=== PATIENT | female | born 1945 | race Caucasian/White ===

== ENCOUNTER 2016-08-18 18:24 | Inpatient (IN) | payer OTHER ==
[~2016-08-18] VITALS: Ht 170.2 cm; Wt 73.4 kg
[~2016-08-18 18:24] MED LIST: ATOR-22 PO; CALC600T48 PO; CHOL100010 PO; CLX/20 PO; MAGN400T6 PO; NRN100 PO; RXC5 PO; ULT/50 PO; VNTHFA/IN INH; ZNTT/150 PO
[2016-08-18] MEDS ORDERED: SODIUM CHLORIDE 0.9% 1000ML 1,000 ML IV STA ×2 (18:35)
[2016-08-18 19:03] LABS: VEN BLD GAS O2 SATURATION 63.4 %; VEN BLOOD GAS BASE EXCESS 2.6 mmol/L
[2016-08-18 19:09] LABS: BASO % 0.1 %; BASO ABS # 0.01 K/uL (0-0.2); COMPLETE YES; HEMATOCRIT 32.7 % (37-47); IG% 0.3 %; LYMPH % 10.5 %; LYMPH ABS # 0.84 K/uL (1.2-3.4); MEAN CELL VOLUME 98.8 fL (80-100); MEAN CORPUSCULAR HEMOGLOBIN 29.3 pg (25-34); MEAN CORPUSCULAR HGB CONC 29.7 g/dl (32-36); MEAN PLATELET VOLUME 9.5 fL (7.4-10.4); MONO % 9.9 %; NEUT % 77.2 %; PLATELET COUNT 211 K/uL (130-400); RED BLOOD COUNT 3.31 M/uL (4.2-5.4); WHITE BLOOD COUNT 7.98 K/uL (4.8-10.8)
--- NOTE | 2016-08-18 19:13 | DIAGNOSTIC IMAGING REPORT ---
CT SCAN OF THE BRAIN WITHOUT IV CONTRAST CLINICAL HISTORY: Generalized weakness. Falls. COMPARISON STUDY: CT of the brain dated 11/27/2014. TECHNIQUE: Unenhanced axial CT scan of the brain is performed from the vertex to the skull base. CT DOSE: 1070.57 mGy.cm FINDINGS: Brain parenchyma: There are age-related involutional changes noting [id number]-tsefyurs patchy subcortical and periventricular microangiopathic change. There is no hemorrhage, mass effect, or evidence of acute territorial ischemia by CT criteria. Buenrostro-white matter is preserved. No extra-axial fluid collection is seen. Ventricles, sulci, cisterns: Prominent secondary to involutional change. Intracranial vasculature: There is atherosclerotic calcification of the cavernous carotid arteries. Calvarium: The skeletal structures are osteopenic. No depressed calvarial fracture is seen. Sinuses and mastoids: The visualized paranasal sinuses are clear. The mastoid air cells are under pneumatized but appear clear. Orbits: The bony orbits are grossly intact. IMPRESSION: There is no hemorrhage, mass effect, or evidence of acute territorial ischemia by CT criteria. Electronically signed by: Jm Holliday M.D. 08/18/2016 7:11 PM Dictated Date/Time: 08/18/2016 7:09 PM
[2016-08-18 19:18] LABS: INR 0.9 (0.9-1.1); PARTIAL THROMBOPLASTIN RATIO 0.9
--- NOTE | 2016-08-18 19:22 | DIAGNOSTIC IMAGING REPORT ---
CT SCAN OF THE CERVICAL SPINE CLINICAL HISTORY: Fall. COMPARISON STUDY: CT of the neck dated 11/30/2014. TECHNIQUE: CT scan of the cervical spine is performed from the skull base to the upper thoracic spine. Images are reviewed in the axial, sagittal, and coronal planes. IV contrast was not administered for this examination. CT DOSE: Reported separately under the concurrently performed CT scan of the brain. FINDINGS: Skeletal structures: The skeletal structures are osteopenic. There is no evidence of fracture or subluxation involving the cervical spine. Vertebral body height and alignment are maintained. There is straightening of the cervical lordosis. Anterior osteophytes are seen throughout. The odontoid process and lateral masses are intact. The atlantoaxial articulation is preserved noting productive degenerative change with bony sclerosis and narrowing of the intervertebral. The spinous processes appear intact. There is mild to moderate multilevel cervical spondylosis. Uncovertebral and facet arthropathy contribute sterile foraminal narrowing at several levels. Intervertebral discs: Jfkz-mi-[id number] degenerative disc space narrowing seen at C4-C5 and C5-C6. The remaining disc spaces appear maintained. Central canal: A posterior disc osteophyte complex at C5-C6 may contribute to mild acquired compromise of the central canal. Soft tissues: The prevertebral and paraspinous soft tissues are within normal limits. Foci of intravenous gas are incidentally noted in the upper chest. There is atherosclerotic calcification of the carotid bulbs. Calvarium: The visualized calvarium at the skull base appears intact. Brain parenchyma: Partially visualized brain parenchyma the skull base is within normal limits. Sinuses and mastoids: The visualized paranasal sinuses are clear. The mastoid air cells are well pneumatized. Lung apices: Emphysematous change is present at the lung apices. Imaged apical lung parenchyma is clear as visualized. IMPRESSION: 1. There is no evidence of fracture or subluxation involving the cervical spine. 2. Osteopenia and degenerative change as above. Electronically signed by: Jm Holliday M.D. 08/18/2016 7:21 PM Dictated Date/Time: 08/18/2016 7:16 PM
[2016-08-18 19:29] LABS: ALT/SGPT 27 U/L (12-78); BLOOD UREA NITROGEN 33 mg/dl (7-18); BUN/CREATININE RATIO 13.1 (10-20); CALCIUM 8.2 mg/dl (8.5-10.1); CARBON DIOXIDE 29 mmol/L (21-32); CHLORIDE 108 mmol/L (98-107); GLUCOSE 90 mg/dl (70-99); MAGNESIUM 2.8 mg/dl (1.8-2.4); POTASSIUM 5.2 mmol/L (3.5-5.1); SODIUM 142 mmol/L (136-145)
[2016-08-18 19:37] LABS: ALKALINE PHOSPHATASE 147 U/L (45-117); AST/SGOT 33 U/L (15-37); CKMB/CK RATIO 1.5 (0-3.0); THYROID STIMULATING HORMONE 0.783 uIu/ml (0.300-4.500)
[2016-08-18 19:43] LABS: URINE APPEARANCE CLOUDY (CLEAR); URINE COLOR DK YELLOW; URINE EPITHELIAL CELL AUTO 20-30 /lpf (0-5); URINE NITRITE NEG (NEG); URINE SPECIFIC GRAVITY 1.021 (1.000-1.030); UROBILINOGEN NEG (NEG)
--- NOTE | 2016-08-18 19:46 | DIAGNOSTIC IMAGING REPORT ---
SINGLE VIEW CHEST CLINICAL HISTORY: Generalized weakness. FINDINGS: An AP, portable, semierect chest radiograph is compared to chest x-ray and chest CT dated 02/15/2016. The examination is degraded by portable technique and patient rotation. The heart is enlarged and there is atherosclerotic calcification of the thoracic aorta. The pulmonary vasculature is noncongested. Enlargement of the central pulmonary arteries suggests pulmonary artery hypertension. Emphysema and chronic interstitial thickening are similar to previous. There is bibasilar atelectasis. There is no airspace consolidation typical for pneumonia or large pleural effusion. No pneumothorax is seen. The skeletal structures are osteopenic. The bony thorax is grossly intact. IMPRESSION: Cardiomegaly and emphysema with no acute cardiopulmonary abnormality. Electronically signed by: Jm Holliday M.D. 08/18/2016 7:45 PM Dictated Date/Time: 08/18/2016 7:43 PM
[2016-08-18] MEDS ORDERED: NALOXONE HCL 0.4 MG/1 ML VIAL/CARP IV STA ×5 (19:53→22:37)
[2016-08-18 20:41] LABS: MANUAL MICROSCOPIC REQUIRED? NO; REVIEW REQ? YES; URINE BILIRUBIN NEG (NEG)
[2016-08-18 20:47] LABS: URINE PATH CASTS 0-3 GRANULAR CASTS /lpf (0)
[2016-08-18] MEDS ORDERED: ALBUT/IPRATROP 3MG/0.5MG NEB 3 ML VIAL INH STA (21:23)
[2016-08-18] MEDS ORDERED: SODIUM CHLORIDE 0.9% 1000ML 1,000 ML IV SCH (21:36)
[2016-08-18] MEDS ORDERED: CEFTRIAXONE SOD INJ 1 GM ADDVIAL IV STA ×2 (21:36→22:37)
--- NOTE | 2016-08-18 21:44 | History and Physical ---
History & Physical Date & Time of Service: Aug 18, 2016 at 21:43 Chief Complaint: Falls, Weakness, Primary Care Physician: Luli Jones M.D. History of Present Illness Source: patient, spouse, clinic records, hospital records, other (unable to currently obtain history from patient secondary to obtunded state) Recent confinement, January 2016 for hypoxemia attributed to atelectasis from sternal fracture. At time of discharge patient oxygenating well on room air. Patient had a follow-up visit with PCP a few days ago. As per outpatient note, patient hasn't been well since injury from months back. Short of breath especially with exertion. Back pain, achy some trouble with walking. Outpatient chest x-ray showed COPD. Back x-ray showed arthritis. At PCPs office, patient noted to be hypoxemic 70s which improved with some rest. Patient refused home O2 as per records. Patient prescribed oxycodone twice a day as needed for back pain. As per patient's , patient has not been well the last 2 days. Weak and having trouble walking. Patient fell down yesterday, a little confused as per . Patient not sure if patient passed out. At the emergency room, patient noted to have decreased mentation with some improvement after Narcan administration. Patient currently obtunded. Past Medical/Surgical History Medical Problems: (1) Anxiety Status: Chronic (2) CKD (chronic kidney disease) stage 3, GFR 30-59 ml/min Status: baseline crea 1.3 (3) COPD, severe Status: Chronic (4) Depression Status: Chronic (5) Dyslipidemia Status: Chronic (6) Generalized osteoarthritis Status: Chronic (7) Stress incontinence Status: Chronic Surgical Problems: (1) Hx of cholecystectomy Status: Resolved (2) Hx of oophorectomy Status: Resolved (3) S/P appendectomy Status: Resolved Gastric surgery Family History Patient reports no known family medical history. DM, hypertension as per previous documentation Social History Past tobacco abuse Smoking Status: Former Smoker Drug Use: none Marital Status: Housing status: lives with family Occupational Status: retired Immunizations History of Influenza Vaccine: Yes Influenza Vaccine Date: Jan 09, 2010 History of Tetanus Vaccine?: Yes History of Pneumococcal: Yes History of Hepatitis B Vaccine: No Allergies Coded Allergies: Codeine (Verified Allergy, Unknown, UNKNOWN, 08/18/16) Home Medications Scheduled Atorvastatin (Lipitor), 20 MG PO DAILY Calcium Carbonate (Calcium Carbonate), 1 TAB PO BID Cholecalciferol (Vitamin D), 1,000 INTER.UNIT PO DAILY Citalopram (Citalopram Hydrobromide), 30 MG PO DAILY Gabapentin (Gabapentin), 300 MG PO HS Magnesium Oxide (Mag-Ox), 400 MG PO DAILY Ranitidine (Zantac), 150 MG PO BID Scheduled PRN Oxycodone HCl (Oxycodone HCl), 5 MG PO Q12 PRN for severe pain Tramadol Hcl (Ultram), 50 MG PO Q8 PRN for Pain Review of Systems Could not be obtained Physical Exam Vital Signs Date Time Temp Pulse Resp B/P (MAP) Pulse Ox O2 Delivery O2 Flow Rate FiO2 08/18/16 21:05 84 15 98 Nasal Cannula 4.0 08/18/16 21:01 123/72 08/18/16 20:35 84 17 100 Nasal Cannula 4.0 08/18/16 20:31 158/93 08/18/16 20:00 120/72 08/18/16 19:35 70 16 100 Nasal Cannula 2.0 08/18/16 19:30 114/64 08/18/16 19:24 71 14 100 Nasal Cannula 5.0 08/18/16 19:18 108/61 08/18/16 18:35 80 08/18/16 18:33 36.9 75 18 119/82 98 Nasal Cannula 4.0 08/18/16 18:31 119/82 08/18/16 18:29 Nasal Cannula 4.0 General Appearance: + pertinent finding (obtunded) Head: normocephalic Eyes: PERRL, sclerae normal ENT: + pertinent finding (nasal cannula in place) Neck: + pertinent finding (short) Respiratory/Chest: + pertinent finding (decrease effort) Cardiovascular: regular rate, rhythm Abdomen/GI: soft (soft) Extremities/Musculoskelatal: non-tender Neurologic/Psych: + pertinent finding (obtunded) Skin: + pallor Diagnostics Laboratory Results Results Past 24 Hours Test 08/18/16 18:43 08/18/16 18:56 08/18/16 18:58 08/18/16 19:25 Range/Units Bedside Glucose 94 70-90 mg/dl White Blood Count 7.98 4.8-10.8 K/uL Red Blood Count 3.31 4.2-5.4 M/uL Hemoglobin 9.7 12.0-16.0 g/dL Hematocrit 32.7 37-47 % Mean Corpuscular Volume 98.8 80-100 fL Mean Corpuscular Hemoglobin 29.3 25-34 pg Mean Corpuscular Hemoglobin Concent 29.7 32-36 g/dl Platelet Count 211 130-400 K/uL Mean Platelet Volume 9.5 7.4-10.4 fL Neutrophils (%) (Auto) 77.2 % Lymphocytes (%) (Auto) 10.5 % Monocytes (%) (Auto) 9.9 % Eosinophils (%) (Auto) 2.0 % Basophils (%) (Auto) 0.1 % Neutrophils # (Auto) 6.16 1.4-6.5 K/uL Lymphocytes # (Auto) 0.84 1.2-3.4 K/uL Monocytes # (Auto) 0.79 0.11-0.59 K/uL Eosinophils # (Auto) 0.16 0-0.5 K/uL Basophils # (Auto) 0.01 0-0.2 K/uL RDW Standard Deviation 56.6 36.4-46.3 fL RDW Coefficient of Variation 15.8 11.5-14.5 % Immature Granulocyte % (Auto) 0.3 % Immature Granulocyte # (Auto) 0.02 0.00-0.02 K/uL Prothrombin Time 10.0 9.0-12.0 SECONDS Prothromb Time International Ratio 0.9 0.9-1.1 Activated Partial Thromboplast Time 23.4 21.0-31.0 SECONDS Partial Thromboplastin Ratio 0.9 Venous Blood pH 7.29 7.36-7.41 Venous Blood Partial Pressure CO2 64 38.0-50.0 mmHg Venous Blood Partial Pressure O2 35 mmHg Venous Blood HCO3 30 mmol/L Venous Blood Oxygen Saturation 63.4 % Venous Blood Base Excess 2.6 mmol/L Sodium Level 142 136-145 mmol/L Potassium Level 5.2 3.5-5.1 mmol/L Chloride Level 108 98-107 mmol/L Carbon Dioxide Level 29 21-32 mmol/L Anion Gap 5.0 3-11 mmol/L Blood Urea Nitrogen 33 7-18 mg/dl Creatinine 2.50 0.60-1.20 mg/dl Est Creatinine Clear Calc Drug Dose 22.7 ml/min Estimated GFR () 21.7 Estimated GFR (Non- 18.7 BUN/Creatinine Ratio 13.1 10-20 Random Glucose 90 70-99 mg/dl Calcium Level 8.2 8.5-10.1 mg/dl Magnesium Level 2.8 1.8-2.4 mg/dl Total Bilirubin 0.7 0.2-1 mg/dl Direct Bilirubin 0.3 0-0.2 mg/dl Aspartate Amino Transf (AST/SGOT) 33 15-37 U/L Alanine Aminotransferase (ALT/SGPT) 27 12-78 U/L Alkaline Phosphatase 147 45-117 U/L Ammonia 22.0 11-32 umol/L Total Creatine Kinase 311 26-192 U/L Creatine Kinase MB 4.8 0.5-3.6 ng/ml Creatine Kinase MB Ratio 1.5 0-3.0 Troponin I < 0.015 0-0.045 ng/ml Total Protein 6.2 6.4-8.2 gm/dl Albumin 3.1 3.4-5.0 gm/dl Lipase 79 73-393 U/L Thyroid Stimulating Hormone (TSH) 0.783 0.300-4.500 uIu/ml Bedside Lactic Acid Venous 0.35 0.90-1.70 mmol/L Urine Color DK YELLOW Urine Appearance CLOUDY CLEAR Urine pH 5.0 4.5-7.5 Urine Specific [place] 1.021 1.000-1.030 Urine Protein NEG NEG Urine Glucose (UA) NEG NEG Urine Ketones TRACE NEG Urine Occult Blood NEG NEG Urine Nitrite NEG NEG Urine Bilirubin NEG NEG Urine Urobilinogen NEG NEG Urine Leukocyte Esterase TRACE NEG Urine WBC (Auto) 1-5 0-5 /hpf Urine RBC (Auto) 5-10 0-4 /hpf Urine Hyaline Casts (Auto) 10-30 0-5 /lpf Urine Epithelial Cells (Auto) 20-30 0-5 /lpf Urine Bacteria (Auto) NEG NEG Urine Pathogenic Casts 0-3 GRANULAR CASTS 0 /lpf Microbiology Results 08/18/16 Blood Culture, Received Pending 08/18/16 Blood Culture, Received Pending 08/18/16 Urine Culture, Received Pending Diagnostic Radiology CT SCAN OF THE BRAIN WITHOUT IV CONTRAST CLINICAL HISTORY: Generalized weakness. Falls. COMPARISON STUDY: CT of the brain dated 11/27/2014. TECHNIQUE: Unenhanced axial CT scan of the brain is performed from the vertex to the skull base. CT DOSE: 1070.57 mGy.cm FINDINGS: Brain parenchyma: There are age-related involutional changes noting [id number] patchy subcortical and periventricular microangiopathic change. There is no hemorrhage, mass effect, or evidence of acute territorial ischemia by CT criteria. Buenrostro-white matter is preserved. No extra-axial fluid collection is seen. Ventricles, sulci, cisterns: Prominent secondary to involutional change. Intracranial vasculature: There is atherosclerotic calcification of the cavernous carotid arteries. Calvarium: The skeletal structures are osteopenic. No depressed calvarial fracture is seen. Sinuses and mastoids: The visualized paranasal sinuses are clear. The mastoid air cells are under pneumatized but appear clear. Orbits: The bony orbits are grossly intact. IMPRESSION: There is no hemorrhage, mass effect, or evidence of acute territorial ischemia by CT criteria. Electronically signed by: Jm Holliday M.D. 08/18/2016 7:11 PM Dictated Date/Time: 08/18/2016 7:09 PM SINGLE VIEW CHEST CLINICAL HISTORY: Generalized weakness. FINDINGS: An AP, portable, semierect chest radiograph is compared to chest x-ray and chest CT dated 02/15/2016. The examination is degraded by portable technique and patient rotation. The heart is enlarged and there is atherosclerotic calcification of the thoracic aorta. The pulmonary vasculature is noncongested. Enlargement of the central pulmonary arteries suggests pulmonary artery hypertension. Emphysema and chronic interstitial thickening are similar to previous. There is bibasilar atelectasis. There is no airspace consolidation typical for pneumonia or large pleural effusion. No pneumothorax is seen. The skeletal structures are osteopenic. The bony thorax is grossly intact. IMPRESSION: Cardiomegaly and emphysema with no acute cardiopulmonary abnormality. Electronically signed by: Jm Holliday M.D. 08/18/2016 7:45 PM Dictated Date/Time: 08/18/2016 7:[address] SCAN OF THE CERVICAL SPINE CLINICAL HISTORY: Fall. COMPARISON STUDY: CT of the neck dated 11/30/2014. TECHNIQUE: CT scan of the cervical spine is performed from the skull base to the upper thoracic spine. Images are reviewed in the axial, sagittal, and coronal planes. IV contrast was not administered for this examination. CT DOSE: Reported separately under the concurrently performed CT scan of the brain. FINDINGS: Skeletal structures: The skeletal structures are osteopenic. There is no evidence of fracture or subluxation involving the cervical spine. Vertebral body height and alignment are maintained. There is straightening of the cervical lordosis. Anterior osteophytes are seen throughout. The odontoid process and lateral masses are intact. The atlantoaxial articulation is preserved noting productive degenerative change with bony sclerosis and narrowing of the intervertebral. The spinous processes appear intact. There is mild to moderate multilevel cervical spondylosis. Uncovertebral and facet arthropathy contribute sterile foraminal narrowing at several levels. Intervertebral discs: [id number] degenerative disc space narrowing seen at C4-C5 and C5-C6. The remaining disc spaces appear maintained. Central canal: A posterior disc osteophyte complex at C5-C6 may contribute to mild acquired compromise of the central canal. Soft tissues: The prevertebral and paraspinous soft tissues are within normal limits. Foci of intravenous gas are incidentally noted in the upper chest. There is atherosclerotic calcification of the carotid bulbs. Calvarium: The visualized calvarium at the skull base appears intact. Brain parenchyma: Partially visualized brain parenchyma the skull base is within normal limits. Sinuses and mastoids: The visualized paranasal sinuses are clear. The mastoid air cells are well pneumatized. Lung apices: Emphysematous change is present at the lung apices. Imaged apical lung parenchyma is clear as visualized. IMPRESSION: 1. There is no evidence of fracture or subluxation involving the cervical spine. 2. Osteopenia and degenerative change as above. Electronically signed by: Jm Holliday M.D. 08/18/2016 7:21 PM Dictated Date/Time: 08/18/2016 7:16 PM EKG As per my read, no ischemia Impression Assessment and Plan AP Encephalopathy ? Opioid overdose, patient presenting with myoclonic jerks, some response to Narcan given at the ER. ? UTI ARF on CRI Hypercapnia from COPD may be adding to decreased mentation Possible syncope Differentials : orthostasis, obstructive cardiac pathology, seizures Chronic anemia secondary to CKD, hemoglobin at baseline Past tobacco abuse PCU Urine tox Hold narcotics for now, Narcan when necessary Monitor creatinine response IV fluids Follow urine cultures, IV ceftriaxone for poss UTI until able to obtain more hx from px CT abdomen and pelvis RE back pain rule out kidney stone BiPAP, follow-up ABG, solumedrol, nebs for poss COPD flare up TTE, EEG; orthostatic VS (once px awake) for syncope workup Further management pending workup results PT OT eval DVT prophylaxis . Heparin subcutaneous Full code as per JIN Varela. Contact numbers : [phone], . VTE Prophylaxis VTE Risk Assessment Done? Y/N: Yes Risk Level: Moderate
[2016-08-18] MEDS ORDERED: SODIUM CHLORIDE 0.45% 1000ML 1,000 ML IV SCH (21:45)
[2016-08-18] MEDS ORDERED: ONDANSETRON INJ 2 MG/ML 2 ML VIAL IV PRN (21:45)
[2016-08-18 21:47] LABS: BENZODIAZEPINE, URINE NEG (NEG); COCAINE,URINE NEG (NEG); PHENCYCLIDINE, URINE NEG (NEG)
--- NOTE | 2016-08-18 22:20 | DIAGNOSTIC IMAGING REPORT ---
CT SCAN OF THE ABDOMEN AND PELVIS WITHOUT IV CONTRAST CLINICAL HISTORY: Back pain. COMPARISON STUDY: Abdominal CT dated 04/12/2010. TECHNIQUE: CT scan of the abdomen and pelvis is performed from the lung bases to the proximal femora. Images are reviewed in the axial, sagittal, and coronal planes. IV contrast was not administered for this examination as per the front clinician. Note that the examination was performed and significant suboptimal fashion without oral and IV contrast. Automated dose control exposure was utilized. The examination is degraded by streak artifact from the patient's arms which could not be elevated above the abdomen as well as motion artifact. CT DOSE: 830.60 mGy.cm FINDINGS: Lung bases: The heart is normal in size and without pericardial effusion. Emphysema is suspected. There is bibasilar scarring versus atelectasis. No airspace consolidation or pleural effusion is identified a tiny hiatal hernia is observed. A surgical clip is noted at the gastroesophageal junction. Liver: Evaluation of the liver is degraded by streak and motion artifact. The unenhanced liver is normal in size, contour, and attenuation. There is central intrahepatic biliary ductal dilatation. Gallbladder: Not identified and presumed surgically absent. Spleen: Normal in size and attenuation. Pancreas: Unenhanced pancreas is markedly atrophic and grossly unremarkable. Adrenal glands: Unremarkable. Kidneys: The unenhanced kidneys are atrophic and without hydronephrosis. There are no renal calculi identified. There is no evidence of contour deforming renal mass lesion. Abdominal vasculature: The abdominal aorta is normal in course and caliber noting moderate to advanced atherosclerotic calcification. 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 No bowel obstruction is seen. There is moderate colonic diverticulosis without CT evidence of acute diverticulitis. Colonic fecal retention is observed. The appendix is not identified. Peritoneum: There is no intraperitoneal free air or abdominal ascites. Lymphadenopathy: None. Pelvic viscera: The bladder is normal as visualized. The uterus and adnexa are normal as imaged. Skeletal structures: The skeletal structures are osteopenic. Mild to moderate spondylotic change in observed. There are healed left pubic ring fractures. Mild arthritic change is noted in the hips. No lytic or blastic lesions are seen. IMPRESSION: 1. Significantly suboptimal examination without oral and IV contrast. The examination is also by streak and motion artifact. 2. There are no acute infectious or inflammatory findings in the abdomen or pelvis. 3. 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 No bowel obstruction is seen. 4. Moderate colonic diverticulosis without CT evidence of acute diverticulitis. 5. Additional findings as above. Electronically signed by: Jm Holliday M.D. 08/18/2016 10:19 PM Dictated Date/Time: 08/18/2016 10:12 PM
[2016-08-18 22:30] VITALS: BP 151/86; PULSE 84; TEMP 36.8; O2SAT 97
[2016-08-18] MEDS ORDERED: POLYETHYLENE (MIRALAX) 17 GM PACK PO PRN (22:30)
[2016-08-18 22:39] VITALS: PULSE 78; O2SAT 92
[2016-08-18] MEDS ORDERED: METHYLPREDNISOLONE IV 20 MG in SYRINGE 0 ML IV ONE (22:45)
[2016-08-18] MEDS: HEPARIN SOD 5000 UNIT/0.5 ML CARP SQ SCH (22:48)
[2016-08-18] MEDS ORDERED: CEFTRIAXONE SOD INJ 1000 MG in DEXTROSE 5% 50ML IV ONE (23:00)
[2016-08-19] VITALS (15 sets, daily range): BP systolic 96–153; BP diastolic 60–86; PULSE 67–86; TEMP 36.6–37; O2SAT 85–100; Ht 170.2 cm; Wt 73.4 kg
[2016-08-19 00:37] LABS: BUN/CREATININE RATIO 14.7 (10-20); CALCIUM 8.2 mg/dl (8.5-10.1)
[2016-08-19 00:51] LABS: ALLEN TEST POS (POS); ARTERIAL BLD GAS O2 SATURATION 90.2 % (90-95); ARTERIAL BLOOD GAS BASE EXCESS 1.5 mEq/L (-9-1.8); ARTERIAL BLOOD GAS HCO3 28 mmol/L (19-24); ARTERIAL BLOOD GAS PO2 66 mm/Hg (80-95); ARTERIAL BLOOD GAS pH 7.32 (7.35-7.45); O2 ADMINISTRATION 6L BIPAP
--- NOTE | 2016-08-19 03:10 | EMERGENCY ROOM VISIT NOTE ---
History Report prepared by [place]: [place] Under the Supervision of: Dr. Chris Cao M.D. First contact with patient: 18:28 Chief Complaint: FALL Stated Complaint: FALLS, WEAKNESS, History of Present Illness The patient is a 70 year old female who presents to the Emergency Room with complaints of episodes of falls occurring over the past two days. The patient reports that she is unsure if she hit her head. The patient complains of weakness, shortness of breath. She complains of head pain, neck pain, back pain , leg pain, and arm pain associated with the falls. The patient denies chest pain, abdominal pain, and vomiting. History is limited secondary to mental status. Source of History: patient History Limited By: AMS Onset: two days ago Position: other (global) Quality: other (global) Timing: other (episode) Associated Symptoms: + neck pain, + SOB, + back pain, + weakness, No chest pain, No vomiting, No abdominal pain Note: The patient complains of leg pain and arm pain. Review of Systems Review of systems is limited secondary to mental status. Past Medical & Surgical Medical Problems: (1) Anxiety (2) ARF (acute renal failure) (3) CKD (chronic kidney disease) stage 3, GFR 30-59 ml/min (4) COPD, severe (5) Depression (6) Dyslipidemia (7) Generalized osteoarthritis (8) Hyperkalemia (9) Hypoxia (10) Stress incontinence Surgical Problems: (1) Hx of cholecystectomy (2) Hx of oophorectomy (3) S/P appendectomy Family History Patient reports no known family medical history. Social History Smoking Status: Never Smoker Drug Use: none Marital Status: Housing Status: lives with significant other Occupation Status: retired Current/Historical Medications Scheduled Atorvastatin (Lipitor), 20 MG PO DAILY Calcium Carbonate (Calcium Carbonate), 1 TAB PO BID Cholecalciferol (Vitamin D), 1,000 INTER.UNIT PO DAILY Citalopram (Citalopram Hydrobromide), 30 MG PO DAILY Gabapentin (Gabapentin), 300 MG PO HS Magnesium Oxide (Mag-Ox), 400 MG PO DAILY Ranitidine (Zantac), 150 MG PO BID Scheduled PRN Oxycodone HCl (Oxycodone HCl), 5 MG PO Q12 PRN for severe pain Tramadol Hcl (Ultram), 50 MG PO Q8 PRN for Pain Allergies Coded Allergies: Codeine (Verified Allergy, Unknown, UNKNOWN, 08/18/16) Physical Exam Vital Signs Date Time Temp Pulse Resp B/P (MAP) Pulse Ox O2 Delivery O2 Flow Rate FiO2 08/18/16 20:00 120/72 08/18/16 19:35 70 16 100 Nasal Cannula 2.0 08/18/16 19:30 114/64 08/18/16 19:24 71 14 100 Nasal Cannula 5.0 08/18/16 19:18 108/61 08/18/16 18:35 80 08/18/16 18:33 36.9 75 18 119/82 98 Nasal Cannula 4.0 08/18/16 18:31 119/82 08/18/16 18:29 Nasal Cannula 4.0 Physical Exam GENERAL: Patient appears lethargic, but arouses to voice. Patient falls asleep very easily. HENT: Normocephalic, atraumatic. Oropharynx unremarkable. EYES: Normal conjunctiva. Sclera non-icteric. NECK: Supple. No nuchal rigidity. FROM. No JVD. RESPIRATORY: Clear to auscultation. CARDIAC: Regular rate, normal rhythm. Extremities warm and well perfused. Pulses equal. ABDOMEN: Soft, non-distended. No tenderness to palpation. No rebound or guarding. No masses. RECTAL: Deferred. MUSCULOSKELETAL: Chest examination reveals no tenderness. The back is symmetrical on inspection without obvious abnormality. There is no CVA tenderness to palpation. No joint edema. No gross bone deformities or obvious fractures. Good range of motion in hips. LOWER EXTREMITIES: Calves are equal size bilaterally and non-tender. 1+ edema. No discoloration. Small bruise on left knee. NEURO: Altered sensorium. No sensory or motor deficits noted. SKIN: No rash or jaundice noted. Medical Decision & Procedures ER Provider Diagnostic Interpretation: Radiology results as stated below per my review and radiologist interpretation: CT SCAN OF THE BRAIN WITHOUT IV CONTRAST CLINICAL HISTORY: Generalized weakness. Falls. COMPARISON STUDY: CT of the brain dated 11/27/2014. TECHNIQUE: Unenhanced axial CT scan of the brain is performed from the vertex to the skull base. CT DOSE: 1070.57 mGy.cm FINDINGS: Brain parenchyma: There are age-related involutional changes noting [id number] patchy subcortical and periventricular microangiopathic change. There is no hemorrhage, mass effect, or evidence of acute territorial ischemia by CT criteria. Buenrostro-white matter is preserved. No extra-axial fluid collection is seen. Ventricles, sulci, cisterns: Prominent secondary to involutional change. Intracranial vasculature: There is atherosclerotic calcification of the cavernous carotid arteries. Calvarium: The skeletal structures are osteopenic. No depressed calvarial fracture is seen. Sinuses and mastoids: The visualized paranasal sinuses are clear. The mastoid air cells are under pneumatized but appear clear. Orbits: The bony orbits are grossly intact. IMPRESSION: There is no hemorrhage, mass effect, or evidence of acute territorial ischemia by CT criteria. Electronically signed by: Jm Holliday M.D. 08/18/2016 7:11 PM Dictated Date/Time: 08/18/2016 7:09 PM SINGLE VIEW CHEST CLINICAL HISTORY: Generalized weakness. FINDINGS: An AP, portable, semierect chest radiograph is compared to chest x-ray and chest CT dated 02/15/2016. The examination is degraded by portable technique and patient rotation. The heart is enlarged and there is atherosclerotic calcification of the thoracic aorta. The pulmonary vasculature is noncongested. Enlargement of the central pulmonary arteries suggests pulmonary artery hypertension. Emphysema and chronic interstitial thickening are similar to previous. There is bibasilar atelectasis. There is no airspace consolidation typical for pneumonia or large pleural effusion. No pneumothorax is seen. The skeletal structures are osteopenic. The bony thorax is grossly intact. IMPRESSION: Cardiomegaly and emphysema with no acute cardiopulmonary abnormality. Electronically signed by: Jm Holliday M.D. 08/18/2016 7:45 PM Dictated Date/Time: 08/18/2016 7:[address] SCAN OF THE CERVICAL SPINE CLINICAL HISTORY: Fall. COMPARISON STUDY: CT of the neck dated 11/30/2014. TECHNIQUE: CT scan of the cervical spine is performed from the skull base to the upper thoracic spine. Images are reviewed in the axial, sagittal, and coronal planes. IV contrast was not administered for this examination. CT DOSE: Reported separately under the concurrently performed CT scan of the brain. FINDINGS: Skeletal structures: The skeletal structures are osteopenic. There is no evidence of fracture or subluxation involving the cervical spine. Vertebral body height and alignment are maintained. There is straightening of the cervical lordosis. Anterior osteophytes are seen throughout. The odontoid process and lateral masses are intact. The atlantoaxial articulation is preserved noting productive degenerative change with bony sclerosis and narrowing of the intervertebral. The spinous processes appear intact. There is mild to moderate multilevel cervical spondylosis. Uncovertebral and facet arthropathy contribute sterile foraminal narrowing at several levels. Intervertebral discs: Bqry-hx-llihipci degenerative disc space narrowing seen at C4-C5 and C5-C6. The remaining disc spaces appear maintained. Central canal: A posterior disc osteophyte complex at C5-C6 may contribute to mild acquired compromise of the central canal. Soft tissues: The prevertebral and paraspinous soft tissues are within normal limits. Foci of intravenous gas are incidentally noted in the upper chest. There is atherosclerotic calcification of the carotid bulbs. Calvarium: The visualized calvarium at the skull base appears intact. Brain parenchyma: Partially visualized brain parenchyma the skull base is within normal limits. Sinuses and mastoids: The visualized paranasal sinuses are clear. The mastoid air cells are well pneumatized. Lung apices: Emphysematous change is present at the lung apices. Imaged apical lung parenchyma is clear as visualized. IMPRESSION: 1. There is no evidence of fracture or subluxation involving the cervical spine. 2. Osteopenia and degenerative change as above. Electronically signed by: Jm Holliday M.D. 08/18/2016 7:21 PM Dictated Date/Time: 08/18/2016 7:16 PM Laboratory Results 08/18/16 18:56 Red Blood Count 3.31, Mean Corpuscular Volume 98.8, Mean Corpuscular Hemoglobin 29.3, Mean Corpuscular Hemoglobin Concent 29.7, Mean Platelet Volume 9.5, Neutrophils (%) (Auto) 77.2, Lymphocytes (%) (Auto) 10.5, Monocytes (%) (Auto) 9.9, Eosinophils (%) (Auto) 2.0, Basophils (%) (Auto) 0.1, Neutrophils # (Auto) 6.16, Lymphocytes # (Auto) 0.84, Monocytes # (Auto) 0.79, Eosinophils # (Auto) 0.16, Basophils # (Auto) 0.01 Test 08/18/16 18:43 08/18/16 18:56 08/18/16 18:58 08/18/16 19:25 Bedside Glucose 94 mg/dl (70-90) White Blood Count 7.98 K/uL (4.8-10.8) Red Blood Count 3.31 M/uL (4.2-5.4) Hemoglobin 9.7 g/dL (12.0-16.0) Hematocrit 32.7 % (37-47) Mean Corpuscular Volume 98.8 fL (80-100) Mean Corpuscular Hemoglobin 29.3 pg (25-34) Mean Corpuscular Hemoglobin Concent 29.7 g/dl (32-36) Platelet Count 211 K/uL (130-400) Mean Platelet Volume 9.5 fL (7.4-10.4) Neutrophils (%) (Auto) 77.2 % Lymphocytes (%) (Auto) 10.5 % Monocytes (%) (Auto) 9.9 % Eosinophils (%) (Auto) 2.0 % Basophils (%) (Auto) 0.1 % Neutrophils # (Auto) 6.16 K/uL (1.4-6.5) Lymphocytes # (Auto) 0.84 K/uL (1.2-3.4) Monocytes # (Auto) 0.79 K/uL (0.11-0.59) Eosinophils # (Auto) 0.16 K/uL (0-0.5) Basophils # (Auto) 0.01 K/uL (0-0.2) RDW Standard Deviation 56.6 fL (36.4-46.3) RDW Coefficient of Variation 15.8 % (11.5-14.5) Immature Granulocyte % (Auto) 0.3 % Immature Granulocyte # (Auto) 0.02 K/uL (0.00-0.02) Prothrombin Time 10.0 SECONDS (9.0-12.0) Prothromb Time International Ratio 0.9 (0.9-1.1) Activated Partial Thromboplast Time 23.4 SECONDS (21.0-31.0) Partial Thromboplastin Ratio 0.9 Venous Blood pH 7.29 (7.36-7.41) Venous Blood Partial Pressure CO2 64 mmHg (38.0-50.0) Venous Blood Partial Pressure O2 35 mmHg Venous Blood HCO3 30 mmol/L Venous Blood Oxygen Saturation 63.4 % Venous Blood Base Excess 2.6 mmol/L Magnesium Level 2.8 mg/dl (1.8-2.4) Total Bilirubin 0.7 mg/dl (0.2-1) Direct Bilirubin 0.3 mg/dl (0-0.2) Aspartate Amino Transf (AST/SGOT) 33 U/L (15-37) Alanine Aminotransferase (ALT/SGPT) 27 U/L (12-78) Alkaline Phosphatase 147 U/L (45-117) Ammonia 22.0 umol/L (11-32) Total Creatine Kinase 311 U/L (26-192) Creatine Kinase MB 4.8 ng/ml (0.5-3.6) Creatine Kinase MB Ratio 1.5 (0-3.0) Troponin I < 0.015 ng/ml (0-0.045) Total Protein 6.2 gm/dl (6.4-8.2) Albumin 3.1 gm/dl (3.4-5.0) Lipase 79 U/L (73-393) Thyroid Stimulating Hormone (TSH) 0.783 uIu/ml (0.300-4.500) Bedside Lactic Acid Venous 0.35 mmol/L (0.90-1.70) Urine Color DK YELLOW Urine Appearance CLOUDY (CLEAR) Urine pH 5.0 (4.5-7.5) Urine Specific [place] 1.021 (1.000-1.030) Urine Protein NEG (NEG) Urine Glucose (UA) NEG (NEG) Urine Ketones TRACE (NEG) Urine Occult Blood NEG (NEG) Urine Nitrite NEG (NEG) Urine Bilirubin NEG (NEG) Urine Urobilinogen NEG (NEG) Urine Leukocyte Esterase TRACE (NEG) Urine WBC (Auto) 1-5 /hpf (0-5) Urine RBC (Auto) 5-10 /hpf (0-4) Urine Hyaline Casts (Auto) 10-30 /lpf (0-5) Urine Epithelial Cells (Auto) 20-30 /lpf (0-5) Urine Bacteria (Auto) NEG (NEG) Urine Pathogenic Casts 0-3 GRANULAR CASTS /lpf (0) Urine Opiates Screen NEG (NEG) Urine Methadone, Qualitative NEG (NEG) Urine Barbiturates NEG (NEG) Urine Phencyclidine (PCP) Level NEG (NEG) Ur Amphetamine/Methamphetamine NEG (NEG) MDMA (Ecstasy) Screen NEG (NEG) Urine Benzodiazepines Screen NEG (NEG) Urine Cocaine Metabolite NEG (NEG) Urine Marijuana (THC) NEG (NEG) Laboratory results reviewed by me Medications Administered Medications (Trade) Dose Ordered Sig/Kayla Route Start Time Stop Time Status Last Admin Dose Admin Sodium Chloride 1,000 ml @ 999 mls/hr Q1H1M STAT IV 08/18/16 18:35 08/18/16 19:35 DC 08/18/16 18:56 999 MLS/HR Sodium Chloride 1,000 ml @ 125 mls/hr Q8H STAT IV 08/18/16 18:35 08/18/16 22:21 DC 08/18/16 18:57 125 MLS/HR Naloxone HCl (Narcan Inj) 0.4 mg NOW STAT IV 08/18/16 19:53 08/18/16 19:54 DC 08/18/16 20:01 0.4 MG Naloxone HCl (Narcan Inj) 0.4 mg NOW STAT IV 08/18/16 20:12 08/18/16 20:13 DC 08/18/16 20:16 0.4 MG ECG Indication: weakness Rate (beats per minute): 78 Rhythm: normal sinus Findings: no acute ischemic change, no ectopy, other (slight J point elevation) ED Course 1830: The patient was evaluated in room A2. A complete history and physical exam was performed. 1834: Ordered NSS 1000 ml @ 125 mls/hr IV, NSS 1000 ml @ 999 mls/hr IV. 1934: Ordered Narcan Inj 0.4 mg IV. 2011: Ordered Narcan Inj 0.4 mg IV. 2013: The patient was given a dose of Narcan and is now awake. She is able to answer questions. 2101: Discussed the patient's case Dr Baez. The patient will be evaluated for further treatment and disposition. Medical Decision Medication Reconciliation: I attest that I have personally reviewed the patient' s current medication list Blood pressure screening: Patient was found to have an elevated blood pressure and will be further monitored by the hospitalist, but cannot be referred due to AMS. Prior records/ancillary studies reviewed and summarized above. Nursing notes reviewed and agree them. The patient's history was concerning for altered mental status. Differential diagnosis: Etiologies such as infection, hypoglycemia, electrolyte abnormalities, cardiac sources, intracerebral event, toxicologic, neurologic, as well as others were entertained. Physical examination: As above. The patient was very sleepy but arousable ER treatment provided: IV Lock Normal saline hydration IV Narcan 0.4 mg 2 with resultant change in mental status On reassessment the patient felt better. Diagnostics interpretation by me: ECG: Sinus rhythm The labs revealed an unremarkable CBC and chemistry panel except for an elevated creatinine concerning for acute kidney injury. ABG showed a slight elevation of CO2. The patient's urinalysis was unremarkable. Urine drug screen negative. Imaging studies: As above The patient was very lethargic. She was given Narcan and this improved her mental status. She became sleepy again and received an additional dose with similar results. The patient states that she may have taken some pain medication because of her back pain but she was not forthcoming with details. She will require further evaluation and management in the hospital. Consultation will be made with the internal medicine team. Consultation: A consultation was placed with the hospitalist. The case was discussed and diagnostics were reviewed. The patient was evaluated in the ER for further treatment. [place] Drug Monitoring Program Search Results: patient reviewed within database Drug Monitoring Findings: The patient has had multiple prescriptions this year for narcotics. Consults Time Called: 2016 Consulting Physician: Dr. Baez Returned Call: [id number] Discussed the patient's case Dr Baez. The patient will be evaluated for further treatment and disposition. Impression Primary Impression: Altered mental status Additional Impressions: Acute kidney injury Dehydration Fall Scribe Attestation The scribe's documentation has been prepared under my direction and personally reviewed by me in its entirety. I confirm that the note above accurately reflects all work, treatment, procedures, and medical decision making performed by me. Departure Information Dispostion Being Evaluated By Hospitalist Referrals Luli Jones M.D. (PCP) Patient Instructions My [facility] Problem Qualifiers
[2016-08-19] MEDS: HEPARIN SOD 5000 UNIT/0.5 ML CARP SQ SCH ×3 (05:50→21:06)
[2016-08-19 06:39] LABS: BASO % 0.2 %; BASO ABS # 0.01 K/uL (0-0.2); COMPLETE YES; HEMATOCRIT 38.1 % (37-47); IG% 0.3 %; LYMPH % 5.3 %; LYMPH ABS # 0.35 K/uL (1.2-3.4); MEAN CELL VOLUME 98.4 fL (80-100); MEAN CORPUSCULAR HGB CONC 30.4 g/dl (32-36); MEAN PLATELET VOLUME 9.6 fL (7.4-10.4); MONO % 2.1 %; NEUT % 92.1 %; PLATELET COUNT 217 K/uL (130-400); RED BLOOD COUNT 3.87 M/uL (4.2-5.4); WHITE BLOOD COUNT 6.56 K/uL (4.8-10.8)
[2016-08-19] MEDS ORDERED: DOXYCYCLINE IV 100 MG in DEXTROSE 5% 100ML 100 ML IV ONE (07:47)
--- NOTE | 2016-08-19 07:55 | Progress Note ---
Internal Med Progress Note Date of Service: Aug 19, 2016. Provider Documentation: Patient noted to be more awake this morning and able to give a good history. Increasing cough shortness of breath the last few days more than usual. Denies aspiration but admits to food being stuck in her throat from time to time. Denies worsening of back pain. Patient claims she just took 1 tablet of new oxycodone prescription from PCP. Patient denies UTI symptoms. AP Encephalopathy possibly from respiratory acidosis secondary to COPD exacerbation Doxycycline, prednisone course, nebs. Swallow eval for esophageal dysfunction. Attempt to wean off patient from BiPAP this AM. Will relay to AM. Provider. Vital Signs: Date Time Temp Pulse Resp B/P (MAP) Pulse Ox O2 Delivery O2 Flow Rate FiO2 08/19/16 07:40 36.6 86 22 130/79 (96) 92 BiPAP 125/75 (92) 144/71 (95) 08/19/16 04:10 36.6 68 18 153/83 (106) 100 BiPAP 08/19/16 04:00 92 BiPAP 8.0 08/19/16 01:38 36.8 84 18 151/86 92 BiPAP 6.0 78 08/18/16 22:39 78 92 6.0 08/18/16 22:30 36.8 84 18 151/86 (107) 97 Nasal Cannula 4.0 08/18/16 21:40 78 15 100 Nasal Cannula 4.0 08/18/16 21:30 130/72 08/18/16 21:10 81 15 100 Nasal Cannula 4.0 08/18/16 21:05 84 15 98 Nasal Cannula 4.0 08/18/16 21:01 123/72 08/18/16 20:35 84 17 100 Nasal Cannula 4.0 08/18/16 20:31 158/93 08/18/16 20:00 120/72 08/18/16 19:35 70 16 100 Nasal Cannula 2.0 08/18/16 19:30 114/64 08/18/16 19:24 71 14 100 Nasal Cannula 5.0 08/18/16 19:18 108/61 08/18/16 18:35 80 08/18/16 18:33 36.9 75 18 119/82 98 Nasal Cannula 4.0 08/18/16 18:31 119/82 08/18/16 18:29 Nasal Cannula 4.0 Lab Results: Results Past 24 Hours Test 08/18/16 18:43 08/18/16 18:56 08/18/16 18:58 08/18/16 19:25 Range/Units Bedside Glucose 94 70-90 mg/dl White Blood Count 7.98 4.8-10.8 K/uL Red Blood Count 3.31 4.2-5.4 M/uL Hemoglobin 9.7 12.0-16.0 g/dL Hematocrit 32.7 37-47 % Mean Corpuscular Volume 98.8 80-100 fL Mean Corpuscular Hemoglobin 29.3 25-34 pg Mean Corpuscular Hemoglobin Concent 29.7 32-36 g/dl Platelet Count 211 130-400 K/uL Mean Platelet Volume 9.5 7.4-10.4 fL Neutrophils (%) (Auto) 77.2 % Lymphocytes (%) (Auto) 10.5 % Monocytes (%) (Auto) 9.9 % Eosinophils (%) (Auto) 2.0 % Basophils (%) (Auto) 0.1 % Neutrophils # (Auto) 6.16 1.4-6.5 K/uL Lymphocytes # (Auto) 0.84 1.2-3.4 K/uL Monocytes # (Auto) 0.79 0.11-0.59 K/uL Eosinophils # (Auto) 0.16 0-0.5 K/uL Basophils # (Auto) 0.01 0-0.2 K/uL RDW Standard Deviation 56.6 36.4-46.3 fL RDW Coefficient of Variation 15.8 11.5-14.5 % Immature Granulocyte % (Auto) 0.3 % Immature Granulocyte # (Auto) 0.02 0.00-0.02 K/uL Prothrombin Time 10.0 9.0-12.0 SECONDS Prothromb Time International Ratio 0.9 0.9-1.1 Activated Partial Thromboplast Time 23.4 21.0-31.0 SECONDS Partial Thromboplastin Ratio 0.9 Venous Blood pH 7.29 7.36-7.41 Venous Blood Partial Pressure CO2 64 38.0-50.0 mmHg Venous Blood Partial Pressure O2 35 mmHg Venous Blood HCO3 30 mmol/L Venous Blood Oxygen Saturation 63.4 % Venous Blood Base Excess 2.6 mmol/L Sodium Level 142 136-145 mmol/L Potassium Level 5.2 3.5-5.1 mmol/L Chloride Level 108 98-107 mmol/L Carbon Dioxide Level 29 21-32 mmol/L Anion Gap 5.0 3-11 mmol/L Blood Urea Nitrogen 33 7-18 mg/dl Creatinine 2.50 0.60-1.20 mg/dl Est Creatinine Clear Calc Drug Dose 22.7 ml/min Estimated GFR () 21.7 Estimated GFR (Non- 18.7 BUN/Creatinine Ratio 13.1 10-20 Random Glucose 90 70-99 mg/dl Calcium Level 8.2 8.5-10.1 mg/dl Magnesium Level 2.8 1.8-2.4 mg/dl Total Bilirubin 0.7 0.2-1 mg/dl Direct Bilirubin 0.3 0-0.2 mg/dl Aspartate Amino Transf (AST/SGOT) 33 15-37 U/L Alanine Aminotransferase (ALT/SGPT) 27 12-78 U/L Alkaline Phosphatase 147 45-117 U/L Ammonia 22.0 11-32 umol/L Total Creatine Kinase 311 26-192 U/L Creatine Kinase MB 4.8 0.5-3.6 ng/ml Creatine Kinase MB Ratio 1.5 0-3.0 Troponin I < 0.015 0-0.045 ng/ml Total Protein 6.2 6.4-8.2 gm/dl Albumin 3.1 3.4-5.0 gm/dl Lipase 79 73-393 U/L Thyroid Stimulating Hormone (TSH) 0.783 0.300-4.500 uIu/ml Bedside Lactic Acid Venous 0.35 0.90-1.70 mmol/L Urine Color DK YELLOW Urine Appearance CLOUDY CLEAR Urine pH 5.0 4.5-7.5 Urine Specific [place] 1.021 1.000-1.030 Urine Protein NEG NEG Urine Glucose (UA) NEG NEG Urine Ketones TRACE NEG Urine Occult Blood NEG NEG Urine Nitrite NEG NEG Urine Bilirubin NEG NEG Urine Urobilinogen NEG NEG Urine Leukocyte Esterase TRACE NEG Urine WBC (Auto) 1-5 0-5 /hpf Urine RBC (Auto) 5-10 0-4 /hpf Urine Hyaline Casts (Auto) 10-30 0-5 /lpf Urine Epithelial Cells (Auto) 20-30 0-5 /lpf Urine Bacteria (Auto) NEG NEG Urine Pathogenic Casts 0-3 GRANULAR CASTS 0 /lpf Urine Opiates Screen NEG NEG Urine Methadone, Qualitative NEG NEG Urine Barbiturates NEG NEG Urine Phencyclidine (PCP) Level NEG NEG Ur Amphetamine/Methamphetamine NEG NEG MDMA (Ecstasy) Screen NEG NEG Urine Benzodiazepines Screen NEG NEG Urine Cocaine Metabolite NEG NEG Urine Marijuana (THC) NEG NEG Test 08/19/16 00:04 08/19/16 00:29 08/19/16 05:52 08/19/16 07:58 Range/Units Sodium Level 144 136-145 mmol/L Potassium Level 5.0 3.5-5.1 mmol/L Chloride Level 110 98-107 mmol/L Carbon Dioxide Level 29 21-32 mmol/L Anion Gap 5.0 3-11 mmol/L Blood Urea Nitrogen 29 7-18 mg/dl Creatinine 2.00 0.60-1.20 mg/dl Est Creatinine Clear Calc Drug Dose 28.3 ml/min Estimated GFR () 28.4 Estimated GFR (Non- 24.5 BUN/Creatinine Ratio 14.7 10-20 Random Glucose 104 70-99 mg/dl Calcium Level 8.2 8.5-10.1 mg/dl Arterial Blood pH 7.32 7.35-7.45 Arterial Blood Partial Pressure CO2 55 35-46 mmHg Arterial Blood Partial Pressure O2 66 80-95 mm/Hg Arterial Blood HCO3 28 19-24 mmol/L Arterial Blood Oxygen Saturation 90.2 90-95 % Arterial Blood Base Excess 1.5 -9-1.8 mEq/L Arterial Blood Gas Delivery 6L BIPAP Dirk Test POS POS White Blood Count 6.56 4.8-10.8 K/uL Red Blood Count 3.87 4.2-5.4 M/uL Hemoglobin 11.6 12.0-16.0 g/dL Hematocrit 38.1 37-47 % Mean Corpuscular Volume 98.4 80-100 fL Mean Corpuscular Hemoglobin 30.0 25-34 pg Mean Corpuscular Hemoglobin Concent 30.4 32-36 g/dl Platelet Count 217 130-400 K/uL Mean Platelet Volume 9.6 7.4-10.4 fL Neutrophils (%) (Auto) 92.1 % Lymphocytes (%) (Auto) 5.3 % Monocytes (%) (Auto) 2.1 % Eosinophils (%) (Auto) 0.0 % Basophils (%) (Auto) 0.2 % Neutrophils # (Auto) 6.04 1.4-6.5 K/uL Lymphocytes # (Auto) 0.35 1.2-3.4 K/uL Monocytes # (Auto) 0.14 0.11-0.59 K/uL Eosinophils # (Auto) 0.00 0-0.5 K/uL Basophils # (Auto) 0.01 0-0.2 K/uL RDW Standard Deviation 55.2 36.4-46.3 fL RDW Coefficient of Variation 15.5 11.5-14.5 % Immature Granulocyte % (Auto) 0.3 % Immature Granulocyte # (Auto) 0.02 0.00-0.02 K/uL Total Creatine Kinase 338 26-192 U/L Microbiology Results 08/18/16 Blood Culture, Received Pending 08/18/16 Blood Culture, Received Pending 08/18/16 Urine Culture, Received Pending
[2016-08-19] MEDS ORDERED: POLYETHYLENE (MIRALAX) 17 GM PACK PO ONE (08:00)
[2016-08-19] MEDS ORDERED: SODIUM CHLORIDE 0.45% 1000ML 1,000 ML IV ONE (08:00)
[2016-08-19] MEDS ORDERED: LEVALBUTEROL/IPRATROPIUM NEB INH PRN (08:00)
[2016-08-19] MEDS ORDERED: IPRATROPIUM BROMIDE NEB SOLN 0.02% 2.5 ML VIAL INH PRN (08:00)
[2016-08-19] MEDS ORDERED: LEVALBUTEROL 1.25MG/0.5ML NEB INH PRN (08:00)
[2016-08-19 08:23] LABS: BASO % 0.1 %; BASO ABS # 0.01 K/uL (0-0.2); COMPLETE YES; HEMATOCRIT 34.4 % (37-47); IG% 0.1 %; LYMPH % 7.5 %; LYMPH ABS # 0.52 K/uL (1.2-3.4); MEAN CELL VOLUME 97.2 fL (80-100); MEAN CORPUSCULAR HEMOGLOBIN 29.7 pg (25-34); MEAN CORPUSCULAR HGB CONC 30.5 g/dl (32-36); MEAN PLATELET VOLUME 9.6 fL (7.4-10.4); MONO % 3.3 %; PLATELET COUNT 205 K/uL (130-400); RED BLOOD COUNT 3.54 M/uL (4.2-5.4); WHITE BLOOD COUNT 6.95 K/uL (4.8-10.8)
[2016-08-19 08:30] LABS: BUN/CREATININE RATIO 16.2 (10-20); CALCIUM 8.3 mg/dl (8.5-10.1); CREATININE 1.6 mg/dl (0.60-1.20); POTASSIUM 5.1 mmol/L (3.5-5.1)
[2016-08-19] MEDS ORDERED: PERFLUTREN LIPID MICROSPHERE (DEFINITY) IV ONE (08:47)
[2016-08-19] MEDS: DOXYCYCLINE IV 100 MG in DEXTROSE 5% 100ML 100 ML IV SCH ×2 (08:53→21:01)
[2016-08-19] MEDS: RANITIDINE HCL 150 MG TAB PO SCH (08:54)
[2016-08-19] MEDS: DOCUSATE SODIUM 100 MG CAP PO SCH (08:54)
[2016-08-19] MEDS: CITALOPRAM 20 MG TAB PO SCH (08:54)
[2016-08-19] MEDS: ATORVASTATIN 20 MG TAB PO SCH (08:54)
[2016-08-19] MEDS ORDERED: LEVALBUTEROL/IPRATROPIUM NEB INH SCH (09:00)
[2016-08-19] MEDS: IPRATROPIUM BROMIDE NEB SOLN 0.02% 2.5 ML VIAL INH SCH ×3 (09:42→20:17)
[2016-08-19] MEDS: LEVALBUTEROL 1.25MG/0.5ML NEB INH SCH ×3 (09:43→20:17)
--- NOTE | 2016-08-19 11:40 | ECHOCARDIOGRAM REPORT ---
*NOTICE TO RECEIVING DEMOCRAT AGENCY This information is strictly Confidential and protected under [place] law. [place] law prohibits you from making any further disclosure of this information unless further disclosure is expressly permitted by the written consent of the person to whom it pertains or is authorized by law. A general authorization for the release of medical or other information is not sufficient for this purpose. Hospital accepts no responsibility if the information is made available to any other person, INCLUDING THE PATIENT. Interpretation Summary * Name: ASIF BERNAL Study Date: 08/19/2016 06:53 AM BP: 153/83 mmHg * Patient Location: [facility]\S\N278\S\2 HR: 68 * : 1945 (M/d/yyy) Gender: Female Height: 67 in * Age: 70 yrs Ethnicity: [place] Weight: 179 lb * Ordering Physician: Shiv Baez * Performed By: Padmini Burt * * Reason For Study: SYNCOPE * BSA: 1.9 m2 * Grossly normal valvular structure and function. * -- Conclusions -- * The left ventricle is normal in size. * Left ventricular systolic function is normal. * Ejection Fraction = 60-65%. * The right ventricular systolic function is normal. * The left atrial size is normal. * Right atrial size is normal. * Grossly normal valvular structure and function. Procedure Details * A complete two-dimensional transthoracic echocardiogram was performed (2D, M-mode, Doppler and color flow Doppler). * A contrast injection of Definity was performed to improve assessment of LV function. * Contrast was injected into an intravenous site in the left arm. * One vial of Definity ultrasound contrast was diluted in normal saline to a total volume of 10 ml. A total of '2' ml of solution was administered during imaging. * Lot # [id number] of Definity utilized for procedure. * Expiration date 10/04. * The attending nurse who injected the contrast agent was DANIELA HARDING RN. Left Ventricle * The left ventricle is normal in size. * There is normal left ventricular wall thickness. * Ejection Fraction = 60-65%. * Left ventricular systolic function is normal. * The left ventricular wall motion is normal. Right Ventricle * The right ventricle is normal size. * The right ventricular systolic function is normal. Atria * The left atrial size is normal. * Right atrial size is normal. * The interatrial septum is intact with no evidence for an atrial septal defect. Mitral Valve * The mitral valve is grossly normal. * Significant mitral regurgitation is absent. Tricuspid Valve * The tricuspid valve is not well visualized, but is grossly normal. * Significant tricuspid regurgitation is absent. Aortic Valve * The aortic valve is not well visualized. * No hemodynamically significant valvular aortic stenosis. * There is no significant aortic regurgitation. Pulmonic Valve * The pulmonic valve is not well visualized. * There is no significant pulmonary regurgitation. Great Vessels * The aortic root and proximal ascending aorta are normal sized. Pericardium/Pleural * There is no pericardial effusion. MMode 2D Measurements and Calculations IVSd 0.99 cm IVSs 1.2 cm LVIDd 3.1 cm LVIDs 2.0 cm LVPWd 1.2 cm LVPWs 1.6 cm IVS/LVPW 0.85 FS 33.6 % EDV(Teich) 37.1 ml ESV(Teich) 13.4 ml EF(Teich) 64.0 % EDV(cubed) 29.0 ml ESV(cubed) 8.5 ml EF(cubed) 70.8 % % IVS thick 22.2 % % LVPW thick 33.4 % LV mass(C)d 95.0 grams LV mass(C)dI 49.2 grams/m\S\2 LV mass(C)s 85.4 grams LV mass(C)sI 44.3 grams/m\S\2 SV(Teich) 23.7 ml SI(Teich) 12.3 ml/m\S\2 SV(cubed) 20.5 ml SI(cubed) 10.6 ml/m\S\2 ACS 1.5 cm LVOT diam 2.0 cm LVOT area 3.2 cm\S\2 LVAd ap4 30.3 cm\S\2 LVLd ap4 7.9 cm EDV(MOD-sp4) 96.4 ml EDV(sp4-el) 99.5 ml LVAs ap4 16.9 cm\S\2 LVLs ap4 6.6 cm ESV(MOD-sp4) 35.3 ml ESV(sp4-el) 36.7 ml EF(MOD-sp4) 63.3 % EF(sp4-el) 63.1 % LVAd ap2 32.0 cm\S\2 LVLd ap2 8.3 cm EDV(MOD-sp2) 102.2 ml EDV(sp2-el) 104.0 ml LVAs ap2 18.4 cm\S\2 LVLs ap2 7.2 cm ESV(MOD-sp2) 38.7 ml ESV(sp2-el) 40.0 ml EF(MOD-sp2) 62.2 % EF(sp2-el) 61.6 % LVLd %diff 5.8 % EDV(MOD-bp) 102.8 ml LVLs %diff 8.3 % ESV(MOD-bp) 37.6 ml EF(MOD-bp) 63.4 % SV(MOD-sp4) 61.1 ml SI(MOD-sp4) 31.7 ml/m\S\2 SV(MOD-sp2) 63.5 ml SI(MOD-sp2) 32.9 ml/m\S\2 SV(MOD-bp) 65.2 ml SI(MOD-bp) 33.8 ml/m\S\2 SV(sp4-el) 62.8 ml SI(sp4-el) 32.6 ml/m\S\2 SV(sp2-el) 64.0 ml SI(sp2-el) 33.2 ml/m\S\2 Doppler Measurements and Calculations MV E max cristian 94.4 cm/sec MV A max cristian 89.0 cm/sec MV E/A 1.1 MV dec time 0.25 sec Ao V2 max 171.8 cm/sec Ao max PG 11.8 mmHg Ao max PG (full) 4.8 mmHg ROBYN(V,A) 2.5 cm\S\2 ROBYN(V,D) 2.5 cm\S\2 LV V1 max PG 7.0 mmHg LV V1 max 132.1 cm/sec PA V2 max 91.1 cm/sec PA max PG 3.3 mmHg
--- NOTE | 2016-08-19 19:18 | Progress Note ---
Medicine Progress Note Date & Time of Visit: Aug 19, 2016 at 18:39. Subjective Pt was seen and examined Sitting in bed with no distress Pt said that she feels a little bit better Complaint of tenderness in her feet Denies any chest pain, palpitation, dizziness. Objective Last 8 Hrs Date Time Temp Pulse Resp B/P (MAP) Pulse Ox O2 Delivery O2 Flow Rate FiO2 08/19/16 16:00 96 Room Air 3.0 08/19/16 15:49 36.8 67 20 96/60 (72) 96 3.0 102/65 (77) 106/70 (82) 08/19/16 14:18 68 16 85 Room Air 08/19/16 12:00 Nasal Cannula 3.0 08/19/16 11:58 36.6 82 18 116/68 (84) 93 Room Air 08/19/16 10:56 75 98 Physical Exam: General- No acute distress Head- atraumatic Eyes- PERRL, EOMI ENT- oropharynx clear Neck- supple, no JVD Lungs- clear to auscultation Heart- regular rhythm Abdomen- normal bowel sounds, soft Extremities- no calf tenderness, +edema Neuro- alert, oriented x 3; PERRL, EOMI; no facial palsy Skin- warm & dry Laboratory Results: Last 24 Hours Test 08/18/16 18:43 08/18/16 18:56 08/18/16 18:58 08/18/16 19:25 Bedside Glucose 94 mg/dl White Blood Count 7.98 K/uL Red Blood Count 3.31 M/uL Hemoglobin 9.7 g/dL Hematocrit 32.7 % Mean Corpuscular Volume 98.8 fL Mean Corpuscular Hemoglobin 29.3 pg Mean Corpuscular Hemoglobin Concent 29.7 g/dl Platelet Count 211 K/uL Mean Platelet Volume 9.5 fL Neutrophils (%) (Auto) 77.2 % Lymphocytes (%) (Auto) 10.5 % Monocytes (%) (Auto) 9.9 % Eosinophils (%) (Auto) 2.0 % Basophils (%) (Auto) 0.1 % Neutrophils # (Auto) 6.16 K/uL Lymphocytes # (Auto) 0.84 K/uL Monocytes # (Auto) 0.79 K/uL Eosinophils # (Auto) 0.16 K/uL Basophils # (Auto) 0.01 K/uL RDW Standard Deviation 56.6 fL RDW Coefficient of Variation 15.8 % Immature Granulocyte % (Auto) 0.3 % Immature Granulocyte # (Auto) 0.02 K/uL Prothrombin Time 10.0 SECONDS Prothromb Time International Ratio 0.9 Activated Partial Thromboplast Time 23.4 SECONDS Partial Thromboplastin Ratio 0.9 Venous Blood pH 7.29 Venous Blood Partial Pressure CO2 64 mmHg Venous Blood Partial Pressure O2 35 mmHg Venous Blood HCO3 30 mmol/L Venous Blood Oxygen Saturation 63.4 % Venous Blood Base Excess 2.6 mmol/L Sodium Level 142 mmol/L Potassium Level 5.2 mmol/L Chloride Level 108 mmol/L Carbon Dioxide Level 29 mmol/L Anion Gap 5.0 mmol/L Blood Urea Nitrogen 33 mg/dl Creatinine 2.50 mg/dl Est Creatinine Clear Calc Drug Dose 22.7 ml/min Estimated GFR () 21.7 Estimated GFR (Non- 18.7 BUN/Creatinine Ratio 13.1 Random Glucose 90 mg/dl Calcium Level 8.2 mg/dl Magnesium Level 2.8 mg/dl Total Bilirubin 0.7 mg/dl Direct Bilirubin 0.3 mg/dl Aspartate Amino Transf (AST/SGOT) 33 U/L Alanine Aminotransferase (ALT/SGPT) 27 U/L Alkaline Phosphatase 147 U/L Ammonia 22.0 umol/L Total Creatine Kinase 311 U/L Creatine Kinase MB 4.8 ng/ml Creatine Kinase MB Ratio 1.5 Troponin I < 0.015 ng/ml Total Protein 6.2 gm/dl Albumin 3.1 gm/dl Lipase 79 U/L Thyroid Stimulating Hormone (TSH) 0.783 uIu/ml Bedside Lactic Acid Venous 0.35 mmol/L Urine Color DK YELLOW Urine Appearance CLOUDY Urine pH 5.0 Urine Specific [place] 1.021 Urine Protein NEG Urine Glucose (UA) NEG Urine Ketones TRACE Urine Occult Blood NEG Urine Nitrite NEG Urine Bilirubin NEG Urine Urobilinogen NEG Urine Leukocyte Esterase TRACE Urine WBC (Auto) 1-5 /hpf Urine RBC (Auto) 5-10 /hpf Urine Hyaline Casts (Auto) 10-30 /lpf Urine Epithelial Cells (Auto) 20-30 /lpf Urine Bacteria (Auto) NEG Urine Pathogenic Casts 0-3 GRANULAR CASTS /lpf Urine Opiates Screen NEG Urine Methadone, Qualitative NEG Urine Barbiturates NEG Urine Phencyclidine (PCP) Level NEG Ur Amphetamine/Methamphetamine NEG MDMA (Ecstasy) Screen NEG Urine Benzodiazepines Screen NEG Urine Cocaine Metabolite NEG Urine Marijuana (THC) NEG Test 08/19/16 00:04 08/19/16 00:29 08/19/16 05:52 08/19/16 07:58 Sodium Level 144 mmol/L 143 mmol/L Potassium Level 5.0 mmol/L 5.1 mmol/L Chloride Level 110 mmol/L 109 mmol/L Carbon Dioxide Level 29 mmol/L 29 mmol/L Anion Gap 5.0 mmol/L 5.0 mmol/L Blood Urea Nitrogen 29 mg/dl 26 mg/dl Creatinine 2.00 mg/dl 1.60 mg/dl Est Creatinine Clear Calc Drug Dose 28.3 ml/min 35.4 ml/min Estimated GFR () 28.4 37.2 Estimated GFR (Non- 24.5 32.1 BUN/Creatinine Ratio 14.7 16.2 Random Glucose 104 mg/dl 112 mg/dl Calcium Level 8.2 mg/dl 8.3 mg/dl Arterial Blood pH 7.32 Arterial Blood Partial Pressure CO2 55 mmHg Arterial Blood Partial Pressure O2 66 mm/Hg Arterial Blood HCO3 28 mmol/L Arterial Blood Oxygen Saturation 90.2 % Arterial Blood Base Excess 1.5 mEq/L Arterial Blood Gas Delivery 6L BIPAP Dirk Test POS White Blood Count 6.56 K/uL 6.95 K/uL Red Blood Count 3.87 M/uL 3.54 M/uL Hemoglobin 11.6 g/dL 10.5 g/dL Hematocrit 38.1 % 34.4 % Mean Corpuscular Volume 98.4 fL 97.2 fL Mean Corpuscular Hemoglobin 30.0 pg 29.7 pg Mean Corpuscular Hemoglobin Concent 30.4 g/dl 30.5 g/dl Platelet Count 217 K/uL 205 K/uL Mean Platelet Volume 9.6 fL 9.6 fL Neutrophils (%) (Auto) 92.1 % 89.0 % Lymphocytes (%) (Auto) 5.3 % 7.5 % Monocytes (%) (Auto) 2.1 % 3.3 % Eosinophils (%) (Auto) 0.0 % 0.0 % Basophils (%) (Auto) 0.2 % 0.1 % Neutrophils # (Auto) 6.04 K/uL 6.18 K/uL Lymphocytes # (Auto) 0.35 K/uL 0.52 K/uL Monocytes # (Auto) 0.14 K/uL 0.23 K/uL Eosinophils # (Auto) 0.00 K/uL 0.00 K/uL Basophils # (Auto) 0.01 K/uL 0.01 K/uL RDW Standard Deviation 55.2 fL 54.3 fL RDW Coefficient of Variation 15.5 % 15.3 % Immature Granulocyte % (Auto) 0.3 % 0.1 % Immature Granulocyte # (Auto) 0.02 K/uL 0.01 K/uL Total Creatine Kinase 338 U/L Date/Time Source Procedure Growth Status 08/18/16 18:56 Blood Blood Culture Pending Received 08/18/16 18:53 Blood Blood Culture Pending Received 08/18/16 19:25 Urine,Catheterized Urine Culture - Preliminary NO GROWTH - LESS THAN 1,000 COLONIES/... Resulted Assessment & Plan Encephalopathy Mostly related to hypercapnia respiratory acidosis vs metabolic encephalopathy vs narcotic VBG on admission showed Ph 7.2 PCO2 64 Improved after starting on BIPAP mental status back to baseline continue monitor in telemetry Clinically improved significantly Hypercapnia respiratory acidosis Possible related to COPD exacerbation vs narcotic overdose CXR showed cardiomegaly and emphysema with no acute cardiopulmonary abnormality. Was started on doxycycline/prednisone/ duoneb Was weaned on Bipap, now on 3L NC Does not require any oxygen at home Might need a noctunal pulse oximetry/ and 2 step exercise before discharge SRIDHAR on CKD stage 3 creatine on admission was 2.5 creatine improved to 1.6 Continue IVF will monitor for volume overload. Chronic anemia secondary to CKD hgb stable continue monitor cbc Tobacco abuse Counseling on smoking cessation Trace Leukocytes on UA Received Rocephin IV x1 for UTI No signs of UTI No leukocytosis, afebrile will follow urine cx CT Abd/Pelvis showed no acute abnormality Ambulatory dysfunction s/p falls Complaint of feet pain fall precaution will get an xray of the feet Physical therapy recommended inpatient rehab DVT prophylaxis . Heparin subcutaneous CODE STATUS FULL CODE as per MATTHEWChristina Varela during admission Disposition [place] with Contact numbers : [phone]/ [phone]. Discharge once medically stable Current Inpatient Medications: Current Inpatient Medications Medications (Trade) Dose Ordered Sig/Kayla Route Start Time Stop Time Status Last Admin Dose Admin Heparin Sodium (Porcine) (Heparin Sq 5000 Unit/0.5ml) 5,000 unit Q8 SQ 08/18/16 22:00 09/17/16 21:59 08/19/16 13:17 5,000 UNIT Ondansetron HCl (Zofran Inj) 4 mg Q6H PRN IV 08/18/16 21:45 09/17/16 21:44 Ranitidine HCl (zANTac TAB) 150 mg DAILY PO 08/19/16 09:00 09/18/16 08:59 08/19/16 08:54 150 MG Docusate Sodium (coLACE CAP) 100 mg DAILY PO 08/19/16 09:00 09/18/16 08:59 08/19/16 08:54 100 MG Polyethylene (Miralax Powder Packet) 17 gm DAILY PRN PO 08/18/16 22:30 09/17/16 22:29 Sodium Chloride 1,000 ml @ 75 mls/hr [id number] ONCE IV 08/19/16 08:00 08/19/16 21:19 08/19/16 08:53 75 MLS/HR Doxycycline Hyclate 100 mg/ Dextrose 110 ml @ 50 mls/hr BID@0900,2100 IV 08/19/16 09:00 08/26/16 20:59 08/19/16 08:53 50 MLS/HR Prednisone (PredniSONE TAB) 40 mg DAILY PO 08/19/16 09:00 08/24/16 08:59 08/19/16 08:54 40 MG Atorvastatin Calcium (Lipitor Tab) 20 mg DAILY PO 08/19/16 09:00 09/18/16 08:59 08/19/16 08:54 20 MG Citalopram Hydrobromide (celeXA TAB) 30 mg DAILY PO 08/19/16 09:00 09/18/16 08:59 08/19/16 08:54 30 MG Ipratropium [place] (Atrovent 0.02% 0.5MG/2.5ML Neb) 0.5 mg Q6R INH 08/19/16 09:00 09/18/16 08:59 08/19/16 14:14 0.5 MG Levalbuterol (Xopenex 1.25MG/ 0.5ML Neb) 1.25 mg Q6R INH 08/19/16 09:00 09/18/16 08:59 08/19/16 14:15 1.25 MG Ipratropium [place] (Atrovent 0.02% 0.5MG/2.5ML Neb) 0.5 mg Q4H PRN INH 08/19/16 08:00 09/18/16 07:59 Levalbuterol (Xopenex 1.25MG/ 0.5ML Neb) 1.25 mg Q4H PRN INH 08/19/16 08:00 09/18/16 07:59
[2016-08-19] MEDS ORDERED: HALOPERIDOL LACTATE 5 MG/ML 1 ML VIAL IM PRN (21:45)
[2016-08-19] MEDS ORDERED: HALOPERIDOL 1 MG TAB PO ONE (22:00)
[2016-08-20] VITALS (15 sets, daily range): BP systolic 119–168; BP diastolic 68–97; PULSE 74–92; TEMP 36–37; O2SAT 90–100
[2016-08-20] MEDS: LEVALBUTEROL 1.25MG/0.5ML NEB INH SCH ×4 (02:20→18:54)
[2016-08-20] MEDS: IPRATROPIUM BROMIDE NEB SOLN 0.02% 2.5 ML VIAL INH SCH ×4 (02:20→18:53)
[2016-08-20] MEDS: HEPARIN SOD 5000 UNIT/0.5 ML CARP SQ SCH ×3 (05:43→20:32)
[2016-08-20 07:32] LABS: MEAN CELL VOLUME 94.5 fL (80-100); MEAN CORPUSCULAR HEMOGLOBIN 30.2 pg (25-34); MEAN CORPUSCULAR HGB CONC 31.9 g/dl (32-36); MEAN PLATELET VOLUME 9.4 fL (7.4-10.4); PLATELET COUNT 244 K/uL (130-400); RED BLOOD COUNT 3.28 M/uL (4.2-5.4)
[2016-08-20 07:58] LABS: BUN/CREATININE RATIO 17.8 (10-20); CREATININE 1.3 mg/dl (0.60-1.20); POTASSIUM 4.4 mmol/L (3.5-5.1)
[2016-08-20] MEDS: DOXYCYCLINE IV 100 MG in DEXTROSE 5% 100ML 100 ML IV SCH ×2 (08:19→20:25)
[2016-08-20] MEDS: RANITIDINE HCL 150 MG TAB PO SCH ×3 (08:20→14:25)
[2016-08-20] MEDS: DOCUSATE SODIUM 100 MG CAP PO SCH ×3 (08:20→14:26)
[2016-08-20] MEDS: CITALOPRAM 20 MG TAB PO SCH ×3 (08:21→14:26)
[2016-08-20] MEDS: ATORVASTATIN 20 MG TAB PO SCH ×3 (08:21→14:25)
--- NOTE | 2016-08-20 15:01 | Progress Note ---
Medicine Progress Note Date & Time of Visit: Aug 20, 2016 at 14:54. Subjective Pt was seen and examined sitting in chair comfortable with no distress denies any chest pain, palpitation, dizziness and sob Objective Last 8 Hrs Date Time Temp Pulse Resp B/P (MAP) Pulse Ox O2 Delivery O2 Flow Rate FiO2 08/20/16 14:13 80 16 93 Nasal Cannula 2.0 08/20/16 12:00 Nasal Cannula 2.0 08/20/16 11:00 36.9 86 20 146/80 (102) 97 08/20/16 08:00 Nasal Cannula 2.0 08/20/16 07:30 37.0 79 20 148/88 (108) 100 08/20/16 07:29 74 16 98 Nasal Cannula 3.0 Physical Exam: General- No acute distress Head- atraumatic Eyes- PERRL, EOMI ENT- oropharynx clear Neck- supple, no JVD Lungs- clear to auscultation Heart- regular rhythm Abdomen- normal bowel sounds, soft Extremities- no calf tenderness, +edema Neuro- alert, oriented x 3; PERRL, EOMI; no facial palsy Skin- warm & dry Laboratory Results: Last 24 Hours Test 08/20/16 07:02 White Blood Count 8.40 K/uL Red Blood Count 3.28 M/uL Hemoglobin 9.9 g/dL Hematocrit 31.0 % Mean Corpuscular Volume 94.5 fL Mean Corpuscular Hemoglobin 30.2 pg Mean Corpuscular Hemoglobin Concent 31.9 g/dl RDW Standard Deviation 53.7 fL RDW Coefficient of Variation 15.7 % Platelet Count 244 K/uL Mean Platelet Volume 9.4 fL Sodium Level 140 mmol/L Potassium Level 4.4 mmol/L Chloride Level 107 mmol/L Carbon Dioxide Level 27 mmol/L Anion Gap 6.0 mmol/L Blood Urea Nitrogen 23 mg/dl Creatinine 1.30 mg/dl Est Creatinine Clear Calc Drug Dose 42.6 ml/min Estimated GFR () 47.8 Estimated GFR (Non- 41.2 BUN/Creatinine Ratio 17.8 Random Glucose 93 mg/dl Calcium Level 9.0 mg/dl Total Creatine Kinase 713 U/L Assessment & Plan Encephalopathy Mostly related to hypercapnia respiratory acidosis vs metabolic encephalopathy vs narcotic VBG on admission showed Ph 7.2 PCO2 64 Improved after starting on BIPAP mental status back to baseline continue monitor in telemetry Clinically improved significantly Hypercapnia respiratory acidosis Possible related to COPD exacerbation vs narcotic overdose CXR showed cardiomegaly and emphysema with no acute cardiopulmonary abnormality. Was started on doxycycline/prednisone/ duoneb Was weaned on Bipap, now on 2L NC Does not require any oxygen at home Might need a nocturnal pulse oximetry/ and 2 step exercise before discharge will get nocturnal pulse oximetry Consider pulmonary consult SRIDHAR on CKD stage 3 creatine on admission was 2.5 creatine improved to 1.3 Continue IVF will monitor for volume overload. Chronic anemia secondary to CKD hgb stable continue monitor cbc Tobacco abuse Counseling on smoking cessation DYSPHAGIA complaint of food stuck in her throat speech therapy consulted and recommended Slippery mechanical soft diet, thin liquids Schedule for barium and video swallow in am will keep NPO after midnight Trace Leukocytes on UA Received Rocephin IV x1 for UTI No signs of UTI No leukocytosis, afebrile CT Abd/Pelvis showed no acute abnormality Urine cx showed no growth Ambulatory dysfunction s/p falls Complaint of feet pain fall precaution will get an xray of the feet Physical therapy recommended inpatient rehab Pt agreed to go to rehab DVT prophylaxis . Heparin subcutaneous CODE STATUS FULL CODE as per JIN Varela during admission Disposition [facility] with Contact numbers : [phone]/ [phone]. Agreed to go to rehab for inpatient physical therapy Current Inpatient Medications: Current Inpatient Medications Medications (Trade) Dose Ordered Sig/Kayla Route Start Time Stop Time Status Last Admin Dose Admin Heparin Sodium (Porcine) (Heparin Sq 5000 Unit/0.5ml) 5,000 unit Q8 SQ 08/18/16 22:00 09/17/16 21:59 08/20/16 14:40 5,000 UNIT Ondansetron HCl (Zofran Inj) 4 mg Q6H PRN IV 08/18/16 21:45 09/17/16 21:44 Ranitidine HCl (zANTac TAB) 150 mg DAILY PO 08/19/16 09:00 09/18/16 08:59 08/20/16 14:25 150 MG Docusate Sodium (coLACE CAP) 100 mg DAILY PO 08/19/16 09:00 09/18/16 08:59 08/20/16 14:26 100 MG Polyethylene (Miralax Powder Packet) 17 gm DAILY PRN PO 08/18/16 22:30 8/1/17 22:29 Doxycycline Hyclate 100 mg/ Dextrose 110 ml @ 50 mls/hr BID@0900,2100 IV 08/19/16 09:00 08/26/16 20:59 08/20/16 08:19 50 MLS/HR Prednisone (PredniSONE TAB) 40 mg DAILY PO 08/19/16 09:00 08/24/16 08:59 08/20/16 14:25 40 MG Atorvastatin Calcium (Lipitor Tab) 20 mg DAILY PO 08/19/16 09:00 09/18/16 08:59 08/20/16 14:25 20 MG Citalopram Hydrobromide (celeXA TAB) 30 mg DAILY PO 08/19/16 09:00 09/18/16 08:59 08/20/16 14:26 30 MG Ipratropium [place] (Atrovent 0.02% 0.5MG/2.5ML Neb) 0.5 mg Q6R INH 08/19/16 09:00 09/18/16 08:59 08/20/16 14:13 0.5 MG Levalbuterol (Xopenex 1.25MG/ 0.5ML Neb) 1.25 mg Q6R INH 08/19/16 09:00 09/18/16 08:59 08/20/16 14:13 1.25 MG Ipratropium [place] (Atrovent 0.02% 0.5MG/2.5ML Neb) 0.5 mg Q4H PRN INH 08/19/16 08:00 09/18/16 07:59 Levalbuterol (Xopenex 1.25MG/ 0.5ML Neb) 1.25 mg Q4H PRN INH 08/19/16 08:00 09/18/16 07:59 Haloperidol (Haldol Tab) 2 mg Q4H PRN PO 08/19/16 22:00 09/18/16 21:59 Haloperidol Lactate (Haldol Inj) 2 mg Q2H PRN IM 08/19/16 21:45 09/18/16 21:44 08/19/16 23:21 2 MG
[2016-08-20] MEDS: GABAPENTIN 300 MG CAP PO SCH (19:30)
[2016-08-20] MEDS: HALOPERIDOL 1 MG TAB PO PRN (20:19)
[2016-08-21] VITALS (11 sets, daily range): BP systolic 146–165; BP diastolic 75–93; PULSE 69–97; TEMP 36.8–37; O2SAT 90–97
[2016-08-21] MEDS: HALOPERIDOL 1 MG TAB PO PRN (01:09)
[2016-08-21] MEDS: IPRATROPIUM BROMIDE NEB SOLN 0.02% 2.5 ML VIAL INH SCH ×4 (02:52→19:02)
[2016-08-21] MEDS: LEVALBUTEROL 1.25MG/0.5ML NEB INH SCH ×4 (02:52→19:02)
[2016-08-21] MEDS: HEPARIN SOD 5000 UNIT/0.5 ML CARP SQ SCH ×3 (05:48→21:00)
[2016-08-21] MEDS: DOXYCYCLINE IV 100 MG in DEXTROSE 5% 100ML 100 ML IV SCH (08:00)
[2016-08-21 09:25] LABS: BUN/CREATININE RATIO 14.2 (10-20); CALCIUM 9.1 mg/dl (8.5-10.1); CREATININE 1.2 mg/dl (0.60-1.20)
--- NOTE | 2016-08-21 11:31 | DIAGNOSTIC IMAGING REPORT ---
(BARIUM SWALLOW) ESOPHAGUS CLINICAL HISTORY: solid food dysphagiadysphagia COMPARISON STUDY: None FLUOROSCOPY TIME: 1.2 minutes. FINDINGS: Patient initiates swallowing function well. There is no evidence for aspiration. There is mild prominence of the cricopharyngeus. No significant stenosis is appreciated. Esophagus is normal in course and caliber. Esophageal motility is slightly diminished. There is moderate gastroesophageal reflux. There is a distal esophageal irritability and/or spasm. IMPRESSION: 1. Mild cricopharyngeal achalasia. 2. Mild esophageal irritability and/or spasm. 3. Moderate gastroesophageal reflux. Electronically signed by: Andrea Sanford M.D. 08/21/2016 11:29 AM Dictated Date/Time: 08/21/2016 11:27 AM
[2016-08-21] MEDS: ATORVASTATIN 20 MG TAB PO SCH (12:40)
[2016-08-21] MEDS: CITALOPRAM 20 MG TAB PO SCH (12:40)
[2016-08-21] MEDS: DOCUSATE SODIUM 100 MG CAP PO SCH (12:40)
[2016-08-21] MEDS: RANITIDINE HCL 150 MG TAB PO SCH (12:41)
--- NOTE | 2016-08-21 14:48 | Progress Note ---
Medicine Progress Note Date & Time of Visit: Aug 21, 2016 at 14:34. Subjective Pt was seen and examined Sitting in chair comfortable with no distress Pt said that her breathing feels a little better He said that she slept a little better denies any chest pain, palpitation, dizziness and palpitation Objective Last 8 Hrs Date Time Temp Pulse Resp B/P (MAP) Pulse Ox O2 Delivery O2 Flow Rate FiO2 08/21/16 14:11 87 16 96 Nasal Cannula 2.0 08/21/16 12:15 Room Air 08/21/16 09:38 93 95 08/21/16 08:10 Room Air 08/21/16 07:20 36.8 75 18 165/93 (117) 97 Nasal Cannula 1.0 75 153/82 (105) 148/81 (103) 08/21/16 07:13 69 16 93 Nasal Cannula 2.0 Physical Exam: General- No acute distress Head- atraumatic Eyes- PERRL, EOMI ENT- oropharynx clear Neck- supple, no JVD Lungs- clear to auscultation Heart- regular rhythm Abdomen- normal bowel sounds, soft Extremities- no calf tenderness, +edema Neuro- alert, oriented x 3; PERRL, EOMI; no facial palsy Skin- warm & dry Laboratory Results: Last 24 Hours Test 08/21/16 08:15 Sodium Level 141 mmol/L Potassium Level 4.0 mmol/L Chloride Level 105 mmol/L Carbon Dioxide Level 30 mmol/L Anion Gap 6.0 mmol/L Blood Urea Nitrogen 17 mg/dl Creatinine 1.20 mg/dl Est Creatinine Clear Calc Drug Dose 45.6 ml/min Estimated GFR () 52.7 Estimated GFR (Non- 45.4 BUN/Creatinine Ratio 14.2 Random Glucose 86 mg/dl Calcium Level 9.1 mg/dl Total Creatine Kinase 541 U/L Vitamin B12 Level 340 pg/mL Folate 9.74 ng/mL Assessment & Plan Encephalopathy Mostly related to hypercapnia respiratory acidosis vs metabolic encephalopathy vs narcotic VBG on admission showed Ph 7.2, PCO2 64 Improved after starting on BIPAP mental status back to baseline continue monitor in telemetry Resolved Hypercapnia respiratory acidosis Possible related to COPD exacerbation vs narcotic overdose CXR showed cardiomegaly and emphysema with no acute cardiopulmonary abnormality. Was started on doxycycline/prednisone/ duoneb Was weaned on Bipap, now on 2L NC Does not require any oxygen at home Might need a nocturnal pulse oximetry/ and 2 step exercise before discharge nocturnal pulse oximetry done, requires oxygen case discussed with Pulmonary, that will see pt as an outpatient btw 2 to 4 weeks will start on 2 LNC at night Will need to repeat the nocturnal pulse oximetry on 2L NC outpatient to check if 2L oxygen is enough for her Will need 2 step exercise SRIDHAR on CKD stage 3 creatine on admission was 2.5 creatine improved to 1.2 Continue IVF will monitor for volume overload. resolved Chronic anemia secondary to CKD hgb 9.9 continue monitor cbc Tobacco abuse Counseling on smoking cessation DYSPHAGIA complaint of food stuck in her throat speech therapy consulted and recommended Slippery mechanical soft diet, thin liquids Avoid foods that are thick, doughy, and pasty Barium swallow showed mild cricopharyngeal achalasia.mild esophageal irritability and/or spasm. Moderate gastroesophageal reflux Trace Leukocytes on UA Received Rocephin IV x1 for UTI No signs of UTI No leukocytosis, afebrile CT Abd/Pelvis showed no acute abnormality Urine cx showed no growth Ambulatory dysfunction s/p falls Complaint of feet pain fall precaution will get an xray of the feet Physical therapy recommended inpatient rehab Pt agreed to go to rehab, [facility] approval [facility] DVT prophylaxis . Heparin subcutaneous CODE STATUS FULL CODE as per JIN Varela during admission Disposition [place] with Contact numbers : [phone]/ [phone]. Agreed to go to rehab for inpatient physical therapy Current Inpatient Medications: Current Inpatient Medications Medications (Trade) Dose Ordered Sig/Kayla Route Start Time Stop Time Status Last Admin Dose Admin Heparin Sodium (Porcine) (Heparin Sq 5000 Unit/0.5ml) 5,000 unit Q8 SQ 08/18/16 22:00 09/17/16 21:59 08/20/16 14:40 5,000 UNIT Ondansetron HCl (Zofran Inj) 4 mg Q6H PRN IV 08/18/16 21:45 09/17/16 21:44 Ranitidine HCl (zANTac TAB) 150 mg DAILY PO 08/19/16 09:00 09/18/16 08:59 08/21/16 12:41 150 MG Docusate Sodium (coLACE CAP) 100 mg DAILY PO 08/19/16 09:00 09/18/16 08:59 08/21/16 12:40 100 MG Polyethylene (Miralax Powder Packet) 17 gm DAILY PRN PO 08/18/16 22:30 09/17/16 22:29 Doxycycline Hyclate 100 mg/ Dextrose 110 ml @ 50 mls/hr BID@0900,2100 IV 08/19/16 09:00 08/26/16 20:59 08/21/16 08:00 50 MLS/HR Prednisone (PredniSONE TAB) 40 mg DAILY PO 08/19/16 09:00 08/24/16 08:59 08/21/16 12:41 40 MG Atorvastatin Calcium (Lipitor Tab) 20 mg DAILY PO 08/19/16 09:00 09/18/16 08:59 08/21/16 12:40 20 MG Citalopram Hydrobromide (celeXA TAB) 30 mg DAILY PO 08/19/16 09:00 09/18/16 08:59 08/21/16 12:40 30 MG Ipratropium [place] (Atrovent 0.02% 0.5MG/2.5ML Neb) 0.5 mg Q6R INH 08/19/16 09:00 09/18/16 08:59 08/21/16 07:13 0.5 MG Levalbuterol (Xopenex 1.25MG/ 0.5ML Neb) 1.25 mg Q6R INH 08/19/16 09:00 09/18/16 08:59 08/21/16 07:13 1.25 MG Ipratropium [place] (Atrovent 0.02% 0.5MG/2.5ML Neb) 0.5 mg Q4H PRN INH 08/19/16 08:00 09/18/16 07:59 Levalbuterol (Xopenex 1.25MG/ 0.5ML Neb) 1.25 mg Q4H PRN INH 08/19/16 08:00 09/18/16 07:59 Haloperidol (Haldol Tab) 2 mg Q4H PRN PO 08/19/16 22:00 09/18/16 21:59 08/21/16 01:09 2 MG Haloperidol Lactate (Haldol Inj) 2 mg Q2H PRN IM 08/19/16 21:45 09/18/16 21:44 08/19/16 23:21 2 MG Gabapentin (Neurontin Cap) 300 mg HS PO 08/20/16 21:00 09/19/16 20:59 08/20/16 19:30 300 MG
[2016-08-21] MEDS: GABAPENTIN 300 MG CAP PO SCH (20:57)
[2016-08-21] MEDS: DOXYCYCLINE HYCLATE 100 MG CAP PO SCH (20:57)
[2016-08-22] VITALS (11 sets, daily range): BP systolic 128–169; BP diastolic 49–92; PULSE 67–90; TEMP 36.9–37.3; O2SAT 90–100
[2016-08-22] MEDS ORDERED: ACETAMINOPHEN 325 MG TAB PO STA (00:16)
[2016-08-22] MEDS: IPRATROPIUM BROMIDE NEB SOLN 0.02% 2.5 ML VIAL INH SCH ×4 (01:39→19:59)
[2016-08-22] MEDS: LEVALBUTEROL 1.25MG/0.5ML NEB INH SCH ×4 (01:39→19:59)
[2016-08-22] MEDS: HEPARIN SOD 5000 UNIT/0.5 ML CARP SQ SCH ×3 (05:51→22:28)
[2016-08-22 06:54] LABS: HEMATOCRIT 34.1 % (37-47); MEAN CELL VOLUME 94.2 fL (80-100); MEAN CORPUSCULAR HEMOGLOBIN 29.8 pg (25-34); MEAN CORPUSCULAR HGB CONC 31.7 g/dl (32-36); PLATELET COUNT 258 K/uL (130-400); RED BLOOD COUNT 3.62 M/uL (4.2-5.4); WHITE BLOOD COUNT 8.34 K/uL (4.8-10.8)
[2016-08-22] MEDS: CITALOPRAM 20 MG TAB PO SCH (08:47)
[2016-08-22] MEDS: DOCUSATE SODIUM 100 MG CAP PO SCH (08:48)
[2016-08-22] MEDS: DOXYCYCLINE HYCLATE 100 MG CAP PO SCH ×2 (08:48→21:27)
[2016-08-22] MEDS: ATORVASTATIN 20 MG TAB PO SCH (08:48)
[2016-08-22] MEDS: RANITIDINE HCL 150 MG TAB PO SCH (08:48)
--- NOTE | 2016-08-22 15:55 | Progress Note ---
Medicine Progress Note Date & Time of Visit: Aug 22, 2016 at 15:44. Subjective Pt was seen and examined Lying in bed with no distress Pt said that she feels much bed She said that her breathing is good she refused to go to rehab she said that she wants to go home with home health nurse and do PT as an outpatient denies any chest pain, palpitation, dizziness and sob Objective Last 8 Hrs Date Time Temp Pulse Resp B/P (MAP) Pulse Ox O2 Delivery O2 Flow Rate FiO2 08/22/16 15:42 37.3 84 18 144/76 (98) 92 Room Air 08/22/16 14:15 67 16 95 Nasal Cannula 2.0 08/22/16 12:00 Nasal Cannula 2.0 08/22/16 11:54 37.2 80 16 169/92 (117) 94 2.0 08/22/16 11:19 90 95 08/22/16 08:22 Nasal Cannula 2.0 Physical Exam: General- No acute distress Head- atraumatic Eyes- PERRL, EOMI ENT- oropharynx clear Neck- supple, no JVD Lungs- clear to auscultation Heart- regular rhythm Abdomen- normal bowel sounds, soft Extremities- no calf tenderness, +edema Neuro- alert, oriented x 3; PERRL, EOMI; no facial palsy Skin- warm & dry Laboratory Results: Last 24 Hours Test 08/22/16 06:34 White Blood Count 8.34 K/uL Red Blood Count 3.62 M/uL Hemoglobin 10.8 g/dL Hematocrit 34.1 % Mean Corpuscular Volume 94.2 fL Mean Corpuscular Hemoglobin 29.8 pg Mean Corpuscular Hemoglobin Concent 31.7 g/dl RDW Standard Deviation 54.5 fL RDW Coefficient of Variation 16.0 % Platelet Count 258 K/uL Mean Platelet Volume 9.0 fL Total Creatine Kinase 422 U/L Assessment & Plan Encephalopathy Mostly related to hypercapnia respiratory acidosis vs metabolic encephalopathy vs narcotic VBG on admission showed Ph 7.2, PCO2 64 Improved after starting on BIPAP mental status back to baseline continue monitor in telemetry Resolved Hypercapnia respiratory acidosis Possible related to COPD exacerbation vs narcotic overdose CXR showed cardiomegaly and emphysema with no acute cardiopulmonary abnormality. Was started on doxycycline/prednisone/ duoneb Was weaned on Bipap, now on 2L NC Does not require any oxygen at home Might need a nocturnal pulse oximetry/ and 2 step exercise before discharge nocturnal pulse oximetry done, requires oxygen case discussed with Pulmonary, that will see pt as an outpatient btw 2 to 4 weeks will start on 2 LNC at night Will need to repeat the nocturnal pulse oximetry on 2L NC outpatient to check if 2L oxygen is enough for her 2 step exercise done, pt does not require oxygen at rest, but requires 2L NC with ambulation Follow up with pulmonary as an outpatient SRIDHAR on CKD stage 3 creatine on admission was 2.5 creatine improved to 1.2 Continue IVF will monitor for volume overload. resolved Chronic anemia secondary to CKD hgb 9.9 continue monitor cbc Tobacco abuse Counseling on smoking cessation DYSPHAGIA complaint of food stuck in her throat speech therapy consulted and recommended Slippery mechanical soft diet, thin liquids Avoid foods that are thick, doughy, and pasty Barium swallow showed mild cricopharyngeal achalasia.mild esophageal irritability and/or spasm. Moderate gastroesophageal reflux Trace Leukocytes on UA Received Rocephin IV x1 for UTI No signs of UTI No leukocytosis, afebrile CT Abd/Pelvis showed no acute abnormality Urine cx showed no growth Ambulatory dysfunction s/p falls Complaint of feet pain fall precaution will get an xray of the feet Physical therapy recommended inpatient rehab Pt refused to go for inpatient Physical therapy case discussed with case checker that arranged pt for home health service and outpatient PT DVT prophylaxis On Heparin subcutaneous CODE STATUS FULL CODE as per JIN Varela during admission Disposition [place] with Contact numbers : [phone]/ [phone]. Refused to go for inpatient rehab Will d/c home with home health services and physical therapy Will need to follow with pulmonary Current Inpatient Medications: Current Inpatient Medications Medications (Trade) Dose Ordered Sig/Kayla Route Start Time Stop Time Status Last Admin Dose Admin Heparin Sodium (Porcine) (Heparin Sq 5000 Unit/0.5ml) 5,000 unit Q8 SQ 08/18/16 22:00 09/17/16 21:59 08/22/16 14:42 5,000 UNIT Ondansetron HCl (Zofran Inj) 4 mg Q6H PRN IV 08/18/16 21:45 09/17/16 21:44 Ranitidine HCl (zANTac TAB) 150 mg DAILY PO 08/19/16 09:00 09/18/16 08:59 08/22/16 08:48 150 MG Docusate Sodium (coLACE CAP) 100 mg DAILY PO 08/19/16 09:00 09/18/16 08:59 08/22/16 08:48 100 MG Polyethylene (Miralax Powder Packet) 17 gm DAILY PRN PO 08/18/16 22:30 09/17/16 22:29 Prednisone (PredniSONE TAB) 40 mg DAILY PO 08/19/16 09:00 08/24/16 08:59 08/22/16 08:48 40 MG Atorvastatin Calcium (Lipitor Tab) 20 mg DAILY PO 08/19/16 09:00 09/18/16 08:59 08/22/16 08:48 20 MG Citalopram Hydrobromide (celeXA TAB) 30 mg DAILY PO 08/19/16 09:00 09/18/16 08:59 08/22/16 08:47 30 MG Ipratropium [place] (Atrovent 0.02% 0.5MG/2.5ML Neb) 0.5 mg Q6R INH 08/19/16 09:00 09/18/16 08:59 08/22/16 14:15 0.5 MG Levalbuterol (Xopenex 1.25MG/ 0.5ML Neb) 1.25 mg Q6R INH 08/19/16 09:00 09/18/16 08:59 08/22/16 14:15 1.25 MG Ipratropium [place] (Atrovent 0.02% 0.5MG/2.5ML Neb) 0.5 mg Q4H PRN INH 08/19/16 08:00 09/18/16 07:59 Levalbuterol (Xopenex 1.25MG/ 0.5ML Neb) 1.25 mg Q4H PRN INH 08/19/16 08:00 09/18/16 07:59 Haloperidol (Haldol Tab) 2 mg Q4H PRN PO 08/19/16 22:00 09/18/16 21:59 08/21/16 01:09 2 MG Haloperidol Lactate (Haldol Inj) 2 mg Q2H PRN IM 08/19/16 21:45 09/18/16 21:44 08/19/16 23:21 2 MG Gabapentin (Neurontin Cap) 300 mg HS PO 08/20/16 21:00 09/19/16 20:59 08/21/16 20:57 300 MG Doxycycline Hyclate (Vibramycin Cap) 100 mg BID PO 08/21/16 21:00 08/26/16 20:59 08/22/16 08:48 100 MG
[2016-08-22] MEDS ORDERED: TRAMADOL HCL 50 MG TAB PO PRN (20:30)
[2016-08-22] MEDS: GABAPENTIN 300 MG CAP PO SCH (21:27)
[2016-08-22] MEDS: ACETAMINOPHEN 325 MG TAB PO PRN (22:45)
[2016-08-23] MEDS: LEVALBUTEROL 1.25MG/0.5ML NEB INH SCH ×2 (03:00→07:14)
[2016-08-23] MEDS: IPRATROPIUM BROMIDE NEB SOLN 0.02% 2.5 ML VIAL INH SCH ×2 (03:00→07:14)
[2016-08-23 03:11] VITALS: BP 141/80; PULSE 75; TEMP 36.9; O2SAT 92
[2016-08-23] MEDS: HEPARIN SOD 5000 UNIT/0.5 ML CARP SQ SCH (05:56)
[2016-08-23 07:09] VITALS: BP 145/85; PULSE 77; TEMP 37.1; O2SAT 93
[2016-08-23 07:14] VITALS: PULSE 67; O2SAT 97
[2016-08-23 08:04] LABS: BUN/CREATININE RATIO 15.2 (10-20); CREATININE 1.2 mg/dl (0.60-1.20); POTASSIUM 3.8 mmol/L (3.5-5.1)
[2016-08-23] MEDS: RANITIDINE HCL 150 MG TAB PO SCH (08:23)
[2016-08-23] MEDS: ATORVASTATIN 20 MG TAB PO SCH (08:23)
[2016-08-23] MEDS: DOCUSATE SODIUM 100 MG CAP PO SCH (08:24)
[2016-08-23] MEDS: CITALOPRAM 20 MG TAB PO SCH (08:24)
[2016-08-23] MEDS: DOXYCYCLINE HYCLATE 100 MG CAP PO SCH (08:25)
[2016-08-23] MEDS: ACETAMINOPHEN 325 MG TAB PO PRN (10:27)
[2016-08-23 11:40] VITALS: BP 130/80; PULSE 78; TEMP 36.9; O2SAT 92
--- NOTE | 2016-08-23 11:55 | Discharge Instructions ---
Discharge Instructions Date of Service Aug 23, 2016. Admission Reason for Admission: Acute kidney failure, Hyperkalemia Discharge Discharge Diagnosis / Problem: Encephalopathy, Hypercapnia respiratory acidosis , SRIDHAR on CKD Discharge Goals Goal(s): Decrease discomfort, Improve function, Improve disease control Activity Recommendations Activity Limitations: resume your previous activity . Instructions / Follow-Up Instructions / Follow-Up Discharge home with home health Follow up with your physician Dr. Messer on 08/29 @ 2:45 pm Continue Physical therapy as an outpatient Use oxygen with 2 L nasal cannula when ambulating and at night for sleep Your physician will refer you to see the pulmonary doctor ( Lung specialist) between 4 to 6 weeks Repeat nocturnal pulse oximetry on 2 L in 3 to 4 weeks Avoid medications that can damage your kidney such as NSAIDs ( naproxen, aleve, motrin, ibuprofen) Use walker to ambulate Fall precaution Only use the pain medication tramadol as directed, and hold it if it makes you drowsy or sleepy Current Hospital Diet Patient's current hospital diet: AHA Diet (Heart Healthy), Low Potassium Diet ( 2g K) Discharge Diet Recommended Diet: AHA Diet (Heart Healthy) Pending Studies Studies pending at discharge: no Medical Emergencies . Who to Call and When: Medical Emergencies: If at any time you feel your situation is an emergency, please call 911 immediately. . Non-Emergent Contact Non-Emergency issues call your: Primary Care Provider Call Non-Emergent contact if: your pain is not controlled, you have any medication questions . . "Provider Documentation" section prepared by Leobardo Manjarrez. . VTE Core Measure Inpt VTE Proph given/why not?: Unfractionated heparin SQ [place] Drug Monitoring Program Search Results: patient reviewed within database, no issues identified
[2016-08-23 12:03] VITALS: BP 130/80; PULSE 78; TEMP 36.9; O2SAT 92
--- NOTE | 2016-08-23 18:24 | Progress Note ---
Medicine Progress Note Date & Time of Visit: Aug 23, 2016 at 18:19. Subjective Pt was seen and examined Sitting in bed comfortable with no distress Pt said that she feels fine she said that she is ready to go home she refused again to go to rehab denies any chest pain, palpitation, dizziness and sob Objective Last 8 Hrs Date Time Temp Pulse Resp B/P (MAP) Pulse Ox O2 Delivery O2 Flow Rate FiO2 08/23/16 12:03 36.9 78 18 92 Room Air 08/23/16 11:40 36.9 78 18 130/80 (97) 92 Room Air Physical Exam: General- No acute distress Head- atraumatic Eyes- PERRL, EOMI ENT- oropharynx clear Neck- supple, no JVD Lungs- clear to auscultation Heart- regular rhythm Abdomen- normal bowel sounds, soft Extremities- no calf tenderness, +edema Neuro- alert, oriented x 3; PERRL, EOMI; no facial palsy Skin- warm & dry Laboratory Results: Last 24 Hours Test 08/23/16 07:09 Sodium Level 138 mmol/L Potassium Level 3.8 mmol/L Chloride Level 100 mmol/L Carbon Dioxide Level 33 mmol/L Anion Gap 5.0 mmol/L Blood Urea Nitrogen 18 mg/dl Creatinine 1.20 mg/dl Est Creatinine Clear Calc Drug Dose 41.8 ml/min Estimated GFR () 52.7 Estimated GFR (Non- 45.4 BUN/Creatinine Ratio 15.2 Random Glucose 81 mg/dl Calcium Level 9.0 mg/dl Assessment & Plan Encephalopathy Mostly related to hypercapnia respiratory acidosis vs metabolic encephalopathy vs narcotic VBG on admission showed Ph 7.2, PCO2 64 Improved after starting on BIPAP mental status back to baseline continue monitor in telemetry Resolved Hypercapnia respiratory acidosis Possible related to COPD exacerbation vs narcotic overdose CXR showed cardiomegaly and emphysema with no acute cardiopulmonary abnormality. Was started on doxycycline/prednisone/ duoneb Was weaned on Bipap, now on 2L NC Does not require any oxygen at home Might need a nocturnal pulse oximetry/ and 2 step exercise before discharge nocturnal pulse oximetry done, requires oxygen case discussed with Pulmonary, that will see pt as an outpatient btw 2 to 4 weeks will start on 2 LNC at night Will need to repeat the nocturnal pulse oximetry on 2L NC outpatient to check if 2L oxygen is enough for her 2 step exercise done, pt does not require oxygen at rest, but requires 2L NC with ambulation Follow up with pulmonary as an outpatient in 3 to 4 weeks Stable SRIDHAR on CKD stage 3 creatine on admission was 2.5 creatine improved to 1.2 Continue IVF will monitor for volume overload. resolved Chronic anemia secondary to CKD hgb 9.9 continue monitor cbc Tobacco abuse Counseling on smoking cessation DYSPHAGIA complaint of food stuck in her throat speech therapy consulted and recommended Slippery mechanical soft diet, thin liquids Avoid foods that are thick, doughy, and pasty Barium swallow showed mild cricopharyngeal achalasia.mild esophageal irritability and/or spasm. Moderate gastroesophageal reflux Trace Leukocytes on UA Received Rocephin IV x1 for UTI No signs of UTI No leukocytosis, afebrile CT Abd/Pelvis showed no acute abnormality Urine cx showed no growth Ambulatory dysfunction s/p falls Complaint of feet pain fall precaution will get an xray of the feet Physical therapy recommended inpatient rehab Pt refused to go for inpatient Physical therapy discussed with pt that she is at increase risk for fall and fractures she continues refusing inpatient rehab and wants to go home case discussed with caser up that arranged pt for home health service and outpatient PT DVT prophylaxis On Heparin subcutaneous CODE STATUS FULL CODE as per JIN Varela during admission Disposition [facility] with Contact numbers : [phone]/ [phone]. Refused to go for inpatient rehab Will d/c home with home health services and physical therapy Will need to follow with pulmonary in 1 month Follow up appt with Dr. Messer on 08/29 @ 2:45 pm
--- NOTE | 2016-08-23 20:08 | EEG Procedure Note ---
EEG Procedure Note Date of Service Aug 21, 2016. Start / End Times Start Time: 0800 End Time: 08 Referring Physician flaco jones History syncope vs seizure Home Medication List Scheduled Atorvastatin (Lipitor), 20 MG PO DAILY Calcium Carbonate (Calcium Carbonate), 1 TAB PO BID Cholecalciferol (Vitamin D), 1,000 INTER.UNIT PO DAILY Citalopram (Citalopram Hydrobromide), 30 MG PO DAILY Gabapentin (Gabapentin), 300 MG PO HS Magnesium Oxide (Mag-Ox), 400 MG PO DAILY Ranitidine (Zantac), 150 MG PO BID Scheduled PRN Tramadol Hcl (Ultram), 50 MG PO Q8 PRN for Pain Description This is a 21 electrode EEG with a single channel dedicated to limited EKG. The electrodes were placed in accordance with the International 10-20 system. Interpretation This eeg was done as a bedside recording with a simultaneous video analysis of patient movement and behavior. Photic stimulation is the only activation performed and only brief drowsiness episodes and no fully developed periods of sleep are recorded. There are few movement and muscle artefacts and the tracing is of generall good quality and is quite interpretable. During wakefulness there is a low frequency range alpha rhythm seen symmetrically in the posterior head regions. Low frequency theta activity is seen centrally and symmetrically with rare delta wave seen as isolated nonrhythmic events. Beta activity is seen bifrontally and symmetrically . Brief duration drowsiness during which the alpha rhythm shifts into upper theta frequencies and more rhythmic higher amplitude theta and delta activity appears is seen episodically witout any associated abnormal activations. Photic stimuation provokes a minimal drivingr response without a photomyogenic or photoparoxysmal component. At no timeduring the waking or brief duration drowsy recording is there evidence for potentially epileptogenic activity of the focal or generalized type. Clinical Correlation This a a normal eeg during wakefulness and brief duration drowsiness revealing no evidence for a focal or generalized encephalopathy or potentially epileptogenic activity
--- NOTE | 2016-08-26 08:36 | Discharge Summary ---
Discharge Summary Date of Service Aug 26, 2016. Discharge Summary Admission Date: Aug 18, 2016 at 20:16 Discharge Date: Aug 23, 2016 Discharge Disposition: Home with services Principal Diagnosis: Encephalopathy Secondary Diagnoses/Problems: Hypercapnia respiratory acidosis SRIDHAR on CKD stage 3 Chronic anemia Procedures: (BARIUM SWALLOW) ESOPHAGUS CLINICAL HISTORY: solid food dysphagiadysphagia COMPARISON STUDY: None FLUOROSCOPY TIME: 1.2 minutes. FINDINGS: Patient initiates swallowing function well. There is no evidence for aspiration. There is mild prominence of the cricopharyngeus. No significant stenosis is appreciated. Esophagus is normal in course and caliber. Esophageal motility is slightly diminished. There is moderate gastroesophageal reflux. There is a distal esophageal irritability and/or spasm. IMPRESSION: 1. Mild cricopharyngeal achalasia. 2. Mild esophageal irritability and/or spasm. 3. Moderate gastroesophageal reflux. Electronically signed by: Andrea Sanford M.D. 08/21/2016 11:29 AM Dictated Date/Time: 08/21/2016 11:[address] SCAN OF THE ABDOMEN AND PELVIS WITHOUT IV CONTRAST CLINICAL HISTORY: Back pain. COMPARISON STUDY: Abdominal CT dated 04/12/2010. TECHNIQUE: CT scan of the abdomen and pelvis is performed from the lung bases to the proximal femora. Images are reviewed in the axial, sagittal, and coronal planes. IV contrast was not administered for this examination as per the front clinician. Note that the examination was performed and significant suboptimal fashion without oral and IV contrast. Automated dose control exposure was utilized. The examination is degraded by streak artifact from the patient's arms which could not be elevated above the abdomen as well as motion artifact. CT DOSE: 830.60 mGy.cm FINDINGS: Lung bases: The heart is normal in size and without pericardial effusion. Emphysema is suspected. There is bibasilar scarring versus atelectasis. No airspace consolidation or pleural effusion is identified a tiny hiatal hernia is observed. A surgical clip is noted at the gastroesophageal junction. Liver: Evaluation of the liver is degraded by streak and motion artifact. The unenhanced liver is normal in size, contour, and attenuation. There is central intrahepatic biliary ductal dilatation. Gallbladder: Not identified and presumed surgically absent. Spleen: Normal in size and attenuation. Pancreas: Unenhanced pancreas is markedly atrophic and grossly unremarkable. Adrenal glands: Unremarkable. Kidneys: The unenhanced kidneys are atrophic and without hydronephrosis. There are no renal calculi identified. There is no evidence of contour deforming renal mass lesion. Abdominal vasculature: The abdominal aorta is normal in course and caliber noting moderate to advanced atherosclerotic calcification. 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 No bowel obstruction is seen. There is moderate colonic diverticulosis without CT evidence of acute diverticulitis. Colonic fecal retention is observed. The appendix is not identified. Peritoneum: There is no intraperitoneal free air or abdominal ascites. Lymphadenopathy: None. Pelvic viscera: The bladder is normal as visualized. The uterus and adnexa are normal as imaged. Skeletal structures: The skeletal structures are osteopenic. Mild to moderate spondylotic change in observed. There are healed left pubic ring fractures. Mild arthritic change is noted in the hips. No lytic or blastic lesions are seen. IMPRESSION: 1. Significantly suboptimal examination without oral and IV contrast. The examination is also by streak and motion artifact. 2. There are no acute infectious or inflammatory findings in the abdomen or pelvis. 3. 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 No bowel obstruction is seen. 4. Moderate colonic diverticulosis without CT evidence of acute diverticulitis. 5. Additional findings as above. Electronically signed by: Jm Holliday M.D. 08/18/2016 10:19 PM Dictated Date/Time: 08/18/2016 10:[address] SCAN OF THE CERVICAL SPINE CLINICAL HISTORY: Fall. COMPARISON STUDY: CT of the neck dated 11/30/2014. TECHNIQUE: CT scan of the cervical spine is performed from the skull base to the upper thoracic spine. Images are reviewed in the axial, sagittal, and coronal planes. IV contrast was not administered for this examination. CT DOSE: Reported separately under the concurrently performed CT scan of the brain. FINDINGS: Skeletal structures: The skeletal structures are osteopenic. There is no evidence of fracture or subluxation involving the cervical spine. Vertebral body height and alignment are maintained. There is straightening of the cervical lordosis. Anterior osteophytes are seen throughout. The odontoid process and lateral masses are intact. The atlantoaxial articulation is preserved noting productive degenerative change with bony sclerosis and narrowing of the intervertebral. The spinous processes appear intact. There is mild to moderate multilevel cervical spondylosis. Uncovertebral and facet arthropathy contribute sterile foraminal narrowing at several levels. Intervertebral discs: Amrv-xe-zutkvhsm degenerative disc space narrowing seen at C4-C5 and C5-C6. The remaining disc spaces appear maintained. Central canal: A posterior disc osteophyte complex at C5-C6 may contribute to mild acquired compromise of the central canal. Soft tissues: The prevertebral and paraspinous soft tissues are within normal limits. Foci of intravenous gas are incidentally noted in the upper chest. There is atherosclerotic calcification of the carotid bulbs. Calvarium: The visualized calvarium at the skull base appears intact. Brain parenchyma: Partially visualized brain parenchyma the skull base is within normal limits. Sinuses and mastoids: The visualized paranasal sinuses are clear. The mastoid air cells are well pneumatized. Lung apices: Emphysematous change is present at the lung apices. Imaged apical lung parenchyma is clear as visualized. IMPRESSION: 1. There is no evidence of fracture or subluxation involving the cervical spine. 2. Osteopenia and degenerative change as above. Electronically signed by: Jm Holliday M.D. 08/18/2016 7:21 PM Dictated Date/Time: 08/18/2016 7:16 PM SINGLE VIEW CHEST CLINICAL HISTORY: Generalized weakness. FINDINGS: An AP, portable, semierect chest radiograph is compared to chest x-ray and chest CT dated 02/15/2016. The examination is degraded by portable technique and patient rotation. The heart is enlarged and there is atherosclerotic calcification of the thoracic aorta. The pulmonary vasculature is noncongested. Enlargement of the central pulmonary arteries suggests pulmonary artery hypertension. Emphysema and chronic interstitial thickening are similar to previous. There is bibasilar atelectasis. There is no airspace consolidation typical for pneumonia or large pleural effusion. No pneumothorax is seen. The skeletal structures are osteopenic. The bony thorax is grossly intact. IMPRESSION: Cardiomegaly and emphysema with no acute cardiopulmonary abnormality. Electronically signed by: Jm Holliday M.D. 08/18/2016 7:45 PM Dictated Date/Time: 08/18/2016 7:[address] SCAN OF THE BRAIN WITHOUT IV CONTRAST CLINICAL HISTORY: Generalized weakness. Falls. COMPARISON STUDY: CT of the brain dated 11/27/2014. TECHNIQUE: Unenhanced axial CT scan of the brain is performed from the vertex to the skull base. CT DOSE: 1070.57 mGy.cm FINDINGS: Brain parenchyma: There are age-related involutional changes noting [id number]-[id number] patchy subcortical and periventricular microangiopathic change. There is no hemorrhage, mass effect, or evidence of acute territorial ischemia by CT criteria. Buenrostro-white matter is preserved. No extra-axial fluid collection is seen. Ventricles, sulci, cisterns: Prominent secondary to involutional change. Intracranial vasculature: There is atherosclerotic calcification of the cavernous carotid arteries. Calvarium: The skeletal structures are osteopenic. No depressed calvarial fracture is seen. Sinuses and mastoids: The visualized paranasal sinuses are clear. The mastoid air cells are under pneumatized but appear clear. Orbits: The bony orbits are grossly intact. IMPRESSION: There is no hemorrhage, mass effect, or evidence of acute territorial ischemia by CT criteria. Electronically signed by: Jm Holliday M.D. 08/18/2016 7:11 PM Dictated Date/Time: 08/18/2016 7:09 PM Interpretation Summary * Name: ASIF VARELA Study Date: 08/19/2016 06:53 AM BP: 153/83 mmHg * Patient Location: [facility]\\78\\S\\2 HR: 68 * : 1945 (M/d/yyyy) Gender: Female Height: 67 in * Age: 70 yrs Ethnicity: [place] Weight: 179 lb * Ordering Physician: Shiv Baez * Performed By: Padmini Burt * * Reason For Study: SYNCOPE * BSA: 1.9 m2 * Grossly normal valvular structure and function. * -- Conclusions -- * The left ventricle is normal in size. * Left ventricular systolic function is normal. * Ejection Fraction = 60-65%. * The right ventricular systolic function is normal. * The left atrial size is normal. * Right atrial size is normal. * Grossly normal valvular structure and function. Procedure Details * A complete two-dimensional transthoracic echocardiogram was performed (2D, M- mode, Doppler and color flow Doppler). * A contrast injection of Definity was performed to improve assessment of LV function. * Contrast was injected into an intravenous site in the left arm. * One vial of Definity ultrasound contrast was diluted in normal saline to a total volume of 10 ml. A total of '2' ml of solution was administered during imaging. * Lot # [id number] of Definity utilized for procedure. * Expiration date 10/04. * The attending nurse who injected the contrast agent was DANIELA HARDING RN. Left Ventricle * The left ventricle is normal in size. * There is normal left ventricular wall thickness. * Ejection Fraction = 60-65%. * Left ventricular systolic function is normal. * The left ventricular wall motion is normal. Right Ventricle * The right ventricle is normal size. * The right ventricular systolic function is normal. Atria * The left atrial size is normal. * Right atrial size is normal. * The interatrial septum is intact with no evidence for an atrial septal defect. Mitral Valve * The mitral valve is grossly normal. * Significant mitral regurgitation is absent. Tricuspid Valve * The tricuspid valve is not well visualized, but is grossly normal. * Significant tricuspid regurgitation is absent. Aortic Valve * The aortic valve is not well visualized. * No hemodynamically significant valvular aortic stenosis. * There is no significant aortic regurgitation. Pulmonic Valve * The pulmonic valve is not well visualized. * There is no significant pulmonary regurgitation. Great Vessels * The aortic root and proximal ascending aorta are normal sized. Pericardium/Pleural * There is no pericardial effusion. Medication Reconciliation Continued Medications: Atorvastatin (Lipitor) 20 Mg Tab 20 MG PO DAILY Calcium Carbonate (Calcium Carbonate) 600 Mg Tab 1 TAB PO BID, #60 TAB Cholecalciferol (Vitamin D) 1,000 Inter.unit Tab 1000 INTER.UNIT PO DAILY Citalopram (Citalopram Hydrobromide) 20 Mg Tab 30 MG PO DAILY, #45 Gabapentin (Gabapentin) 100 Mg Cap 300 MG PO HS Magnesium Oxide (Mag-Ox) 400 Mg Tab 400 MG PO DAILY Ranitidine (Zantac) 150 Mg Tab 150 MG PO BID, 0 Refills Tramadol Hcl (Ultram) 50 Mg Tab 50 MG PO Q8 PRN for Pain Discontinued Medications: Oxycodone HCl (Oxycodone HCl) 5 Mg Tab 5 MG PO Q12 PRN for severe pain, #10 TAB 0 Refills Admission Information HPI (per Admitting provider): Recent confinement, January 2016 for hypoxemia attributed to atelectasis from sternal fracture. At time of discharge patient oxygenating well on room air. Patient had a follow-up visit with PCP a few days ago. As per outpatient note, patient hasn't been well since injury from months back. Short of breath especially with exertion. Back pain, achy some trouble with walking. Outpatient chest x-ray showed COPD. Back x-ray showed arthritis. At PCPs office, patient noted to be hypoxemic 70s which improved with some rest. Patient refused home O2 as per records. Patient prescribed oxycodone twice a day as needed for back pain. As per patient's , patient has not been well the last 2 days. Weak and having trouble walking. Patient fell down yesterday, a little confused as per . Patient not sure if patient passed out. At the emergency room, patient noted to have decreased mentation with some improvement after Narcan administration. Patient currently obtunded. Physical Exam (per Admitting): General Appearance: + pertinent finding (obtunded) Head: normocephalic Eyes: PERRL, sclerae normal ENT: + pertinent finding (nasal cannula in place) Neck: + pertinent finding (short) Respiratory/Chest: + pertinent finding (decrease effort) Cardiovascular: regular rate, rhythm Abdomen/GI: soft (soft) Extremities/Musculoskelatal: non-tender Neurologic/Psych: + pertinent finding (obtunded) Skin: + pallor Hospital Course Encephalopathy Mostly related to hypercapnia respiratory acidosis vs metabolic encephalopathy vs narcotic VBG on admission showed Ph 7.2, PCO2 64 Improved after starting on BIPAP mental status back to baseline continue monitor in telemetry EEG done showed no evidence for a focal or generalized encephalopathy or potentially epileptogenic activity Resolved Hypercapnia respiratory acidosis Possible related to COPD exacerbation vs narcotic overdose CXR showed cardiomegaly and emphysema with no acute cardiopulmonary abnormality. Was started on doxycycline/prednisone/ duoneb Was weaned on Bipap, now on 2L NC Does not require any oxygen at home Might need a nocturnal pulse oximetry/ and 2 step exercise before discharge nocturnal pulse oximetry done, requires oxygen case discussed with Pulmonary, that will see pt as an outpatient btw 2 to 4 weeks will start on 2 LNC at night Will need to repeat the nocturnal pulse oximetry on 2L NC outpatient to check if 2L oxygen is enough for her 2 step exercise done, pt does not require oxygen at rest, but requires 2L NC with ambulation Follow up with pulmonary as an outpatient in 3 to 4 weeks Stable SRIDHAR on CKD stage 3 creatine on admission was 2.5 creatine improved to 1.2 Continue IVF will monitor for volume overload. resolved Chronic anemia secondary to CKD hgb 9.9 continue monitor cbc Tobacco abuse Counseling on smoking cessation DYSPHAGIA complaint of food stuck in her throat speech therapy consulted and recommended Slippery mechanical soft diet, thin liquids Avoid foods that are thick, doughy, and pasty Barium swallow showed mild cricopharyngeal achalasia.mild esophageal irritability and/or spasm. Moderate gastroesophageal reflux Trace Leukocytes on UA Received Rocephin IV x1 for UTI No signs of UTI No leukocytosis, afebrile CT Abd/Pelvis showed no acute abnormality Urine cx showed no growth Ambulatory dysfunction s/p falls Complaint of feet pain fall precaution will get an xray of the feet Physical therapy recommended inpatient rehab Pt refused to go for inpatient Physical therapy discussed with pt that she is at increase risk for fall and fractures she continues refusing inpatient rehab and wants to go home case discussed with case filler that arranged pt for home health service and outpatient PT DVT prophylaxis On Heparin subcutaneous CODE STATUS FULL CODE as per JIN Varela during admission Disposition [place] with Contact numbers : [phone]/ [phone]. Refused to go for inpatient rehab Will d/c home with home health services and physical therapy Will need to follow with pulmonary in 1 month Follow up appt with Dr. Messer on 08/29 @ 2:45 pm Total time spent on discharge = 35 MINUTES This includes examination of the patient, discharge planning, medication reconciliation, and communication with other providers. Discharge Instructions Discharge Instructions Date of Service Aug 23, 2016. Admission Reason for Admission: Acute kidney failure, Hyperkalemia Discharge Discharge Diagnosis / Problem: Encephalopathy, Hypercapnia respiratory acidosis , SRIDHAR on CKD Discharge Goals Goal(s): Decrease discomfort, Improve function, Improve disease control Activity Recommendations Activity Limitations: resume your previous activity . Instructions / Follow-Up Instructions / Follow-Up Discharge home with home health Follow up with your physician Dr. Messer on 08/29 @ 2:45 pm Continue Physical therapy as an outpatient Use oxygen with 2 L nasal cannula when ambulating and at night for sleep Your physician will refer you to see the pulmonary doctor ( Lung specialist) between 4 to 6 weeks Repeat nocturnal pulse oximetry on 2 L in 3 to 4 weeks Avoid medications that can damage your kidney such as NSAIDs ( naproxen, aleve, motrin, ibuprofen) Use walker to ambulate Fall precaution Only use the pain medication tramadol as directed, and hold it if it makes you drowsy or sleepy Current Hospital Diet Patient's current hospital diet: AHA Diet (Heart Healthy), Low Potassium Diet ( 2g K) Discharge Diet Recommended Diet: AHA Diet (Heart Healthy) Pending Studies Studies pending at discharge: no Medical Emergencies . Who to Call and When: Medical Emergencies: If at any time you feel your situation is an emergency, please call 911 immediately. . Non-Emergent Contact Non-Emergency issues call your: Primary Care Provider Call Non-Emergent contact if: your pain is not controlled, you have any medication questions . . "Provider Documentation" section prepared by Leobardo Manjarrez. . VTE Core Measure Inpt VTE Proph given/why not?: Unfractionated heparin SQ [place] Drug Monitoring Program Search Results: patient reviewed within database, no issues identified Additional Copies To Ross Messer M.D.
== END 2016-08-23 13:06 | disposition home health service (06) | DRG 682 ==
LOC: EDBD 18:24 → C.EDA 18:26 → C.MED 20:16 → ENRESERV 20:56
PROVIDERS: ADMIT Hospitalist; ATTEND Internal Medicine
DX: N17.9 Acute kidney failure, unspecified (principal); G93.40 Encephalopathy, unspecified; E87.2 Acidosis; J44.1 Chronic obstructive pulmonary disease with (acute) exacerbation; R55 Syncope and collapse; R06.89 Other abnormalities of breathing; R82.90 Unspecified abnormal findings in urine; R29.6 Repeated falls; M79.672 Pain in left foot; M79.671 Pain in right foot; E86.0 Dehydration; R13.10 Dysphagia, unspecified; K21.9 Gastro-esophageal reflux disease without esophagitis; K22.0 Achalasia of cardia; N18.3 Chronic kidney disease, stage 3 (moderate); D63.1 Anemia in chronic kidney disease; F17.200 Nicotine dependence, unspecified, uncomplicated; Z53.29 Procedure and treatment not carried out because of patient's decision for other reasons; Z79.82 Long term (current) use of aspirin; Z79.891 Long term (current) use of opiate analgesic; Z79.899 Other long term (current) drug therapy

== ENCOUNTER 2017-03-27 17:20 | Inpatient (IN) | payer OTHER ==
[~2017-03-27] VITALS: Ht 175.3 cm; Wt 78.0 kg
[~2017-03-27 17:20] MED LIST changes: +RANI150T85 PO; -RXC5 PO; -VNTHFA/IN INH; -ZNTT/150 PO
[2017-03-27] MEDS ORDERED: SODIUM CHLORIDE 0.9% 1000ML 250 ML IV STA (17:42)
[2017-03-27] MEDS ORDERED: SODIUM CHLORIDE 0.9% 1000ML 1,000 ML IV STA (17:42)
--- NOTE | 2017-03-27 17:59 | EMERGENCY ROOM VISIT NOTE ---
History Report prepared by Harpal: [place] Under the Supervision of: Dr. Francisco J Moreland M.D. First contact with patient: 17:30 Stated Complaint: FALL History of Present Illness The patient is a 71 year old female who presents to the Emergency Room with complaints of an episode of a fall occurring yesterday. The patient states that both her legs gave out from underneath her. She states that she called a tele- nurse connor who told her to come to the ED to be checked for a stroke. The patient complains of weakness in both hands, neck pain, back pain, and worsening shortness of breath. She states that she did hit her head. The patient denies loss of consciousness, chest pain, heart palpitations, cough, fever, abdominal pain, hematochezia, numbness in legs, weakness in legs, and change in medications. Source of History: patient Onset: yesterday Position: other (global) Quality: other (weakness) Timing: other (episode) Associated Symptoms: + neck pain, + SOB, + back pain, No LOC, No fevers, No cough, No chest pain, No abdominal pain, No hematochezia, No numbness Note: The patient denies heart palpitations and weakness in legs. Review of Systems See HPI for pertinent positives & negatives. A total of 10 systems reviewed and were otherwise negative. Past Medical & Surgical Medical Problems: (1) Anxiety (2) CKD (chronic kidney disease) stage 3, GFR 30-59 ml/min (3) COPD, severe (4) Depression (5) Dyslipidemia (6) Generalized osteoarthritis (7) Stress incontinence Surgical Problems: (1) Hx of cholecystectomy (2) Hx of oophorectomy (3) S/P appendectomy Old medical records were reviewed. Nurse's notes were reviewed and I agree with. Family History Patient reports no known family medical history. Social History Smoking Status: Former Smoker Drug Use: none Marital Status: Housing Status: lives with significant other Occupation Status: retired Current/Historical Medications Scheduled Atorvastatin (Lipitor), 10 MG PO DAILY Baclofen (Lioresal), 1 TAB PO TID Calcium Carbonate (Calcium Carbonate), 1 TAB PO BID Cholecalciferol (Vitamin D), 2,000 INTER.UNIT PO DAILY Citalopram (Citalopram Hydrobromide), 1 TAB PO DAILY Gabapentin (Neurontin), 1 CAP PO TID Magnesium Oxide (Mag-Ox), 400 MG PO DAILY Ranitidine (Zantac), 150 MG PO BID Scheduled PRN Tramadol Hcl (Ultram), 50 MG PO Q8 PRN for Pain Allergies Coded Allergies: Codeine (Verified Allergy, Unknown, UNKNOWN, 08/18/16) Physical Exam Vital Signs Date Time Temp Pulse Resp B/P (MAP) Pulse Ox O2 Delivery O2 Flow Rate FiO2 03/27/17 19:41 75 18 155/102 97 Nasal Cannula 2.0 03/27/17 17:37 80 03/27/17 17:31 92 Nasal Cannula 4.0 03/27/17 17:31 37.7 85 18 109/72 92 Nasal Cannula 4.0 Physical Exam General: Non-ill appearing older female in no acute distress. HEENT: Normal cephalic atraumatic. Pupils are equal round and reactive to light. Extraocular movements are intact. Oropharynx is pink with moist mucous membranes. No swelling of the mouth lips or tongue. Neck: Supple with a midline trachea. No meningeal signs or stiffness, no JVD or bruits. No Stridor. Mild tenderness in neck. Chest: Clear to auscultation bilaterally. No wheezes or rhonchi. No increased work of breathing. Heart: regular rate and rhythm. Abdomen: Soft nontender, nondistended without rebound guarding or rigidity. Rectal: (in presence of female nurse baggage agent supervisor) scant brown stool, Philippe negative. Extremities: No cyanosis clubbing or edema. No calf tenderness or assymetry Spine/Back. Lumbar tenderness to palpation. No CVA tenderness Skin: Good turgor without rashes. Neurologic exam: Cranial nerves two through 12 are intact. Motor and sensation are intact and symmetrical throughout. Alert and oriented x3. Medical Decision & Procedures ER Provider Diagnostic Interpretation: Radiology results as stated below per my review and radiologist interpretation: CT SCAN OF THE ABDOMEN AND PELVIS WITHOUT IV CONTRAST CLINICAL HISTORY: Generalized abdominal pain. COMPARISON STUDY: Abdominal CT dated 08/18/2016. TECHNIQUE: CT scan of the abdomen and pelvis is performed from the lung bases to the proximal femora. Images are reviewed in the axial, sagittal, and coronal planes. IV contrast was not administered for this examination as per the referring clinician. Note that the examination was performed and significant suboptimal fashion without oral and IV contrast. A dose lowering protocol was utilized adhering to the principles of ALARA. CT DOSE: 1145.09 mGy.cm FINDINGS: Lung bases: The heart is normal in size and without pericardial effusion. Emphysema is noted. Dependent airspace opacities are present at both lung bases. No pleural effusion is seen. A tiny hiatal hernia is observed. A surgical clip is noted at the gastroesophageal junction. Liver: Evaluation of the liver is degraded by streak and motion artifact. The unenhanced liver is normal in size, contour, and attenuation. There is central intrahepatic biliary ductal dilatation. Gallbladder: Surgically absent. Intra and extrahepatic biliary ductal dilatation is similar to previous. Spleen: Normal in size and attenuation. Pancreas: The unenhanced pancreas is markedly atrophic and grossly unremarkable. Adrenal glands: Unremarkable. Kidneys: The unenhanced kidneys are atrophic and without hydronephrosis. There are no renal calculi identified. A 1.6 cm cyst arises from the lower pole of the left kidney. Additional subcentimeter cortical hypodensities likely represent cysts but are too small for definitive characterization. Abdominal vasculature: The abdominal aorta is normal in course and caliber noting moderate to advanced atherosclerotic calcification. 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 No bowel obstruction is seen. There is mild to moderate colonic diverticulosis without CT evidence of acute diverticulitis. The appendix is not identified. Peritoneum: There is no intraperitoneal free air or abdominal ascites. Lymphadenopathy: None. Pelvic viscera: The bladder, uterus, and adnexa are normal as visualized. Skeletal structures: The skeletal structures are osteopenic. Mild to moderate spondylotic change in observed. There are healed left pubic ring fractures. Mild arthritic change is noted in the hips. A large hemangioma is seen in the body of T10. No lytic or blastic lesions are seen. IMPRESSION: 1. Suboptimal examination without oral and IV contrast. 2. There are no acute infectious or inflammatory findings in the abdomen or pelvis. 3. 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 No bowel obstruction is seen. 4. Mild to moderate colonic diverticulosis without CT evidence of acute diverticulitis. 5. Dependent airspace opacities are similar to previous and likely represent scarring/atelectasis. Clinical correlation will be required. 6. Additional findings as above. Electronically signed by: Jm Holliday M.D. 03/27/2017 7:14 PM Dictated Date/Time: 03/27/2017 7:[address] SCAN OF THE CERVICAL SPINE CLINICAL HISTORY: Fall. COMPARISON STUDY: CT of the cervical spine dated 08/18/2016. TECHNIQUE: CT scan of the cervical spine is performed from the skull base to the upper thoracic spine. Images are reviewed in the axial, sagittal, and coronal planes. IV contrast was not administered for this examination. A dose lowering protocol was utilized adhering to the principles of ALARA. CT DOSE: 1060.49 mGy.cm FINDINGS: Skeletal structures: The skeletal structures are osteopenic. There is no evidence of fracture or subluxation involving the cervical spine. Vertebral body height is maintained. There is minimal anterolisthesis at C2-C3 and minimal retrolisthesis at C4-C5. There is straightening of the cervical lordosis with mild reversal centered at C4-C5. Anterior osteophytes are seen throughout. The odontoid process and lateral masses are intact. The atlantoaxial articulation is preserved noting productive degenerative change with bony sclerosis and narrowing of the intervertebral. The spinous processes appear intact. There is mild to moderate multilevel cervical spondylosis. Uncovertebral and facet arthropathy contribute sterile foraminal narrowing at several levels. Intervertebral discs: [id number] degenerative disc space narrowing seen at C4-C5 and C5-C6. The remaining disc spaces appear maintained. Central canal: A posterior disc osteophyte complex at C5-C6 may contribute to mild acquired compromise of the central canal. Soft tissues: The prevertebral and paraspinous soft tissues are within normal limits. There is atherosclerotic calcification of the carotid bulbs. Calvarium: The visualized calvarium at the skull base appears intact. Brain parenchyma: Partially visualized brain parenchyma the skull base is within normal limits. Sinuses and mastoids: The visualized paranasal sinuses are clear. The mastoid air cells are well pneumatized. Lung apices: Emphysematous change is present at the lung apices. Imaged apical lung parenchyma is otherwise clear as visualized. IMPRESSION: 1. There is no evidence of fracture or subluxation involving the cervical spine. 2. Osteopenia and degenerative change as above. Electronically signed by: Jm Holliday M.D. 03/27/2017 7:07 PM Dictated Date/Time: 03/27/2017 7:03 PM CHEST ONE VIEW PORTABLE CLINICAL HISTORY: 71 years-old Female presenting with CHEST PAIN. TECHNIQUE: Portable upright AP view of the chest was obtained. COMPARISON: 08/18/2016. FINDINGS: Atherosclerosis of aortic arch. Cardiac silhouette enlarged. Pulmonary vascular prominence. Lungs hyperinflated. Reticular and linear opacities at the lung bases. Relative radiolucency at the apices. No new focal opacity. No large effusion or pneumothorax. Osseous structures normal. IMPRESSION: 1. Findings suggest emphysema. 2. Cardiomegaly with suspected volume overload. 3. Bibasilar atelectasis or scarring. No new focal infiltrate. Electronically signed by: Jack Tucker M.D. 03/27/2017 6:11 PM Dictated Date/Time: 03/27/2017 6:[address] SCAN OF THE BRAIN WITHOUT IV CONTRAST CLINICAL HISTORY: Generalized weakness. Fall. COMPARISON STUDY: CT of the brain dated 08/18/2016. TECHNIQUE: Unenhanced axial CT scan of the brain is performed from the vertex to the skull base. FINDINGS: Brain parenchyma: There are age-related involutional changes noting moderate subcortical and periventricular microangiopathic change. There is no hemorrhage, mass effect, or evidence of acute territorial ischemia by CT criteria. Buenrostro-white matter is preserved. No extra-axial fluid collection is seen. Ventricles, sulci, cisterns: Prominent secondary to involutional change. Intracranial vasculature: There is atherosclerotic calcification of the cavernous carotid arteries. Calvarium: The skeletal structures are osteopenic. No depressed calvarial fracture is seen. Sinuses and mastoids: The visualized paranasal sinuses are clear. The mastoid air cells are under pneumatized but appear clear. Orbits: The bony orbits are grossly intact. IMPRESSION: There is no hemorrhage, mass effect, or evidence of acute territorial ischemia by CT criteria. Electronically signed by: Jm Holliday M.D. 03/27/2017 7:03 PM Dictated Date/Time: 03/27/2017 7:01 PM LUMBAR SPINE WITHOUT CLINICAL HISTORY: 71 years-old Female presenting with back pain s/p fall, weakness, neck and low back pain. TECHNIQUE: Multidetector CT of the lumbar spine was performed without the use of intravenous contrast. IV contrast: None. A dose lowering technique was used consistent with the principles of ALARA (as low as reasonably achievable). COMPARISON: None. CT DOSE (mGy.cm): The estimated cumulative dose is 1145.[address]. FINDINGS: Unmanned Equipment Operator topogram: Surgical material projects over the epigastrium and upper abdomen. Normal lumbar lordosis. Minimal levocurvature centered at L3-4. Vertebral bodies maintain normal height and alignment otherwise. Intervertebral disc height loss with vacuum disc phenomenon and suspected disc bulges noted at L4-5 and L5-S1. Facet arthropathy noted from L2-3 through L4-5 greater on the right. This results in mild right osseous neural foraminal narrowing at L3-4 and L4-5. No acute fracture or subluxation. Paraspinal soft tissues remarkable for superficial subcutaneous edema in the lumbar region. Atherosclerosis. Surgical material noted in the region of the gastroesophageal junction. IMPRESSION: 1. Mild multilevel degenerative changes primarily in the mid to lower lumbar spine greater on the right. This results in mild right osseous neural foraminal narrowing at L3-4 and L4-5. Suspected small disc bulges at L4-5 and L5-S1. 2. No acute osseous injury. Electronically signed by: Jack Tucker M.D. 03/27/2017 7:16 PM Dictated Date/Time: 03/27/2017 7:12 PM Laboratory Results 03/27/17 18:37 Red Blood Count 3.15, Mean Corpuscular Volume 94.3, Mean Corpuscular Hemoglobin 28.3, Mean Corpuscular Hemoglobin Concent 30.0, Mean Platelet Volume 8.8, Neutrophils (%) (Auto) 72.3, Lymphocytes (%) (Auto) 17.8, Monocytes (%) (Auto) 8.9, Eosinophils (%) (Auto) 0.3, Basophils (%) (Auto) 0.2, Neutrophils # (Auto) 4.54, Lymphocytes # (Auto) 1.12, Monocytes # (Auto) 0.56, Eosinophils # (Auto) 0.02, Basophils # (Auto) 0.01 03/27/17 17:27 Test 03/27/17 17:27 03/27/17 18:03 03/27/17 18:04 03/27/17 18:10 Anion Gap 9.0 mmol/L (3-11) Est Creatinine Clear Calc Drug Dose 25.9 ml/min Estimated GFR () 26.6 Estimated GFR (Non- 22.9 BUN/Creatinine Ratio 15.3 (10-20) Calcium Level 8.3 mg/dl (8.5-10.1) Total Bilirubin 0.6 mg/dl (0.2-1) Direct Bilirubin 0.1 mg/dl (0-0.2) Aspartate Amino Transf (AST/SGOT) 34 U/L (15-37) Alanine Aminotransferase (ALT/SGPT) 24 U/L (12-78) Alkaline Phosphatase 121 U/L (45-117) Total Creatine Kinase 220 U/L (26-192) Creatine Kinase MB 4.5 ng/ml (0.5-3.6) Creatine Kinase MB Ratio 2.0 (0-3.0) Total Protein 6.8 gm/dl (6.4-8.2) Albumin 3.3 gm/dl (3.4-5.0) Lipase 94 U/L (73-393) Thyroid Stimulating Hormone (TSH) 3.210 uIu/ml (0.300-4.500) Bedside Lactic Acid Venous 0.88 mmol/L (0.90-1.70) Bedside Troponin I < 0.030 ng/ml (0-0.045) Influenza Type A Antigen Neg for Influ A (NEG) Influenza Type B Antigen Neg for Influ B (NEG) Test 03/27/17 18:37 03/27/17 19:30 White Blood Count 6.28 K/uL (4.8-10.8) Red Blood Count 3.15 M/uL (4.2-5.4) Hemoglobin 8.9 g/dL (12.0-16.0) Hematocrit 29.7 % (37-47) Mean Corpuscular Volume 94.3 fL (80-100) Mean Corpuscular Hemoglobin 28.3 pg (25-34) Mean Corpuscular Hemoglobin Concent 30.0 g/dl (32-36) Platelet Count 252 K/uL (130-400) Mean Platelet Volume 8.8 fL (7.4-10.4) Neutrophils (%) (Auto) 72.3 % Lymphocytes (%) (Auto) 17.8 % Monocytes (%) (Auto) 8.9 % Eosinophils (%) (Auto) 0.3 % Basophils (%) (Auto) 0.2 % Neutrophils # (Auto) 4.54 K/uL (1.4-6.5) Lymphocytes # (Auto) 1.12 K/uL (1.2-3.4) Monocytes # (Auto) 0.56 K/uL (0.11-0.59) Eosinophils # (Auto) 0.02 K/uL (0-0.5) Basophils # (Auto) 0.01 K/uL (0-0.2) RDW Standard Deviation 60.6 fL (36.4-46.3) RDW Coefficient of Variation 17.9 % (11.5-14.5) Immature Granulocyte % (Auto) 0.5 % Immature Granulocyte # (Auto) 0.03 K/uL (0.00-0.02) Large Platelets 1+ Polychromasia 1+ Urine Color YELLOW Urine Appearance CLEAR (CLEAR) Urine pH 5.5 (4.5-7.5) Urine Specific [place] 1.021 (1.000-1.030) Urine Protein 1+ (NEG) Urine Glucose (UA) NEG (NEG) Urine Ketones TRACE (NEG) Urine Occult Blood NEG (NEG) Urine Nitrite NEG (NEG) Urine Bilirubin NEG (NEG) Urine Urobilinogen NEG (NEG) Urine Leukocyte Esterase NEG (NEG) Urine WBC (Auto) 1-5 /hpf (0-5) Urine RBC (Auto) 0-4 /hpf (0-4) Urine Hyaline Casts (Auto) 5-10 /lpf (0-5) Urine Epithelial Cells (Auto) 10-20 /lpf (0-5) Urine Bacteria (Auto) NEG (NEG) Laboratory studies as stated above per my review. Medications Administered Medications (Trade) Dose Ordered Sig/Kayla Route Start Time Stop Time Status Last Admin Dose Admin Sodium Chloride 250 ml @ 999 mls/hr Q16M STAT IV 03/27/17 17:42 03/27/17 17:57 DC 03/27/17 18:07 999 MLS/HR Sodium Chloride 1,000 ml @ 100 mls/hr Q10H STAT IV 03/27/17 17:42 03/27/17 21:39 DC 03/27/17 18:07 100 MLS/HR ECG Indication: weakness Rate (beats per minute): 80 Rhythm: normal sinus Findings: no acute ischemic change, other (poor baseline) Comparison ECG Date: August 18, 2016 Change: no significant change Change: Patient's electrocardiogram was interpreted by me. ED Course 1730: Past medical records reviewed. The patient was evaluated in room C1A, and a complete history and physical examination were performed. 1741: Ordered NSS 1000 ml @ 100 mls/hr IV, NSS 250 ml @ 999 mls/hr IV. 1845: I reevaluated the patient and she is resting comfortably. She is on her way to CT. 1948: Discussed the patient's case with Jacquelyn Mireles. The patient will be evaluated for further management. Medical Decision Differential diagnoses include CVA, anemia, infection, cardiac disease, trauma, electrolyte abnormality. This patient was in as described above. She was placed in room C1. She is here for treatment and evaluation of generalized weakness. She says she's been dropping things in both hands and both legs feel weak. She's had no trauma. When she told her nurse that she was weak they were concerned she could've a stroke, on exam, she's had no focal neurologic deficits. IV access established and blood work was obtained. CAT scan of her head was unremarkable. I also did a CAT scan of her neck that was unremarkable as well as lumbar spine and abdomen and pelvis. She's had no obstructive uropathy. Her creatinine has gone from 1.2 to 2.1 and I she may be prerenal and dry. Hemoglobin is also gone from 10.8-8.9 when compared to old numbers. She denies any blood loss. Her rectal exam was negative. I do think she needs to be admitted/observed for further treatment and evaluation of her weakness. It may be that she is dehydrated she could've a viral illness. His point there is nothing to suggest cardiac disease or stroke. I have consulted the hospitalist to see her in the ER. Medication Reconcilliation Current Medication List: was personally reviewed by me Blood Pressure Screening Patient's blood pressure: Elevated blood pressure Will be further monitored by the hospitalist. Consults Time Called: 1940 Consulting Physician: Jacquelyn Mireles Returned Call: 1948 Discussed the patient's case with Jacquelyn Mireles. The patient will be evaluated for further management. Impression Primary Impression: Weakness Additional Impressions: Dehydration Anemia Low back pain Scribe Attestation The scribe's documentation has been prepared under my direction and personally reviewed by me in its entirety. I confirm that the note above accurately reflects all work, treatment, procedures, and medical decision making performed by me. Departure Information Dispostion Being Evaluated By Hospitalist Referrals Luli Jones M.D. (PCP) Problem Qualifiers
[2017-03-27 18:06] LABS: ALBUMIN 3.3 gm/dl (3.4-5.0); CALCIUM 8.3 mg/dl (8.5-10.1); CREATININE 2.1 mg/dl (0.60-1.20); POTASSIUM 4.9 mmol/L (3.5-5.1)
--- NOTE | 2017-03-27 18:12 | DIAGNOSTIC IMAGING REPORT ---
CHEST ONE VIEW PORTABLE CLINICAL HISTORY: 71 years-old Female presenting with CHEST PAIN. TECHNIQUE: Portable upright AP view of the chest was obtained. COMPARISON: 08/18/2016. FINDINGS: Atherosclerosis of aortic arch. Cardiac silhouette enlarged. Pulmonary vascular prominence. Lungs hyperinflated. Reticular and linear opacities at the lung bases. Relative radiolucency at the apices. No new focal opacity. No large effusion or pneumothorax. Osseous structures normal. IMPRESSION: 1. Findings suggest emphysema. 2. Cardiomegaly with suspected volume overload. 3. Bibasilar atelectasis or scarring. No new focal infiltrate. Electronically signed by: Jack Tucker M.D. 03/27/2017 6:11 PM Dictated Date/Time: 03/27/2017 6:09 PM
[2017-03-27 18:17] LABS: CKMB 4.5 ng/ml (0.5-3.6); TOTAL PROTEIN 6.8 gm/dl (6.4-8.2)
[2017-03-27 18:58] LABS: BASO % 0.2 %; BASO ABS # 0.01 K/uL (0-0.2); EOS % 0.3 %; EOS ABS # 0.02 K/uL (0-0.5); HEMATOCRIT 29.7 % (37-47); HEMOGLOBIN 8.9 g/dL (12.0-16.0); IG# 0.03 K/uL (0.00-0.02); LYMPH % 17.8 %; LYMPH ABS # 1.12 K/uL (1.2-3.4); MEAN CELL VOLUME 94.3 fL (80-100); MEAN CORPUSCULAR HEMOGLOBIN 28.3 pg (25-34); MEAN PLATELET VOLUME 8.8 fL (7.4-10.4); MONO % 8.9 %; MONO ABS # 0.56 K/uL (0.11-0.59); NEUT % 72.3 %; NEUT ABS # 4.54 K/uL (1.4-6.5); PLATELET COUNT 252 K/uL (130-400); RED CELL DISTRIBUTION WIDTH CV 17.9 % (11.5-14.5); RED CELL DISTRIBUTION WIDTH SD 60.6 fL (36.4-46.3); WHITE BLOOD COUNT 6.28 K/uL (4.8-10.8)
--- NOTE | 2017-03-27 19:04 | DIAGNOSTIC IMAGING REPORT ---
CT SCAN OF THE BRAIN WITHOUT IV CONTRAST CLINICAL HISTORY: Generalized weakness. Fall. COMPARISON STUDY: CT of the brain dated 08/18/2016. TECHNIQUE: Unenhanced axial CT scan of the brain is performed from the vertex to the skull base. FINDINGS: Brain parenchyma: There are age-related involutional changes noting moderate subcortical and periventricular microangiopathic change. There is no hemorrhage, mass effect, or evidence of acute territorial ischemia by CT criteria. Buenrostro-white matter is preserved. No extra-axial fluid collection is seen. Ventricles, sulci, cisterns: Prominent secondary to involutional change. Intracranial vasculature: There is atherosclerotic calcification of the cavernous carotid arteries. Calvarium: The skeletal structures are osteopenic. No depressed calvarial fracture is seen. Sinuses and mastoids: The visualized paranasal sinuses are clear. The mastoid air cells are under pneumatized but appear clear. Orbits: The bony orbits are grossly intact. IMPRESSION: There is no hemorrhage, mass effect, or evidence of acute territorial ischemia by CT criteria. Electronically signed by: Jm Holliday M.D. 03/27/2017 7:03 PM Dictated Date/Time: 03/27/2017 7:01 PM
--- NOTE | 2017-03-27 19:08 | DIAGNOSTIC IMAGING REPORT ---
CT SCAN OF THE CERVICAL SPINE CLINICAL HISTORY: Fall. COMPARISON STUDY: CT of the cervical spine dated 08/18/2016. TECHNIQUE: CT scan of the cervical spine is performed from the skull base to the upper thoracic spine. Images are reviewed in the axial, sagittal, and coronal planes. IV contrast was not administered for this examination. A dose lowering protocol was utilized adhering to the principles of ALARA. CT DOSE: 1060.49 mGy.cm FINDINGS: Skeletal structures: The skeletal structures are osteopenic. There is no evidence of fracture or subluxation involving the cervical spine. Vertebral body height is maintained. There is minimal anterolisthesis at C2-C3 and minimal retrolisthesis at C4-C5. There is straightening of the cervical lordosis with mild reversal centered at C4-C5. Anterior osteophytes are seen throughout. The odontoid process and lateral masses are intact. The atlantoaxial articulation is preserved noting productive degenerative change with bony sclerosis and narrowing of the intervertebral. The spinous processes appear intact. There is mild to moderate multilevel cervical spondylosis. Uncovertebral and facet arthropathy contribute sterile foraminal narrowing at several levels. Intervertebral discs: [id number] degenerative disc space narrowing seen at C4-C5 and C5-C6. The remaining disc spaces appear maintained. Central canal: A posterior disc osteophyte complex at C5-C6 may contribute to mild acquired compromise of the central canal. Soft tissues: The prevertebral and paraspinous soft tissues are within normal limits. There is atherosclerotic calcification of the carotid bulbs. Calvarium: The visualized calvarium at the skull base appears intact. Brain parenchyma: Partially visualized brain parenchyma the skull base is within normal limits. Sinuses and mastoids: The visualized paranasal sinuses are clear. The mastoid air cells are well pneumatized. Lung apices: Emphysematous change is present at the lung apices. Imaged apical lung parenchyma is otherwise clear as visualized. IMPRESSION: 1. There is no evidence of fracture or subluxation involving the cervical spine. 2. Osteopenia and degenerative change as above. Electronically signed by: Jm Holliday M.D. 03/27/2017 7:07 PM Dictated Date/Time: 03/27/2017 7:03 PM
--- NOTE | 2017-03-27 19:16 | DIAGNOSTIC IMAGING REPORT ---
CT SCAN OF THE ABDOMEN AND PELVIS WITHOUT IV CONTRAST CLINICAL HISTORY: Generalized abdominal pain. COMPARISON STUDY: Abdominal CT dated 08/18/2016. TECHNIQUE: CT scan of the abdomen and pelvis is performed from the lung bases to the proximal femora. Images are reviewed in the axial, sagittal, and coronal planes. IV contrast was not administered for this examination as per the referring clinician. Note that the examination was performed and significant suboptimal fashion without oral and IV contrast. A dose lowering protocol was utilized adhering to the principles of ALARA. CT DOSE: 1145.09 mGy.cm FINDINGS: Lung bases: The heart is normal in size and without pericardial effusion. Emphysema is noted. Dependent airspace opacities are present at both lung bases. No pleural effusion is seen. A tiny hiatal hernia is observed. A surgical clip is noted at the gastroesophageal junction. Liver: Evaluation of the liver is degraded by streak and motion artifact. The unenhanced liver is normal in size, contour, and attenuation. There is central intrahepatic biliary ductal dilatation. Gallbladder: Surgically absent. Intra and extrahepatic biliary ductal dilatation is similar to previous. Spleen: Normal in size and attenuation. Pancreas: The unenhanced pancreas is markedly atrophic and grossly unremarkable. Adrenal glands: Unremarkable. Kidneys: The unenhanced kidneys are atrophic and without hydronephrosis. There are no renal calculi identified. A 1.6 cm cyst arises from the lower pole of the left kidney. Additional subcentimeter cortical hypodensities likely represent cysts but are too small for definitive characterization. Abdominal vasculature: The abdominal aorta is normal in course and caliber noting moderate to advanced atherosclerotic calcification. 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 No bowel obstruction is seen. There is mild to moderate colonic diverticulosis without CT evidence of acute diverticulitis. The appendix is not identified. Peritoneum: There is no intraperitoneal free air or abdominal ascites. Lymphadenopathy: None. Pelvic viscera: The bladder, uterus, and adnexa are normal as visualized. Skeletal structures: The skeletal structures are osteopenic. Mild to moderate spondylotic change in observed. There are healed left pubic ring fractures. Mild arthritic change is noted in the hips. A large hemangioma is seen in the body of T10. No lytic or blastic lesions are seen. IMPRESSION: 1. Suboptimal examination without oral and IV contrast. 2. There are no acute infectious or inflammatory findings in the abdomen or pelvis. 3. 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 No bowel obstruction is seen. 4. Mild to moderate colonic diverticulosis without CT evidence of acute diverticulitis. 5. Dependent airspace opacities are similar to previous and likely represent scarring/atelectasis. Clinical correlation will be required. 6. Additional findings as above. Electronically signed by: Jm Holliday M.D. 03/27/2017 7:14 PM Dictated Date/Time: 03/27/2017 7:07 PM
--- NOTE | 2017-03-27 19:17 | DIAGNOSTIC IMAGING REPORT ---
LUMBAR SPINE WITHOUT CLINICAL HISTORY: 71 years-old Female presenting with back pain s/p fall, weakness, neck and low back pain. TECHNIQUE: Multidetector CT of the lumbar spine was performed without the use of intravenous contrast. IV contrast: None. A dose lowering technique was used consistent with the principles of ALARA (as low as reasonably achievable). COMPARISON: None. CT DOSE (mGy.cm): The estimated cumulative dose is 1145.[address]. 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 Normal lumbar lordosis. Minimal levocurvature centered at L3-4. Vertebral bodies maintain normal height and alignment otherwise. Intervertebral disc height loss with vacuum disc phenomenon and suspected disc bulges noted at L4-5 and L5-S1. Facet arthropathy noted from L2-3 through L4-5 greater on the right. This results in mild right osseous neural foraminal narrowing at L3-4 and L4-5. No acute fracture or subluxation. Paraspinal soft tissues remarkable for superficial subcutaneous edema in the lumbar region. Atherosclerosis. Surgical material noted in the region of the gastroesophageal junction. IMPRESSION: 1. Mild multilevel degenerative changes primarily in the mid to lower lumbar spine greater on the right. This results in mild right osseous neural foraminal narrowing at L3-4 and L4-5. Suspected small disc bulges at L4-5 and L5-S1. 2. No acute osseous injury. Electronically signed by: Jack Tucker M.D. 03/27/2017 7:16 PM Dictated Date/Time: 03/27/2017 7:12 PM
[2017-03-27 19:27] LABS: INFLUENZA B ANTIGEN Neg for Influ B (NEG)
[2017-03-27] MEDS ORDERED: ACETAMINOPHEN 325 MG TAB PO PRN (20:30)
[2017-03-27] MEDS ORDERED: ONDANSETRON INJ 2 MG/ML 2 ML VIAL IV PRN (20:30)
[2017-03-27] MEDS ORDERED: BACL1TAB PO (20:50)
[2017-03-27] MEDS ORDERED: CITA40TA4 PO (20:50)
[2017-03-27] MEDS ORDERED: NRN/300 PO (20:50)
[2017-03-27 21:00] VITALS: BP 151/89; PULSE 71; TEMP 36.9; O2SAT 99
[2017-03-27] MEDS: SODIUM CHLORIDE 0.9% 1000ML 1,000 ML IV SCH (22:41)
--- NOTE | 2017-03-27 22:51 | History and Physical ---
History & Physical Date & Time of Service: Mar 27, 2017 ~ 20:00 Chief Complaint: Falls, Weakness Primary Care Physician: Ross Messer M.D. History of Present Illness 71 year old female who presents to the ED with frequent falls and weakness. Patient reports she fell 4 times yesterday. She reports that she did not have much warning and that her legs just gave out on her. She did strike her head but denies any loss of coconsciousness. No associated lightheadedness, dizziness , or chest pain with the falls however she did feel dizzy today. She reports her hands have been jerking as well and she has been dropping things. She reports nausea and poor appetite for one week. She denies vomiting, abdominal pain, or diarrhea. She has chronic exertional shortness of breath which is unchanged from her baseline. No fevers or chills. She denies urinary symptoms. In the ED, patient had extensive imaging which is negative for acute findings. Labs shows creat 2.1 (baseline ~ 1.3). Hgb 8.9 (baseline ~ 11.0). Vitals are stable. She was given IVF. Past Medical/Surgical History Medical Problems: (1) Anxiety Status: Chronic (2) CKD (chronic kidney disease) stage 3, GFR 30-59 ml/min Status: Chronic (3) COPD, severe Status: Chronic (4) Depression Status: Chronic (5) Dyslipidemia Status: Chronic (6) Generalized osteoarthritis Status: Chronic (7) Stress incontinence Status: Chronic Surgical Problems: (1) Hx of cholecystectomy Status: Resolved (2) Hx of oophorectomy Status: Resolved (3) S/P appendectomy Status: Resolved Family History Father in an accident, Mother lived to 84 and of "old age" Social History Smoking Status: Former Smoker Alcohol Use: none Immunizations History of Influenza Vaccine: Yes Influenza Vaccine Date: Nov 01, 2016 History of Tetanus Vaccine?: Yes Tetanus Immunization Date: July 08, 2011 History of Pneumococcal: Yes Pneumococcal Date: Jun 07, 2015 Allergies Coded Allergies: Codeine (Verified Allergy, Unknown, UNKNOWN, 08/18/16) Home Medications Scheduled Atorvastatin (Lipitor), 10 MG PO DAILY Baclofen (Lioresal), 1 TAB PO TID Calcium Carbonate (Calcium Carbonate), 1 TAB PO BID Cholecalciferol (Vitamin D), 2,000 INTER.UNIT PO DAILY Citalopram (Citalopram Hydrobromide), 1 TAB PO DAILY Gabapentin (Neurontin), 1 CAP PO TID Magnesium Oxide (Mag-Ox), 400 MG PO DAILY Ranitidine (Zantac), 150 MG PO BID Scheduled PRN Tramadol Hcl (Ultram), 50 MG PO Q8 PRN for Pain Review of Systems ROS per HPI, all other systems reviewed and negative Physical Exam Vital Signs Date Time Temp Pulse Resp B/P (MAP) Pulse Ox O2 Delivery O2 Flow Rate FiO2 03/27/17 21:00 36.9 71 16 151/89 (109) 99 Room Air 03/27/17 20:47 71 18 159/95 95 03/27/17 19:41 75 18 155/102 97 Nasal Cannula 2.0 03/27/17 17:37 80 03/27/17 17:31 92 Nasal Cannula 4.0 03/27/17 17:31 37.7 85 18 109/72 92 Nasal Cannula 4.0 General Appearance: WD/WN, no apparent distress Head: normocephalic, atraumatic Eyes: normal inspection, PERRL, EOMI, sclerae normal ENT: hearing grossly normal, + pertinent finding (mucous membranes moist) Neck: supple, no JVD, trachea midline Respiratory/Chest: lungs clear, normal breath sounds, no respiratory distress Cardiovascular: regular rate, rhythm, normal peripheral pulses, + pertinent finding (trace edema BLLE) Abdomen/GI: normal bowel sounds, non tender, soft, no organomegaly Extremities/Musculoskelatal: normal inspection, no calf tenderness, normal capillary refill Neurologic/Psych: no motor/sensory deficits (no focal deficits noted, patient able to preform finger to nose and heel to mccann without difficulty, extremities strong and equal BL; occasional myoclonic jerking of hands noted during exam), alert, normal mood/affect, oriented x 3 Skin: normal color, warm/dry Diagnostics Laboratory Results Results Past 24 Hours Test 03/27/17 17:27 03/27/17 18:03 03/27/17 18:04 03/27/17 18:10 Range/Units Sodium Level 138 136-145 mmol/L Potassium Level 4.9 3.5-5.1 mmol/L Chloride Level 104 98-107 mmol/L Carbon Dioxide Level 25 21-32 mmol/L Anion Gap 9.0 3-11 mmol/L Blood Urea Nitrogen 32 7-18 mg/dl Creatinine 2.10 0.60-1.20 mg/dl Est Creatinine Clear Calc Drug Dose 25.9 ml/min Estimated GFR () 26.6 Estimated GFR (Non- 22.9 BUN/Creatinine Ratio 15.3 10-20 Random Glucose 74 70-99 mg/dl Calcium Level 8.3 8.5-10.1 mg/dl Total Bilirubin 0.6 0.2-1 mg/dl Direct Bilirubin 0.1 0-0.2 mg/dl Aspartate Amino Transf (AST/SGOT) 34 15-37 U/L Alanine Aminotransferase (ALT/SGPT) 24 12-78 U/L Alkaline Phosphatase 121 45-117 U/L Total Creatine Kinase 220 26-192 U/L Creatine Kinase MB 4.5 0.5-3.6 ng/ml Creatine Kinase MB Ratio 2.0 0-3.0 Total Protein 6.8 6.4-8.2 gm/dl Albumin 3.3 3.4-5.0 gm/dl Lipase 94 73-393 U/L Thyroid Stimulating Hormone (TSH) 3.210 0.300-4.500 uIu/ml Bedside Lactic Acid Venous 0.88 0.90-1.70 mmol/L Bedside Troponin I < 0.030 0-0.045 ng/ml Influenza Type A Antigen Neg for Influ A NEG Influenza Type B Antigen Neg for Influ B NEG Test 03/27/17 18:37 03/27/17 19:30 03/27/17 20:59 03/27/17 22:07 Range/Units White Blood Count 6.28 4.8-10.8 K/uL Red Blood Count 3.15 4.2-5.4 M/uL Hemoglobin 8.9 12.0-16.0 g/dL Hematocrit 29.7 37-47 % Mean Corpuscular Volume 94.3 80-100 fL Mean Corpuscular Hemoglobin 28.3 25-34 pg Mean Corpuscular Hemoglobin Concent 30.0 32-36 g/dl Platelet Count 252 130-400 K/uL Mean Platelet Volume 8.8 7.4-10.4 fL Neutrophils (%) (Auto) 72.3 % Lymphocytes (%) (Auto) 17.8 % Monocytes (%) (Auto) 8.9 % Eosinophils (%) (Auto) 0.3 % Basophils (%) (Auto) 0.2 % Neutrophils # (Auto) 4.54 1.4-6.5 K/uL Lymphocytes # (Auto) 1.12 1.2-3.4 K/uL Monocytes # (Auto) 0.56 0.11-0.59 K/uL Eosinophils # (Auto) 0.02 0-0.5 K/uL Basophils # (Auto) 0.01 0-0.2 K/uL RDW Standard Deviation 60.6 36.4-46.3 fL RDW Coefficient of Variation 17.9 11.5-14.5 % Immature Granulocyte % (Auto) 0.5 % Immature Granulocyte # (Auto) 0.03 0.00-0.02 K/uL Large Platelets 1+ Polychromasia 1+ Urine Color YELLOW Urine Appearance CLEAR CLEAR Urine pH 5.5 4.5-7.5 Urine Specific [place] 1.021 1.000-1.030 Urine Protein 1+ NEG Urine Glucose (UA) NEG NEG Urine Ketones TRACE NEG Urine Occult Blood NEG NEG Urine Nitrite NEG NEG Urine Bilirubin NEG NEG Urine Urobilinogen NEG NEG Urine Leukocyte Esterase NEG NEG Urine WBC (Auto) 1-5 0-5 /hpf Urine RBC (Auto) 0-4 0-4 /hpf Urine Hyaline Casts (Auto) 5-10 0-5 /lpf Urine Epithelial Cells (Auto) 10-20 0-5 /lpf Urine Bacteria (Auto) NEG NEG Transferrin % Saturation 15-50 % Microbiology Results 03/27/17 Blood Culture, Received Pending 03/27/17 Blood Culture, Received Pending 03/27/17 Urine Culture, Received Pending Diagnostic Radiology LUMBAR SPINE CT IMPRESSION: 1. Mild multilevel degenerative changes primarily in the mid to lower lumbar spine greater on the right. This results in mild right osseous neural foraminal narrowing at L3-4 and L4-5. Suspected small disc bulges at L4-5 and L5-S1. 2. No acute osseous injury. HEAD CT IMPRESSION: There is no hemorrhage, mass effect, or evidence of acute territorial ischemia by CT criteria. CXR IMPRESSION: 1. Findings suggest emphysema. 2. Cardiomegaly with suspected volume overload. 3. Bibasilar atelectasis or scarring. No new focal infiltrate. C SPINE CT IMPRESSION: 1. There is no evidence of fracture or subluxation involving the cervical spine. 2. Osteopenia and degenerative change as above. CT ABD/PELVIS IMPRESSION: 1. Suboptimal examination without oral and IV contrast. 2. There are no acute infectious or inflammatory findings in the abdomen or pelvis. 3. 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 No bowel obstruction is seen. 4. Mild to moderate colonic diverticulosis without CT evidence of acute diverticulitis. 5. Dependent airspace opacities are similar to previous and likely represent scarring/atelectasis. Clinical correlation will be required. 6. Additional findings as above. Impression Assessment and Plan FREQUENT FALLS MYOCLONIC JERKS - admit to tele - patient presenting with frequent falls that started yesterday - work up in the ED negative for acute fractures - labs show anemia and SRIDHAR - ? if these are contributing to her falls - U/A does not suggest UTI - no focal deficits noted on exam - will hydrate patient and re-evaluate in AM; if patient is not improving could consider neuro evaluation / brain MRI - will hold Baclofen as well - check Vit B12 and Vit D levels SRIDHAR ON CKD STAGE III - likely due to poor PO intake - creat 2.1 (baseline ~ 1.3) - IVF, monitor renal functions, avoid nephrotoxic agents when able ANEMIA - hgb 8.9 (baseline ~ 11.0) - stools heme negative in the ED - check iron studies NEUROPATHY - continue gabapentin HLD - continue statin GERD - continue PPI DVT PROPHYLAXIS - SCDs CODE STATUS - Patient is a DNR as per my discussion with her. DISPO - In my clinical judgment this beneficiary meets acute admission criteria, established by [facility], that includes being hospitalized through two midnights. I have seen and evaluated the patient and agree with the assessment and plan above. In addition she appears to have a L knee that is swollen and warm with some increased pain and slight decreased ROM all consistent with an OA flare. Placed her on scheduled Tylenol in addition to PRN tramadol as ordered above. Additionally, she mentioned a very poor PO intake secondary to a low appetite. She denies any weight loss, however. I am consulting nutrition now. 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 These elements in combination with renal failure and advanced age are likely contributing to her frequent falling. Farhan, DO VTE Prophylaxis VTE Risk Assessment Done? Y/N: Yes Risk Level: Moderate
[2017-03-27 23:00] VITALS: BP 157/88; PULSE 69; TEMP 36.8; O2SAT 97
[2017-03-27] MEDS: TRAMADOL HCL 50 MG TAB PO PRN (23:09)
[2017-03-27 23:12] VITALS: BP 151/89; PULSE 71; TEMP 36.9; O2SAT 99; Ht 175.3 cm; Wt 78.0 kg
[2017-03-28] VITALS (11 sets, daily range): BP systolic 105–136; BP diastolic 66–89; PULSE 65–78; TEMP 36.6–37.1; O2SAT 95–99
[2017-03-28] MEDS ORDERED: PNEUMOCOCCAL ADMINISTRATION CHARGE ONE (00:30)
[2017-03-28] MEDS: ACETAMINOPHEN 500 MG TAB PO SCH ×4 (00:30→21:31)
[2017-03-28] MEDS ORDERED: PNEUMOCOCCAL POLYSACCHARIDES 25 MCG/0.5 ML VIAL/SYR IM. ONE (00:30)
[2017-03-28] MEDS: SODIUM CHLORIDE 0.9% 1000ML 1,000 ML IV SCH ×2 (05:03→15:39)
[2017-03-28] MEDS: ATORVASTATIN 20 MG TAB PO SCH (08:14)
[2017-03-28] MEDS: CITALOPRAM 40 MG TAB PO SCH (08:14)
[2017-03-28] MEDS: MAGNESIUM OXIDE 400 MG TAB PO SCH (08:15)
[2017-03-28] MEDS: GABAPENTIN 300 MG CAP PO SCH ×3 (08:15→21:31)
[2017-03-28] MEDS: RANITIDINE HCL 150 MG TAB PO SCH ×2 (08:15→21:31)
[2017-03-28] MEDS: CHOLECALCIFEROL 1000 INTER.UNIT TAB PO SCH (08:15)
[2017-03-28] MEDS: CYANOCOBALAMIN 500 MCG TAB (VIT B-12) PO SCH (08:15)
[2017-03-28] MEDS ORDERED: CALCIUM CARBONATE 500 MG CHEWABLE PO PRN (09:00)
[2017-03-28] MEDS ORDERED: TRAMADOL HCL 50 MG TAB PO STA (09:48)
--- NOTE | 2017-03-28 16:44 | DIAGNOSTIC IMAGING REPORT ---
BRAIN WITHOUT CONTRAST HISTORY: Mental status change dizziness /fall TECHNIQUE: Multiplanar multisequence MRI of the brain was performed without the use of contrast. COMPARISON STUDY: CT 03/27/2017. Brain MRI 11/28/2014. FINDINGS: There are no areas of restricted diffusion to suggest acute infarction. The midline structures are intact. The paranasal sinuses are clear. The mastoid air cells are clear. The ventricles and sulci are within normal limits for age. There is no mass, hematoma, midline shift. The major vascular flow-voids at the skull base are well maintained. Considerable chronic small vessel change throughout both cerebral hemispheres unaltered from the prior study. Mild chronic small vessel change of the pontine medullary region and to lesser extent cerebellar hemispheres. Mild age-related atrophy. IMPRESSION: No acute intracranial abnormality. Chronic age-related small vessel change and atrophy. No change from the prior study. The above report was generated using voice recognition software. It may contain grammatical, syntax or spelling errors. Electronically signed by: Andrea Sanford M.D. 03/28/2017 4:43 PM Dictated Date/Time: 03/28/2017 4:41 PM
[2017-03-28] MEDS: BOOST BREEZE NUTRITION DRINK 1 BOX PO SCH (17:36)
--- NOTE | 2017-03-28 18:17 | Progress Note ---
Internal Med Progress Note Date of Service: Mar 28, 2017. 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 Not in distress ENT-Normal hearing Neck-no neck masses Lungs-cta b/l no wheezing or crackles Heart-S 1 and S 2heard regular rate and rhythm no murmurs Abdomen-soft bowel sounds present non tender no distension Extremities-no edema no erythema Neuro-alert and awake moves extremities Lab data as noted below. ASSESSMENT & PLAN: FREQUENT FALLS MYOCLONIC JERKS patient presented with frequent falls No fractures on imaging studies UA unremarkable holding baclofen Vitamin B12 borderline- stared on pills has peripheral neuropathy presented with SRIDHAR all these could contributing on iv fluids still dizzy - will get MRI head and neuro consult in am continue to monitor in tele pt/ot SRIDHAR ON CKD STAGE III likely due to poor PO intake Presented with creat 2.1 (baseline ~ 1.3) on fluids will f/u labs in am ANEMIA hgb 8.9 (baseline ~ 11.0) stools heme negative in the ED iron levels low iron supplements anemia workup as out patient NEUROPATHY on gabapentin HLD on statin GERD PPI DVT PROPHYLAXIS SCDs CODE STATUS DNR as per admission DISPOSITION to be determined pt/ot social service for d/c planning Vital Signs: Date Time Temp Pulse Resp B/P (MAP) Pulse Ox O2 Delivery O2 Flow Rate FiO2 03/28/17 15:04 36.7 74 16 128/80 (96) 99 1.5 03/28/17 12:09 36.8 69 16 105/66 (79) 96 03/28/17 12:00 96 Nasal Cannula 2.0 03/28/17 08:00 96 Nasal Cannula 2.0 03/28/17 07:54 36.7 67 18 132/77 (95) 96 Nasal Cannula 2.0 03/28/17 04:00 Nasal Cannula 2.0 03/28/17 03:20 36.8 65 18 135/89 (104) 97 Nasal Cannula 2.0 03/28/17 00:00 Nasal Cannula 2.0 03/27/17 23:12 36.9 71 16 151/89 99 Nasal Cannula 2.0 03/27/17 23:00 36.8 69 18 157/88 (111) 97 Nasal Cannula 3.0 03/27/17 21:00 36.9 71 16 151/89 (109) 99 Room Air 03/27/17 20:47 71 18 159/95 95 03/27/17 19:41 75 18 155/102 97 Nasal Cannula 2.0 Lab Results: Results Past 24 Hours Test 03/27/17 18:10 03/27/17 18:37 03/27/17 19:30 03/27/17 22:07 Range/Units Influenza Type A Antigen Neg for Influ A NEG Influenza Type B Antigen Neg for Influ B NEG White Blood Count 6.28 4.8-10.8 K/uL Red Blood Count 3.15 4.2-5.4 M/uL Hemoglobin 8.9 12.0-16.0 g/dL Hematocrit 29.7 37-47 % Mean Corpuscular Volume 94.3 80-100 fL Mean Corpuscular Hemoglobin 28.3 25-34 pg Mean Corpuscular Hemoglobin Concent 30.0 32-36 g/dl Platelet Count 252 130-400 K/uL Mean Platelet Volume 8.8 7.4-10.4 fL Neutrophils (%) (Auto) 72.3 % Lymphocytes (%) (Auto) 17.8 % Monocytes (%) (Auto) 8.9 % Eosinophils (%) (Auto) 0.3 % Basophils (%) (Auto) 0.2 % Neutrophils # (Auto) 4.54 1.4-6.5 K/uL Lymphocytes # (Auto) 1.12 1.2-3.4 K/uL Monocytes # (Auto) 0.56 0.11-0.59 K/uL Eosinophils # (Auto) 0.02 0-0.5 K/uL Basophils # (Auto) 0.01 0-0.2 K/uL RDW Standard Deviation 60.6 36.4-46.3 fL RDW Coefficient of Variation 17.9 11.5-14.5 % Immature Granulocyte % (Auto) 0.5 % Immature Granulocyte # (Auto) 0.03 0.00-0.02 K/uL Large Platelets 1+ Polychromasia 1+ Urine Color YELLOW Urine Appearance CLEAR CLEAR Urine pH 5.5 4.5-7.5 Urine Specific [place] 1.021 1.000-1.030 Urine Protein 1+ NEG Urine Glucose (UA) NEG NEG Urine Ketones TRACE NEG Urine Occult Blood NEG NEG Urine Nitrite NEG NEG Urine Bilirubin NEG NEG Urine Urobilinogen NEG NEG Urine Leukocyte Esterase NEG NEG Urine WBC (Auto) 1-5 0-5 /hpf Urine RBC (Auto) 0-4 0-4 /hpf Urine Hyaline Casts (Auto) 5-10 0-5 /lpf Urine Epithelial Cells (Auto) 10-20 0-5 /lpf Urine Bacteria (Auto) NEG NEG Iron Level 20 35-150 mcg/dl Total Iron Binding Capacity 346 250-450 mcg/dl Transferrin 270 200-360 mg/dl Transferrin % Saturation 5 15-50 % Ferritin 7.3 8.0-388.0 ng/ml Vitamin B12 Level 236 211-911 pg/mL 25-Hydroxy Vitamin D Total 24.9 30-100 ng/ml Folate 11.66 >5.38 ng/mL Microbiology Results 03/27/17 Blood Culture, Received Pending 03/27/17 Urine Culture - Preliminary, Resulted NO GROWTH - LESS THAN 1,000 COLONIES/...
[2017-03-29] VITALS (9 sets, daily range): BP systolic 121–161; BP diastolic 67–81; PULSE 76–84; TEMP 36.6–37.2; O2SAT 95–97
[2017-03-29] MEDS: SODIUM CHLORIDE 0.9% 1000ML 1,000 ML IV SCH ×2 (02:25→12:38)
[2017-03-29] MEDS: ACETAMINOPHEN 500 MG TAB PO SCH ×3 (05:53→20:31)
[2017-03-29] MEDS: ATORVASTATIN 20 MG TAB PO SCH (08:25)
[2017-03-29] MEDS: GABAPENTIN 300 MG CAP PO SCH ×3 (08:25→20:29)
[2017-03-29] MEDS: BOOST BREEZE NUTRITION DRINK 1 BOX PO SCH ×2 (08:25→17:29)
[2017-03-29] MEDS: CITALOPRAM 40 MG TAB PO SCH (08:25)
[2017-03-29] MEDS: CYANOCOBALAMIN 500 MCG TAB (VIT B-12) PO SCH (08:25)
[2017-03-29] MEDS: RANITIDINE HCL 150 MG TAB PO SCH ×2 (08:25→20:30)
[2017-03-29] MEDS: MAGNESIUM OXIDE 400 MG TAB PO SCH (08:25)
[2017-03-29] MEDS: CHOLECALCIFEROL 1000 INTER.UNIT TAB PO SCH (08:25)
[2017-03-29] MEDS: TRAMADOL HCL 50 MG TAB PO PRN ×2 (09:53→21:48)
[2017-03-29 10:22] LABS: HEMOGLOBIN A1C 5.8 % (4.5-5.6)
--- NOTE | 2017-03-29 12:50 | CONSULTATION REPORT ---
DATE OF CONSULTATION: 03/29/2017 CONSULTATION FOR: Dr. Hall. HISTORY OF PRESENT ILLNESS: Reena is 71 years old, patient of Dr. Ross Hernandez, presented to the ER 2 days ago with a history of frequent falls, generalized weakness and was found to have an elevated creatinine and BUN above her normal value and a mild anemia. She was also suspected of having some myoclonic jerks and a number of her chronic medications were held among them baclofen. She really has not had any other issues other than headache and there was some nausea and poor appetite for a week, but without vomiting, abdominal pain or diarrhea, and her oral intake may have been diminished with resultant dehydration. All of this occurs in the setting of chronic problems with anxiety, stage III renal disease, COPD, depression, dyslipidemia, generalized osteoarthritis, stress incontinence. She has had a cholecystectomy and appendectomy and is known to have a neuropathy and has been walker dependent for several months now. 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 FAMILY HISTORY: Reveals that her father in an accident. Mother of "old age." SOCIAL HISTORY: Reveals her to be a former smoker. She does not consume ethanol. IMMUNIZATIONS: Apparently up to date including an influenza immunization this year. ALLERGIES: SHE HAS ALLERGIES TO CODEINE. HOME MEDICATIONS: Include atorvastatin; baclofen, I assume that 10-20 mg 3 times a day, though reasons I am not clear on; calcium carbonate, cholecalciferol, citalopram 1 tablet daily; gabapentin 300 mg t.i.d., I assume for neuropathic pain; magnesium oxide 400 mg daily, perhaps for headaches and ranitidine. She takes tramadol p.r.n. for pain, but denies that she has been taking a lot more of this, although this is a little vague per her history. REVIEW OF SYSTEMS: On admission was pretty much unremarkable except for complaints of some nausea and anorexia and poor fluid intake for the week prior to admission, coupled with the 1 or 2-day history of what could have been myoclonus of her extremities and tremulousness and weakness of her legs with increasing gait disturbance. Otherwise, she denied any new issues referable to head, eyes, ears, nose and throat other than the headache which comes and goes and no specific visual issues, tinnitus or vertigo has been reported. She denies any cardiovascular, pulmonary, gastrointestinal, genitourinary system issues, specifically urinary frequency, burning, etc. Denies any neurologic issues other than her mild neuropathy and gait disturbance. PHYSICAL EXAMINATION: VITAL SIGNS: On admission, her blood pressure 151/89, pulse was 71, respirations were 16. She was afebrile. GENERAL: She is moderately over nourished, but did not appear to be in any distress. HEAD: Free of trauma. There was no extraocular dysmotility, hearing was grossly intact. NECK: She had a supple neck. No bruits were heard. LUNGS: Clear. HEART: Had a regular rhythm. No murmurs were appreciated. ABDOMEN: Soft, nontender. EXTREMITIES: Free of edema. There were good peripheral pulses. NEUROLOGIC: She had no obvious tremor, but Dr. Real did notice some myoclonic jerking of the hands during exam. Today neurologically, she is awake, alert, but quite vague as a historian. She does not know her medication schedule very well. She does note that she takes tramadol and I think told me she was taking a little more that this past week, but again is very uncertain about this. She has normal eye movements, normal gross visual brooke. Facial motility and strength is normal. Facial sensation is normal. A little tenderness with some occipital areas of her upper neck which does produce a little head pain. She is complaining about the headache. I do not see any tremors, tics or choreiform activity today. There is no asterixis. There is absolutely no myoclonus. She has no cerebellar dysmetria on [id number] and point to point testing. Heel to mccann testing is actually reasonably good. Toes are downgoing. She is areflexic at the ankles, hyporeflexic at the knees, normal reflexes in the upper extremities. Strength is excellent. There is no atrophy. No fasciculations, but she does have some vibratory loss ____ lower extremities below the knees and proprioception is a little off in addition to some deficits in light touch and perhaps temperature. LABORATORY STUDIES: Revealed again the increase in her renal failure and anemia, but basically little or nothing else of significance and imaging studies of the brain have shown leukoencephalopathy, which has not changed from the prior evaluation I did review the images. IMPRESSION AND PLAN: I am unsure what caused that myoclonus and jerking, but I suspect that with her renal dysfunction, some of the clearance of medications was altered. Of the drugs that could cause this, I would be suspicious about tramadol, but I am not sure if she was taking more than the usual amounts that was given to her as needed. Baclofen is unlikely to produce this sort of picture, but has been stopped and Neurontin if its levels rise in the setting of renal failure can cause tremulousness, none of which I seen today. She clearly a multifactorial baseline gait disturbance with an impressive leukoencephalopathy and polyneuropathy and I assuming that these have been evaluated an on outpatient basis with appropriate laboratory studies. At this point, I would not suggest neurology does much else. If the myoclonus becomes evident clinically, will check an EEG but at this time, I will simply look at her again tomorrow and see how her mental status is at that point and reassess her neuropathy. JOE
--- NOTE | 2017-03-29 19:15 | Progress Note ---
Medicine Progress Note Date & Time of Visit: Mar 29, 2017 at ~ 15:00 . Subjective CC: Follow-up visit for multiple problems. HPI: Feels better. No headache. No focal neuro symptoms. ROS: General- no fever, no chills Resp- no cough; dyspnea at baseline Cardiac- no chest pain, no edema GI- no nausea, no vomiting, no diarrhea - no dysuria, no difficulty voiding . Objective Last 8 Hrs Date Time Temp Pulse Resp B/P (MAP) Pulse Ox O2 Delivery O2 Flow Rate FiO2 03/29/17 16:03 97 Nasal Cannula 2.0 03/29/17 15:57 37.2 79 18 136/77 (96) 97 Nasal Cannula 2.0 03/29/17 12:23 37.0 80 18 161/80 (107) 95 2.0 03/29/17 12:00 95 Nasal Cannula 2.0 Physical Exam: General- no distress Lungs- diffuse mild wheezing; no respiratory distress Cardiovascular- RRR; no gallop; trace pretibial edema Abdomen- + bowel sounds, soft, nontender Extremities- no cyanosis; no calf tenderness Neuro- alert, oriented Skin- warm & dry . Laboratory Results: Last 24 Hours Test 03/29/17 08:34 Estimated Average Glucose 120 mg/dl Hemoglobin A1c 5.8 % C-Reactive Protein 1.13 mg/dl Prealbumin 10.2 mg/dl Assessment & Plan FALLS / GAIT DYSFUNCTION / MYOCLONUS Seen in consultation by Neurology. Neuroimaging demonstrated small vessel ischemic changes. Avoid medications that might be contributing. Tramadol and baclofen discontinued. PT / OT. CKD III / ACUTE KIDNEY INJURY Serum creatinine 2.1 at time of admission. Received IV fluids. Recheck labs. GERD Continue ranitidine. DYSLIPIDEMIA Continue atorvastatin. ANEMIA Follow H/H. NEUROPATHY Continue gabapentin. VTE PROPHYLAXIS SCD's. Ambulate. DISPOSITION To be determined. Family Medicine follow-up with Dr. Messer. . Current Inpatient Medications: Current Inpatient Medications Medications (Trade) Dose Ordered Sig/Kayla Route Start Time Stop Time Status Last Admin Dose Admin Sodium Chloride 1,000 ml @ 100 mls/hr Q10H IV 03/27/17 22:40 04/26/17 22:39 03/29/17 12:38 100 MLS/HR Ondansetron HCl (Zofran Inj) 4 mg Q6H PRN IV 03/27/17 20:30 3/10/18 20:29 03/28/17 18:30 4 MG Atorvastatin Calcium (Lipitor Tab) 10 mg DAILY PO 03/28/17 09:00 04/27/17 08:59 03/29/17 08:25 10 MG Cholecalciferol (Vitamin D Tab) 2,000 inter.unit DAILY PO 03/28/17 09:00 04/27/17 08:59 03/29/17 08:25 2,000 INTER.UNIT Citalopram Hydrobromide (celeXA TAB) 40 mg DAILY PO 03/28/17 09:00 04/27/17 08:59 03/29/17 08:25 40 MG Gabapentin (Neurontin Cap) 300 mg TID PO 03/28/17 09:00 04/27/17 08:59 03/29/17 13:38 300 MG Magnesium Oxide (Mag-Ox Tab) 400 mg DAILY PO 03/28/17 09:00 04/27/17 08:59 03/29/17 08:25 400 MG Ranitidine HCl (zANTac TAB) 150 mg BID PO 03/28/17 09:00 04/27/17 08:59 03/29/17 08:25 150 MG Tramadol HCl (Ultram Tab) 50 mg Q8 PRN PO 03/27/17 22:45 04/26/17 22:44 03/29/17 09:53 50 MG Calcium Carbonate (Tums Chew Tab) 500 mg BID PRN PO 03/28/17 09:00 04/27/17 08:59 03/28/17 08:15 500 MG Acetaminophen (Tylenol Tab) 1,000 mg Q8 PO 03/28/17 00:30 04/27/17 00:29 03/29/17 13:38 1,000 MG Cyanocobalamin (Vitamin B-12 Tab) 1,000 mcg QAM PO 03/28/17 09:00 04/27/17 08:59 03/29/17 08:25 1,000 MCG Enteral Nutritional Formula (Boost Breeze Nutritional Drink) 1 box BIDM PO 03/28/17 17:00 04/27/17 16:59 03/29/17 17:29 1 BOX
[2017-03-29] MEDS ORDERED: ZOLPIDEM TARTRATE 5 MG TAB PO PRN (21:45)
[2017-03-30] VITALS (9 sets, daily range): BP systolic 144–177; BP diastolic 73–100; PULSE 77–92; TEMP 36.7–37.1; O2SAT 93–98
[2017-03-30] MEDS: ACETAMINOPHEN 500 MG TAB PO SCH ×3 (06:07→20:15)
[2017-03-30 06:34] LABS: HEMATOCRIT 30.4 % (37-47)
[2017-03-30 07:07] LABS: CALCIUM 8.2 mg/dl (8.5-10.1); CREATININE 1.04 mg/dl (0.60-1.20); POTASSIUM 4.8 mmol/L (3.5-5.1)
[2017-03-30] MEDS: BOOST BREEZE NUTRITION DRINK 1 BOX PO SCH ×2 (07:38→17:00)
[2017-03-30] MEDS: MAGNESIUM OXIDE 400 MG TAB PO SCH ×2 (07:39→20:14)
[2017-03-30] MEDS: ATORVASTATIN 20 MG TAB PO SCH (07:40)
[2017-03-30] MEDS: RANITIDINE HCL 150 MG TAB PO SCH ×2 (07:40→20:15)
[2017-03-30] MEDS: CITALOPRAM 40 MG TAB PO SCH (07:40)
[2017-03-30] MEDS: GABAPENTIN 300 MG CAP PO SCH ×3 (07:40→20:15)
[2017-03-30] MEDS: CHOLECALCIFEROL 1000 INTER.UNIT TAB PO SCH (07:40)
[2017-03-30] MEDS: CYANOCOBALAMIN 500 MCG TAB (VIT B-12) PO SCH (07:41)
[2017-03-30] MEDS: TRAMADOL HCL 50 MG TAB PO PRN (09:41)
--- NOTE | 2017-03-30 12:05 | DIAGNOSTIC IMAGING REPORT ---
CERVICAL WITHOUT CONTRAST HISTORY: Pain. Neuropathy. bilat upper extremity weakness TECHNIQUE: Multiplanar multisequence MRI of the cervical spine was performed without the use of contrast. COMPARISON STUDY: None. FINDINGS: Limited study technically as the patient was unable to tolerate this study. Mild straightening of the cervical curvature. Normal signal characteristics of the vertebral bodies. Mild degenerative disc change throughout. Signal characteristics of the cervical cord are unremarkable. C2-C3: Minimal central disc bulge. C3-C4: Minimal broad-based disc bulge. Mild osteophytic narrowing left neuroforamina. C4-C5: Minimal broad-based disc bulge. Moderate osteophytic narrowing left and to a lesser extent right neural foramina. C5-C6: Mild broad-based disc bulge. Moderate narrowing of the neuroforamina bilaterally. C6-C7: Broad-based bulging disc. Mild osteophytic narrowing left neuroforamina. C7-T1: No significant central canal or neural foraminal narrowing. IMPRESSION: 1. Somewhat limited exam as the patient was unable to tolerate the study. 2. Mild disc bulges at virtually all levels of the cervical spine with no significant impact upon the spinal canal or cervical cord. 3. Moderate narrowing of the left and to a lesser extent right neural foramina at multiple levels as discussed. This appears to be on a degenerative basis. The above report was generated using voice recognition software. It may contain grammatical, syntax or spelling errors. Electronically signed by: Andrea Sanford M.D. 03/30/2017 12:04 PM Dictated Date/Time: 03/30/2017 12:01 PM
--- NOTE | 2017-03-30 13:16 | PROGRESS NOTE ---
DATE: 03/30/2017 SUBJECTIVE: Reena looks much better today. She feels well and her headache is gone. She is able to give a more coherent history. Apparently, the baclofen has been on board for some time given by Dr. Jones for leg spasms and I see no harm in getting her back on 10 mg 3 times a day as it is very unlikely that it was the cause of her myoclonic activity. She has been on tramadol and apparently was taking quite a bit of it last week, so this coupled with the renal dysfunction, was probably contributing significantly to the myoclonus. Her MRI shows extensive leukoencephalopathy, unchanged from prior studies. An MRI of the cervical spine has been done, the images there, I see no overt cord pathology, but again the official report is pending. I think her gait disturbance is adequately explained on the basis of her polyneuropathy and leukoencephalopathy and probably stepped off a bit as her kidney function fail. For now, tramadol is obviously not an ideal drug unless her pain is severe as it is a controlled substances and can cause myoclonus, so perhaps an alternative could be utilized. I will let this decision up to Dr. Blackwood. I would put her back on the baclofen as there can be a baclofen withdrawal, although it sounds like the dose she was on was fairly low ie probably 10 mg 3 times a day. She can continue the Neurontin as her renal function now seems to be improved to the point that she is unlikely to become toxic on Neurontin, particularly at this low dose. At this point, I think neurology is going to sign off the case. I think a lot of this was a metabolic disturbance with resultant limited clearance of her chronic medications and perhaps a little too much use of the tramadol. She seems totally recovered now or at least on her way to recovery. I do not know if she is going to need some time in rehabilitation, but an evaluation probably would be a good idea. JOE
[2017-03-31] VITALS (9 sets, daily range): BP systolic 161–183; BP diastolic 72–100; PULSE 73–93; TEMP 36.9–37.3; O2SAT 95–99
--- NOTE | 2017-03-31 00:52 | Progress Note ---
Medicine Progress Note Date & Time of Visit: Mar 30, 2017 at ~ 16:00 . Subjective CC: Follow-up visit for multiple problems. HPI: Confused this morning, better this afternoon. Received Ambien last night. Nursing reports that gait very unsteady. ROS: General- no fever, no chills Resp- no cough; no shortness of breath Cardiac- no chest pain, no edema GI- no nausea, no vomiting, no diarrhea - no dysuria, no difficulty voiding . Objective Last 8 Hrs Date Time Temp Pulse Resp B/P (MAP) Pulse Ox O2 Delivery O2 Flow Rate FiO2 03/31/17 00:00 Nasal Cannula 2.0 03/30/17 23:39 36.8 80 16 177/93 (121) 96 Room Air 03/30/17 20:16 36.8 92 20 160/73 (102) 95 Nasal Cannula 2.0 03/30/17 20:00 Nasal Cannula 2.0 03/30/17 18:15 93 Nasal Cannula 2.0 Physical Exam: General- no distress Lungs- diffuse mild wheezing; no respiratory distress Cardiovascular- RRR; no gallop; trace pretibial edema Abdomen- + bowel sounds, soft, nontender Extremities- no cyanosis; no calf tenderness Neuro- alert, somewhat confused, but oriented x 3; motor strength upper and lower extremities intact Skin- warm & dry . Laboratory Results: Last 24 Hours Test 03/30/17 06:20 Hemoglobin 9.0 g/dL Hematocrit 30.4 % Sodium Level 141 mmol/L Potassium Level 4.8 mmol/L Chloride Level 105 mmol/L Carbon Dioxide Level 29 mmol/L Anion Gap 7.0 mmol/L Blood Urea Nitrogen 14 mg/dl Creatinine 1.04 mg/dl Est Creatinine Clear Calc Drug Dose 56.1 ml/min Estimated GFR () 62.2 Estimated GFR (Non- 53.6 BUN/Creatinine Ratio 13.8 Random Glucose 78 mg/dl Calcium Level 8.2 mg/dl Magnesium Level 1.5 mg/dl Assessment & Plan ALTERED MENTAL STATUS Confused today. Better this afternoon. Received zolpidem last night. Consider other causes of delirium. Denies alcohol use. Follow. FALLS / GAIT DYSFUNCTION / MYOCLONUS Seen in consultation by Neurology. Neuroimaging demonstrated brain demonstrated small vessel ischemic changes. MRI cervical spine showed degenerative changes. Avoid medications that might be contributing. Tramadol and baclofen discontinued. PT / OT. CKD III / ACUTE KIDNEY INJURY Serum creatinine 2.1 at time of admission. Received IV fluids. Creatinine today = 1.04. Follow. GERD Continue ranitidine. DYSLIPIDEMIA Continue atorvastatin. ANEMIA Follow H/H. NEUROPATHY Continue gabapentin. Check outpatient evaluation. VTE PROPHYLAXIS SCD's. Ambulate. DISPOSITION To be determined. Family Medicine follow-up with Dr. Messer. . Current Inpatient Medications: Current Inpatient Medications Medications (Trade) Dose Ordered Sig/Kayla Route Start Time Stop Time Status Last Admin Dose Admin Ondansetron HCl (Zofran Inj) 4 mg Q6H PRN IV 03/27/17 20:30 04/26/17 20:29 03/28/17 18:30 4 MG Atorvastatin Calcium (Lipitor Tab) 10 mg DAILY PO 03/28/17 09:00 04/27/17 08:59 03/30/17 07:40 10 MG Cholecalciferol (Vitamin D Tab) 2,000 inter.unit DAILY PO 03/28/17 09:00 04/27/17 08:59 03/30/17 07:40 2,000 INTER.UNIT Citalopram Hydrobromide (celeXA TAB) 40 mg DAILY PO 03/28/17 09:00 04/27/17 08:59 03/30/17 07:40 40 MG Gabapentin (Neurontin Cap) 300 mg TID PO 03/28/17 09:00 04/27/17 08:59 03/30/17 20:15 300 MG Ranitidine HCl (zANTac TAB) 150 mg BID PO 03/28/17 09:00 04/27/17 08:59 03/30/17 20:15 150 MG Tramadol HCl (Ultram Tab) 50 mg Q8 PRN PO 03/27/17 22:45 04/26/17 22:44 03/30/17 09:41 50 MG Calcium Carbonate (Tums Chew Tab) 500 mg BID PRN PO 03/28/17 09:00 04/27/17 08:59 03/28/17 08:15 500 MG Acetaminophen (Tylenol Tab) 1,000 mg Q8 PO 03/28/17 00:30 04/27/17 00:29 03/30/17 20:15 1,000 MG Cyanocobalamin (Vitamin B-12 Tab) 1,000 mcg QAM PO 03/28/17 09:00 04/27/17 08:59 03/30/17 07:41 1,000 MCG Enteral Nutritional Formula (Boost Breeze Nutritional Drink) 1 box BIDM PO 03/28/17 17:00 04/27/17 16:59 03/30/17 07:38 1 BOX Magnesium Oxide (Mag-Ox Tab) 400 mg BID PO 03/30/17 09:00 04/27/17 08:59 03/30/17 20:14 400 MG
[2017-03-31] MEDS: ACETAMINOPHEN 500 MG TAB PO SCH ×4 (05:37→21:46)
[2017-03-31] MEDS: ATORVASTATIN 20 MG TAB PO SCH (12:54)
[2017-03-31] MEDS: CITALOPRAM 40 MG TAB PO SCH (12:54)
[2017-03-31] MEDS: CHOLECALCIFEROL 1000 INTER.UNIT TAB PO SCH (12:54)
[2017-03-31] MEDS: RANITIDINE HCL 150 MG TAB PO SCH ×2 (12:54→20:45)
[2017-03-31] MEDS: GABAPENTIN 300 MG CAP PO SCH ×3 (12:54→20:45)
[2017-03-31] MEDS: CYANOCOBALAMIN 500 MCG TAB (VIT B-12) PO SCH (12:54)
[2017-03-31] MEDS: MAGNESIUM OXIDE 400 MG TAB PO SCH ×2 (12:54→20:44)
[2017-03-31] MEDS: BOOST BREEZE NUTRITION DRINK 1 BOX PO SCH ×2 (12:54→16:59)
[2017-03-31] MEDS ORDERED: MAGNESIUM SULFATE 1GM / D5W 1 GM in PREMIXED IN D5W 100 ML IV ONE (18:00)
--- NOTE | 2017-03-31 19:30 | Progress Note ---
Medicine Progress Note Date & Time of Visit: Mar 31, 2017 at 11:50 . Subjective CC: Follow-up visit for multiple problems. HPI: Confused last night and this morning. Has 1:1 staffing. Ongoing weakness and unsteady gait. ROS: General- no fever, no chills Resp- no cough; no shortness of breath Cardiac- no chest pain, no edema GI- no nausea, no vomiting, no diarrhea - no dysuria . Objective Last 8 Hrs Date Time Temp Pulse Resp B/P (MAP) Pulse Ox O2 Delivery O2 Flow Rate FiO2 03/31/17 18:42 36.9 75 19 183/93 (123) 99 Nasal Cannula 3.0 180/100 (126) 03/31/17 15:06 73 22 169/72 (104) 97 03/31/17 14:53 37.3 91 20 161/80 (107) 97 03/31/17 12:00 Nasal Cannula 2.0 Physical Exam: General- no distress Lungs- diffuse mild wheezing; no respiratory distress Cardiovascular- RRR; no gallop; trace pretibial edema Abdomen- + bowel sounds, soft, nontender Extremities- no cyanosis; no calf tenderness Neuro- alert, somewhat confused, but oriented x 3 and recognizes me; motor strength upper and lower extremities intact Skin- warm & dry . Assessment & Plan ALTERED MENTAL STATUS Symptoms of delirium over past 2 days. Possibly related to hospitalization. No apparent infectious processes. Possibly due to baclofen withdrawal- restart at reduced dose. Denies alcohol use. Follow. FALLS / GAIT DYSFUNCTION / MYOCLONUS Seen in consultation by Neurology. Neuroimaging demonstrated brain demonstrated small vessel ischemic changes. MRI cervical spine showed degenerative changes. Avoid medications that might be contributing. Tramadol discontinued. PT / OT. CEREBROVASCULAR DISEASE MRI brain demonstrated brain demonstrated small vessel ischemic changes. Start aspirin. Continue atorvastatin. CKD III / ACUTE KIDNEY INJURY Serum creatinine 2.1 at time of admission. Received IV fluids. Creatinine yesterday = 1.04. Follow. GERD Continue ranitidine. DYSLIPIDEMIA Continue atorvastatin. ANEMIA Follow H/H. NEUROPATHY B12 236. TSH 3.2. Continue gabapentin. VTE PROPHYLAXIS SCD's. Ambulate. DISPOSITION To be determined. May need skilled care or rehab. Family Medicine follow-up with Dr. Messer. . Current Inpatient Medications: Current Inpatient Medications Medications (Trade) Dose Ordered Sig/Kayla Route Start Time Stop Time Status Last Admin Dose Admin Ondansetron HCl (Zofran Inj) 4 mg Q6H PRN IV 03/27/17 20:30 04/26/17 20:29 03/28/17 18:30 4 MG Atorvastatin Calcium (Lipitor Tab) 10 mg DAILY PO 03/28/17 09:00 04/27/17 08:59 03/30/17 07:40 10 MG Cholecalciferol (Vitamin D Tab) 2,000 inter.unit DAILY PO 03/28/17 09:00 04/27/17 08:59 03/30/17 07:40 2,000 INTER.UNIT Citalopram Hydrobromide (celeXA TAB) 40 mg DAILY PO 03/28/17 09:00 04/27/17 08:59 03/30/17 07:40 40 MG Gabapentin (Neurontin Cap) 300 mg TID PO 03/28/17 09:00 04/27/17 08:59 03/30/17 20:15 300 MG Ranitidine HCl (zANTac TAB) 150 mg BID PO 03/28/17 09:00 04/27/17 08:59 03/30/17 20:15 150 MG Tramadol HCl (Ultram Tab) 50 mg Q8 PRN PO 03/27/17 22:45 04/26/17 22:44 03/30/17 09:41 50 MG Calcium Carbonate (Tums Chew Tab) 500 mg BID PRN PO 03/28/17 09:00 04/27/17 08:59 03/28/17 08:15 500 MG Acetaminophen (Tylenol Tab) 1,000 mg Q8 PO 03/28/17 00:30 04/27/17 00:29 03/31/17 12:53 1,000 MG Cyanocobalamin (Vitamin B-12 Tab) 1,000 mcg QAM PO 03/28/17 09:00 04/27/17 08:59 03/30/17 07:41 1,000 MCG Enteral Nutritional Formula (Boost Breeze Nutritional Drink) 1 box BIDM PO 03/28/17 17:00 04/27/17 16:59 03/31/17 16:59 1 BOX Magnesium Oxide (Mag-Ox Tab) 400 mg BID PO 03/30/17 09:00 04/27/17 08:59 03/30/17 20:14 400 MG
[2017-03-31] MEDS: BACLOFEN 10 MG TAB PO SCH (20:43)
[2017-04-01] VITALS (7 sets, daily range): BP systolic 144–185; BP diastolic 71–97; PULSE 69–86; TEMP 36.7–37.3; O2SAT 93–98
[2017-04-01] MEDS: ACETAMINOPHEN 500 MG TAB PO SCH ×3 (05:29→21:36)
[2017-04-01 07:33] LABS: CALCIUM 9.4 mg/dl (8.5-10.1); CREATININE 1.03 mg/dl (0.60-1.20); POTASSIUM 4.4 mmol/L (3.5-5.1)
[2017-04-01] MEDS: CITALOPRAM 40 MG TAB PO SCH (08:45)
[2017-04-01] MEDS: ATORVASTATIN 20 MG TAB PO SCH (08:45)
[2017-04-01] MEDS: CHOLECALCIFEROL 1000 INTER.UNIT TAB PO SCH (08:45)
[2017-04-01] MEDS: CYANOCOBALAMIN 500 MCG TAB (VIT B-12) PO SCH (08:45)
[2017-04-01] MEDS: MAGNESIUM OXIDE 400 MG TAB PO SCH ×2 (08:45→21:35)
[2017-04-01] MEDS: RANITIDINE HCL 150 MG TAB PO SCH ×2 (08:46→21:35)
[2017-04-01] MEDS: GABAPENTIN 300 MG CAP PO SCH ×3 (08:46→21:35)
[2017-04-01] MEDS: BOOST BREEZE NUTRITION DRINK 1 BOX PO SCH ×3 (08:46→20:45)
[2017-04-01] MEDS: BACLOFEN 10 MG TAB PO SCH ×3 (08:46→21:35)
--- NOTE | 2017-04-01 15:23 | ELECTROENCEPHALOGRAPH REPORT ---
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 ELECTROENCEPHALOGRAM DIAGNOSIS: Essentially normal during wakefulness. DESCRIPTION OF TRACING: This EEG was done as a bedside recording and was of good technical quality with few or no muscle movement artifacts. Drowsiness and light sleep were not recorded. During wakefulness, there appears to be a normal background rhythm in the alpha range of about 9-10 Hz in maximum frequency and of up to 30 microvolts of maximum amplitude. This is maximum in posterior head regions bilaterally symmetrical. Polymorphic mid to slightly lower frequency of modest amplitude theta activity is seen over all head regions, maximum in the central regions but without any lateralizing abnormalities or focality. Anterior head region maximum bilaterally symmetrical low voltage fast activity in the beta range is present. At no time during the waking tracing is there clear evidence for potentially epileptogenic activity in the form of polyspike or spike wave bursts, focal sharp waves or focal spikes; and video analysis of patient's behavior and movements does not suggest any ongoing myoclonic activity or potential seizure like activity. INTERPRETATION: This EEG is essentially normal during wakefulness without evidence for focal or generalized encephalopathy and without evidence for potentially epileptogenic activity. MTDD
--- NOTE | 2017-04-01 16:01 | PROGRESS NOTE ---
DATE: 04/01/2017 SUBJECTIVE: Reena actually looks better today. She is alert and has trouble naming the hospital but knows the month, the date, the year and knows it is Spence's day coming up and insists she wants to go home, which is consistent over the last few days. Nurses do describe some confusion of low grade type intermittently and because of this and the fact that most of her electrolytes have now gotten back to baseline and she is back on ____ medications, prompted me to check for some non-convulsive status epilepticus issues with an EEG which of course is normal, not surprisingly. I am not sure where to go here. I discussed the case with Dr. Blackwood and I think there is a question of the patient's safety at home and I think we need pediatric social worker to get involved. She ideally should be at least in some form of nursing facility where she can be observed and I am not sure how well she is going to accept this. For now, she is again back on her reasonable doses of drugs, she is on less tramadol. She has had no myoclonus. Her gait I believe is well explained by leukoencephalopathy and polyneuropathy. I do not think the neurology has much more to offer, so I am again going to sign off the case unless there are some acute changes.
--- NOTE | 2017-04-01 19:48 | Progress Note ---
Medicine Progress Note Date & Time of Visit: Apr 01, 2017 at 19:33. Subjective Pt was seen and examined Lying in bed with no distress Pt refused to go to skill facility or rehab I explained to her that i don't think that is safe to discharge home since she has been fallen at home she said that she would rather do PT at home with home health Denies any chest pain, palpitation and SOB Objective Last 8 Hrs Date Time Temp Pulse Resp B/P (MAP) Pulse Ox O2 Delivery O2 Flow Rate FiO2 04/01/17 16:00 Nasal Cannula 2.0 04/01/17 15:19 37.3 86 18 168/94 (118) 98 04/01/17 12:00 Nasal Cannula 2.0 04/01/17 11:54 37.3 83 18 169/94 (119) 93 Physical Exam: General- No acute distress Head- atraumatic Eyes- PERRL, EOMI ENT- oropharynx clear Neck- supple, no JVD Lungs- No wheezing Heart- regular rhythm Abdomen- normal bowel sounds, soft Extremities- no calf tenderness Neuro- alert, oriented, PERRL, EOMI; no facial palsy; no dysarthria Skin- warm & dry Laboratory Results: Last 24 Hours Test 04/01/17 06:20 Sodium Level 136 mmol/L Potassium Level 4.4 mmol/L Chloride Level 99 mmol/L Carbon Dioxide Level 33 mmol/L Anion Gap 4.0 mmol/L Blood Urea Nitrogen 11 mg/dl Creatinine 1.03 mg/dl Est Creatinine Clear Calc Drug Dose 51.6 ml/min Estimated GFR () 62.9 Estimated GFR (Non- 54.3 BUN/Creatinine Ratio 10.5 Random Glucose 92 mg/dl Calcium Level 9.4 mg/dl Magnesium Level 2.1 mg/dl Assessment & Plan ALTERED MENTAL STATUS Possible related to delirium due to the hospital course vs baclofen withdrawn MRI and CT head showed no acute intracranial abnormality No signs of infection: UA negative and urine/blood cx no growth CXR no infiltrate FALLS / GAIT DYSFUNCTION / MYOCLONUS Neuroimaging demonstrated brain demonstrated small vessel ischemic changes. MRI cervical spine showed degenerative changes. Normal EEG without evidence for potentially epileptogenic activity. Neuro on board. PT / OT. Refused inpatient rehab Fall precaution CEREBROVASCULAR DISEASE Continue aspirin and statin. CKD III / ACUTE KIDNEY INJURY Serum creatinine 2.1 on admission. Creatinine 1.03 today Resolved. GERD Continue ranitidine. DYSLIPIDEMIA Continue atorvastatin. ANEMIA Stable NEUROPATHY B12 236. TSH 3.2. Continue gabapentin. VTE PROPHYLAXIS SCD's. Ambulate. DISPOSITION Refused to go to skilled care or rehab. Family Medicine follow-up with Dr. Messer. Current Inpatient Medications: Current Inpatient Medications Medications (Trade) Dose Ordered Sig/Kayla Route Start Time Stop Time Status Last Admin Dose Admin Ondansetron HCl (Zofran Inj) 4 mg Q6H PRN IV 03/27/17 20:30 04/26/17 20:29 03/28/17 18:30 4 MG Atorvastatin Calcium (Lipitor Tab) 10 mg DAILY PO 03/28/17 09:00 04/27/17 08:59 04/01/17 08:45 10 MG Cholecalciferol (Vitamin D Tab) 2,000 inter.unit DAILY PO 03/28/17 09:00 04/27/17 08:59 04/01/17 08:45 2,000 INTER.UNIT Citalopram Hydrobromide (celeXA TAB) 40 mg DAILY PO 03/28/17 09:00 04/27/17 08:59 04/01/17 08:45 40 MG Gabapentin (Neurontin Cap) 300 mg TID PO 03/28/17 09:00 04/27/17 08:59 04/01/17 14:51 300 MG Ranitidine HCl (zANTac TAB) 150 mg BID PO 03/28/17 09:00 04/27/17 08:59 04/01/17 08:46 150 MG Tramadol HCl (Ultram Tab) 50 mg Q8 PRN PO 03/27/17 22:45 04/26/17 22:44 03/30/17 09:41 50 MG Calcium Carbonate (Tums Chew Tab) 500 mg BID PRN PO 03/28/17 09:00 04/27/17 08:59 03/28/17 08:15 500 MG Acetaminophen (Tylenol Tab) 1,000 mg Q8 PO 03/28/17 00:30 04/27/17 00:29 04/01/17 15:13 1,000 MG Cyanocobalamin (Vitamin B-12 Tab) 1,000 mcg QAM PO 03/28/17 09:00 04/27/17 08:59 04/01/17 08:45 1,000 MCG Enteral Nutritional Formula (Boost Breeze Nutritional Drink) 1 box BIDM PO 03/28/17 17:00 04/27/17 16:59 04/01/17 08:46 1 BOX Magnesium Oxide (Mag-Ox Tab) 400 mg BID PO 03/30/17 09:00 04/27/17 08:59 04/01/17 08:45 400 MG Baclofen (Lioresal Tab) 5 mg TID PO 03/31/17 21:00 04/30/17 20:59 04/01/17 14:51 5 MG
[2017-04-02] VITALS: O2SAT 95
[2017-04-02 00:27] VITALS: BP 162/79; PULSE 76; TEMP 37.2; O2SAT 98
[2017-04-02] MEDS: ACETAMINOPHEN 500 MG TAB PO SCH ×2 (05:55→14:09)
[2017-04-02 06:06] VITALS: BP 175/89; PULSE 79; TEMP 37.2; O2SAT 96
[2017-04-02] MEDS: MAGNESIUM OXIDE 400 MG TAB PO SCH (07:34)
[2017-04-02] MEDS: BACLOFEN 10 MG TAB PO SCH ×2 (07:35→14:08)
[2017-04-02] MEDS: ATORVASTATIN 20 MG TAB PO SCH (07:35)
[2017-04-02] MEDS: CHOLECALCIFEROL 1000 INTER.UNIT TAB PO SCH (07:35)
[2017-04-02] MEDS: RANITIDINE HCL 150 MG TAB PO SCH (07:35)
[2017-04-02] MEDS: GABAPENTIN 300 MG CAP PO SCH ×2 (07:36→14:08)
[2017-04-02] MEDS: CITALOPRAM 40 MG TAB PO SCH (07:36)
[2017-04-02] MEDS: CYANOCOBALAMIN 500 MCG TAB (VIT B-12) PO SCH (07:36)
[2017-04-02 07:38] VITALS: BP 164/79; PULSE 77; TEMP 37.3; O2SAT 98
[2017-04-02 11:49] VITALS: BP 151/91; PULSE 76; TEMP 37.1; O2SAT 97
[2017-04-02 14:26] VITALS: BP 151/91; PULSE 76; TEMP 37.1; O2SAT 97
--- NOTE | 2017-04-02 15:40 | Progress Note ---
Medicine Progress Note Date & Time of Visit: Apr 02, 2017 at 15:36. Subjective Pt was seen and examined Lying in bed with no distress Pt said that she feels fine She is very anxious to go home today She refused to go to rehab Denies any chest pain, palpitation, dizziness and SOB Objective Last 8 Hrs Date Time Temp Pulse Resp B/P (MAP) Pulse Ox O2 Delivery O2 Flow Rate FiO2 04/02/17 14:26 37.1 76 18 97 Nasal Cannula 04/02/17 12:00 Nasal Cannula 2.0 04/02/17 11:49 37.1 76 18 151/91 (111) 97 2.0 04/02/17 08:00 Nasal Cannula 2.0 04/02/17 07:38 37.3 77 18 164/79 (107) 98 Nasal Cannula 2.0 Physical Exam: General- No acute distress Head- atraumatic Eyes- PERRL, EOMI ENT- oropharynx clear Neck- supple, no JVD Lungs- No wheezing Heart- regular rhythm Abdomen- normal bowel sounds, soft Extremities- no calf tenderness Neuro- alert, oriented, PERRL, EOMI; no facial palsy; no dysarthria Skin- warm & dry Assessment & Plan ALTERED MENTAL STATUS Possible related to delirium due to the hospital course vs baclofen withdrawn MRI and CT head showed no acute intracranial abnormality No signs of infection: UA negative and urine/blood cx no growth CXR showed no infiltrate FALLS / GAIT DYSFUNCTION / MYOCLONUS Neuroimaging demonstrated brain demonstrated small vessel ischemic changes. MRI cervical spine showed degenerative changes. Normal EEG without evidence for potentially epileptogenic activity. Neuro on board. Continue PT / OT with home health services Refused inpatient rehab Fall precaution CEREBROVASCULAR DISEASE Continue aspirin and statin. CKD III / ACUTE KIDNEY INJURY Serum creatinine 2.1 on admission. Creatinine stable Resolved. GERD Continue ranitidine. DYSLIPIDEMIA Continue atorvastatin. ANEMIA Stable NEUROPATHY VitB12 236. TSH 3.2. Continue gabapentin. VTE PROPHYLAXIS SCD's. Ambulate. DISPOSITION Refused to go to skilled care or rehab. Family Medicine follow-up with Dr. Messer. Current Inpatient Medications: Current Inpatient Medications Medications (Trade) Dose Ordered Sig/Kayla Route Start Time Stop Time Status Last Admin Dose Admin Ondansetron HCl (Zofran Inj) 4 mg Q6H PRN IV 03/27/17 20:30 04/26/17 20:29 03/28/17 18:30 4 MG Atorvastatin Calcium (Lipitor Tab) 10 mg DAILY PO 03/28/17 09:00 04/27/17 08:59 04/02/17 07:35 10 MG Cholecalciferol (Vitamin D Tab) 2,000 inter.unit DAILY PO 03/28/17 09:00 04/27/17 08:59 04/02/17 07:35 2,000 INTER.UNIT Citalopram Hydrobromide (celeXA TAB) 40 mg DAILY PO 03/28/17 09:00 04/27/17 08:59 04/02/17 07:36 40 MG Gabapentin (Neurontin Cap) 300 mg TID PO 03/28/17 09:00 04/27/17 08:59 04/02/17 14:08 300 MG Ranitidine HCl (zANTac TAB) 150 mg BID PO 03/28/17 09:00 04/27/17 08:59 04/02/17 07:35 150 MG Tramadol HCl (Ultram Tab) 50 mg Q8 PRN PO 03/27/17 22:45 04/26/17 22:44 03/30/17 09:41 50 MG Calcium Carbonate (Tums Chew Tab) 500 mg BID PRN PO 03/28/17 09:00 04/27/17 08:59 03/28/17 08:15 500 MG Acetaminophen (Tylenol Tab) 1,000 mg Q8 PO 03/28/17 00:30 04/27/17 00:29 04/02/17 14:09 1,000 MG Cyanocobalamin (Vitamin B-12 Tab) 1,000 mcg QAM PO 03/28/17 09:00 04/27/17 08:59 04/02/17 07:36 1,000 MCG Enteral Nutritional Formula (Boost Breeze Nutritional Drink) 1 box BIDM PO 03/28/17 17:00 04/27/17 16:59 04/01/17 17:45 1 BOX Magnesium Oxide (Mag-Ox Tab) 400 mg BID PO 03/30/17 09:00 04/27/17 08:59 04/02/17 07:34 400 MG Baclofen (Lioresal Tab) 5 mg TID PO 03/31/17 21:00 04/30/17 20:59 04/02/17 14:08 5 MG
[2017-04-02] MEDS ORDERED: VTMB12 PO (15:47)
[2017-04-02] MEDS ORDERED: LRS10 PO (15:47)
--- NOTE | 2017-04-02 15:51 | Discharge Instructions ---
Discharge Instructions Date of Service Apr 02, 2017. Admission Reason for Admission: Falls, Weakness Discharge Discharge Diagnosis / Problem: FALLS / GAIT DYSFUNCTION / MYOCLONUS Discharge Goals Goal(s): Decrease discomfort, Improve function, Improve disease control Activity Recommendations Activity Limitations: resume your previous activity (as tolerated) . Instructions / Follow-Up Instructions / Follow-Up Discharge home with home health services Follow up with your primary care provider Dr. Messer on 04/07 @ 11:00 AM Follow up with neurology Dr. Lovelace (Please call office to schedule appointment) Continue physical therapy Fall precaution Current Hospital Diet Patient's current hospital diet: Regular Diet Discharge Diet Recommended Diet: Regular Diet Pending Studies Studies pending at discharge: no Laboratory Results Hemoglobin A1c Test 03/29/17 08:34 Range/Units Estimated Average Glucose 120 mg/dl Hemoglobin A1c 5.8 H 4.5-5.6 % Medical Emergencies . Who to Call and When: Medical Emergencies: If at any time you feel your situation is an emergency, please call 911 immediately. . Non-Emergent Contact Non-Emergency issues call your: Primary Care Provider Call Non-Emergent contact if: you have any medication questions . . "Provider Documentation" section prepared by Leobardo Manjarrez. . VTE Core Measure Inpt VTE Proph given/why not?: SCD's
--- NOTE | 2017-04-04 00:20 | Discharge Summary ---
Discharge Summary Date of Service Apr 03, 2017. Discharge Summary Admission Date: Mar 27, 2017 at 20:23 Discharge Date: Apr 02, 2017 Discharge Disposition: Home with services Principal Diagnosis: ALTERED MENTAL STATUS Secondary Diagnoses/Problems: FALLS GAIT DYSFUNCTION MYOCLONUS CEREBROVASCULAR DISEASE CKD III / ACUTE KIDNEY INJURY DYSLIPIDEMIA NEUROPATHY ANEMIA GERD Procedures: CERVICAL WITHOUT CONTRAST HISTORY: Pain. Neuropathy. bilat upper extremity weakness TECHNIQUE: Multiplanar multisequence MRI of the cervical spine was performed without the use of contrast. COMPARISON STUDY: None. FINDINGS: Limited study technically as the patient was unable to tolerate this study. Mild straightening of the cervical curvature. Normal signal characteristics of the vertebral bodies. Mild degenerative disc change throughout. Signal characteristics of the cervical cord are unremarkable. C2-C3: Minimal central disc bulge. C3-C4: Minimal broad-based disc bulge. Mild osteophytic narrowing left neuroforamina. C4-C5: Minimal broad-based disc bulge. Moderate osteophytic narrowing left and to a lesser extent right neural foramina. C5-C6: Mild broad-based disc bulge. Moderate narrowing of the neuroforamina bilaterally. C6-C7: Broad-based bulging disc. Mild osteophytic narrowing left neuroforamina. C7-T1: No significant central canal or neural foraminal narrowing. IMPRESSION: 1. Somewhat limited exam as the patient was unable to tolerate the study. 2. Mild disc bulges at virtually all levels of the cervical spine with no significant impact upon the spinal canal or cervical cord. 3. Moderate narrowing of the left and to a lesser extent right neural foramina at multiple levels as discussed. This appears to be on a degenerative basis. The above report was generated using voice recognition software. It may contain grammatical, syntax or spelling errors. Electronically signed by: Andrea Sanford M.D. 03/30/2017 12:04 PM Dictated Date/Time: 03/30/2017 12:01 PM [~ rep ct add3]] BRAIN WITHOUT CONTRAST HISTORY: Mental status change dizziness /fall TECHNIQUE: Multiplanar multisequence MRI of the brain was performed without the use of contrast. COMPARISON STUDY: CT 03/27/2017. Brain MRI 11/28/2014. FINDINGS: There are no areas of restricted diffusion to suggest acute infarction. The midline structures are intact. The paranasal sinuses are clear. The mastoid air cells are clear. The ventricles and sulci are within normal limits for age. There is no mass, hematoma, midline shift. The major vascular flow-voids at the skull base are well maintained. Considerable chronic small vessel change throughout both cerebral hemispheres unaltered from the prior study. Mild chronic small vessel change of the pontine medullary region and to lesser extent cerebellar hemispheres. Mild age-related atrophy. IMPRESSION: No acute intracranial abnormality. Chronic age-related small vessel change and atrophy. No change from the prior study. The above report was generated using voice recognition software. It may contain grammatical, syntax or spelling errors. Electronically signed by: Andrea Sanford M.D. 03/28/2017 4:43 PM Dictated Date/Time: 03/28/2017 4:[address] SCAN OF THE ABDOMEN AND PELVIS WITHOUT IV CONTRAST CLINICAL HISTORY: Generalized abdominal pain. COMPARISON STUDY: Abdominal CT dated 08/18/2016. TECHNIQUE: CT scan of the abdomen and pelvis is performed from the lung bases to the proximal femora. Images are reviewed in the axial, sagittal, and coronal planes. IV contrast was not administered for this examination as per the referring clinician. Note that the examination was performed and significant suboptimal fashion without oral and IV contrast. A dose lowering protocol was utilized adhering to the principles of ALARA. CT DOSE: 1145.09 mGy.cm FINDINGS: Lung bases: The heart is normal in size and without pericardial effusion. Emphysema is noted. Dependent airspace opacities are present at both lung bases. No pleural effusion is seen. A tiny hiatal hernia is observed. A surgical clip is noted at the gastroesophageal junction. Liver: Evaluation of the liver is degraded by streak and motion artifact. The unenhanced liver is normal in size, contour, and attenuation. There is central intrahepatic biliary ductal dilatation. Gallbladder: Surgically absent. Intra and extrahepatic biliary ductal dilatation is similar to previous. Spleen: Normal in size and attenuation. Pancreas: The unenhanced pancreas is markedly atrophic and grossly unremarkable. Adrenal glands: Unremarkable. Kidneys: The unenhanced kidneys are atrophic and without hydronephrosis. There are no renal calculi identified. A 1.6 cm cyst arises from the lower pole of the left kidney. Additional subcentimeter cortical hypodensities likely represent cysts but are too small for definitive characterization. Abdominal vasculature: The abdominal aorta is normal in course and caliber noting moderate to advanced atherosclerotic calcification. 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 No bowel obstruction is seen. There is mild to moderate colonic diverticulosis without CT evidence of acute diverticulitis. The appendix is not identified. Peritoneum: There is no intraperitoneal free air or abdominal ascites. Lymphadenopathy: None. Pelvic viscera: The bladder, uterus, and adnexa are normal as visualized. Skeletal structures: The skeletal structures are osteopenic. Mild to moderate spondylotic change in observed. There are healed left pubic ring fractures. Mild arthritic change is noted in the hips. A large hemangioma is seen in the body of T10. No lytic or blastic lesions are seen. IMPRESSION: 1. Suboptimal examination without oral and IV contrast. 2. There are no acute infectious or inflammatory findings in the abdomen or pelvis. 3. 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 No bowel obstruction is seen. 4. Mild to moderate colonic diverticulosis without CT evidence of acute diverticulitis. 5. Dependent airspace opacities are similar to previous and likely represent scarring/atelectasis. Clinical correlation will be required. 6. Additional findings as above. Electronically signed by: Jm Holliday M.D. 03/27/2017 7:14 PM Dictated Date/Time: 03/27/2017 7:07 PM [~ rep ct add3]] CT SCAN OF THE CERVICAL SPINE CLINICAL HISTORY: Fall. COMPARISON STUDY: CT of the cervical spine dated 08/18/2016. TECHNIQUE: CT scan of the cervical spine is performed from the skull base to the upper thoracic spine. Images are reviewed in the axial, sagittal, and coronal planes. IV contrast was not administered for this examination. A dose lowering protocol was utilized adhering to the principles of ALARA. CT DOSE: 1060.49 mGy.cm FINDINGS: Skeletal structures: The skeletal structures are osteopenic. There is no evidence of fracture or subluxation involving the cervical spine. Vertebral body height is maintained. There is minimal anterolisthesis at C2-C3 and minimal retrolisthesis at C4-C5. There is straightening of the cervical lordosis with mild reversal centered at C4-C5. Anterior osteophytes are seen throughout. The odontoid process and lateral masses are intact. The atlantoaxial articulation is preserved noting productive degenerative change with bony sclerosis and narrowing of the intervertebral. The spinous processes appear intact. There is mild to moderate multilevel cervical spondylosis. Uncovertebral and facet arthropathy contribute sterile foraminal narrowing at several levels. Intervertebral discs: [id number] degenerative disc space narrowing seen at C4-C5 and C5-C6. The remaining disc spaces appear maintained. Central canal: A posterior disc osteophyte complex at C5-C6 may contribute to mild acquired compromise of the central canal. Soft tissues: The prevertebral and paraspinous soft tissues are within normal limits. There is atherosclerotic calcification of the carotid bulbs. Calvarium: The visualized calvarium at the skull base appears intact. Brain parenchyma: Partially visualized brain parenchyma the skull base is within normal limits. Sinuses and mastoids: The visualized paranasal sinuses are clear. The mastoid air cells are well pneumatized. Lung apices: Emphysematous change is present at the lung apices. Imaged apical lung parenchyma is otherwise clear as visualized. IMPRESSION: 1. There is no evidence of fracture or subluxation involving the cervical spine. 2. Osteopenia and degenerative change as above. Electronically signed by: Jm Holliday M.D. 03/27/2017 7:07 PM Dictated Date/Time: 03/27/2017 7:[address] SCAN OF THE BRAIN WITHOUT IV CONTRAST CLINICAL HISTORY: Generalized weakness. Fall. COMPARISON STUDY: CT of the brain dated 08/18/2016. TECHNIQUE: Unenhanced axial CT scan of the brain is performed from the vertex to the skull base. FINDINGS: Brain parenchyma: There are age-related involutional changes noting moderate subcortical and periventricular microangiopathic change. There is no hemorrhage, mass effect, or evidence of acute territorial ischemia by CT criteria. Buenrostro-white matter is preserved. No extra-axial fluid collection is seen. Ventricles, sulci, cisterns: Prominent secondary to involutional change. Intracranial vasculature: There is atherosclerotic calcification of the cavernous carotid arteries. Calvarium: The skeletal structures are osteopenic. No depressed calvarial fracture is seen. Sinuses and mastoids: The visualized paranasal sinuses are clear. The mastoid air cells are under pneumatized but appear clear. Orbits: The bony orbits are grossly intact. IMPRESSION: There is no hemorrhage, mass effect, or evidence of acute territorial ischemia by CT criteria. Electronically signed by: Jm Holliday M.D. 03/27/2017 7:03 PM Dictated Date/Time: 03/27/2017 7:01 PM [~ rep ct add3]] LUMBAR SPINE WITHOUT CLINICAL HISTORY: 71 years-old Female presenting with back pain s/p fall, weakness, neck and low back pain. TECHNIQUE: Multidetector CT of the lumbar spine was performed without the use of intravenous contrast. IV contrast: None. A dose lowering technique was used consistent with the principles of ALARA (as low as reasonably achievable). COMPARISON: None. CT DOSE (mGy.cm): The estimated cumulative dose is 1145.[address] scans. FINDINGS: Free Lance Model topogram: Surgical material projects over the epigastrium and upper abdomen. Normal lumbar lordosis. Minimal levocurvature centered at L3-4. Vertebral bodies maintain normal height and alignment otherwise. Intervertebral disc height loss with vacuum disc phenomenon and suspected disc bulges noted at L4-5 and L5-S1. Facet arthropathy noted from L2-3 through L4-5 greater on the right. This results in mild right osseous neural foraminal narrowing at L3-4 and L4-5. No acute fracture or subluxation. Paraspinal soft tissues remarkable for superficial subcutaneous edema in the lumbar region. Atherosclerosis. Surgical material noted in the region of the gastroesophageal junction. IMPRESSION: 1. Mild multilevel degenerative changes primarily in the mid to lower lumbar spine greater on the right. This results in mild right osseous neural foraminal narrowing at L3-4 and L4-5. Suspected small disc bulges at L4-5 and L5-S1. 2. No acute osseous injury. Electronically signed by: Jack Tucker M.D. 03/27/2017 7:16 PM Dictated Date/Time: 03/27/2017 7:12 PM CHEST ONE VIEW PORTABLE CLINICAL HISTORY: 71 years-old Female presenting with CHEST PAIN. TECHNIQUE: Portable upright AP view of the chest was obtained. COMPARISON: 08/18/2016. FINDINGS: Atherosclerosis of aortic arch. Cardiac silhouette enlarged. Pulmonary vascular prominence. Lungs hyperinflated. Reticular and linear opacities at the lung bases. Relative radiolucency at the apices. No new focal opacity. No large effusion or pneumothorax. Osseous structures normal. IMPRESSION: 1. Findings suggest emphysema. 2. Cardiomegaly with suspected volume overload. 3. Bibasilar atelectasis or scarring. No new focal infiltrate. Electronically signed by: Jack Tucker M.D. 03/27/2017 6:11 PM Dictated Date/Time: 03/27/2017 6:09 PM Medication Reconciliation New Medications: Baclofen (Baclofen) 10 Mg Tab 5 MG PO TID, #30 TAB Cyanocobalamin (Vitamin B-12) 500 Mcg Tab 1000 MCG PO QAM for 30 Days, #60 TAB Continued Medications: Atorvastatin (Lipitor) 20 Mg Tab 10 MG PO DAILY Calcium Carbonate (Calcium Carbonate) 600 Mg Tab 1 TAB PO BID, #60 TAB Cholecalciferol (Vitamin D) 1,000 Inter.unit Tab 2000 INTER.UNIT PO DAILY Citalopram (Citalopram Hydrobromide) 40 Mg Tab 1 TAB PO DAILY for 90 Days, #90 TAB 1 Refill Gabapentin (Neurontin) 300 Mg Cap 1 CAP PO TID for 30 Days, #90 CAP 3 Refills Magnesium Oxide (Mag-Ox) 400 Mg Tab 400 MG PO DAILY Ranitidine (Zantac) 150 Mg Tab 150 MG PO BID, 0 Refills Tramadol Hcl (Ultram) 50 Mg Tab 50 MG PO Q8 PRN for Pain Discontinued Medications: Baclofen (Lioresal) 10 Mg Tab 1 TAB PO TID for 30 Days, #90 TAB 2 Refills Admission Information HPI (per Admitting provider): 71 year old female who presents to the ED with frequent falls and weakness. Patient reports she fell 4 times yesterday. She reports that she did not have much warning and that her legs just gave out on her. She did strike her head but denies any loss of coconsciousness. No associated lightheadedness, dizziness , or chest pain with the falls however she did feel dizzy today. She reports her hands have been jerking as well and she has been dropping things. She reports nausea and poor appetite for one week. She denies vomiting, abdominal pain, or diarrhea. She has chronic exertional shortness of breath which is unchanged from her baseline. No fevers or chills. She denies urinary symptoms. In the ED, patient had extensive imaging which is negative for acute findings. Labs shows creat 2.1 (baseline ~ 1.3). Hgb 8.9 (baseline ~ 11.0). Vitals are stable. She was given IVF. Physical Exam (per Admitting): General Appearance: WD/WN, no apparent distress Head: normocephalic, atraumatic Eyes: normal inspection, PERRL, EOMI, sclerae normal ENT: hearing grossly normal, + pertinent finding (mucous membranes moist) Neck: supple, no JVD, trachea midline Respiratory/Chest: lungs clear, normal breath sounds, no respiratory distress Cardiovascular: regular rate, rhythm, normal peripheral pulses, + pertinent finding (trace edema BLLE) Abdomen/GI: normal bowel sounds, non tender, soft, no organomegaly Extremities/Musculoskelatal: normal inspection, no calf tenderness, normal capillary refill Neurologic/Psych: no motor/sensory deficits (no focal deficits noted, patient able to preform finger to nose and heel to mccann without difficulty, extremities strong and equal BL; occasional myoclonic jerking of hands noted during exam), alert, normal mood/affect, oriented x 3 Skin: normal color, warm/dry Hospital Course ALTERED MENTAL STATUS Possible related to delirium due to the hospital course vs baclofen withdrawn MRI and CT head showed no acute intracranial abnormality No signs of infection: UA negative and urine/blood cx no growth CXR showed no infiltrate FALLS / GAIT DYSFUNCTION / MYOCLONUS Neuroimaging demonstrated brain demonstrated small vessel ischemic changes. MRI cervical spine showed degenerative changes. Normal EEG without evidence for potentially epileptogenic activity. Neuro on board. Continue PT / OT with home health services Refused inpatient rehab Fall precaution CEREBROVASCULAR DISEASE Continue aspirin and statin. CKD III / ACUTE KIDNEY INJURY Serum creatinine 2.1 on admission. Creatinine stable Resolved. GERD Continue ranitidine. DYSLIPIDEMIA Continue atorvastatin. ANEMIA Stable NEUROPATHY VitB12 236. TSH 3.2. Continue gabapentin. VTE PROPHYLAXIS SCD's. Ambulate. DISPOSITION Refused to go to skilled care or rehab. Family Medicine follow-up with Dr. Messer. Total time spent on discharge = 35 MINUTES This includes examination of the patient, discharge planning, medication reconciliation, and communication with other providers. Discharge Instructions Discharge Instructions Date of Service Apr 02, 2017. Admission Reason for Admission: Falls, Weakness Discharge Discharge Diagnosis / Problem: FALLS / GAIT DYSFUNCTION / MYOCLONUS Discharge Goals Goal(s): Decrease discomfort, Improve function, Improve disease control Activity Recommendations Activity Limitations: resume your previous activity (as tolerated) . Instructions / Follow-Up Instructions / Follow-Up Discharge home with home health services Follow up with your primary care provider Dr. Messer on 04/07 @ 11:00 AM Follow up with neurology Dr. Lovelace (Please call office to schedule appointment) Continue physical therapy Fall precaution Current Hospital Diet Patient's current hospital diet: Regular Diet Discharge Diet Recommended Diet: Regular Diet Pending Studies Studies pending at discharge: no Laboratory Results Hemoglobin A1c Test 03/29/17 08:34 Range/Units Estimated Average Glucose 120 mg/dl Hemoglobin A1c 5.8 H 4.5-5.6 % Medical Emergencies . Who to Call and When: Medical Emergencies: If at any time you feel your situation is an emergency, please call 911 immediately. . Non-Emergent Contact Non-Emergency issues call your: Primary Care Provider Call Non-Emergent contact if: you have any medication questions . . "Provider Documentation" section prepared by Leobardo Manjarrez. . VTE Core Measure Inpt VTE Proph given/why not?: SCD's Signed: Signed: The status of this report is Draft * If report status is Draft, the document has not been finalized by the responsible provider. Additional Copies To Ross Messer M.D.
== END 2017-04-02 16:45 | disposition home health service (06) | DRG 684 ==
LOC: EDBD 17:20 → C.EDC 17:22 → C.MED 20:23 → ENRESERV 20:38
PROVIDERS: ADMIT Hospitalist; ATTEND Internal Medicine
DX: N17.9 Acute kidney failure, unspecified (principal); N18.3 Chronic kidney disease, stage 3 (moderate); G25.3 Myoclonus; F41.9 Anxiety disorder, unspecified; J44.9 Chronic obstructive pulmonary disease, unspecified; F32.9 Major depressive disorder, single episode, unspecified; E78.5 Hyperlipidemia, unspecified; M15.9 Polyosteoarthritis, unspecified; E86.0 Dehydration; D64.9 Anemia, unspecified; M54.5 Low back pain; R29.6 Repeated falls; Z66 Do not resuscitate; G62.9 Polyneuropathy, unspecified; I67.9 Cerebrovascular disease, unspecified; Z88.5 Allergy status to narcotic agent; Z87.891 Personal history of nicotine dependence; Z90.49 Acquired absence of other specified parts of digestive tract

== ENCOUNTER 2020-09-18 09:06 | Inpatient (IN) ==
[2020-09-18 09:44] LABS: Base Excess VBG 0.6 mEq/L; HCO3 VBG 29 mmol/L; PCO2 VBG 66 mmHg (38-50); PO2 VBG 30 mmHg; pH VBG 7.26 (7.36-7.41)
[2020-09-18 09:48] LABS: Partial Thromboplastin Time 25.6 Seconds (21.0-31.0); Prothrombin Time 9.8 Seconds (9.0-12.0)
--- NOTE | 2020-09-18 09:58 | CT Scan Report ---
CT cervical spine wo con CT DOSE: 396.55 mGycm CLINICAL HISTORY: 74 years-old Female with repeated falls. Acute head and neck injury status post fa ll COMPARISON: Head CT of same day, CT cervical spine 03/27/2017 TECHNIQUE: Multiple axial CT images of the cervical spine were obtained without contrast. A dose low ering technique was utilized adhering to the principles of ALARA. FINDINGS: Demineralized appearance of the bones. Multilevel vacuum disc phenomena with moderate intervertebral disc space narrowing at C3-C4, C4-C5 and C5-C6. Moderate associated spondylitic spurring with small p osterior disc osteophyte complex formations. Multilevel facet arthrosis, severe on the left at C2-C3 and C3-C4. Degenerative changes have progressed from comparison. Minimal superior endplate compressio n at C7-T2 is appears chronic and is similar to comparison. No acute fracture or subluxation identifi ed. Multilevel neural foraminal narrowing. Right mastoid effusion is partially imaged. Mild intralobular septal thickening of the lung apices without pneumothorax. Mild wall thickening of the proximal esophagus. Medial course of the internal carotid arteries which demonstrate atherosclero tic plaque. No prevertebral edema. IMPRESSION: 1. No acute cervical spine fracture or subluxation. 2. Degenerative changes as above, progressively worsened from 2018. 3. Mild nonspecific wall thickening of the proximal esophagus. ACT 112: Negative or not required by law. The above report was generated using voice recognition software. It may contain grammatical, syntax o r spelling errors. Electronically signed by: Joey Perla M.D. 09/18/2020 9:56 AM
[2020-09-18 10:00] LABS: Albumin Level 3.4 gm/dl (3.4-5.0); Calcium 8.3 mg/dl (8.5-10.1); Est GFR (African American) 34.3 ml/min; Est GFR (Non-African American) 29.6 ml/min; Magnesium 2.2 mg/dl (1.8-2.4); Potassium 4.5 mmol/L (3.5-5.1)
--- NOTE | 2020-09-18 10:01 | CT Scan Report ---
CT OF THE HEAD WITHOUT CONTRAST CLINICAL HISTORY: repeated falls COMPARISON STUDY: Head CT March 27, 2017. MRI of the brain March 28, 2017. CT DOSE: 1182.95 mGycm TECHNIQUE: Helical axial images of the head were obtained without IV contrast. Automated exposure con trol was utilized for the study. A dose lowering technique was utilized adhering to the principles o f ALARA. FINDINGS: No acute intracranial hemorrhage, midline shift or mass effect is present. White matter hyp odensities are unchanged and favor small vessel disease. The ventricular system is unremarkable. The basal cisterns are patent. No extra-axial collections are present. There are no findings to suggest a cute dural sinus thrombosis or acute territorial infarct. No significant calvarial abnormalities are present. Visualized portions of the sinuses and mastoid air cells are clear. IMPRESSION: 1. No acute intracranial findings. No change in appearance of the brain. 2. No calvarial fracture. ACT 112: Negative or not required by law. Electronically signed by: David Adler M.D. 09/18/2020 10:00 AM
[2020-09-18 10:07] LABS: Bilirubin,Total 0.6 mg/dl (0.2-1); Globulin 3.4 gm/dl (2.5-4.0); Total Protein 6.8 gm/dl (6.4-8.2); Troponin I 0.046 ng/ml (0-0.045)
[2020-09-18 10:17] LABS: Oxygen Saturation VBG < 60.0 %
--- NOTE | 2020-09-18 10:32 | XRay Report ---
XR pelvis 1-2V routine CLINICAL HISTORY: repeated falls COMPARISON: CT of the abdomen and pelvis March 27, 2017. FINDINGS: Old left pubic ring fractures are noted. No acute fracture is identified within the pelvis or hips. There is moderate to severe osteoarthritis of the right hip with joint space narrowing and subchondral cystic change. IMPRESSION: 1. No acute fracture within the pelvis or hips. 2. Old left pubic ring fractures. 3. Moderate to severe osteoarthritis of the right hip. Moderate left hip osteoarthritis. ACT 112: Negative or not required by law. Electronically signed by: David Adler M.D. 09/18/2020 10:30 AM
--- NOTE | 2020-09-18 10:33 | XRay Report ---
XR chest 1V portable CLINICAL HISTORY: SEPSIS COMPARISON STUDY: Chest radiograph June 18, 2018. FINDINGS: No pneumothorax or pleural effusion is noted. Left basilar opacity favors atelectasis. Ther e is no evidence for pulmonary edema. Cardiac size is at the upper limits of normal. IMPRESSION: 1. Left basilar opacity suggestive of atelectasis. 2. No acute cardiopulmonary findings. ACT 112: Negative or not required by law. Electronically signed by: David Adler M.D. 09/18/2020 10:32 AM
[2020-09-18 10:37] LABS: Basophils # (auto) 0.01 K/uL (0-0.2); Basophils % (auto) 0.1 %; Eosinophils # (auto) 0.08 K/uL (0-0.5); Eosinophils % (auto) 0.8 %; Hematocrit (blood only) 39.7 % (37-47); Hemoglobin 11.9 g/dL (12.0-16.0); Immature Granulocytes # (auto) 0.02 K/uL (0.00-0.02); Immature Granulocytes % (auto) 0.2 %; Lymphocytes # (auto) 0.73 K/uL (1.2-3.4); Lymphocytes % (auto) 7.5 %; Mean Corpuscular Hemoglobin 30.4 pg (25-34); Mean Corpuscular Volume 101.5 fL (80-100); Mean Platelet Volume 9.1 fL (7.4-10.4); Monocytes # (auto) 0.71 K/uL (0.11-0.59); Monocytes % (auto) 7.3 %; Neutrophils % (auto) 84.1 %; Platelet Count 222 K/uL (130-400); RDW Coefficient of Variation 14.3 % (11.5-14.5); RDW Standard Deviation 53.3 fL (36.4-46.3); Red Blood Count 3.91 M/uL (4.2-5.4); White Blood Count 9.75 K/uL (4.8-10.8)
[2020-09-18] MEDS ORDERED: ALBUT/IPRATROP 3MG/0.5MG NEB 3 ML VIAL NEB STA (11:09)
[2020-09-18] MEDS ORDERED: predniSONE 50 MG TAB PO STA (11:09)
[2020-09-18] MEDS ORDERED: AZITHROMYCIN 250 MG TAB PO ONE (11:12)
--- NOTE | 2020-09-18 12:22 | History & Physical Report ---
Date of Service September 18, 2020 Assessment & Plan (1) Acute respiratory failure with hypoxia and hypercarbia: Plan: History of severe COPD on home oxygen and bronchodilators but has been very noncompliant recently Brought into ER with increasing weakness, dizziness, headache and shortness of breath VBG showed acidosis with increasing CO2 and she was hypoxic on arrival Has been feeling much better with 2 L of nasal oxygen and saturating normally We will continue nebulized bronchodilators, oxygen and antibiotic Mildly elevated troponin Without any significant EKG changes Doubt any ACS We will check second troponin level after 6 hours (2) COPD, severe: Plan: Has been on home oxygen but is noncompliant Mild exacerbation of COPD and has been started with oral prednisone and oral azithromycin Will continue oral prednisone and antibiotic for 5 days Continue with nebulized bronchodilator Oxygen should be given lower doses as possible to maintain saturation She takes 2 L/min at home (3) Dizziness: Plan: Complaint dizziness and headache No other neurological symptoms CT scan has been negative (4) CKD (chronic kidney disease) stage 3, GFR 30-59 ml/min: Plan: Seems to have acute on chronic kidney disease with increasing BUN and creatinine to 28/1.67 We will give cautious amount of intravenous fluid Monitor PRP and electrolytes (5) Depression: Plan: No acute delirium or anxiety We will continue current medications Plan: DVT prophylaxis-subcu heparin CODE STATUS DNR and DNI Discussed with the History of Present Illness Chief Complaint: Has been feeling well for the last 1 week with dizziness, headache and weakness which are worse this morning Primary Care Provider: Sugar Kiser MD She is a 74-year-old female with significant past medical history of severe COPD, chronic kidney disease stage III, anxiety/depression, and hyperlipidemia has been complaining of weakness, some dizziness and shortness of breath for about 1 week. She was noted to be very sick this morning with above symptoms and she asked her to call for 911.She has not been compliant with her medications recently at home. She was hemodynamically stable in the emergency room noted to have slight increase in temperature at 37.9 C and her imaging studies were unremarkable except chest x-ray showed severe COPD without any infiltration. She denies any chest pain or palpitation, any fever and/or chills and her complaints were mostly dizziness in bed, headache without any associated neuro symptoms and increasing shortness of breath and weakness.She was a started with nebulized bronchodilator, oral prednisone and oral azithromycin and was advised for admission for continuation of care. Allergies Allergy/AdvReac Type Severity Reaction Status Date / Time codeine Allergy Mild Vomiting Verified 07/07/19 08:15 Home Medications Medication Instructions Recorded Confirmed Type albuterol sulfate 90 mcg/actuation 1 puff INHALATION Q6H PRN 06/18/18 09/18/20 History aerosol inhaler atorvastatin 20 mg tablet 10 mg PO QAM 06/18/18 09/18/20 History calcium carb,cit ER 600 mg-vit D3 1 tab PO QAM 06/18/18 09/18/20 History 12.5 mcg (500 unit) tablet,ext.rel cholecalciferol (vitamin D3) 25 1,000 unit PO QAM 06/18/18 09/18/20 History mcg (1,000 unit) capsule (Vitamin D3) cyanocobalamin (vitamin B-12) 1,000 mcg PO QAM 06/18/18 09/18/20 History 1,000 mcg tablet fluticasone propionate 220 2 puff INHALATION BID PRN 06/18/18 09/18/20 History mcg/actuation HFA aerosol inhaler (Flovent HFA) gabapentin 400 mg capsule 400 mg PO TID 06/18/18 09/18/20 History ipratropium 0.5 mg-albuterol 3 mg 1 vial INHALATION Q6H PRN 06/18/18 09/18/20 History (2.5 mg base)/3 mL nebulization soln magnesium oxide 400 mg PO QAM 06/18/18 09/18/20 History tiotropium bromide 18 mcg capsule 1 cap INHALATION QAM 06/18/18 09/18/20 History with inhalation device (Spiriva with HandiHaler) diazepam 2 mg tablet 2 mg PO DAILY 09/18/20 09/18/20 History duloxetine 60 mg capsule,delayed 60 mg PO DAILY 09/18/20 09/18/20 History release mirtazapine 15 mg tablet 15 mg PO DAILY 09/18/20 09/18/20 History pantoprazole 40 mg tablet,delayed 40 mg PO DAILY 09/18/20 09/18/20 History release Past Med/Surg History Medical History (Updated 09/18/20 @ 14:36 by Phong Vicente) Anxiety CKD (chronic kidney disease) stage 3, GFR 30-59 ml/min COPD (chronic obstructive pulmonary disease) 2L N/C prn Depression Dyslipidemia Generalized osteoarthritis GERD (gastroesophageal reflux disease) Peptic ulcer disease HX Stress incontinence Surgical History History of gastric surgery TO REMOVE ULCER History of hemorrhoidectomy History of left cataract extraction History of tooth extraction Hx of cholecystectomy S/P appendectomy Family History Grandmother Diabetes Other No family history of adverse response to anesthesia Social History Smoking Status: Former smoker Second Hand Exposure: Yes ( smoked); Hx Alcohol Use: No Hx Substance Use: No Preferred Language: Andorran Communication Ability: Effective Singing Teacher Required: No Beliefs That Will Affect Care: None marital status: Current Living Situation: Spouse current occupational status: retired Feels Safe at Home: Yes Assistive Devices: Denture - Upper, Glasses and Nebulizer Review of Systems Review of Systems: All systems reviewed & are unremarkable except as noted in HPI & below Physical Exam Physical Exam: Lying in bed comfortably Constitutional: well developed, well nourished and + ill appearing; no acute distress Eyes: PERRL, conjunctivae normal, anicteric sclerae ENMT: external ear and nose normal, oropharynx normal Neck: trachea midline, no thyromegaly Respiratory: no respiratory distress and no cough Auscultation: + diminished lung sounds and + crackles (Minimal crackles at the bases more on the left than the right); no wheezes Cardiovascular: Rate/Rhythm: regular rate and regular rhythm; not tachycardic Heart Sounds: normal S1 and normal S2; no murmur Extremities: + edema (Trace edema bilaterally more on the right than the left) Gastrointestinal (Abdomen): normal bowel sounds, soft, nontender, no hepatosplenomegaly Musculoskeletal: No acute arthritis in any joint Neurologic: Alert, awake and oriented x3. Generally weak but no focal sensory and motor deficit appreciated Psychiatric: A+Ox3, euthymic affect Lymphatic: no cervical or axillary lymphadenopathy Results & Data Results & Data ([facility]) Vital Signs (Past 12 Hours) Vital Signs Temp Pulse Resp BP Pulse Ox 09/18/20 11:30 93 H 16 139/83 96 09/18/20 11:00 94 H 16 143/85 H 94 09/18/20 10:30 95 H 17 128/78 97 09/18/20 10:15 98 09/18/20 10:00 96 H 22 94 09/18/20 09:33 96 H 21 91 09/18/20 09:14 37.9 C H 99 H 18 142/86 H 96 09/18/20 09:10 99 H 16 142/86 H 98 Laboratory Results Short CBC 09/18/20 Range/Units 09:20 WBC 9.75 (4.8-10.8) K/uL Hgb 11.9 L (12.0-16.0) g/dL Hct 39.7 (37-47) % Plt Count 222 (130-400) K/uL BMP 09/18/20 09:20 Sodium 142 Potassium 4.5 Chloride 109 H Carbon Dioxide 29 BUN 28 H Creatinine 1.67 H Glucose 96 Calcium 8.3 L Cardiac Enzymes 09/18/20 Range/Units 09:20 Troponin I 0.046 H* (0-0.045) ng/ml Liver Function 09/18/20 Range/Units 09:20 Total Bilirubin 0.6 (0.2-1) mg/dl AST 62 H (15-37) U/L ALT 53 (12-78) U/L Alkaline Phosphatase 139 H (45-117) U/L Albumin 3.4 (3.4-5.0) gm/dl Medications Administered Current Inpatient Medications Azithromycin (Azithromycin 250 Mg Tab) 250 mg PO QAM RANI Stop: 09/26/20 08:59 Heparin Sodium (Porcine) (Heparin Sod 5,000 Unit/0.5 Ml Vial) 5,000 units SQ Q12 RANI Stop: 10/18/20 20:59 Prednisone (Prednisone 20 Mg Tab) 40 mg PO DAILY RANI Stop: 10/19/20 08:59 Code Status & VTE Plan VTE Prophylaxis Plan VTE Prophylaxis will be ordered: Yes
--- NOTE | 2020-09-18 14:27 | Emergency Department Note ---
History of Present Illness General Chief complaint: Fall Time Seen by Provider: 09/18/20 09:14 Source: patient and EMS History of Present Illness Provider complaint: Altered mental status Maximum Pain Intensity: 0 74-year-old female presents emergency department for altered mental status via EMS. Per EMS the patient fell a few days ago. They stated when they arrived at the patient's private residence the patient was altered and had unequal pupils. They stated that she was hypoxic on room air and they placed her on oxygen. EMS reports that since the patient has been on oxygen she has been more alert and started answering questions appropriately which was not doing when they initially got there. Patient reports that she fell 2 weeks ago. She reports not being on any blood thinners. She reports no history of COPD asthma CHF or any pulmonary disease. She states she is supposed to wear oxygen and does not take inhalers. Patient states she has not vaccine against COVID-19 because she states there is no point to it. Home Medications Medication Instructions Recorded Confirmed Type albuterol sulfate 90 mcg/actuation 1 puff INHALATION Q6H PRN 06/18/18 09/18/20 History aerosol inhaler atorvastatin 20 mg tablet 10 mg PO QAM 06/18/18 09/18/20 History calcium carb,cit ER 600 mg-vit D3 1 tab PO QAM 06/18/18 09/18/20 History 12.5 mcg (500 unit) tablet,ext.rel cholecalciferol (vitamin D3) 25 1,000 unit PO QAM 06/18/18 09/18/20 History mcg (1,000 unit) capsule (Vitamin D3) cyanocobalamin (vitamin B-12) 1,000 mcg PO QAM 06/18/18 09/18/20 History 1,000 mcg tablet fluticasone propionate 220 2 puff INHALATION BID PRN 06/18/18 09/18/20 History mcg/actuation HFA aerosol inhaler (Flovent HFA) gabapentin 400 mg capsule 400 mg PO TID 06/18/18 09/18/20 History ipratropium 0.5 mg-albuterol 3 mg 1 vial INHALATION Q6H PRN 06/18/18 09/18/20 History (2.5 mg base)/3 mL nebulization soln magnesium oxide 400 mg PO QAM 06/18/18 09/18/20 History tiotropium bromide 18 mcg capsule 1 cap INHALATION QAM 06/18/18 09/18/20 History with inhalation device (Spiriva with HandiHaler) diazepam 2 mg tablet 2 mg PO DAILY 09/18/20 09/18/20 History duloxetine 60 mg capsule,delayed 60 mg PO DAILY 09/18/20 09/18/20 History release mirtazapine 15 mg tablet 15 mg PO DAILY 09/18/20 09/18/20 History pantoprazole 40 mg tablet,delayed 40 mg PO DAILY 09/18/20 09/18/20 History release Allergies Allergy/AdvReac Type Severity Reaction Status Date / Time codeine Allergy Mild Vomiting Verified 07/07/19 08:15 Past Med/Surg History Medical History (Updated 09/18/20 @ 14:36 by Phong Vicente) Anxiety CKD (chronic kidney disease) stage 3, GFR 30-59 ml/min COPD (chronic obstructive pulmonary disease) 2L N/C prn Depression Dyslipidemia Generalized osteoarthritis GERD (gastroesophageal reflux disease) Peptic ulcer disease HX Stress incontinence Surgical History History of gastric surgery TO REMOVE ULCER History of hemorrhoidectomy History of left cataract extraction History of tooth extraction Hx of cholecystectomy S/P appendectomy Family History Grandmother Diabetes Other No family history of adverse response to anesthesia Social History Smoking Status: Former smoker Second Hand Exposure: Yes ( smoked); Hx Alcohol Use: No Hx Substance Use: No Preferred Language: Urdu Communication Ability: Effective Crystal Growing Technician Required: No Beliefs That Will Affect Care: None marital status: Current Living Situation: Spouse current occupational status: retired Feels Safe at Home: Yes Assistive Devices: Denture - Upper, Glasses and Nebulizer Review of Systems Unobtainable due to cognitive status and Unobtainable due to reduced consciousness Physical Exam Vital Signs Vital Signs - 24 hr 09/18/20 09:10 09/18/20 09:14 09/18/20 09:33 Temperature 37.9 C H Temperature Source Oral Pulse Rate 99 H 99 H 96 H Pulse Rate [Right Finger] Pulse Rate from SpO2 Sensor 99 H 97 H Pulse Rhythm Regular Pulse Strength Normal Respiratory Rate 16 18 21 Respiratory Effort / Characteristics Non-Labored Respiratory Depth Normal Respiratory Pattern Regular Blood Pressure 142/86 H 142/86 H Blood Pressure Mean 104 104 Blood Pressure Position Lying Pulse Oximetry 98 96 91 Oxygen Delivery Method Nasal Cannula Oxygen Flow Rate Sepsis Recent Fever Within 48 Hours No Sepsis New/Unexplained Change in Mental Status N/A Sepsis Action Taken by Nursing No Action Required 09/18/20 10:00 09/18/20 10:15 09/18/20 10:30 Temperature Temperature Source Pulse Rate 96 H 95 H Pulse Rate [Right Finger] Pulse Rate from SpO2 Sensor 95 H 96 H Pulse Rhythm Pulse Strength Respiratory Rate 22 17 Respiratory Effort / Characteristics Respiratory Depth Respiratory Pattern Blood Pressure 128/78 Blood Pressure Mean 94 Blood Pressure Position Pulse Oximetry 94 98 97 Oxygen Delivery Method Room Air Nasal Cannula Oxygen Flow Rate 2 Sepsis Recent Fever Within 48 Hours Sepsis New/Unexplained Change in Mental Status Sepsis Action Taken by Nursing 09/18/20 11:00 09/18/20 11:30 09/18/20 12:00 Temperature Temperature Source Pulse Rate 94 H 93 H 87 Pulse Rate [Right Finger] Pulse Rate from SpO2 Sensor 94 H 93 H 87 Pulse Rhythm Pulse Strength Respiratory Rate 16 16 15 Respiratory Effort / Characteristics Respiratory Depth Respiratory Pattern Blood Pressure 143/85 H 139/83 142/94 H Blood Pressure Mean 104 101 110 Blood Pressure Position Pulse Oximetry 94 96 97 Oxygen Delivery Method Oxygen Flow Rate Sepsis Recent Fever Within 48 Hours Sepsis New/Unexplained Change in Mental Status Sepsis Action Taken by Nursing 09/18/20 12:14 09/18/20 12:30 09/18/20 13:00 Temperature Temperature Source Pulse Rate 86 90 Pulse Rate [Right Finger] 92 H Pulse Rate from SpO2 Sensor 87 91 H Pulse Rhythm Pulse Strength Respiratory Rate 18 15 19 Respiratory Effort / Characteristics Spontaneous Respiratory Depth Respiratory Pattern Blood Pressure 133/80 123/75 Blood Pressure Mean 97 91 Blood Pressure Position Pulse Oximetry 94 92 90 Oxygen Delivery Method Nasal Cannula Oxygen Flow Rate 3 Sepsis Recent Fever Within 48 Hours Sepsis New/Unexplained Change in Mental Status Sepsis Action Taken by Nursing 09/18/20 13:30 Temperature Temperature Source Pulse Rate 92 H Pulse Rate [Right Finger] Pulse Rate from SpO2 Sensor 92 H Pulse Rhythm Pulse Strength Respiratory Rate 17 Respiratory Effort / Characteristics Respiratory Depth Respiratory Pattern Blood Pressure 128/68 Blood Pressure Mean 88 Blood Pressure Position Pulse Oximetry 91 Oxygen Delivery Method Oxygen Flow Rate Sepsis Recent Fever Within 48 Hours Sepsis New/Unexplained Change in Mental Status Sepsis Action Taken by Nursing Physical Exam GENERAL: She is oriented to person, place, and time. She appears well-developed and well-nourished. She does not appear distressed. HENT: Exam performed. -Head: Normocephalic and atraumatic. -Right Ear: External ear normal. No mastoid tenderness. -Left Ear: External ear normal. No mastoid tenderness. -Mouth/Throat: The oropharynx is clear and moist. No trismus in the jaw. No dental abscesses or uvula swelling. No oropharyngeal exudate or tonsillar abscesses. EYES: Conjunctivae and EOM are normal. Pupils are equal, round, and reactive to light. Right eye exhibits no discharge. Left eye exhibits no discharge. No scleral icterus. NECK: Normal range of motion. Neck supple. No JVD present. No spinous process tenderness present. No carotid bruit present. No rigidity. No tracheal deviation and normal range of motion present. No Brudzinski's sign and no Kernig's sign noted. CV: Normal rate, regular rhythm, normal heart sounds and intact distal pulses. There is no peripheral edema. Palpable radial pulses bue. PULM/CHEST: Diminished breath sounds bilaterally. -Chest Wall: She exhibits no tenderness. ABD: The abdomen is soft. Bowel sounds are normal. She has no distension. No mass is present. There is no tenderness. There is no rebound, no guarding, no Alejandro's sign and no tenderness at McBurney's point. Rovsig negative MUSC/SKEL: Pelvis stable. LYMPH: No cervical adenopathy. NEURO: She is alert to time. She is not oriented to person or place. She has normal strength. No cranial nerve deficit or sensory deficit. GCS eye subscore is 4. GCS verbal subscore is 4. GCS motor subscore is 6. SKIN: Diffuse ecchymosis over her extremities. PSYCH: She has a normal mood and affect. Behavior is normal. Judgment and thou ght content normal. Course Course 0914: The patient was evaluated in room C3. A complete history and physical exam was performed Cardiac monitoring: An order was placed for continuous cardiac monitoring. The monitor shows a rate of 100 with sinus rhythm Patient was found to be hypoxic and febrile in the emergency department. Sepsis protocols were initiated. Covid swab ordered for the patient as patient is not vaccinated gets Covid according her. EMR reviewed. Patient does have a history of COPD and CKD. Per the notes the patient was prescribed albuterol Flovent and Spiriva. Patient states she is supposed to wear oxygen. 1110:Vital signs stable on supplemental oxygen via nasal cannula. Patient is much more alert while on the supplemental oxygen and when she came into the emergency department. Patient's CT of the head and CT of the C-spine is within normal limits. Chest x-ray is negative. Labs show no white blood cell count. Coagulation studies are within normal limits. VBG shows venous pH of 7.26 with a venous PCO2 of 66. Creatinine is elevated 1.67. Troponin is elevated at 0.046 however the patient's creatinine is elevated the patient is not running any chest pain is thought that she is suffering from ACS at this time. It is thought that the patient altered mental status that she presented with is most likely due to her noncompliance with her treatment regiment for her obstructive lung disease. Patient will be given azithromycin 500 mg p.o., prednisone 50 mg p.o., and DuoNeb for her COPD. Patient be admitted to the [facility] hospitalist team. Spoke with Ginette Marcial stated to admit to Dr. Victoria Administered Medications Discontinued Medications Albuterol (Albut/Ipratrop 3mg/0.5mg Neb 3 Ml Vial) 3 ml NEB NOW STA Stop: 09/18/20 11:10 Last Admin: 09/18/20 12:14 Dose: 3 ml Documented by: [id number] Azithromycin (Azithromycin 250 Mg Tab) 500 mg PO NOW ONE Stop: 09/18/20 11:13 Last Admin: 09/18/20 11:56 Dose: 500 mg Documented by: [id number] Prednisone (Prednisone 50 Mg Tab) 50 mg PO NOW STA Stop: 09/18/20 11:10 Last Admin: 09/18/20 11:56 Dose: 50 mg Documented by: [id number] Medical Decision Making Laboratory Data Result diagrams: 09/18/20 09:20 09/18/20 09:20 Lab Results 09/18/20 09/18/20 09/18/20 Range/Units 09:11 09:20 09:20 WBC 9.75 (4.8-10.8) K/uL RBC 3.91 L (4.2-5.4) M/uL Hgb 11.9 L (12.0-16.0) g/dL Hct 39.7 (37-47) % MCV 101.5 H (80-100) fL MCH 30.4 (25-34) pg MCHC 30.0 L (32-36) g/dL RDW Std Deviation 53.3 H (36.4-46.3) fL RDW Coeff of Walter 14.3 (11.5-14.5) % Plt Count 222 (130-400) K/uL MPV 9.1 (7.4-10.4) fL Immature Gran % (Auto) 0.2 % Neut % (Auto) 84.1 % Lymph % (Auto) 7.5 % Emmet % (Auto) 7.3 % Eos % (Auto) 0.8 % Baso % (Auto) 0.1 % Neut # (Auto) 8.20 H (1.4-6.5) K/uL Lymph # (Auto) 0.73 L (1.2-3.4) K/uL Emmet # (Auto) 0.71 H (0.11-0.59) K/uL Eos # (Auto) 0.08 (0-0.5) K/uL Baso # (Auto) 0.01 (0-0.2) K/uL Immature Gran # (Auto) 0.02 (0.00-0.02) K/uL PT 9.8 (9.0-12.0) Seconds INR 1.0 (0.9-1.1) APTT 25.6 (21.0-31.0) Seconds PTT Ratio 1.0 VBG pH (7.36-7.41) VBG pCO2 (38-50) mmHg VBG pO2 mmHg VBG HCO3 mmol/L VBG O2 Saturation % VBG Base Excess mEq/L Barometric Pressure mm/Hg Sodium (136-145) mmol/L Potassium (3.5-5.1) mmol/L Chloride (98-107) mmol/L Carbon Dioxide (21-32) mmol/L Anion Gap (3-11) BUN (7-18) mg/dl Creatinine (0.6-1.2) mg/dl Est Cr Clr Drug Dosing ml/min Est GFR ( Amer) ml/min Est GFR (Non-Af Amer) ml/min BUN/Creatinine Ratio (10-20) Glucose (70-99) mg/dl POC Glucose 88 (70-99) mg/dl Lactate (0.4-2.0) mmol/L Calcium (8.5-10.1) mg/dl Magnesium (1.8-2.4) mg/dl Total Bilirubin (0.2-1) mg/dl AST (15-37) U/L ALT (12-78) U/L Alkaline Phosphatase (45-117) U/L Troponin I (0-0.045) ng/ml Total Protein (6.4-8.2) gm/dl Albumin (3.4-5.0) gm/dl Globulin (2.5-4.0) gm/dl Albumin/Globulin Ratio (0.9-2) Procalcitonin (0-0.5) ng/ml COVID-19 Eval Order SARS-CoV-2 (PCR) (Negative) 09/18/20 09/18/20 09/18/20 Range/Units 09:20 09:20 09:20 WBC (4.8-10.8) K/uL RBC (4.2-5.4) M/uL Hgb (12.0-16.0) g/dL Hct (37-47) % MCV (80-100) fL MCH (25-34) pg MCHC (32-36) g/dL RDW Std Deviation (36.4-46.3) fL RDW Coeff of Walter (11.5-14.5) % Plt Count (130-400) K/uL MPV (7.4-10.4) fL Immature Gran % (Auto) % Neut % (Auto) % Lymph % (Auto) % Emmet % (Auto) % Eos % (Auto) % Baso % (Auto) % Neut # (Auto) (1.4-6.5) K/uL Lymph # (Auto) (1.2-3.4) K/uL Emmet # (Auto) (0.11-0.59) K/uL Eos # (Auto) (0-0.5) K/uL Baso # (Auto) (0-0.2) K/uL Immature Gran # (Auto) (0.00-0.02) K/uL PT (9.0-12.0) Seconds INR (0.9-1.1) APTT (21.0-31.0) Seconds PTT Ratio VBG pH (7.36-7.41) VBG pCO2 (38-50) mmHg VBG pO2 mmHg VBG HCO3 mmol/L VBG O2 Saturation % VBG Base Excess mEq/L Barometric Pressure mm/Hg Sodium 142 (136-145) mmol/L Potassium 4.5 (3.5-5.1) mmol/L Chloride 109 H (98-107) mmol/L Carbon Dioxide 29 (21-32) mmol/L Anion Gap 4.0 (3-11) BUN 28 H (7-18) mg/dl Creatinine 1.67 H (0.6-1.2) mg/dl Est Cr Clr Drug Dosing 31.0 ml/min Est GFR ( Amer) 34.3 ml/min Est GFR (Non-Af Amer) 29.6 ml/min BUN/Creatinine Ratio 17.0 (10-20) Glucose 96 (70-99) mg/dl POC Glucose (70-99) mg/dl Lactate 1.3 (0.4-2.0) mmol/L Calcium 8.3 L (8.5-10.1) mg/dl Magnesium 2.2 (1.8-2.4) mg/dl Total Bilirubin 0.6 (0.2-1) mg/dl AST 62 H (15-37) U/L ALT 53 (12-78) U/L Alkaline Phosphatase 139 H (45-117) U/L Troponin I 0.046 H* (0-0.045) ng/ml Total Protein 6.8 (6.4-8.2) gm/dl Albumin 3.4 (3.4-5.0) gm/dl Globulin 3.4 (2.5-4.0) gm/dl Albumin/Globulin Ratio 1.0 (0.9-2) Procalcitonin < 0.05 (0-0.5) ng/ml COVID-19 Eval Order SARS-CoV-2 (PCR) (Negative) 09/18/20 09/18/20 09/18/20 Range/Units 09:32 Unknown Unknown WBC (4.8-10.8) K/uL RBC (4.2-5.4) M/uL Hgb (12.0-16.0) g/dL Hct (37-47) % MCV (80-100) fL MCH (25-34) pg MCHC (32-36) g/dL RDW Std Deviation (36.4-46.3) fL RDW Coeff of Walter (11.5-14.5) % Plt Count (130-400) K/uL MPV (7.4-10.4) fL Immature Gran % (Auto) % Neut % (Auto) % Lymph % (Auto) % Emmet % (Auto) % Eos % (Auto) % Baso % (Auto) % Neut # (Auto) (1.4-6.5) K/uL Lymph # (Auto) (1.2-3.4) K/uL Emmet # (Auto) (0.11-0.59) K/uL Eos # (Auto) (0-0.5) K/uL Baso # (Auto) (0-0.2) K/uL Immature Gran # (Auto) (0.00-0.02) K/uL PT (9.0-12.0) Seconds INR (0.9-1.1) APTT (21.0-31.0) Seconds PTT Ratio VBG pH 7.26 L (7.36-7.41) VBG pCO2 66 H (38-50) mmHg VBG pO2 30 mmHg VBG HCO3 29 mmol/L VBG O2 Saturation < 60.0 % VBG Base Excess 0.6 mEq/L Barometric Pressure 733.9 mm/Hg Sodium (136-145) mmol/L Potassium (3.5-5.1) mmol/L Chloride (98-107) mmol/L Carbon Dioxide (21-32) mmol/L Anion Gap (3-11) BUN (7-18) mg/dl Creatinine (0.6-1.2) mg/dl Est Cr Clr Drug Dosing ml/min Est GFR ( Amer) ml/min Est GFR (Non-Af Amer) ml/min BUN/Creatinine Ratio (10-20) Glucose (70-99) mg/dl POC Glucose (70-99) mg/dl Lactate (0.4-2.0) mmol/L Calcium (8.5-10.1) mg/dl Magnesium (1.8-2.4) mg/dl Total Bilirubin (0.2-1) mg/dl AST (15-37) U/L ALT (12-78) U/L Alkaline Phosphatase (45-117) U/L Troponin I (0-0.045) ng/ml Total Protein (6.4-8.2) gm/dl Albumin (3.4-5.0) gm/dl Globulin (2.5-4.0) gm/dl Albumin/Globulin Ratio (0.9-2) Procalcitonin (0-0.5) ng/ml COVID-19 Eval Order Covid19 at [facility] SARS-CoV-2 (PCR) NEGATIVE (Negative) Imaging Data Radiologist's Impression: Chest X-Ray 09/18/20 09:15 XR chest 1V portable CLINICAL HISTORY: SEPSIS COMPARISON STUDY: Chest radiograph June 18, 2018. FINDINGS: No pneumothorax or pleural effusion is noted. Left basilar opacity favors atelectasis. There is no evidence for pulmonary edema. Cardiac size is at the upper limits of normal. IMPRESSION: 1. Left basilar opacity suggestive of atelectasis. 2. No acute cardiopulmonary findings. ACT 112: Negative or not required by law. Electronically signed by: David Adler M.D. 09/18/2020 10:[address] 09/18/20 09:16 CT cervical spine wo con CT DOSE: 396.55 mGycm CLINICAL HISTORY: 74 years-old Female with repeated falls. Acute head and neck injury status post fall COMPARISON: Head CT of same day, CT cervical spine 03/27/2017 TECHNIQUE: Multiple axial CT images of the cervical spine were obtained without contrast. A dose lowering technique was utilized adhering to the principles of ALARA. FINDINGS: Demineralized appearance of the bones. Multilevel vacuum disc phenomena with moderate intervertebral disc space narrowing at C3-C4, C4-C5 and C5-C6. Moderate associated spondylitic spurring with small posterior disc osteophyte complex formations. Multilevel facet arthrosis, severe on the left at C2-C3 and C3-C4. Degenerative changes have progressed from comparison. Minimal superior endplate compression at C7-T2 is appears chronic and is similar to comparison. No acute fracture or subluxation identified. Multilevel neural foraminal narrowing. Right mastoid effusion is partially imaged. Mild intralobular septal thickening of the lung apices without pneumothorax. Mild wall thickening of the proximal esophagus. Medial course of the internal carotid arteries which demonstrate atherosclerotic plaque. No prevertebral edema. IMPRESSION: 1. No acute cervical spine fracture or subluxation. 2. Degenerative changes as above, progressively worsened from 2018. 3. Mild nonspecific wall thickening of the proximal esophagus. ACT 112: Negative or not required by law. The above report was generated using voice recognition software. It may contain grammatical, syntax or spelling errors. Electronically signed by: Joey Perla M.D. 09/18/2020 9:[address] 09/18/20 09:16 CT OF THE HEAD WITHOUT CONTRAST CLINICAL HISTORY: repeated falls COMPARISON STUDY: Head CT March 27, 2017. MRI of the brain March 28, 2017. CT DOSE: 1182.95 mGycm TECHNIQUE: Helical axial images of the head were obtained without IV contrast. Automated exposure control was utilized for the study. A dose lowering techniq ue was utilized adhering to the principles of ALARA. FINDINGS: No acute intracranial hemorrhage, midline shift or mass effect is present. White matter hypodensities are unchanged and favor small vessel disease. The ventricular system is unremarkable. The basal cisterns are patent. No extra-axial collections are present. There are no findings to suggest acute dural sinus thrombosis or acute territorial infarct. No significant calvarial abnormalities are present. Visualized portions of the sinuses and mastoid air cells are clear. IMPRESSION: 1. No acute intracranial findings. No change in appearance of the brain. 2. No calvarial fracture. ACT 112: Negative or not required by law. Electronically signed by: David Adler M.D. 09/18/2020 10:00 AM Pelvis X-Ray 09/18/20 09:16 XR pelvis 1-2V routine CLINICAL HISTORY: repeated falls COMPARISON: CT of the abdomen and pelvis March 27, 2017. FINDINGS: Old left pubic ring fractures are noted. No acute fracture is identified within the pelvis or hips. There is moderate to severe osteoarthritis of the right hip with joint space narrowing and subchondral cystic change. IMPRESSION: 1. No acute fracture within the pelvis or hips. 2. Old left pubic ring fractures. 3. Moderate to severe osteoarthritis of the right hip. Moderate left hip osteoarthritis. ACT 112: Negative or not required by law. Electronically signed by: David Adler M.D. 09/18/2020 10:30 AM ECG Data Indication: + altered mental status Rate (beats per minute): 97 Rhythm: + normal sinus ECG Intervals/blocks: + Normal QRS, + Normal TX and + Normal QT-c ECG ST segments: + Normal ST segments [facility] Narrative 0914: The patient was evaluated in room C3. A complete history and physical exam was performed Cardiac monitoring: An order was placed for continuous cardiac monitoring. The monitor shows a rate of 100 with sinus rhythm Patient was found to be hypoxic and febrile in the emergency department. Sepsis protocols were initiated. Covid swab ordered for the patient as patient is not vaccinated gets Covid according her. EMR reviewed. Patient does have a history of COPD and CKD. Per the notes the patient was prescribed albuterol Flovent and Spiriva. Patient states she is supposed to wear oxygen. 1110:Vital signs stable on supplemental oxygen via nasal cannula. Patient is much more alert while on the supplemental oxygen and when she came into the emergency department. Patient's CT of the head and CT of the C-spine is within normal limits. Chest x-ray is negative. Labs show no white blood cell count. Coagulation studies are within normal limits. VBG shows venous pH of 7.26 with a venous PCO2 of 66. Creatinine is elevated 1.67. Troponin is elevated at 0.046 however the patient's creatinine is elevated the patient is not running any chest pain is thought that she is suffering from ACS at this time. It is thought that the patient altered mental status that she presented with is most likely due to her noncompliance with her treatment regiment for her obstructive lung disease. Patient will be given azithromycin 500 mg p.o., prednisone 50 mg p.o., and DuoNeb for her COPD. [facility] Spoke with Ginette Marcial stated to admit to Dr. Victoria Impression & Plan COPD, severe Discharge Plan Visit Data Chief Complaint: Fall ED Provider: Phong Vicente Discharge Problem: COPD, severe Patient Disposition: Admitted As Inpatient Discharge Instructions Interventions: ED Discharge Assessment Last Done: 09/18/20 13:57
[2020-09-18] MEDS ORDERED: ALBUTEROL HFA 8 GM INHALER INH PRN (14:47)
[2020-09-18] MEDS ORDERED: FLUTICASONE FUROATE 200MCG 14 PUFFS/INHALER INH PRN (15:10)
[2020-09-18] MEDS: SODIUM CHLORIDE 0.9% 1000ML 1,000 ML IV SCH (15:11)
[2020-09-18] MEDS: ALBUT/IPRATROP 3MG/0.5MG NEB 3 ML VIAL INH SCH ×2 (15:14→19:28)
[2020-09-18] MEDS: GABAPENTIN 400 MG CAP PO SCH ×2 (15:34→20:33)
[2020-09-18] MEDS: HEPARIN SOD 5,000 UNIT/0.5 ML VIAL SQ SCH (20:33)
[2020-09-18] MEDS ORDERED: ACETAMINOPHEN 325 MG TAB PO PRN (20:35)
[2020-09-18] MEDS ORDERED: traMADol HCL 50 MG TABLET PO PRN (20:36)
[2020-09-18] MEDS: traMADol HCL 50 MG TABLET PO PRN (21:56)
[2020-09-19] MEDS: ALBUT/IPRATROP 3MG/0.5MG NEB 3 ML VIAL INH SCH ×4 (00:56→20:00)
[2020-09-19] MEDS: SODIUM CHLORIDE 0.9% 1000ML 1,000 ML IV SCH (01:57)
[2020-09-19 06:41] LABS: Basophils # (auto) 0.01 K/uL (0-0.2); Basophils % (auto) 0.1 %; Hematocrit (blood only) 39.4 % (37-47); Immature Granulocytes # (auto) 0.02 K/uL (0.00-0.02); Immature Granulocytes % (auto) 0.3 %; Lymphocytes # (auto) 0.94 K/uL (1.2-3.4); Lymphocytes % (auto) 13.3 %; Mean Corpuscular Hemoglobin 30.4 pg (25-34); Mean Corpuscular Hgb Conc 30.5 g/dL (32-36); Mean Corpuscular Volume 99.7 fL (80-100); Mean Platelet Volume 9.3 fL (7.4-10.4); Monocytes # (auto) 0.56 K/uL (0.11-0.59); Monocytes % (auto) 7.9 %; Neutrophils # (auto) 5.55 K/uL (1.4-6.5); Neutrophils % (auto) 78.4 %; Platelet Count 241 K/uL (130-400); RDW Coefficient of Variation 13.9 % (11.5-14.5); RDW Standard Deviation 50.5 fL (36.4-46.3); Red Blood Count 3.95 M/uL (4.2-5.4); White Blood Count 7.08 K/uL (4.8-10.8)
[2020-09-19 07:03] LABS: BUN Creatinine Ratio 21.5 (10-20); Calcium 8.2 mg/dl (8.5-10.1); Creatinine Clr Calc Pharmacy 48.8 ml/min; Est GFR (African American) 58.2 ml/min; Est GFR (Non-African American) 50.2 ml/min; Magnesium 2.1 mg/dl (1.8-2.4); Phosphorus 2.3 mg/dl (2.5-4.9); Potassium 4.6 mmol/L (3.5-5.1)
[2020-09-19] MEDS: ATORVASTATIN 10 MG TAB PO SCH (08:11)
[2020-09-19] MEDS: CALCIUM 600MG + VIT D 400 IU TAB PO SCH (08:12)
[2020-09-19] MEDS: CHOLECALCIFEROL 1,000 UNITS 25 MCG TAB PO SCH (08:12)
[2020-09-19] MEDS: AZITHROMYCIN 250 MG TAB PO SCH (08:12)
[2020-09-19] MEDS: CYANOCOBALAMIN 500 MCG TABLET (VITAMIN B-12) PO SCH (08:12)
[2020-09-19] MEDS: GABAPENTIN 400 MG CAP PO SCH ×3 (08:13→20:06)
[2020-09-19] MEDS: DULoxetine HCL 60 MG CAP PO SCH (08:13)
[2020-09-19] MEDS: MAGNESIUM OXIDE 400 MG TAB PO SCH (08:14)
[2020-09-19] MEDS: HEPARIN SOD 5,000 UNIT/0.5 ML VIAL SQ SCH ×2 (08:14→20:09)
[2020-09-19] MEDS: predniSONE 20 MG TAB PO SCH (08:14)
[2020-09-19] MEDS: MIRTAZAPINE TAB 15 MG TAB PO SCH (08:14)
[2020-09-19] MEDS: UMECLIDINIUM BROMIDE 62.5MCG/BLISTER 7 PUFFS/INHALER INH SCH (08:15)
[2020-09-19] MEDS: PANTOprazole 40 MG TAB PO SCH (08:15)
[2020-09-19] MEDS: diazePAM 2 MG TABLET PO SCH (08:19)
[2020-09-19] MEDS: POT PHOSPHATE MONOBASIC W/ SOD TAB PO SCH ×4 (09:42→20:07)
[2020-09-19] MEDS: traMADol HCL 50 MG TABLET PO PRN ×3 (09:49→17:36)
[2020-09-19 11:31] LABS: Appearance Urine Clear (Clear); Bilirubin Urine Negative (Negative); Blood Urine Negative (Negative); Color Urine Yellow; Glucose Urine UA Negative (Negative); Ketones Urine Negative (Negative); Leukocyte Esterase Urine Negative (Negative); Nitrite Urine Negative (Negative); Protein Urine Negative (Negative); Specific Gravity Urine 1.009 (1.000-1.030); Urobilinogen Urine Negative (Negative); pH Urine 5.5 (4.5-7.5)
--- NOTE | 2020-09-19 15:21 | XRay Report ---
XR hip LT 2V w pelvis CLINICAL HISTORY: Left hip pain. COMPARISON: Pelvis radiograph September 18, 2020. CT of the abdomen and pelvis March 27, 2017. FINDINGS: Old left pubic ring fractures are noted. There is moderate to severe osteoarthritis of the right hip and moderate osteoarthritis of the left hip. No acute fracture is identified within the pe lvis or the hips. IMPRESSION: 1. No acute fracture within the pelvis or hips. 2. Old left pubic ring fractures. 3. Moderate to severe osteoarthritis of the right hip and moderate osteoarthritis of the left hip. ACT 112: Negative or not required by law. Electronically signed by: David Adler M.D. 09/19/2020 3:20 PM
--- NOTE | 2020-09-19 15:28 | Hospitalist Progress Note ---
Date of Service September 19, 2020 Assessment & Plan (1) Acute respiratory failure with hypoxia and hypercarbia: Plan: Acute respiratory failure with hypoxia, hypercarbia Chronic oxygen dependency Noncompliance with oxygen, bronchodilator use H/O COPD CXR:Left basilar opacity suggestive of atelectasis. No acute cardiopulmonary findings. Continue supplemental oxygen Needs 2 step prior to discharge Continue azithromycin, bronchodilators, prednisone PT/OT prior to discharge Mildly elevated troponin Likely demand ischemia due yo hypoxia EKG showed no signs of acute ischemia Troponin normalized Denies chest pain (2) COPD, severe: Plan: Management as above (3) Dizziness: Plan: CT head: No acute intracranial findings. No change in appearance of the brain. No calvarial fracture. Improved (4) CKD (chronic kidney disease) stage 3, GFR 30-59 ml/min: Plan: Acute kidney injury on CKD III Cr:1.67> 1.08 Received IV fluids Monitor renal function Avoid nephrotoxic agents as able (5) Depression: Plan: No acute delirium or anxiety Continue home meds Plan: DVT Px: Heparin SQ CODE STATUS DNR and DNI Admission and Anticipated Discharge Date Admission Date: September 18, 2020 Subjective Patient is seen and examined bedside States having chronic left hip pain Denies shortness of breath, chest pain, dizziness, nausea, abdominal pain Admits to being noncompliant with oxygen, medication use No other complaints Review of Systems Review of Systems: All systems reviewed & are unremarkable except as noted in Subjective Physical Exam Physical Exam: Physical Exam: Vitals signs as noted above General Appearance:Moderately built and nourished, no apparent distress Head: normocephalic, Atraumatic Eyes: normal inspection, EOMI Neck: supple, Trachea midline Respiratory/Chest: Decreased breath sounds, CTA, No accessory muscle use Cardiovascular: S1, S2, No murmur Abdomen/GI:Soft, Non tender, Bowel sounds present Extremities/Musculoskeletal:normal inspection, Trace pedal no edema, Left hip tender Neurologic/Psych:AAOX3, grossly no focal neurological deficits Skin: normal color, warm Results & Data Results & Data ([facility]) Vital Signs (Past 12 Hours) Vital Signs Temp Pulse Pulse Resp BP Pulse Ox 09/19/20 12:33 87 18 94 09/19/20 12:00 36.9 C 71 18 120/70 92 09/19/20 08:00 37 C 87 18 127/71 95 09/19/20 07:24 77 09/19/20 07:17 84 18 89 L Laboratory Results Short CBC 09/19/20 Range/Units 05:54 WBC 7.08 (4.8-10.8) K/uL Hgb 12.0 (12.0-16.0) g/dL Hct 39.4 (37-47) % Plt Count 241 (130-400) K/uL BMP 09/19/20 05:54 Sodium 142 Potassium 4.6 Chloride 112 H Carbon Dioxide 28 BUN 23 H Creatinine 1.08 Glucose 98 Calcium 8.2 L Cardiac Enzymes 09/18/20 Range/Units 14:57 Troponin I 0.031 (0-0.045) ng/ml Urine 09/19/20 Range/Units 11:09 Urine Color Yellow Urine Appearance Clear (Clear) Urine pH 5.5 (4.5-7.5) Ur Specific [place] 1.009 (1.000-1.030) Urine Protein Negative (Negative) Urine Glucose (UA) Negative (Negative)
[2020-09-19] MEDS ORDERED: MELATONIN 3 MG TAB PO PRN (19:34)
[2020-09-19] MEDS: SUCRALFATE 1 GM TAB PO SCH (20:03)
[2020-09-20] MEDS: ALBUT/IPRATROP 3MG/0.5MG NEB 3 ML VIAL INH SCH ×2 (00:19→07:46)
[2020-09-20 06:46] LABS: Hematocrit (blood only) 37.5 % (37-47); Hemoglobin 11.7 g/dL (12.0-16.0); Mean Corpuscular Hemoglobin 30.8 pg (25-34); Mean Corpuscular Hgb Conc 31.2 g/dL (32-36); Mean Corpuscular Volume 98.7 fL (80-100); Mean Platelet Volume 9.2 fL (7.4-10.4); Platelet Count 248 K/uL (130-400); RDW Coefficient of Variation 14.3 % (11.5-14.5)
[2020-09-20 07:18] LABS: BUN Creatinine Ratio 19.9 (10-20); Calcium 8.6 mg/dl (8.5-10.1); Creatinine Clr Calc Pharmacy 50.3 ml/min; Est GFR (African American) 62.3 ml/min; Est GFR (Non-African American) 53.8 ml/min; Magnesium 2.2 mg/dl (1.8-2.4); Phosphorus 3.2 mg/dl (2.5-4.9); Potassium 6.2 mmol/L (3.5-5.1)
[2020-09-20] MEDS ORDERED: DEXTROSE 50% 50 ML SYRINGE IV ONE (07:30)
--- NOTE | 2020-09-20 07:42 | Hospitalist Progress Note ---
Date of Service September 20, 2020 Assessment & Plan (1) Acute respiratory failure with hypoxia and hypercarbia: Plan: Acute respiratory failure with hypoxia, hypercarbia Chronic oxygen dependency Noncompliance with oxygen, bronchodilator use H/O COPD CXR:Left basilar opacity suggestive of atelectasis. No acute cardiopulmonary findings. Continue supplemental oxygen 2 step obtained -patient will need 2 L with ambulation, prescription given to CM Continue azithromycin, bronchodilators, prednisone PT/OT prior to discharge - plan to DC home Mildly elevated troponin Likely demand ischemia due yo hypoxia EKG showed no signs of acute ischemia Troponin normalized Denies chest pain (2) COPD, severe: Plan: Management as above (3) Dizziness: Plan: CT head: No acute intracranial findings. No change in appearance of the brain. No calvarial fracture. Improved (4) CKD (chronic kidney disease) stage 3, GFR 30-59 ml/min: Plan: Acute kidney injury on CKD III Cr:1.67> 1.08 Received IV fluids Monitor renal function Avoid nephrotoxic agents as able Hyperkalemia Potassium 6.2 this morning On potassium and Phos supplement, in the setting of CKD Stop the supplement Gave calcium gluconate, Kayexalate, IV insulin with D50 Patient feels well, asymptomatic Continue to monitor potassium level (5) Depression: Plan: No acute delirium or anxiety Continue home meds Plan: DVT Px: Heparin SQ CODE STATUS DNR and DNI Admission and Anticipated Discharge Date Admission Date: September 18, 2020 Subjective Patient is seen and examined bedside This AM on RA satting 91% K elevated at 6.2 - will give calcium gluconate, insulin, kayexalate Currently geting breathing treatmet Denies shortness of breath, chest pain, dizziness, nausea, abdominal pain Admits to being noncompliant with oxygen, medication use No other complaints Eager to go home 2 step ordered Review of Systems Review of Systems: All systems reviewed & are unremarkable except as noted in Subjective Physical Exam Physical Exam: General Appearance:Moderately built and nourished, no apparent distress Head: normocephalic, Atraumatic Eyes: normal inspection, EOMI Neck: supple, Trachea midline Respiratory/Chest: Decreased breath sounds, CTA, No accessory muscle use Cardiovascular: S1, S2, No murmur Abdomen/GI:Soft, Non tender, Bowel sounds present Extremities/Musculoskeletal:normal inspection, Trace pedal no edema Neurologic/Psych:AAOX3, grossly no focal neurological deficits Skin: normal color, warm Results & Data Results & Data ([facility]) Vital Signs (Past 12 Hours) Vital Signs Temp Pulse Pulse Resp BP Pulse Ox 09/20/20 03:23 36.7 C 86 18 153/82 H 95 09/19/20 23:01 36.7 C 71 18 163/85 H 97 09/19/20 22:19 67 Laboratory Results 09/20/20 09/20/20 09/19/20 Range/Units 06:17 06:17 11:09 WBC 9.70 (4.8-10.8) K/uL RBC 3.80 L (4.2-5.4) M/uL Hgb 11.7 L (12.0-16.0) g/dL Hct 37.5 (37-47) % MCV 98.7 (80-100) fL MCH 30.8 (25-34) pg MCHC 31.2 L (32-36) g/dL RDW Std Deviation 51.0 H (36.4-46.3) fL RDW Coeff of Walter 14.3 (11.5-14.5) % Plt Count 248 (130-400) K/uL MPV 9.2 (7.4-10.4) fL Sodium 143 (136-145) mmol/L Potassium 6.2 H* D (3.5-5.1) mmol/L Chloride 112 H (98-107) mmol/L Carbon Dioxide 31 (21-32) mmol/L Anion Gap 0 L (3-11) BUN 20 H (7-18) mg/dl Creatinine 1.02 (0.6-1.2) mg/dl Est Cr Clr Drug Dosing 50.3 ml/min Est GFR ( Amer) 62.3 ml/min Est GFR (Non-Af Amer) 53.8 ml/min BUN/Creatinine Ratio 19.9 (10-20) Glucose 85 (70-99) mg/dl Calcium 8.6 (8.5-10.1) mg/dl Phosphorus 3.2 (2.5-4.9) mg/dl Magnesium 2.2 (1.8-2.4) mg/dl Urine Color Yellow Urine Appearance Clear (Clear) Urine pH 5.5 (4.5-7.5) Ur Specific [place] 1.009 (1.000-1.030) Urine Protein Negative (Negative) Urine Glucose (UA) Negative (Negative) Urine Ketones Negative (Negative) Urine Blood Negative (Negative) Urine Nitrite Negative (Negative) Urine Bilirubin Negative (Negative) Urine Urobilinogen Negative (Negative) Ur Leukocyte Esterase Negative (Negative) Medications Administered Current Inpatient Medications Acetaminophen (Acetaminophen 325 Mg Tab) 325 mg PO Q6H PRN PRN Reason: Mild Pain Stop: 10/18/20 20:34 Albuterol (Albuterol Hfa 8 Gm Inhaler) 1 puffs INH Q6H PRN PRN Reason: Shortness Of Breath Stop: 10/18/20 14:46 Albuterol (Albut/Ipratrop 3mg/0.5mg Neb 3 Ml Vial) 3 ml INH Q6R [facility] Stop: 10/18/20 14:46 Last Admin: 09/20/20 00:19 Dose: Not Given Documented by: Atorvastatin Calcium (Atorvastatin 10 Mg Tab) 10 mg PO QAM [facility] Stop: 10/19/20 08:59 Last Admin: 09/19/20 08:11 Dose: 10 mg Documented by: Azithromycin (Azithromycin 250 Mg Tab) 250 mg PO QAM [facility] Stop: 09/25/20 08:59 Last Admin: 09/19/20 08:12 Dose: 250 mg Documented by: Cyanocobalamin (Cyanocobalamin 500 Mcg Tablet (Vitamin B-12)) 1,000 mcg PO QAM [facility] Stop: 10/19/20 08:59 Last Admin: 09/19/20 08:12 Dose: 1,000 mcg Documented by: Diazepam (Diazepam 2 Mg Tablet) 2 mg PO DAILY [facility] Stop: 10/19/20 08:59 Last Admin: 09/19/20 08:19 Dose: 2 mg Documented by: Duloxetine HCl (Duloxetine Hcl 60 Mg Cap) 60 mg PO DAILY [facility] Stop: 10/19/20 08:59 Last Admin: 09/19/20 08:13 Dose: 60 mg Documented by: Fluticasone Furoate (Fluticasone Furoate 200mcg 14 Puffs/Inhaler) 1 puffs INH DAILY PRN PRN Reason: Shortness Of Breath Stop: 10/18/20 15:09 Gabapentin (Gabapentin 400 Mg Cap) 400 mg PO TID [facility] Stop: 10/18/20 14:46 Last Admin: 09/19/20 20:06 Dose: 400 mg Documented by: Heparin Sodium (Porcine) (Heparin Sod 5,000 Unit/0.5 Ml Vial) 5,000 units SQ Q12 [facility] Stop: 10/18/20 20:59 Last Admin: 09/19/20 20:09 Dose: 5,000 units Documented by: Insulin Human Regular 5 units/ (Syringe) 5 mls @ 15 mls/min IV 0745 ONE Stop: 09/20/20 07:46 Calcium Gluconate 1,000 mg/ (Sodium Chloride) 60 mls @ 240 mls/hr IV 0800 ONE Stop: 09/20/20 08:14 Magnesium Oxide (Magnesium Oxide 400 Mg Tab) 400 mg PO QAM [facility] Stop: 10/19/20 08:59 Last Admin: 09/19/20 08:14 Dose: 400 mg Documented by: Melatonin (Melatonin 3 Mg Tab) 3 mg PO HS PRN PRN Reason: Sleep Stop: 10/19/20 19:33 Last Admin: 09/19/20 20:04 Dose: 3 mg Documented by: Mirtazapine (Mirtazapine Tab 15 Mg Tab) 15 mg PO DAILY [facility] Stop: 10/19/20 08:59 Last Admin: 09/19/20 08:14 Dose: 15 mg Documented by: Multivitamins/Minerals (Calcium 600mg + Vit D 400 Iu Tab) 1 tab PO QAM [facility] Stop: 10/19/20 08:59 Last Admin: 09/19/20 08:12 Dose: 1 tab Documented by: Pantoprazole Sodium (Pantoprazole 40 Mg Tab) 40 mg PO DAILY [facility] Stop: 10/19/20 08:59 Last Admin: 09/19/20 08:15 Dose: 40 mg Documented by: Potassium Phosphate (Pot Phosphate Monobasic W/ Sod Tab) 1 tab PO QID [facility] Stop: 09/20/20 08:59 Last Admin: 09/19/20 20:07 Dose: 1 tab Documented by: Prednisone (Prednisone 20 Mg Tab) 40 mg PO DAILY [facility] Stop: 10/19/20 08:59 Last Admin: 09/19/20 08:14 Dose: 40 mg Documented by: Sodium Polystyrene Sulfonate (Sodium Polystyrene Sulfonate 15g/60ml Susp) 15 gm PO 0800 ONE Stop: 09/20/20 08:01 Sucralfate (Sucralfate 1 Gm Tab) 1 gm PO QID [facility] Stop: 10/19/20 20:59 Last Admin: 09/19/20 20:03 Dose: 1 gm Documented by: Tramadol HCl (Tramadol Hcl 50 Mg Tablet) 50 mg PO Q4H PRN PRN Reason: Pain Stop: 10/18/20 21:33 Last Admin: 09/19/20 17:36 Dose: 50 mg Documented by: Umeclidinium [place] (Umeclidinium [place] 62.5mcg/Blister 7 Puffs/Inhaler) 1 puffs INH [facility]; Protocol Stop: 10/19/20 08:59 Last Admin: 09/19/20 08:15 Dose: 1 puffs Documented by: Vitamin D (Cholecalciferol 1,000 Units 25 Mcg Tab) 1,000 units PO QAM [facility] Stop: 10/19/20 08:59 Last Admin: 09/19/20 08:12 Dose: 1,000 units Documented by:
[2020-09-20] MEDS ORDERED: INSULIN HUMAN REGULAR PER UNIT 5 UNITS in SYRINGE 4.95 ML IV ONE (07:45)
[2020-09-20] MEDS ORDERED: CALCIUM GLUCONATE 10% 1,000 MG in SODIUM CHLORIDE 0.9% 50 ML IV ONE (08:00)
[2020-09-20] MEDS ORDERED: SODIUM POLYSTYRENE SULFONATE 15G/60ML SUSP PO ONE (08:00)
[2020-09-20] MEDS: CALCIUM 600MG + VIT D 400 IU TAB PO SCH (08:26)
[2020-09-20] MEDS: ATORVASTATIN 10 MG TAB PO SCH (08:26)
[2020-09-20] MEDS: CHOLECALCIFEROL 1,000 UNITS 25 MCG TAB PO SCH (08:26)
[2020-09-20] MEDS: AZITHROMYCIN 250 MG TAB PO SCH (08:26)
[2020-09-20] MEDS: CYANOCOBALAMIN 500 MCG TABLET (VITAMIN B-12) PO SCH (08:27)
[2020-09-20] MEDS: diazePAM 2 MG TABLET PO SCH (08:31)
[2020-09-20] MEDS: GABAPENTIN 400 MG CAP PO SCH ×2 (08:33→14:21)
[2020-09-20] MEDS: MIRTAZAPINE TAB 15 MG TAB PO SCH (08:34)
[2020-09-20] MEDS: PANTOprazole 40 MG TAB PO SCH (08:34)
[2020-09-20] MEDS: HEPARIN SOD 5,000 UNIT/0.5 ML VIAL SQ SCH (08:34)
[2020-09-20] MEDS: MAGNESIUM OXIDE 400 MG TAB PO SCH (08:34)
[2020-09-20] MEDS: UMECLIDINIUM BROMIDE 62.5MCG/BLISTER 7 PUFFS/INHALER INH SCH (08:35)
[2020-09-20] MEDS: predniSONE 20 MG TAB PO SCH (08:35)
[2020-09-20] MEDS: SUCRALFATE 1 GM TAB PO SCH ×2 (09:37→14:22)
[2020-09-20] MEDS: DULoxetine HCL 60 MG CAP PO SCH (09:37)
[2020-09-20] MEDS ORDERED: ALBUT/IPRATROP 3MG/0.5MG NEB 3 ML VIAL INH PRN (11:26)
[2020-09-20 12:47] LABS: BUN Creatinine Ratio 18.6 (10-20); Calcium 8.8 mg/dl (8.5-10.1); Creatinine Clr Calc Pharmacy 52.9 ml/min; Est GFR (African American) 66.2 ml/min; Est GFR (Non-African American) 57.1 ml/min; Potassium 4.1 mmol/L (3.5-5.1)
--- NOTE | 2020-09-20 14:21 | Discharge Summary ---
Date of Service September 20, 2020 Admission HPI Per Admitting Provider She is a 74-year-old female with significant past medical history of severe COPD, chronic kidney disease stage III, anxiety/depression, and hyperlipidemia has been complaining of weakness, some dizziness and shortness of breath for about 1 week. She was noted to be very sick this morning with above symptoms and she asked her to call for 911.She has not been compliant with her medications recently at home. She was hemodynamically stable in the emergency room noted to have slight increase in temperature at 37.9 C and her imaging studies were unremarkable except chest x-ray showed severe COPD without any infiltration. She denies any chest pain or palpitation, any fever and/or chills and her complaints were mostly dizziness in bed, headache without any associated neuro symptoms and increasing shortness of breath and weakness.She was a started with nebulized bronchodilator, oral prednisone and oral azithromycin and was advised for admission for continuation of care. Admission Exam Per Admitting Provider Physical Exam: Lying in bed comfortably Constitutional: well developed, well nourished and + ill appearing; no acute distress Eyes: PERRL, conjunctivae normal, anicteric sclerae ENMT: external ear and nose normal, oropharynx normal Neck: trachea midline, no thyromegaly Respiratory: no respiratory distress and no cough Auscultation: + diminished lung sounds and + crackles (Minimal crackles at the bases more on the left than the right); no wheezes Cardiovascular: Rate/Rhythm: regular rate and regular rhythm; not tachycardic Heart Sounds: normal S1 and normal S2; no murmur Extremities: + edema (Trace edema bilaterally more on the right than the left) Gastrointestinal (Abdomen): normal bowel sounds, soft, nontender, no hepatosplenomegaly Musculoskeletal: No acute arthritis in any joint Neurologic: Alert, awake and oriented x3. Generally weak but no focal sensory and motor deficit appreciated Psychiatric: A+Ox3, euthymic affect Lymphatic: no cervical or axillary lymphadenopathy Principal Diagnosis Acute respiratory failure with hypoxia and hypercarbia secondary to COPD exacerbation Discharge Exam General Appearance:Moderately built and nourished, no apparent distress Head: normocephalic, Atraumatic Eyes: normal inspection, EOMI Neck: supple, Trachea midline Respiratory/Chest: Decreased breath sounds, CTA, No accessory muscle use Cardiovascular: S1, S2, No murmur Abdomen/GI:Soft, Non tender, Bowel sounds present Extremities/Musculoskeletal:normal inspection, Trace pedal no edema Neurologic/Psych:AAOX3, grossly no focal neurological deficits Skin: normal color, warm Discharge Data Allergies Allergy/AdvReac Type Severity Reaction Status Date / Time codeine Allergy Mild Vomiting Verified 07/07/19 08:15 Consultations 09/18/20 11:10 ED Decision to Admit Stat Ordered Studies 09/18/20 09:16 CT cervical spine wo con Stat IMPRESSION: 1. No acute cervical spine fracture or subluxation. 2. Degenerative changes as above, progressively worsened from 2018. 3. Mild nonspecific wall thickening of the proximal esophagus. CT head/brain wo con Stat IMPRESSION: 1. No acute intracranial findings. No change in appearance of the brain. 2. No calvarial fracture. Hospital Course (1) Acute respiratory failure with hypoxia and hypercarbia: Acute respiratory failure with hypoxia, hypercarbia Chronic oxygen dependency Noncompliance with oxygen, bronchodilator use H/O COPD CXR:Left basilar opacity suggestive of atelectasis. No acute cardiopulmonary findings. Continue supplemental oxygen 2 step obtained -patient will need 2 L with ambulation, prescription given to CM Continue azithromycin, bronchodilators, prednisone PT/OT prior to discharge - plan to DC home Mildly elevated troponin Likely demand ischemia due yo hypoxia EKG showed no signs of acute ischemia Troponin normalized Denies chest pain (2) COPD, severe: Management as above (3) Dizziness: CT head: No acute intracranial findings. No change in appearance of the brain. No calvarial fracture. Improved (4) CKD (chronic kidney disease) stage 3, GFR 30-59 ml/min: Acute kidney injury on CKD III Cr:1.67> 1.08 Received IV fluids Monitor renal function Avoid nephrotoxic agents as able Hyperkalemia Potassium 6.2 this morning On potassium and Phos supplement, in the setting of CKD Stop the supplement Gave calcium gluconate, Kayexalate, IV insulin with D50 Patient feels well, asymptomatic Continue to monitor potassium level Rechecked BMP, now potassium 4.1 Patient eager to be discharged home follow-up as outpatient, do not recommend any potassium supplements (5) Depression: No acute delirium or anxiety Continue home meds DVT Px: Heparin SQ CODE STATUS DNR and DNI Total Time Total Time Spent Total Time Spent (In Minutes): 40 Discharge Plan Discharge Items Patient Disposition: Home - Self-Care Reason For Visit: DIZZINESS,SOB,COPD EXACERBATION Discharge Diagnosis: Acute respiratory failure with hypoxia and hypercarbia secondary to COPD exacerbation Activity: Per Instructions section Non-emergency contact: Primary Care Provider Call non-emergency contact if: you have any medication questions and your symptoms worsen Follow-up/Referrals: Sugar Gaines MD [Primary Care Provider] - Diet: Heart Healthy Addtl Attending Provider Instructions: Follow-up with your primary care doctor, it is recommended that you see your primary care doctor within 1 week. It is important that you take all your home medications/use your inhalers. It is also important that you use your oxygen, you should be using 2 L when ambulating at any point. Take prednisone and azithromycin for next 4 days, as prescribed. Pending Studies at Discharge: No Stand-Alone Forms: [facility], Smoking Cessation Medications and DC Order Prescriptions: New azithromycin 250 mg Tablet 250 mg PO QAM Qty: 4 RF: 0 prednisone 20 mg Tablet 40 mg PO DAILY 4 Days Qty: 8 RF: 0 Continued atorvastatin 20 mg Tablet 10 mg PO QAM RF: 0 ipratropium-albuterol 0.5 mg-3 mg(2.5 mg base)/3 mL solution for nebulization 1 vial inhalation Q6H PRN (Reason: Wheezing) RF: 0 gabapentin 400 mg capsule 400 mg PO TID RF: 0 cyanocobalamin (vitamin B-12) 1,000 mcg Tablet 1,000 mcg PO QAM RF: 0 Flovent HFA 220 mcg/actuation Hfa Aerosol Inhaler 2 puff INHALATION BID PRN (Reason: Shortness Of Breath) RF: 0 albuterol sulfate 90 mcg/actuation Hfa Aerosol Inhaler 1 puff INHALATION Q6H PRN (Reason: Shortness Of Breath) RF: 0 cholecalciferol (vitamin D3) [Vitamin D3] 1,000 unit Capsule 1,000 unit PO QAM RF: 0 calcium carb and citrate-vitD3 600 mg calcium- 500 unit Tablet Extended Release 1 tab PO QAM RF: 0 magnesium oxide 400 mg magnesium Tablet 400 mg PO QAM RF: 0 diazepam 2 mg tablet 2 mg PO DAILY RF: 0 pantoprazole 40 mg tablet,delayed release (DR/EC) 40 mg PO DAILY RF: 0 mirtazapine 15 mg tablet 15 mg PO DAILY RF: 0 duloxetine 60 mg capsule,delayed release(DR/EC) 60 mg PO DAILY RF: 0 sucralfate 1 gram tablet 1 g PO QID RF: 0 Trelegy Ellipta 100-62.5-25 mcg blister with device 1 inh INHALATION DAILY RF: 0 Discharge Orders: Discharge Order (Routine); Ordered 09/20/20 Ordered By: Geronimo Limon Admission Data Admit Date/Time: 09/18/20 12:02 Attending Provider: Geronimo Limon Admit Provider: Farhana Victoria Primary Care Provider: Sugar Gaines Other Providers: Farhana Victoria ; Roge Vidal
--- NOTE | 2020-09-21 05:23 | Electrocardiogram Report ---
Test Reason : Blood Pressure : / mmHG Vent. Rate : 097 BPM Atrial Rate : 097 BPM P-R Int : 170 ms QRS Dur : 084 ms QT Int : 360 ms P-R-T Axes : 069 018 047 degrees QTc Int : 457 ms Normal sinus rhythm Cannot rule out Inferior infarct When compared with ECG of 18-JUN-2018 14:46, No significant change was found Confirmed by Vitor Diego ([id number]) on 09/21/2020 5:23:26 AM Referred By: Confirmed By:Vitor Diego
== END 2020-09-20 15:59 | disposition home or self-care (01) | DRG 190 ==
LOC: ED 09:06 → 2N 12:02 → SUATTDRO 12:02 → 2N 13:57

== ENCOUNTER 2020-11-21 09:09 | Inpatient (IN) ==
--- NOTE | 2020-11-21 09:28 | Emergency Department Note ---
Impression & Plan SRIDHAR (acute kidney injury), Dizziness, Transaminitis, Elevated troponin ED Provider Note NAME: ASIF BERNAL AGE: 75 SEX: F : 1945 ARRIVES VIA: Ambulance INFORMANT: Patient, ED PROVIDER(S): Christian Kaplan MD Chief Complaint: Dizziness HPI: Patient does present with worsening dizziness. The patient states that this is been ongoing several weeks but is worsened within the last 24 to 48 hours. Patient does complain of decreased appetite and has not been drinking as much fluids. The patient does have some positional dizziness. The patient denies any recent changes in medications. The patient denies any fevers or chills. The patient does use at home oxygen as needed 2 L at all times. Patient is vaccinated for Covid. Patient denies any vomiting but has had occasional nausea. No dysuria or hematuria. Patient denies any lower extremity swelling falls or trauma. Patient denies any headache or neck pain. ROS: See HPI for pertinent positives and negatives. A total of 10 systems were revi ewed and otherwise negative. Past medical history: See below Surgical history: See below Social history: See below Physical Exam: GENERAL: NAD, nasal cannula in place, non-toxic. EYE EXAM: Normal conjunctiva. PERRL, no anisocoria and EOM's grossly intact w/o pain. OROPHARYNX: Dry mucus membranes. Edentulous. NECK: Supple, no nuchal rigidity, no adenopathy, non-tender. No signs of meningismus. LUNGS: Clear to auscultation. Normal chest wall mechanics. HEART: NSR, no MRG. ABDOMEN: Abdomen soft, non-tender, normo-active bowel sounds, no masses, no rebound or guarding. BACK: No CVA TTP. SKIN: No rashes and no bruising. UPPER EXTREMITIES: Upper extremities are grossly normal. LOWER EXTREMITIES: Grossly normal, no edema. NEURO EXAM: A&O x3, cranial nerves II-XII grossly intact, normal speech, moves all 4 extremities on command w/o issue. Differential diagnoses: Benign positional vertigo, dehydration, hypovolemia, anemia, tumor, infection, hypoglycemia, electrolyte abnormalities, cardiac sources, intracerebral event, toxicologic, neurologic, as well as other pathologies. Course: Patient was seen and evaluated the bedside. Full history physical exam was performed. EKG interpreted by me Normal sinus rhythm, rate of 89, normal intervals, normal axis, Q-wave in lead III not in contiguous leads. T wave inversions anteriorly. T wave inversions anteriorly in V2 and V3 appear to be new from comparison EKG September 18, 2020. Imaging Studies: See Below Cardiac monitoring: An order was placed for continuous cardiac monitoring. The monitor shows a rate of 82 with sinus rhythm. MDM: Patient did present with dizziness. Blood work was obtained along with an EKG and the patient was treated symptomatically. Patient has mild white count of 12 with a hemoglobin of 10. The patient's troponin is positive at 0.25. Elevations in LFTs. They patient does have SRIDHAR Baseline creat less than 1 today is 2.6. Patient was given additional IV fluids. The patient does have new T wave inversions anteriorly but no obvious elevation is a patient denies any chest pains or shortness of breath. I did speak the on-call hospitalist Dalila EL. The patient was admitted by Dr. Peace. Past Med/Surg History Medical History (Updated 11/21/20 @ 16:21 by Christian Kaplan MD) Anxiety CKD (chronic kidney disease) stage 3, GFR 30-59 ml/min COPD (chronic obstructive pulmonary disease) 2L N/C prn Depression Dyslipidemia Generalized osteoarthritis GERD (gastroesophageal reflux disease) Peptic ulcer disease HX Stress incontinence Surgical History History of gastric surgery TO REMOVE ULCER History of hemorrhoidectomy History of left cataract extraction History of tooth extraction Hx of cholecystectomy S/P appendectomy Family History Grandmother Diabetes Other No family history of adverse response to anesthesia Social History Smoking Status: Former smoker Second Hand Exposure: No; Hx Alcohol Use: No Hx Substance Use: No Preferred Language: Divehi Communication Ability: Effective 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 Required: No Beliefs That Will Affect Care: None marital status: Current Living Situation: Spouse current occupational status: retired Feels Safe at Home: Yes Assistive Devices: Glasses Allergies Allergies Allergy/AdvReac Type Severity Reaction Status Date / Time codeine Allergy Mild Vomiting Verified 11/21/20 11:15 Home Meds Home Medications Medication Instructions Recorded Confirmed albuterol sulfate 90 mcg/actuation 1 puff INHALATION Q6H PRN 06/18/18 11/21/20 aerosol inhaler (Ventolin HFA) atorvastatin 20 mg tablet (Lipitor) 10 mg PO QAM 06/18/18 11/21/20 calcium carb,cit ER 600 mg-vit D3 1 tab PO QAM 06/18/18 11/21/20 12.5 mcg (500 unit) tablet,ext.rel (Citracal-D3 Slow Release) cholecalciferol (vitamin D3) 25 1,000 unit PO QAM 06/18/18 11/21/20 mcg (1,000 unit) capsule (Vitamin D3) cyanocobalamin (vitamin B-12) 1,000 mcg PO QAM 06/18/18 11/21/20 1,000 mcg tablet (Vitamin B-12) gabapentin 400 mg capsule 400 mg PO TID 06/18/18 11/21/20 (Neurontin) ipratropium 0.5 mg-albuterol 3 mg 1 vial INHALATION Q6H PRN 06/18/18 11/21/20 (2.5 mg base)/3 mL nebulization soln magnesium oxide 400 mg PO QAM 06/18/18 11/21/20 diazepam 2 mg tablet (Valium) 2 mg PO QAM 09/18/20 11/21/20 duloxetine 60 mg capsule,delayed 60 mg PO QAM 09/18/20 11/21/20 release (Cymbalta) pantoprazole 40 mg tablet,delayed 40 mg PO DAILYBB 09/18/20 11/21/20 release (Protonix) fluticasone fur. 100 mcg-umeclid 1 inh INHALATION QAM 09/19/20 11/21/20 62.5 mcg-vilant 25 mcg inhalat.powder (Trelegy Ellipta) aspirin 81 mg tablet 81 mg PO DAILY 11/21/20 11/21/20 furosemide 20 mg tablet (Lasix) 10 mg PO MOWEFR 11/21/20 11/21/20 mirtazapine 45 mg tablet 45 mg PO HS 11/21/20 11/21/20 oxybutynin chloride 5 mg 5 mg PO QAM 11/21/20 11/21/20 tablet,extended release 24 hr (Ditropan XL) Results & Data (ED) Vital Signs Vital Signs - 24 hr 11/21/20 09:14 11/21/20 09:28 11/21/20 09:30 Temperature 37.2 C Temperature Source Temporal Artery Scan Pulse Rate 89 86 86 Pulse Rate from SpO2 Sensor 89 86 86 Respiratory Rate 23 17 16 Blood Pressure 83/60 L 96/62 L 89/61 L Blood Pressure Mean 67 73 70 Pulse Oximetry 89 L 94 95 Oxygen Delivery Method Nasal Cannula Room Air Oxygen Flow Rate 2 3 3 Sepsis Recent Fever Within 48 Hours No Sepsis New/Unexplained Change in Mental Status No Sepsis Action Taken by Nursing No Action Required 11/21/20 09:45 11/21/20 10:00 11/21/20 10:15 Temperature Temperature Source Pulse Rate 86 83 83 Pulse Rate from SpO2 Sensor 86 83 83 Respiratory Rate 25 H 19 19 Blood Pressure 97/60 L 99/61 L 97/58 L Blood Pressure Mean 72 73 71 Pulse Oximetry 91 95 92 Oxygen Delivery Method Oxygen Flow Rate Sepsis Recent Fever Within 48 Hours Sepsis New/Unexplained Change in Mental Status Sepsis Action Taken by Nursing 11/21/20 10:30 11/21/20 10:45 Temperature Temperature Source Pulse Rate 81 79 Pulse Rate from SpO2 Sensor 81 80 Respiratory Rate 14 18 Blood Pressure 97/60 L 107/57 L Blood Pressure Mean 72 73 Pulse Oximetry 95 97 Oxygen Delivery Method Oxygen Flow Rate Sepsis Recent Fever Within 48 Hours Sepsis New/Unexplained Change in Mental Status Sepsis Action Taken by [facility] Medications Current Medication List: was personally reviewed by me Laboratory Data Attestation: I reviewed the patient's lab results. Result diagrams: 11/21/20 09:25 11/21/20 09:25 Lab Results 11/21/20 11/21/20 11/21/20 Range/Units 09:25 09:25 09:25 WBC 12.66 H (4.8-10.8) K/uL RBC 3.55 L (4.2-5.4) M/uL Hgb 10.7 L (12.0-16.0) g/dL Hct 35.2 L (37-47) % MCV 99.2 (80-100) fL MCH 30.1 (25-34) pg MCHC 30.4 L (32-36) g/dL RDW Std Deviation 51.6 H (36.4-46.3) fL RDW Coeff of Walter 14.3 (11.5-14.5) % Plt Count 221 (130-400) K/uL MPV 9.6 (7.4-10.4) fL Immature Gran % (Auto) 0.2 % Neut % (Auto) 80.8 % Lymph % (Auto) 9.9 % [place] % (Auto) 8.7 % Eos % (Auto) 0.2 % Baso % (Auto) 0.2 % Neut # (Auto) 10.24 H (1.4-6.5) K/uL Lymph # (Auto) 1.25 (1.2-3.4) K/uL [place] # (Auto) 1.10 H (0.11-0.59) K/uL Eos # (Auto) 0.02 (0-0.5) K/uL Baso # (Auto) 0.02 (0-0.2) K/uL Immature Gran # (Auto) 0.03 H (0.00-0.02) K/uL Sodium 134 L (136-145) mmol/L Potassium 5.1 (3.5-5.1) mmol/L Chloride 101 (98-107) mmol/L Carbon Dioxide 25 (21-32) mmol/L Anion Gap 9.0 (3-11) BUN 47 H (7-18) mg/dl Creatinine 2.69 H (0.6-1.2) mg/dl Est Cr Clr Drug Dosing 19.4 ml/min Est GFR ( Amer) 19.2 ml/min Est GFR (Non-Af Amer) 16.5 ml/min BUN/Creatinine Ratio 17.5 (10-20) Glucose 94 (70-99) mg/dl Calcium 8.3 L (8.5-10.1) mg/dl Phosphorus 4.7 (2.5-4.9) mg/dl Magnesium 2.4 (1.8-2.4) mg/dl Total Bilirubin 0.6 (0.2-1) mg/dl AST 115 H (15-37) U/L ALT 138 H (12-78) U/L Alkaline Phosphatase 138 H (45-117) U/L Troponin I 0.250 H* (0-0.045) ng/ml Total Protein 6.5 (6.4-8.2) gm/dl Albumin 2.9 L (3.4-5.0) gm/dl Globulin 3.6 (2.5-4.0) gm/dl Albumin/Globulin Ratio 0.8 L (0.9-2) Lipase (73-393) U/L TSH 1.680 (0.300-4.500) uIu/ml Anaplasma Smear See Comment Babesia Smear See Comment Lyme Disease IgG Ab (Negative) Lyme Disease IgM Ab (Negative) COVID-19 Eval Order SARS-CoV-2 (PCR) (Negative) 11/21/20 11/21/20 11/21/20 Range/Units 09:25 09:25 09:55 WBC (4.8-10.8) K/uL RBC (4.2-5.4) M/uL Hgb (12.0-16.0) g/dL Hct (37-47) % MCV (80-100) fL MCH (25-34) pg MCHC (32-36) g/dL RDW Std Deviation (36.4-46.3) fL RDW Coeff of Walter (11.5-14.5) % Plt Count (130-400) K/uL MPV (7.4-10.4) fL Immature Gran % (Auto) % Neut % (Auto) % Lymph % (Auto) % [place] % (Auto) % Eos % (Auto) % Baso % (Auto) % Neut # (Auto) (1.4-6.5) K/uL Lymph # (Auto) (1.2-3.4) K/uL [place] # (Auto) (0.11-0.59) K/uL Eos # (Auto) (0-0.5) K/uL Baso # (Auto) (0-0.2) K/uL Immature Gran # (Auto) (0.00-0.02) K/uL Sodium (136-145) mmol/L Potassium (3.5-5.1) mmol/L Chloride (98-107) mmol/L Carbon Dioxide (21-32) mmol/L Anion Gap (3-11) BUN (7-18) mg/dl Creatinine (0.6-1.2) mg/dl Est Cr Clr Drug Dosing ml/min Est GFR ( Amer) ml/min Est GFR (Non-Af Amer) ml/min BUN/Creatinine Ratio (10-20) Glucose (70-99) mg/dl Calcium (8.5-10.1) mg/dl Phosphorus (2.5-4.9) mg/dl Magnesium (1.8-2.4) mg/dl Total Bilirubin (0.2-1) mg/dl AST (15-37) U/L ALT (12-78) U/L Alkaline Phosphatase (45-117) U/L Troponin I (0-0.045) ng/ml Total Protein (6.4-8.2) gm/dl Albumin (3.4-5.0) gm/dl Globulin (2.5-4.0) gm/dl Albumin/Globulin Ratio (0.9-2) Lipase 53 L (73-393) U/L TSH (0.300-4.500) uIu/ml Anaplasma Smear Babesia Smear Lyme Disease IgG Ab Negative (Negative) Lyme Disease IgM Ab Negative (Negative) COVID-19 Eval Order Covid19 at [facility] SARS-CoV-2 (PCR) (Negative) 11/21/20 Range/Units 09:55 WBC (4.8-10.8) K/uL RBC (4.2-5.4) M/uL Hgb (12.0-16.0) g/dL Hct (37-47) % MCV (80-100) fL MCH (25-34) pg MCHC (32-36) g/dL RDW Std Deviation (36.4-46.3) fL RDW Coeff of Walter (11.5-14.5) % Plt Count (130-400) K/uL MPV (7.4-10.4) fL Immature Gran % (Auto) % Neut % (Auto) % Lymph % (Auto) % [place] % (Auto) % Eos % (Auto) % Baso % (Auto) % Neut # (Auto) (1.4-6.5) K/uL Lymph # (Auto) (1.2-3.4) K/uL [place] # (Auto) (0.11-0.59) K/uL Eos # (Auto) (0-0.5) K/uL Baso # (Auto) (0-0.2) K/uL Immature Gran # (Auto) (0.00-0.02) K/uL Sodium (136-145) mmol/L Potassium (3.5-5.1) mmol/L Chloride (98-107) mmol/L Carbon Dioxide (21-32) mmol/L Anion Gap (3-11) BUN (7-18) mg/dl Creatinine (0.6-1.2) mg/dl Est Cr Clr Drug Dosing ml/min Est GFR ( Amer) ml/min Est GFR (Non-Af Amer) ml/min BUN/Creatinine Ratio (10-20) Glucose (70-99) mg/dl Calcium (8.5-10.1) mg/dl Phosphorus (2.5-4.9) mg/dl Magnesium (1.8-2.4) mg/dl Total Bilirubin (0.2-1) mg/dl AST (15-37) U/L ALT (12-78) U/L Alkaline Phosphatase (45-117) U/L Troponin I (0-0.045) ng/ml Total Protein (6.4-8.2) gm/dl Albumin (3.4-5.0) gm/dl Globulin (2.5-4.0) gm/dl Albumin/Globulin Ratio (0.9-2) Lipase (73-393) U/L TSH (0.300-4.500) uIu/ml Anaplasma Smear Babesia Smear Lyme Disease IgG Ab (Negative) Lyme Disease IgM Ab (Negative) COVID-19 Eval Order SARS-CoV-2 (PCR) NEGATIVE (Negative) Administered Medications Sodium Chloride (Nss 1000ml) 1,000 mls @ 100 mls/hr IV .Q10H RANI Stop: 12/21/20 13:01 Last Admin: 11/21/20 14:24 Dose: 100 mls/hr Documented by: [id number] Discontinued Medications Sodium Chloride (Nss 1000ml) 1,000 mls @ 999 mls/hr IV .Q1H1M RANI Stop: 11/21/20 10:45 Last Infusion: 11/21/20 10:28 Dose: 0 mls/hr Documented by: [id number] Admin: 11/21/20 09:53 Dose: 999 mls/hr Documented by: [id number] Sodium Chloride (Nss 1000ml) 1,000 mls @ 999 mls/hr IV .Q1H1M ONE Stop: 11/21/20 12:15 Last Infusion: 10/05/21 14:22 Dose: 0 mls/hr Documented by: [id number] Admin: 11/21/20 11:00 Dose: 999 mls/hr Documented by: [id number] Imaging Data Radiologist's Impression: Chest X-Ray 11/21/20 09:41 XR chest 1V portable HISTORY: 75 years-old Female weakness acute weakness COMPARISON: Chest radiograph 2020 TECHNIQUE: Portable AP view of the chest FINDINGS: Cardiomediastinal and hilar silhouettes are unchanged. Calcified plaque of the thoracic aorta. Linear subsegmental lateral left midlung and left lung base opacities. No pneumothorax, pleural effusion or overt pulmonary edema. Chronic interstitial coarsening. Degenerative changes of the shoulders and spine. IMPRESSION: 1. Chronic interstitial coarsening without acute process. 2. Linear left midlung and basilar opacities are suggestive of atelectasis/scarring. ACT 112: Negative or not required by law. The above report was generated using voice recognition software. It may contain grammatical, syntax or spelling errors. Electronically signed by: Joey Perla M.D. 11/21/2020 10:08 AM Discharge Plan Visit Data Chief Complaint: Dizziness Stated Complaint: DIZZINESS, WEAKNESS Discharge Problem: SRIDHAR (acute kidney injury), Dizziness, Transaminitis, Elevated troponin Patient Disposition: Admitted As Inpatient Discharge Instructions Interventions: ED Discharge Assessment Last Done: 11/21/20 12:55
[2020-11-21] MEDS ORDERED: SODIUM CHLORIDE 0.9% 1000ML 1,000 ML IV SCH (09:45)
[2020-11-21 09:54] LABS: Basophils # (auto) 0.02 K/uL (0-0.2); Basophils % (auto) 0.2 %; Eosinophils # (auto) 0.02 K/uL (0-0.5); Eosinophils % (auto) 0.2 %; Hematocrit (blood only) 35.2 % (37-47); Hemoglobin 10.7 g/dL (12.0-16.0); Immature Granulocytes # (auto) 0.03 K/uL (0.00-0.02); Immature Granulocytes % (auto) 0.2 %; Lymphocytes # (auto) 1.25 K/uL (1.2-3.4); Lymphocytes % (auto) 9.9 %; Mean Corpuscular Hemoglobin 30.1 pg (25-34); Mean Corpuscular Hgb Conc 30.4 g/dL (32-36); Mean Corpuscular Volume 99.2 fL (80-100); Mean Platelet Volume 9.6 fL (7.4-10.4); Monocytes % (auto) 8.7 %; Neutrophils # (auto) 10.24 K/uL (1.4-6.5); Neutrophils % (auto) 80.8 %; Platelet Count 221 K/uL (130-400); RDW Coefficient of Variation 14.3 % (11.5-14.5); RDW Standard Deviation 51.6 fL (36.4-46.3); Red Blood Count 3.55 M/uL (4.2-5.4); White Blood Count 12.66 K/uL (4.8-10.8)
[2020-11-21 10:08] LABS: Est GFR (African American) 19.2 ml/min; Potassium 5.1 mmol/L (3.5-5.1)
[2020-11-21 10:09] LABS: Albumin Level 2.9 gm/dl (3.4-5.0); BUN Creatinine Ratio 17.5 (10-20); Calcium 8.3 mg/dl (8.5-10.1); Creatinine Clr Calc Pharmacy 19.4 ml/min; Est GFR (Non-African American) 16.5 ml/min; Magnesium 2.4 mg/dl (1.8-2.4)
--- NOTE | 2020-11-21 10:10 | XRay Report ---
XR chest 1V portable HISTORY: 75 years-old Female weakness acute weakness COMPARISON: Chest radiograph 8 2020 TECHNIQUE: Portable AP view of the chest FINDINGS: Cardiomediastinal and hilar silhouettes are unchanged. Calcified plaque of the thoracic aorta. Linear subsegmental lateral left midlung and left lung base opacities. No pneumothorax, pleural effusion or overt pulmonary edema. Chronic interstitial coarsening. Degenerative changes of the shoulders and sp ine. IMPRESSION: 1. Chronic interstitial coarsening without acute process. 2. Linear left midlung and basilar opacities are suggestive of atelectasis/scarring. ACT 112: Negative or not required by law. The above report was generated using voice recognition software. It may contain grammatical, syntax o r spelling errors. Electronically signed by: Joey Perla M.D. 11/21/2020 10:08 AM
[2020-11-21 10:34] LABS: Albumin Globulin Ratio 0.8 (0.9-2); Bilirubin,Total 0.6 mg/dl (0.2-1); Globulin 3.6 gm/dl (2.5-4.0); Phosphorus 4.7 mg/dl (2.5-4.9); Thyroid Stimulating Hormone 1.68 uIu/ml (0.300-4.500); Total Protein 6.5 gm/dl (6.4-8.2); Troponin I 0.25 ng/ml (0-0.045)
[2020-11-21] MEDS ORDERED: SODIUM CHLORIDE 0.9% 1000ML 1,000 ML IV ONE (11:15)
[2020-11-21 13:07] LABS: Lyme Ab IgG w/WB Rflx Negative (Negative); Lyme Ab IgM w/WB Rflx Negative (Negative)
[2020-11-21 13:16] LABS: Appearance Urine Clear (Clear); Bacteria Urine Automated Negative (Negative); Bilirubin Urine Negative (Negative); Blood Urine Negative (Negative); Color Urine Yellow; Epithelial Cell Urine Auto >30 /lpf (0-5); Glucose Urine UA Negative (Negative); Ketones Urine Trace (Negative); Leukocyte Esterase Urine Negative (Negative); Nitrite Urine Negative (Negative); Protein Urine Trace (Negative); RBC Urine Automated 0-4 /hpf (0-4); Specific Gravity Urine 1.017 (1.000-1.030); Urobilinogen Urine Negative (Negative)
--- NOTE | 2020-11-21 13:17 | CT Scan Report ---
CT abd pelvis wo con CLINICAL INDICATION: MN ^A11B ^transaminitis, nausea, abd pain. TECHNIQUE: Helical axial images of the abdomen and pelvis were obtained. Automated dose lowering tech niques and/or adjustment according to patient size were utilized for this exam. This exam was perfor med without intravenous contrast. COMPARISON: Comparison is made to CT abdomen pelvis 03/27/2017 FINDINGS: Lower chest: Bibasilar atelectasis and/or scarring is seen, similar in appearance to prior exam. Liver: Unremarkable. No focal lesions are seen. Gallbladder and biliary tree: Patient is status post cholecystectomy. Intra or extrahepatic biliary d uctal dilation is more pronounced than in the prior exam, the proper hepatic duct measures up to 19 m m in diameter, compared to 17 mm in the prior exam. The left hepatic duct measures 17 mm in diameter compared to 12 mm on the prior exam. A common bile duct is dilated up to its insertion in the duodenu m. Pancreas: Unremarkable, no focal lesions. Spleen: Unremarkable. Adrenals: Unremarkable. Kidneys and ureters: Subcentimeter exophytic hypodensity in the right kidney inferior pole is similar in appearance to prior exam. Bladder: Unremarkable. Reproductive organs: Unremarkable. Bowel: Diverticulosis is seen without evidence of diverticulitis. Postsurgical changes of gastric dino wiley are seen. The appendix is not seen. Lymph nodes Retroperitoneal: Unremarkable. Mesenteric: Unremarkable. Pelvic: Unremarkable. Peritoneum: Normal Vessels: Atherosclerotic calcifications are seen. Abdominal wall: A fat-containing umbilical hernia is seen. Bones: Degenerative changes in the visualized spine. IMPRESSION: Interval increase in dilation of the intra and extrahepatic bile ducts in this patient with transamin itis. This may represent bile duct obstruction or infectious/inflammatory cholangiopathy. ACT 112: Negative or not required by law. Electronically signed by: Abelardo Almanza M.D. 11/21/2020 1:15 PM
--- NOTE | 2020-11-21 14:08 | History & Physical Report ---
Date of Service November 21, 2020 Assessment & Plan (1) Falls: (2) SRIDHAR (acute kidney injury): (3) CKD (chronic kidney disease) stage 3, GFR 30-59 ml/min: Plan: -Admit to [facility] with telemetry -Patient presenting from home with reports of generalized weakness, frequent falls -In the ED, found to have SRIDHAR with creatinine 2.6 (baseline ~ 1.4) -Possibly due to recent initiation of Lasix and/or acute illness -IVF, hold Lasix -Follow renal functions -PT/OT (4) Transaminitis: Plan: -T bili 0.6, AST 115, ALT 138, alk phos 138 -CT ABD/pelvis shows Interval increase in dilation of the intra and extrahepatic bile ducts in this patient with transaminitis. This may represent bile duct obstruction or infectious/inflammatory cholangiopathy. -Lyme and Anaplasma testing negative. Check Ehrlichia and Babesia. -MRCP -Given possible infectious findings on CT, start empiric Zosyn. WBC 12 K -GI consult, input appreciated (5) Elevated troponin: (6) Abnormal EKG: Plan: -Troponin 0.25, EKG shows new T wave inversions in the anterior leads -No reports of chest pain -Suspect underlying CAD however doubt ACS. Troponin elevation likely secondary to acute illness/dehydration. -Patient was to have outpatient dobutamine stress test in September however she declined to schedule -Trend troponin -Cardiology consult, input appreciated (7) COPD, severe: Plan: -No signs of acute exacerbation -Continue home inhalers (8) Depression: (9) Anxiety: Plan: Given SRIDHAR, will hold duloxetine, gabapentin, mirtazapine for now (10) DVT prophylaxis: Plan: -SQ heparin Admission and Anticipated Discharge Date Admission Date: November 21, 2020 History of Present Illness Chief Complaint: Weakness, falls Primary Care Provider: Sugar Kiser MD 75-year-old female with PMH COPD, dyslipidemia, CKD stage III, depression, and other problems to below who presents to the ED for evaluation of generalized weakness and frequent falls. Patient reports that yesterday she started to feel very weak and was having trouble ambulating. She reports falling several times since then. Denies striking her head. No lightheadedness, dizziness, syncopal events. Denies chest pain. Reports some worsening exertional shortness of breath. No unilateral weakness, numbness, tingling. Denies difficulty speaking, understanding, facial droop. Reports a very poor oral intake. Has had some intermittent epigastric abdominal pain and nausea. Has felt feverish however did not take her temperature. Denies chills and rigors. No urinary symptoms. In the ED, labs show creatinine 2.6 (baseline ~1.4), mild transaminitis. Troponin 0.250, EKG shows T wave inversions in the anterior leads. UA does not suggest UTI. CXR negative for acute cardiopulmonary findings. Patient was given IVF. Allergies Allergy/AdvReac Type Severity Reaction Status Date / Time codeine Allergy Mild Vomiting Verified 11/21/20 11:15 Home Medications Medication Instructions Recorded Confirmed Type albuterol sulfate 90 mcg/actuation 1 puff INHALATION Q6H PRN 06/18/18 11/21/20 History aerosol inhaler (Ventolin HFA) atorvastatin 20 mg tablet (Lipitor) 10 mg PO QAM 06/18/18 11/21/20 History calcium carb,cit ER 600 mg-vit D3 1 tab PO QAM 06/18/18 11/21/20 History 12.5 mcg (500 unit) tablet,ext.rel (Citracal-D3 Slow Release) cholecalciferol (vitamin D3) 25 1,000 unit PO QAM 06/18/18 11/21/20 History mcg (1,000 unit) capsule (Vitamin D3) cyanocobalamin (vitamin B-12) 1,000 mcg PO QAM 06/18/18 11/21/20 History 1,000 mcg tablet (Vitamin B-12) gabapentin 400 mg capsule 400 mg PO TID 06/18/18 11/21/20 History (Neurontin) ipratropium 0.5 mg-albuterol 3 mg 1 vial INHALATION Q6H PRN 06/18/18 11/21/20 History (2.5 mg base)/3 mL nebulization soln magnesium oxide 400 mg PO QAM 06/18/18 11/21/20 History diazepam 2 mg tablet (Valium) 2 mg PO QAM 09/18/20 11/21/20 History duloxetine 60 mg capsule,delayed 60 mg PO QAM 09/18/20 11/21/20 History release (Cymbalta) pantoprazole 40 mg tablet,delayed 40 mg PO DAILYBB 09/18/20 11/21/20 History release (Protonix) fluticasone fur. 100 mcg-umeclid 1 inh INHALATION QAM 09/19/20 11/21/20 History 62.5 mcg-vilant 25 mcg inhalat.powder (Trelegy Ellipta) aspirin 81 mg tablet 81 mg PO DAILY 11/21/20 11/21/20 History furosemide 20 mg tablet (Lasix) 10 mg PO MOWEFR 11/21/20 11/21/20 History mirtazapine 45 mg tablet 45 mg PO HS 11/21/20 11/21/20 History oxybutynin chloride 5 mg 5 mg PO QAM 11/21/20 11/21/20 History tablet,extended release 24 hr (Ditropan XL) Past Med/Surg History Medical History (Updated 11/21/20 @ 16:21 by Christian Kaplan MD) Anxiety CKD (chronic kidney disease) stage 3, GFR 30-59 ml/min COPD (chronic obstructive pulmonary disease) 2L N/C prn Depression Dyslipidemia Generalized osteoarthritis GERD (gastroesophageal reflux disease) Peptic ulcer disease HX Stress incontinence Surgical History History of gastric surgery TO REMOVE ULCER History of hemorrhoidectomy History of left cataract extraction History of tooth extraction Hx of cholecystectomy S/P appendectomy Family History Grandmother Diabetes Other No family history of adverse response to anesthesia Social History Smoking Status: Former smoker Second Hand Exposure: No; Hx Alcohol Use: No Hx Substance Use: No Preferred Language: Citizen Of [place] Communication Ability: Effective Edge Drummer Required: No Beliefs That Will Affect Care: None marital status: Current Living Situation: Spouse current occupational status: retired Feels Safe at Home: Yes Assistive Devices: Glasses Review of Systems Review of Systems: ROS per HPI, all other systems reviewed and negative Physical Exam Physical Exam: Please refer to Dr. Cohen's addendum for physical exam. Results & Data Results & Data ([facility]) Vital Signs (Past 12 Hours) Vital Signs Temp Pulse Resp BP Pulse Ox 11/21/20 12:00 80 18 124/72 97 11/21/20 10:45 79 18 107/57 L 97 11/21/20 10:30 81 14 97/60 L 95 11/21/20 10:15 83 19 97/58 L 92 11/21/20 10:00 83 19 99/61 L 95 11/21/20 09:45 86 25 H 97/60 L 91 11/21/20 09:30 86 16 89/61 L 95 11/21/20 09:28 86 17 96/62 L 94 11/21/20 09:14 37.2 C 89 23 83/60 L 89 L Laboratory Results Short CBC 11/21/20 Range/Units 09:25 WBC 12.66 H (4.8-10.8) K/uL Hgb 10.7 L (12.0-16.0) g/dL Hct 35.2 L (37-47) % Plt Count 221 (130-400) K/uL BMP 11/21/20 09:25 Sodium 134 L Potassium 5.1 Chloride 101 Carbon Dioxide 25 BUN 47 H Creatinine 2.69 H Glucose 94 Calcium 8.3 L Cardiac Enzymes 11/21/20 Range/Units 09:25 Troponin I 0.250 H* (0-0.045) ng/ml Liver Function 11/21/20 Range/Units 09:25 Total Bilirubin 0.6 (0.2-1) mg/dl AST 115 H (15-37) U/L ALT 138 H (12-78) U/L Alkaline Phosphatase 138 H (45-117) U/L Albumin 2.9 L (3.4-5.0) gm/dl Urine 11/21/20 Range/Units 13:02 Urine Color Yellow Urine Appearance Clear (Clear) Urine pH 5.0 (4.5-7.5) Ur Specific [place] 1.017 (1.000-1.030) Urine Protein Trace H (Negative) Urine Glucose (UA) Negative (Negative) Diagnostic Findings Chest X-Ray 11/21/20 09:41 XR chest 1V portable HISTORY: 75 years-old Female weakness acute weakness COMPARISON: Chest radiograph 2020 TECHNIQUE: Portable AP view of the chest FINDINGS: Cardiomediastinal and hilar silhouettes are unchanged. Calcified plaque of the thoracic aorta. Linear subsegmental lateral left midlung and left lung base opacities. No pneumothorax, pleural effusion or overt pulmonary edema. Chronic interstitial coarsening. Degenerative changes of the shoulders and spine. IMPRESSION: 1. Chronic interstitial coarsening without acute process. 2. Linear left midlung and basilar opacities are suggestive of atelectasis/scarring. ACT 112: Negative or not required by law. The above report was generated using voice recognition software. It may contain grammatical, syntax or spelling errors. Electronically signed by: Joey Perla M.D. 11/21/2020 10:08 AM Abdomen/Pelvis CT 11/21/20 12:19 CT abd pelvis wo con CLINICAL INDICATION: MN ^A11B ^transaminitis, nausea, abd pain. TECHNIQUE: Helical axial images of the abdomen and pelvis were obtained. Automated dose lowering techniques and/or adjustment according to patient size were utilized for this exam. This exam was performed without intravenous contrast. COMPARISON: Comparison is made to CT abdomen pelvis 03/27/2017 FINDINGS: Lower chest: Bibasilar atelectasis and/or scarring is seen, similar in appearance to prior exam. Liver: Unremarkable. No focal lesions are seen. Gallbladder and biliary tree: Patient is status post cholecystectomy. Intra or extrahepatic biliary ductal dilation is more pronounced than in the prior exam, the proper hepatic duct measures up to 19 mm in diameter, compared to 17 mm in the prior exam. The left hepatic duct measures 17 mm in diameter compared to 12 mm on the prior exam. A common bile duct is dilated up to its insertion in the duodenum. Pancreas: Unremarkable, no focal lesions. Spleen: Unremarkable. Adrenals: Unremarkable. Kidneys and ureters: Subcentimeter exophytic hypodensity in the right kidney inferior pole is similar in appearance to prior exam. Bladder: Unremarkable. Reproductive organs: Unremarkable. Bowel: Diverticulosis is seen without evidence of diverticulitis. Postsurgical changes of gastric surgery are seen. The appendix is not seen. Lymph nodes Retroperitoneal: Unremarkable. Mesenteric: Unremarkable. Pelvic: Unremarkable. Peritoneum: Normal Vessels: Atherosclerotic calcifications are seen. Abdominal wall: A fat-containing umbilical hernia is seen. Bones: Degenerative changes in the visualized spine. IMPRESSION: Interval increase in dilation of the intra and extrahepatic bile ducts in this patient with transaminitis. This may represent bile duct obstruction or infectious/inflammatory cholangiopathy. ACT 112: Negative or not required by law. Electronically signed by: Abelardo Almanza M.D. 11/21/2020 1:15 PM Code Status & VTE Plan Code Status Patient is a DNR as per Dr. Cohen's discussion with her. VTE Prophylaxis Plan VTE Prophylaxis will be ordered: Yes Supervising Physician Co-Signing Physician Notes Pt is a 75 y/o F with hx of with hx of COPD with home oxygen (2L prn), PSVT, CKD, HLD, chronic back pain with DDD, anemia, Anxiety, depression, DJD, urinary incontinence, CKD admitted for fall, extremity weakness PE: -NAD, NC in place -Dry oral mucus membrane -Heart: normal S1/S2, no murmur -Lungs: CTA, no wheezing -Neuro: CN II-XII intact, good motor strength (symmetrical), PERRLA, EOMI -Psych: AAOx3 (but could not remember the date) Extremity weakness with fall: -normal Neuro exam -Could be due to infection + dehydration -PT/OT eval - UA: no sign of infection -MRI brain 04/2020: chronic microvascular ischemia Elevated Trop: -echo from 09/2020: EF of 60-64% -Outpt cardiology recommended: ischemic workup but pt refused stress test - trend trop and Cardiology consult Increase in LFTs: -tick borne disease titer -CT abd: interval increase in dilation of the intra and extrahepatic bile duct. This may represent bile duct obstruction or infectious/inflammatory cholangiopathy. --- due to elevated WBC will start the pt on zosyn empirically - GI consulted -trend LFTs SRIDHAR on CKD: -s/p NS bolus -will trend Cr Agree with A/P by Dlaila EL
[2020-11-21] MEDS: SODIUM CHLORIDE 0.9% 1000ML 1,000 ML IV SCH ×2 (14:24→23:09)
--- NOTE | 2020-11-21 14:28 | Cardiology Consultation ---
Date of Consultation November 21, 2020 Assessment & Plan (1) Dizziness: (2) SRIDHAR (acute kidney injury): (3) Transaminitis: (4) Elevated troponin: (5) COPD, severe: 75-year-old female presents with poor p.o. intake, dehydration, with acute renal insufficiency. Elevated troponin in setting of secondary to acute renal insufficiency, and chronic hypoxia /noncompliant with supplemental oxygen and underlying febrile illness. Plaque rupture event less likely. Recommend trend cardiac enzymes x3 sets. Repeat resting 2D transthoracic echocardiogram. I would not recommend initiation of IV heparin at this time. Continue low-dose aspirin. Hold outpatient diuretic therapy. Agree with gentle hydration. Assess blood and urine cultures. Consider gastroenterology evaluation regarding abnormal CT findings of common bile duct dilatation. History of Present Illness Reason for Consultation: LEE, elevated Trop, ECG changes Requesting Physician: Dalila EL Attending Physician: Coleman Cohen MD History of Present Illness 75-year-old female present to the hospital with dizziness, fatigue, weakness, and fevers. Reports poor p.o. intake over the past 4 days. Lack of appetite and intermittent left-sided and epigastric abdominal discomfort. Denies nausea, vomiting, or diarrhea. Denies chest discomfort or unusual shortness of breath. Reports an episode of chest pain occurring approximately 8 weeks ago. Denies orthopnea, PND, or lower extremity edema. Admits to occasional episodes of pedal edema. ECGs demonstrating T wave inversions involving inferior, lateral, and precordial leads per review of records. Followed in the cardiology clinic due to history of chest discomfort and asymptomatic paroxysmal supraventricular tachycardia. During her most recent visit in September 2020, patient declined stress testing. On admission acute renal failure, elevated LFTs, and elevated white blood cell count in the setting of chronic anemia noted. Allergies Allergy/AdvReac Type Severity Reaction Status Date / Time codeine Allergy Mild Vomiting Verified 11/21/20 11:15 Home Medications Medication Instructions Recorded Confirmed Type albuterol sulfate 90 mcg/actuation 1 puff INHALATION Q6H PRN 06/18/18 11/21/20 History aerosol inhaler (Ventolin HFA) atorvastatin 20 mg tablet (Lipitor) 10 mg PO QAM 06/18/18 11/21/20 History calcium carb,cit ER 600 mg-vit D3 1 tab PO QAM 06/18/18 11/21/20 History 12.5 mcg (500 unit) tablet,ext.rel (Citracal-D3 Slow Release) cholecalciferol (vitamin D3) 25 1,000 unit PO QAM 06/18/18 11/21/20 History mcg (1,000 unit) capsule (Vitamin D3) cyanocobalamin (vitamin B-12) 1,000 mcg PO QAM 06/18/18 11/21/20 History 1,000 mcg tablet (Vitamin B-12) gabapentin 400 mg capsule 400 mg PO TID 06/18/18 11/21/20 History (Neurontin) ipratropium 0.5 mg-albuterol 3 mg 1 vial INHALATION Q6H PRN 06/18/18 11/21/20 History (2.5 mg base)/3 mL nebulization soln magnesium oxide 400 mg PO QAM 06/18/18 11/21/20 History diazepam 2 mg tablet (Valium) 2 mg PO QAM 09/18/20 11/21/20 History duloxetine 60 mg capsule,delayed 60 mg PO QAM 09/18/20 11/21/20 History release (Cymbalta) pantoprazole 40 mg tablet,delayed 40 mg PO DAILYBB 09/18/20 11/21/20 History release (Protonix) fluticasone fur. 100 mcg-umeclid 1 inh INHALATION QAM 09/19/20 11/21/20 History 62.5 mcg-vilant 25 mcg inhalat.powder (Trelegy Ellipta) aspirin 81 mg tablet 81 mg PO DAILY 11/21/20 11/21/20 History furosemide 20 mg tablet (Lasix) 10 mg PO MOWEFR 11/21/20 11/21/20 History mirtazapine 45 mg tablet 45 mg PO HS 11/21/20 11/21/20 History oxybutynin chloride 5 mg 5 mg PO QAM 11/21/20 11/21/20 History tablet,extended release 24 hr (Ditropan XL) Patient History Medical History Anxiety CKD (chronic kidney disease) stage 3, GFR 30-59 ml/min COPD (chronic obstructive pulmonary disease) 2L N/C prn Depression Dyslipidemia Generalized osteoarthritis GERD (gastroesophageal reflux disease) Peptic ulcer disease HX Stress incontinence Surgical History History of gastric surgery TO REMOVE ULCER History of hemorrhoidectomy History of left cataract extraction History of tooth extraction Hx of cholecystectomy S/P appendectomy Family History Grandmother Diabetes Other No family history of adverse response to anesthesia Social History Smoking Status: Former smoker Second Hand Exposure: Yes; Do You Dip or Chew Tobacco: No; Hx Alcohol Use: No Hx Substance Use: No Preferred Language: Danish Communication Ability: Effective Production Engineer Track Required: No Beliefs That Will Affect Care: None marital status: Current Living Situation: Spouse current occupational status: retired Other Information That Helps Us Care for You: No Feels Safe at Home: Yes Safety Concerns: Feels Safe At This Time Assistive Devices: Glasses, Oxygen - Continuous and Walker Review of Systems Review of Systems: All systems reviewed & are unremarkable except as noted in Subjective Physical Exam Constitutional: well developed and + ill appearing Respiratory: normal respiratory effort; no respiratory distress, no labored breathing and no retractions Auscultation: + diminished lung sounds (Bilateral); no crackles, no rales, no rhonchi and no wheezes Cardiovascular: Rate/Rhythm: regular rate and regular rhythm Heart Sounds: normal S1 and normal S2; no murmur Vessels: radial pulses present; no JVD and no carotid bruit Extremities: no edema Gastrointestinal (Abdomen): Inspection/Auscultation: abdomen normal to inspection and normal bowel sounds; abdomen not distended Percussion/Palpation: abdomen soft; abdomen nontender, no guarding and abdomen not rigid Neurologic: CN's II-XI intact bilaterally and moves all extremities; no focal motor deficits Motor/Sensory: no tremor Psychiatric: A+Ox3, euthymic affect Results & Data ([facility]) Vital Signs (Past 12 Hours) Vital Signs Temp Pulse Resp BP Pulse Ox 11/21/20 12:00 80 18 124/72 97 11/21/20 10:45 79 18 107/57 L 97 11/21/20 10:30 81 14 97/60 L 95 11/21/20 10:15 83 19 97/58 L 92 11/21/20 10:00 83 19 99/61 L 95 11/21/20 09:45 86 25 H 97/60 L 91 11/21/20 09:30 86 16 89/61 L 95 11/21/20 09:28 86 17 96/62 L 94 11/21/20 09:14 37.2 C 89 23 83/60 L 89 L
--- NOTE | 2020-11-21 14:38 | Gastrointestinal Consultation ---
Date of Consultation November 21, 2020 Assessment & Plan (1) Transaminitis: Suspect viral etiology because accompanied by fatigue, weakness, petechia and pt w/o significant abdominal pain or hyperbilirubinemia. Will check CMV, parvovirus, EB and Hep A serology. Will check acetaminophen level. Recheck LFTs tomorrow. (2) Dilated bile duct: MRCP to check for bile duct obstruction, define post surgical bile duct anatomy. Supervising Physician Co-Signing Physician Notes Attending attestation I have seen, examined this patient, and agree with the findings and above by our mid-level provider SIENNA Flores, with the following additions: - Elevated lfts in setting of SRIDHAR, petechia, volume depletion, and increased in dilated bile duct - MRCP - INfectious work up - supportive care - alesia follow History of Present Illness Reason for Consultation: bile duct dilation Requesting Physician: Dalila Hendrickson NP Attending Physician: Coleman Cohen MD History of Present Illness Ms. Reena Varela is a 75 yr old female pt of Dr. Sugar Malone with a hx of PMH COPD, dyslipidemia, CKD stage III, depression, and Billroth II partial gastrectomy for gastric ulcer disease. She presented to the ED today for falls, weakness. GI is consulted because transaminases are elevated (AST 115, ALT 138, Alk Phos is 138 and bili is normal) and because CT with intra/extra hepatic bile duct dilation to 19mm. Pancreas is unremarkable and lipase is normal. WBC is mildly elevated at 12. She is and lives with her . She is very independent, typically doing all her own self care including cooking, cleaning driving. For the past 3 weeks she has had headaches (taking tylenol freqeuntly), weakness, poor appetite and has fallen several times. Last night she was on the floor of the shower last night, unsure how she got there and needed help to get up. She has some chronic RUQ positional discomfort since her abdominal surgery many years ago but has not had any recent significant abdominal pain. No yellow eyes or skin. She has some petechia on the chest on exam and is unsure how long they have been present. She has also had some memory issues recently, for example it took her a minute to recall the president's name. Last night she had nausea but no vomiting. She has had "the chills now and then." She denies any alcohol intake or hx of increased alcohol intake. She quit smoking about 9-10 years ago. She has a hx of chronic pancreas and bile duct dilation. She underwent E[place] [address] Mayo for pancreatic duct dilation with findings suggesting hyperechoic strands and lobularity in the pancreatic body and in the pancreatic tail and mildly dilated PD in the neck of the pancreas. MRCP at that time with: a tortuous 13mm common hepatic duct and CBD dilated to 11mm. Allergies Allergy/AdvReac Type Severity Reaction Status Date / Time codeine Allergy Mild Vomiting Verified 11/21/20 11:15 Home Medications Medication Instructions Recorded Confirmed Type albuterol sulfate 90 mcg/actuation 1 puff INHALATION Q6H PRN 06/18/18 11/21/20 History aerosol inhaler (Ventolin HFA) atorvastatin 20 mg tablet (Lipitor) 10 mg PO QAM 06/18/18 11/21/20 History calcium carb,cit ER 600 mg-vit D3 1 tab PO QAM 06/18/18 11/21/20 History 12.5 mcg (500 unit) tablet,ext.rel (Citracal-D3 Slow Release) cholecalciferol (vitamin D3) 25 1,000 unit PO QAM 06/18/18 11/21/20 History mcg (1,000 unit) capsule (Vitamin D3) cyanocobalamin (vitamin B-12) 1,000 mcg PO QAM 06/18/18 11/21/20 History 1,000 mcg tablet (Vitamin B-12) gabapentin 400 mg capsule 400 mg PO TID 06/18/18 11/21/20 History (Neurontin) ipratropium 0.5 mg-albuterol 3 mg 1 vial INHALATION Q6H PRN 06/18/18 11/21/20 History (2.5 mg base)/3 mL nebulization soln magnesium oxide 400 mg PO QAM 06/18/18 11/21/20 History diazepam 2 mg tablet (Valium) 2 mg PO QAM 09/18/20 11/21/20 History duloxetine 60 mg capsule,delayed 60 mg PO QAM 09/18/20 11/21/20 History release (Cymbalta) pantoprazole 40 mg tablet,delayed 40 mg PO DAILYBB 09/18/20 11/21/20 History release (Protonix) fluticasone fur. 100 mcg-umeclid 1 inh INHALATION QAM 09/19/20 11/21/20 History 62.5 mcg-vilant 25 mcg inhalat.powder (Trelegy Ellipta) aspirin 81 mg tablet 81 mg PO DAILY 11/21/20 11/21/20 History furosemide 20 mg tablet (Lasix) 10 mg PO MOWEFR 11/21/20 11/21/20 History mirtazapine 45 mg tablet 45 mg PO HS 11/21/20 11/21/20 History oxybutynin chloride 5 mg 5 mg PO QAM 11/21/20 11/21/20 History tablet,extended release 24 hr (Ditropan XL) Patient History Medical History Anxiety CKD (chronic kidney disease) stage 3, GFR 30-59 ml/min COPD (chronic obstructive pulmonary disease) 2L N/C prn Depression Dyslipidemia Generalized osteoarthritis GERD (gastroesophageal reflux disease) Peptic ulcer disease HX Stress incontinence Surgical History History of gastric surgery TO REMOVE ULCER History of hemorrhoidectomy History of left cataract extraction History of tooth extraction Hx of cholecystectomy S/P appendectomy Family History Grandmother Diabetes Other No family history of adverse response to anesthesia Social History Smoking Status: Former smoker Second Hand Exposure: Yes; Do You Dip or Chew Tobacco: No; Hx Alcohol Use: No Hx Substance Use: No Preferred Language: Kiswahili Communication Ability: Effective 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 Denies fever or weight loss Eyes: No icterus, no eye redness, or pain, no recent vision changes Resp: No SOB, no cough Cardio: No palpitations/irregular beats, no chest pain GI: + nausea, + poor appetite. No abdominal pain or vomiting : Denies pain on urination, no blood in urine or dark urine Skin: Itchy red dots on the chest; No jaundice Physical Exam Constitutional: well developed, + ill appearing, average body habitus and cooperative c/o headache Eyes: PERRL, conjunctivae normal, anicteric sclerae Neck: trachea midline, no thyromegaly Respiratory: normal respiratory effort, lungs clear to auscultation Cardiovascular: RRR, no murmur, no edema Gastrointestinal (Abdomen): Inspection/Auscultation: abdomen normal to inspection and normal bowel sounds; abdomen not distended and no abdominal edema Skin: multiple petechia on the chest. Neurologic: PERRL, EOMI, accommodation nl, no face palsy, no dysarthria Psychiatric: A+Ox3, euthymic affect Orientation: alert, oriented x 3 and cooperative Lymphatic: no cervical or axillary lymphadenopathy Results & Data ([facility]) Vital Signs (Past 12 Hours) Vital Signs Temp Pulse Resp BP Pulse Ox 11/21/20 12:00 80 18 124/72 97 11/21/20 10:45 79 18 107/57 L 97 11/21/20 10:30 81 14 97/60 L 95 11/21/20 10:15 83 19 97/58 L 92 11/21/20 10:00 83 19 99/61 L 95 11/21/20 09:45 86 25 H 97/60 L 91 11/21/20 09:30 86 16 89/61 L 95 11/21/20 09:28 86 17 96/62 L 94 11/21/20 09:14 37.2 C 89 23 83/60 L 89 L Laboratory Results WBC 12.6, Hb 10.7, Hct 35.2, Plts 221, Na 134, K 5.1, Cl 101, CO2 25, BUN 47, Cr 2.69. AST 115, ALT 138, Alk ph Diagnostic Findings CTAP, non contrast 11/21/20: Interval increase in dilation of the intra and extrahepatic bile ducts in this patient with transaminitis. This may represent bile duct obstruction or infectious/inflammatory cholangiopathy.
[2020-11-21] MEDS ORDERED: PIPERACILL/TAZOBAC CONSULT ACTIVE PRN (15:04)
[2020-11-21] MEDS ORDERED: PIPERACILLIN/TAZOBACTAM 3.375 GM in DEXTROSE 5% 100 ML IV ONE (15:30)
[2020-11-21] MEDS ORDERED: GABAPENTIN 400 MG CAP PO STA (15:38)
--- NOTE | 2020-11-21 16:04 | Electrocardiogram Report ---
Test Reason : Blood Pressure : / mmHG Vent. Rate : 089 BPM Atrial Rate : 089 BPM P-R Int : 162 ms QRS Dur : 090 ms QT Int : 364 ms P-R-T Axes : 077 059 029 degrees QTc Int : 442 ms Normal sinus rhythm Normal ECG When compared with ECG of 18-SEP-2020 09:14, T wave inversion now evident in Anterior leads Confirmed by David Logan ([id number]) on 11/21/2020 4:04:29 PM Referred By: REFERRED SELF Confirmed By:Tiago Logan
--- NOTE | 2020-11-21 17:07 | Magnetic Resonance Report ---
MRCP CLINICAL HISTORY: dilated bile ducts TECHNIQUE: Utilizing a 1.5 Elizabeth magnet and dedicated coil, multiplanar, multiecho imaging of the p er abdomen was performed utilizing heavily T2 weighted pulsing sequences without IV contrast. COMPARISON STUDY: MRCP April 15, 2010. CT of the abdomen and pelvis November 21, 2020. FINDINGS: Moderate to marked intra and extrahepatic biliary ductal dilatation is noted status post ch olecystectomy. The common bile duct measures 16 mm in caliber. This has increased since MRCP of 2010. This has only minimally increased since CT of March 27, 2017. There is also dilatatio n of the main pancreatic duct which measures 9 mm in caliber. This has slightly increased since CT of March 27, 2017. A few dilated pancreatic side branches are noted. Pancreatic glandular atrophy is similar to CT of March 27, 2017. No common bile duct calculi are identified on this exam. Multiple subcentimeter T2 hyperintense hepatic lesions likely reflect cysts. The spleen, adrenal glands are un remarkable. T2 hyperintense bilateral renal lesions are suboptimally assessed on this unenhanced exam but favor cysts. There is no abdominal lymphadenopathy or ascites. Caliber of visualized small and l arge bowel are normal. Postoperative findings suggestive of distal gastrectomy are better depicted on CT. IMPRESSION: 1. Moderate to marked biliary ductal dilatation, only slightly increased since CT of March 2017. G iven relative stability, this is likely related to previous cholecystectomy however correlation with obstructive liver function tests is recommended. No common bile duct calculi identified. 2. Slight increase in chronic dilatation of the main pancreatic duct since CT of March 27, 2017. ACT 112: Negative or not required by law. Electronically signed by: David Adler M.D. 11/21/2020 5:06 PM
[2020-11-21] MEDS: HEPARIN SOD 5,000 UNIT/0.5 ML VIAL SQ SCH ×2 (17:45→21:44)
[2020-11-21] MEDS ORDERED: INFLUENZA VACCINE HIGH DOSE PF 65+ 0.7 ML SYR IM ONE (18:03)
[2020-11-21] MEDS: MELATONIN 3 MG TAB PO PRN (21:45)
[2020-11-22] MEDS ORDERED: PIPERACILLIN/TAZOBACTAM 3.375 GM in DEXTROSE 5% 100 ML IV SCH
[2020-11-22] MEDS: PANTOprazole 40 MG TAB PO SCH (06:12)
[2020-11-22] MEDS: HEPARIN SOD 5,000 UNIT/0.5 ML VIAL SQ SCH ×3 (06:12→23:29)
[2020-11-22 07:48] LABS: Hematocrit (blood only) 35.4 % (37-47); Hemoglobin 10.9 g/dL (12.0-16.0); Mean Corpuscular Hemoglobin 30.9 pg (25-34); Mean Corpuscular Hgb Conc 30.8 g/dL (32-36); Mean Corpuscular Volume 100.3 fL (80-100); Mean Platelet Volume 9.5 fL (7.4-10.4); Platelet Count 184 K/uL (130-400); RDW Standard Deviation 51.1 fL (36.4-46.3); Red Blood Count 3.53 M/uL (4.2-5.4); White Blood Count 8.79 K/uL (4.8-10.8)
[2020-11-22 08:06] LABS: Albumin Globulin Ratio 0.7 (0.9-2); Albumin Level 2.5 gm/dl (3.4-5.0); BUN Creatinine Ratio 23.8 (10-20); Bilirubin Direct 0.2 mg/dl (0-0.2); Bilirubin,Total 0.6 mg/dl (0.2-1); Calcium 8.3 mg/dl (8.5-10.1); Creatinine Clr Calc Pharmacy 31.2 ml/min; Est GFR (African American) 34.1 ml/min; Est GFR (Non-African American) 29.4 ml/min; Globulin 3.6 gm/dl (2.5-4.0); Potassium 4.5 mmol/L (3.5-5.1); Total Protein 6.1 gm/dl (6.4-8.2)
[2020-11-22] MEDS: OXYBUTYNIN CHLORIDE XL 5 MG TABCR PO SCH (09:45)
[2020-11-22] MEDS: ASPIRIN 81 MG ECTAB PO SCH (09:45)
[2020-11-22] MEDS: SODIUM CHLORIDE 0.9% 1000ML 1,000 ML IV SCH ×2 (09:45→19:52)
--- NOTE | 2020-11-22 12:07 | Cardiology Progress Note ---
Date of Service November 22, 2020 Assessment & Plan (1) Dizziness: (2) SRIDHAR (acute kidney injury): (3) Transaminitis: (4) Elevated troponin: (5) COPD, severe: Plan: 75-year-old female presents with poor p.o. intake, dehydration, with acute renal insufficiency. Elevated troponin in setting of secondary to acute renal insufficiency, and chronic hypoxia /noncompliant with supplemental oxygen and underlying febrile illness. Plaque rupture event less likely. Repeat resting 2D transthoracic echocardiogram. Continue low-dose aspirin. Hold outpatient diuretic therapy. Agree with gentle hydration. Assess blood and urine cultures. Discussed further cardiovascular evaluation with outpatient stress testing. Patient declines at this time. Admission and Anticipated Discharge Date Admission Date: November 21, 2020 Subjective Patient seen and examined the bedside. Feeling better from a cardiovascular perspective. More alert and less lethargic. Woke up this morning with a headache. Denies chest pain or shortness of breath. Telemetry reveals sinus rhythm with heart rate ranging from 70-80 bpm. Review of Systems Review of Systems: All systems reviewed & are unremarkable except as noted in Subjective Physical Exam Constitutional: well developed and + ill appearing Respiratory: normal respiratory effort; no respiratory distress, no labored breathing and no retractions Auscultation: + diminished lung sounds (Bilateral); no crackles, no rales, no rhonchi and no wheezes Cardiovascular: Rate/Rhythm: regular rate and regular rhythm Heart Sounds: normal S1 and normal S2; no murmur Vessels: radial pulses present; no JVD and no carotid bruit Extremities: no edema Gastrointestinal (Abdomen): Inspection/Auscultation: abdomen normal to inspection and normal bowel sounds; abdomen not distended Percussion/Palpation: abdomen soft; abdomen nontender, no guarding and abdomen not rigid Neurologic: CN's II-XI intact bilaterally and moves all extremities; no focal motor deficits Motor/Sensory: no tremor Psychiatric: A+Ox3, euthymic affect Results & Data ([facility]) Vital Signs (Past 12 Hours) Vital Signs Temp Pulse Pulse Resp BP BP Pulse Ox 11/22/20 11:00 37.0 C 83 18 138/74 93 11/22/20 08:03 37.2 C 81 18 128/70 93 11/22/20 08:00 85 11/22/20 03:03 36.9 C 78 18 105/65 93
--- NOTE | 2020-11-22 12:09 | Gastroenterology Progress Note ---
Date of Service November 22, 2020 Assessment & Plan (1) Transaminitis: Plan: Suspect infectious etiology. LFTs are improving. Leukocytosis improved with Zosyn. Continue infectious w/u. Will check serology for Lyme, Erlichia, Parvo, CMV, HepA, EB and Parvovirus when available. Would continue broad spectrum antibiotics coverage. Recheck LFTs tomorrow. No GI contraindication to a regular consistency diet. (2) Dilated bile duct: Plan: Appears chronic, post cholecystectomy. No indication for ERCP at this time. Plan: Attending attestation I have seen, examined this patient, and agree with the findings and above by our mid-level provider SIENNA Flores, with the following additions: - Soft abdomen, appears to have infectious etiology without clear source - labs have improved - No signs of biliary obstruction Admission and Anticipated Discharge Date Admission Date: November 21, 2020 Subjective 75 yr old female Presented for falls 11/21 for weakness, falls, transaminases and Alk Phos elevated: AST 62->115->62; ALT 53->138->102, Alk Phos 139->and christiana are normal. She presented to the ED today for falls, weakness. GI is consulted because transaminases are elevated (AST 115, ALT 138, Alk Phos is 138 -> 126. Bili has been normal), CT with intra/extra hepatic bile duct dilation to 19mm. MRCP with stable christiana dil since 2018. Viral serology pending. Awake, alert, reports feeling similar to yesterday. Review of Systems Review of Systems: ROS: Gen: + weakness, + falls, + memory issues, + chills. Denies fever or weight loss Eyes: No icterus, no eye redness, or pain, no recent vision changes Resp: No SOB, no cough Cardio: No palpitations/irregular beats, no chest pain GI: + nausea resolved today, reports some appetite and ready to try eating. No abdominal pain or vomiting : Denies pain on urination, no blood in urine or dark urine Skin: Itchy red dots on the chest; No jaundice Physical Exam Constitutional: well developed, + ill appearing, average body habitus and cooperative Eyes: PERRL, conjunctivae normal, anicteric sclerae Neck: trachea midline, no thyromegaly Respiratory: normal respiratory effort, lungs clear to auscultation Cardiovascular: RRR, no murmur, no edema Gastrointestinal (Abdomen): Inspection/Auscultation: abdomen normal to inspection and normal bowel sounds; abdomen not distended and no abdominal edema Neurologic: PERRL, EOMI, accommodation nl, no face palsy, no dysarthria Psychiatric: A+Ox3, euthymic affect Orientation: alert, oriented x 3 and cooperative Lymphatic: no cervical or axillary lymphadenopathy Results & Data ([facility]) Vital Signs (Past 12 Hours) Vital Signs Temp Pulse Pulse Resp BP BP Pulse Ox 11/22/20 11:00 37.0 C 83 18 138/74 93 11/22/20 08:03 37.2 C 81 18 128/70 93 11/22/20 08:00 85 11/22/20 03:03 36.9 C 78 18 105/65 93 Laboratory Results WBC 8, Hb 10, Hct 35, Plts 184, Na 139, K 4.5, Cl 109, CO2 22, BUN 40, Cr 1.67, See HPI fo rLFTs. Lipase normal. Lyme, ehrlichia, Parvo virus, CMV, HepA, EB and Parvovirus all pending Diagnostic Findings Non contrast CT 11/21 suggests worsening christiana dil but MRCP is a higher level study for imaging the bile ducts and found to be stable since 2018 and stones. Post cholecystectomy
[2020-11-22] MEDS: PIPERACILLIN/TAZOBACTAM 3.375 GM in DEXTROSE 5% 100 ML IV SCH ×2 (12:20→22:08)
[2020-11-22] MEDS: FLUTICASONE FUROATE 100MCG 14 PUFFS/INHALER INH SCH (12:59)
[2020-11-22] MEDS: UMECLIDINIUM/VILANTEROL 62.5/25MCG 7 PUFFS/INHALER INH SCH (12:59)
[2020-11-22 13:34] LABS: Lyme Ab IgG w/WB Rflx Negative (Negative); Lyme Ab IgM w/WB Rflx Negative (Negative)
--- NOTE | 2020-11-22 17:52 | Hospitalist Progress Note ---
Date of Service November 22, 2020 Assessment & Plan (1) Falls: (2) Transaminitis: (3) Elevated troponin: Plan: 75-year-old female with PMH of COPD, HLD, CKD stage III, depression, generalized osteoarthritis, anxiety, falls and anxiety presented 11/21 to our ED for keron luation of generalized weakness and frequent falls. 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 Denies head trauma/lightheadedness/syncopal events. She is being managed with the following: #. Falls: #. SRIDHAR (acute kidney injury): #. CKD (chronic kidney disease) stage 3, GFR 30-59 ml/min: Admitted with complaints of generalized weakness and frequent falls. In the ED, found to have SRIDHAR with creatinine 2.6 [baseline around 1.0]; likely secondary to decreased intake and recent initiation of Lasix. PT/OT Creatinine improving, continue with IV fluid, renal functions daily creatinine improving, Hold Lasix Avoid nephrotoxins #. Transaminitis: #. Dilated bile ductstable/chronic, no indication for ERCP per GI. Admitting LFTs: T bili 0.6, AST 115, ALT 138, alk phos 138 Admitting CTAP: shows Interval increase in dilation of the intra and extrahepatic bile ducts in this patient with transaminitis. This may represent bile duct obstruction or infectious/inflammatory cholangiopathy. Admitting MRCP: 1. Moderate to marked biliary ductal dilatation, only slightly increased since CT of March 2017. Given relative stability, this is likely related to previous cholecystectomy however correlation with obstructive liver function tests is recommended. No common bile duct calculi identified. 2. Slight increase in chronic dilatation of the main pancreatic duct since CT of March 27, 2017. Lyme and Anaplasma testing negative. f/u Ehrlichia and Babesia. Given possible infectious findings on CT, started empiric Zosyn 11/21. WBC improving. GI consulted: Checking viral etiology for hepatitis. Suspecting infectious etiology for transaminitis. Monitor LFTs daily, enzymes trending down. #. Elevated troponin: #. Abnormal EKG: Admitting EKG showed new T wave inversion in the anterior leads Troponin trends flat at 0.2, likely secondary to SRIDHAR over CKD No reporting of chest pain Patient was to have outpatient dobutamine stress test in September however she declined to schedule Cardiology on board: Agrees with gentle hydration, repeating echo. Patient declined outpatient stress test at this time. 11/22 echo: EF greater than 70% with estimated systolic pulmonary pressure 43 mmHg. #. COPD, severe: No signs of acute exacerbation Continue home inhalers #. Depression: #. Anxiety: Given SRIDHAR, will hold duloxetine, gabapentin, mirtazapine for now #. DVT prophylaxis: -SQ heparin Disposition: PT/OT recs, CM to assist with DC planning. PT recommending 24-hour care at home versus short-term inpatient rehab upon discharge. Admission and Anticipated Discharge Date Admission Date: November 21, 2020 Subjective Patient was lying in bed, on 2 L nasal oxygen, NAD, AOx3, no issues overnight. Patient reports same level of weakness as he came in with. Patient denies headache/fever/chills/chest pain/palpitation/other review of symptoms. Physical Exam Physical Exam: GENERAL: Alert and oriented x3. NAD, on 2L NC HEENT: No pallor, no icterus. Pupils equal, round and reactive to light. Oral mucosa moist. NECK: No JVD, no neck masses. HEART: S1 and S2 heard. Regular rate and rhythm. Systolic murmur over aortic and pulmonic area,, no gallop. RESPIRATORY SYSTEM: Normal AP diameter. No accessory muscle use. No wheezing, no crackles. ABDOMEN: Soft, bowel sounds present, nontender, no distention. CENTRAL NERVOUS SYSTEM: No facial droop. Speech is clear. Obeys simple commands. Moves extremities. EXTREMITIES: No edema, no erythema seen. Results & Data Results & Data ([facility]) Vital Signs (Past 12 Hours) Vital Signs Temp Pulse Pulse Resp BP BP Pulse Ox 11/22/20 15:00 37.4 C 84 18 108/62 93 11/22/20 14:37 94 11/22/20 11:00 37.0 C 83 18 138/74 93 11/22/20 08:03 37.2 C 81 18 128/70 93 11/22/20 08:00 85
[2020-11-22] MEDS: ACETAMINOPHEN 325 MG TAB PO PRN (19:50)
[2020-11-22] MEDS: MELATONIN 3 MG TAB PO PRN (19:51)
[2020-11-23] MEDS: PIPERACILLIN/TAZOBACTAM 3.375 GM in DEXTROSE 5% 100 ML IV SCH ×2 (04:09→11:23)
[2020-11-23] MEDS ORDERED: PROMETHAZINE HCL 12.5 MG in SODIUM CHLORIDE 0.9% 50 ML IV PRN (05:04)
[2020-11-23] MEDS: SODIUM CHLORIDE 0.9% 1000ML 1,000 ML IV SCH (05:54)
[2020-11-23] MEDS: HEPARIN SOD 5,000 UNIT/0.5 ML VIAL SQ SCH ×2 (06:28→13:25)
[2020-11-23] MEDS: PANTOprazole 40 MG TAB PO SCH (06:30)
[2020-11-23] MEDS: ACETAMINOPHEN 325 MG TAB PO PRN (06:33)
[2020-11-23] MEDS: OXYBUTYNIN CHLORIDE XL 5 MG TABCR PO SCH (07:33)
[2020-11-23] MEDS: ASPIRIN 81 MG ECTAB PO SCH (07:33)
[2020-11-23] MEDS: FLUTICASONE FUROATE 100MCG 14 PUFFS/INHALER INH SCH (07:33)
[2020-11-23] MEDS: UMECLIDINIUM/VILANTEROL 62.5/25MCG 7 PUFFS/INHALER INH SCH (07:33)
[2020-11-23 07:41] LABS: Hematocrit (blood only) 38.2 % (37-47); Hemoglobin 11.9 g/dL (12.0-16.0); Mean Corpuscular Hemoglobin 30.9 pg (25-34); Mean Corpuscular Hgb Conc 31.2 g/dL (32-36); Mean Corpuscular Volume 99.2 fL (80-100); Mean Platelet Volume 9.3 fL (7.4-10.4); Platelet Count 217 K/uL (130-400); RDW Coefficient of Variation 13.8 % (11.5-14.5); RDW Standard Deviation 49.4 fL (36.4-46.3); Red Blood Count 3.85 M/uL (4.2-5.4); White Blood Count 6.69 K/uL (4.8-10.8)
[2020-11-23 08:07] LABS: Albumin Level 2.6 gm/dl (3.4-5.0); BUN Creatinine Ratio 17.4 (10-20); Calcium 8.6 mg/dl (8.5-10.1); Creatinine Clr Calc Pharmacy 40.1 ml/min; Est GFR (African American) 46.2 ml/min; Est GFR (Non-African American) 39.8 ml/min; Potassium 4.4 mmol/L (3.5-5.1)
[2020-11-23 08:08] LABS: Albumin Globulin Ratio 0.7 (0.9-2); Bilirubin,Total 0.5 mg/dl (0.2-1); Globulin 3.6 gm/dl (2.5-4.0); Total Protein 6.2 gm/dl (6.4-8.2)
--- NOTE | 2020-11-23 14:00 | Cardiology Progress Note ---
Date of Service November 23, 2020 Assessment & Plan (1) Dizziness: (2) SRIDHAR (acute kidney injury): (3) Transaminitis: (4) Elevated troponin: (5) COPD, severe: Plan: 75-year-old female presents with poor p.o. intake, dehydration, with acute renal insufficiency. Elevated troponin in setting of secondary to acute renal insufficiency, and chronic hypoxia /noncompliant with supplemental oxygen and underlying febrile illness. Plaque rupture event less likely. Resting 2D transthoracic echocardiogram demonstrating hyperdynamic left ventricular function without regional wall motion abnormality. Continue low-dose aspirin. Hold outpatient diuretic therapy. Agree with gentle hydration. Assess blood and urine cultures. Empiric antibiotic therapy as per internal medicine. Discussed further cardiovascular evaluation with outpatient stress testing. Patient agreeable to outpatient follow-up. No further inpatient cardiac testing at this time. Admission and Anticipated Discharge Date Admission Date: November 21, 2020 Subjective Patient seen and examined the bedside. Denies chest pain or shortness of breath. Dizziness has resolved. Telemetry reveals sinus rhythm in the 70s. No dysrhythmias. Patient without complaints today. Requesting discharge for tomorrow. Review of Systems Review of Systems: All systems reviewed & are unremarkable except as noted in Subjective Physical Exam Constitutional: well developed; not ill appearing Respiratory: normal respiratory effort; no respiratory distress, no labored breathing and no retractions Auscultation: + diminished lung sounds (Bilateral); no crackles, no rales, no rhonchi and no wheezes Cardiovascular: Rate/Rhythm: regular rate and regular rhythm Heart Sounds: normal S1 and normal S2; no murmur Vessels: radial pulses present; no JVD and no carotid bruit Extremities: no edema Gastrointestinal (Abdomen): Inspection/Auscultation: abdomen normal to inspection and normal bowel sounds; abdomen not distended Percussion/Palpation: abdomen soft; abdomen nontender, no guarding and abdomen not rigid Neurologic: CN's II-XI intact bilaterally and moves all extremities; no focal motor deficits Motor/Sensory: no tremor Psychiatric: A+Ox3, euthymic affect Results & Data ([facility]) Vital Signs (Past 12 Hours) Vital Signs Temp Pulse Resp BP Pulse Ox 11/23/20 12:12 36.7 C 64 11 L 164/81 H 96 11/23/20 08:56 37.1 C 69 20 151/80 H 96 11/23/20 04:00 36.9 C 74 20 143/77 H 96
--- NOTE | 2020-11-23 14:20 | Gastroenterology Progress Note ---
Date of Service November 23, 2020 Assessment & Plan (1) Transaminitis: Plan: Suspect infectious etiology. LFTs are improving. Leukocytosis improved with Zosyn. Continue infectious w/u. Will check serology for Lyme, Erlichia, Parvo, CMV, HepA, EB and Parvovirus when available. Would continue broad spectrum antibiotics coverage. No clear indication for antibiotics. OK for DC from a GI perspective. Will watch for serology results when available and will contact pt if significant abnormalities. No GI contraindication to a regular consistency diet. No GI contraindication to discharge. GI will sign off. (2) Dilated bile duct: Plan: Appears chronic, post cholecystectomy. No indication for ERCP at this time. Admission and Anticipated Discharge Date Admission Date: November 21, 2020 Supervising Physician Co-Signing Physician Notes Attending attestation I have seen, examined this patient, and agree with the findings and above by our mid-level provider SIENNA Flores. -Clinically improving, labs have improved -No clear GI etiology for presentation Subjective 75, female Admitted 11/21 for weakness. Transmanitis noted - improved yesterday and today. Ct with dilated bile duct. MRCP with chronic dilation since 2018. Thus far, viral serology (-) or pending. Today, pt's headache is better, feels a bit stronger, wants to go home. Still poor appetite. Review of Systems Review of Systems: ROS: Gen: + weakness, + falls, + memory issues, + chills. Denies fever or weight loss Eyes: No icterus, no eye redness, or pain, no recent vision changes Resp: No SOB, no cough Cardio: No palpitations/irregular beats, no chest pain GI: + nausea resolved today, reports some appetite and ready to try eating. No abdominal pain or vomiting : Denies pain on urination, no blood in urine or dark urine Skin: Itchy red dots on the chest; No jaundice Physical Exam Constitutional: well developed, + ill appearing, average body habitus and cooperative Eyes: PERRL, conjunctivae normal, anicteric sclerae Neck: trachea midline, no thyromegaly Respiratory: normal respiratory effort, lungs clear to auscultation Cardiovascular: RRR, no murmur, no edema Gastrointestinal (Abdomen): Inspection/Auscultation: abdomen normal to inspection and normal bowel sounds; abdomen not distended and no abdominal edema Neurologic: PERRL, EOMI, accommodation nl, no face palsy, no dysarthria Psychiatric: A+Ox3, euthymic affect Orientation: alert, oriented x 3 and cooperative Lymphatic: no cervical or axillary lymphadenopathy Results & Data ([facility]) Vital Signs (Past 12 Hours) Vital Signs Temp Pulse Resp BP Pulse Ox 11/23/20 12:12 36.7 C 64 11 L 164/81 H 96 11/23/20 08:56 37.1 C 69 20 151/80 H 96 11/23/20 04:00 36.9 C 74 20 143/77 H 96 Laboratory Results WBC 6, Hb 11.9, Hct 31.2, Plts 217 Na 142, K 4.4, Cl 111, CO2 27, BUN 23, Cr 1.3, glucose 87. Diagnostic Findings CTAP w/o contrast 11/23/20: Interval increase in dilation of the intra and extrahepatic bile ducts in this patient with transaminitis. This may represent bile duct obstruction or infectious/inflammatory cholangiopathy. MRCP 11/21/20: Moderate to marked biliary ductal dilatation, only slightly increased since CT of March 2017. Given relative stability, this is likely related to previous cholecystectomy however correlation with obstructive liver function tests is recommended. No common bile duct calculi identified. Slight increase in chronic dilatation of the main pancreatic duct since CT of March 27, 2017.
--- NOTE | 2020-11-23 15:48 | Discharge Summary ---
Date of Service November 23, 2020 Admission HPI Per Admitting Provider 75-year-old female with PMH COPD, dyslipidemia, CKD stage III, depression, and other problems to below who presents to the ED for evaluation of generalized weakness and frequent falls. Patient reports that yesterday she started to feel very weak and was having trouble ambulating. She reports falling several times since then. Denies striking her head. No lightheadedness, dizziness, syncopal events. Denies chest pain. Reports some worsening exertional shortness of breath. No unilateral weakness, numbness, tingling. Denies difficulty speaking, understanding, facial droop. Reports a very poor oral intake. Has had some intermittent epigastric abdominal pain and nausea. Has felt feverish however did not take her temperature. Denies chills and rigors. No urinary symptoms. In the ED, labs show creatinine 2.6 (baseline ~1.4), mild transaminitis. Troponin 0.250, EKG shows T wave inversions in the anterior leads. UA does not suggest UTI. CXR negative for acute cardiopulmonary findings. Patient was given IVF. Admission Exam Per Admitting Provider PE: -NAD, NC in place -Dry oral mucus membrane -Heart: normal S1/S2, no murmur -Lungs: CTA, no wheezing -Neuro: CN II-XII intact, good motor strength (symmetrical), PERRLA, EOMI -Psych: AAOx3 (but could not remember the date) Principal Diagnosis Falls, generalized weakness Transaminitis SRIDHAR over CKD Discharge Exam GENERAL: Alert and oriented x3. NAD, on 2L NC HEENT: No pallor, no icterus. Pupils equal, round and reactive to light. Oral mucosa moist. NECK: No JVD, no neck masses. HEART: S1 and S2 heard. Regular rate and rhythm. Systolic murmur over aortic and pulmonic area,, no gallop. RESPIRATORY SYSTEM: Normal AP diameter. No accessory muscle use. No wheezing, no crackles. ABDOMEN: Soft, bowel sounds present, RUQ minimal tender, no distention. CENTRAL NERVOUS SYSTEM: No facial droop. Speech is clear. Obeys simple commands. Moves extremities. EXTREMITIES: No edema, no erythema seen. Discharge Data Allergies Allergy/AdvReac Type Severity Reaction Status Date / Time codeine Allergy Mild Vomiting Verified 11/21/20 11:15 Consultations 11/21/20 11:11 ED Decision to Admit Stat 11/21/20 13:02 Consult Cardiology Routine Ordered Studies 11/21/20 12:19 CT abd pelvis wo con Urgent 11/21/20 15:14 MR MRCP Routine Hospital Course (1) Falls: (2) Transaminitis: (3) Elevated troponin: 75-year-old female with PMH of COPD, HLD, CKD stage III, depression, generalized osteoarthritis, anxiety, falls and anxiety presented 11/21 to our ED for evaluation of generalized weakness and frequent falls. Patient started to feel very weak since 1 day [employer] leading to trouble ambulating and falling several times since then. Denies head trauma/lightheadedness/syncopal events. She was managed for the following while she was inpatient: #. Falls: #. SRIDHAR (acute kidney injury): #. CKD (chronic kidney disease) stage 3, GFR 30-59 ml/min: Admitted with complaints of generalized weakness and frequent falls. In the ED, found to have SRIDHAR with creatinine 2.6 [baseline around 1.0]; likely secondary to decreased intake and recent initiation of Lasix. PT/OT Creatinine improving, was treated with IV fluid while inpatient, hold on Lasix and repeat BMP in a week time after discharge. To be reevaluated by her PCP for resuming her home dose of Lasix. Patient to get BMP in a week time and follow-up with the PCP within a week time. #. Transaminitis: #. Dilated bile ductstable/chronic, no indication for ERCP per GI. Admitting LFTs: T bili 0.6, AST 115, ALT 138, alk phos 138 Admitting CTAP: shows Interval increase in dilation of the intra and extrahepatic bile ducts in this patient with transaminitis. This may represent bile duct obstruction or infectious/inflammatory cholangiopathy. Admitting MRCP: 1. Moderate to marked biliary ductal dilatation, only slightly increased si nce CT of March 2017. Given relative stability, this is likely related to previous cholecystectomy however correlation with obstructive liver function tests is recommended. No common bile duct calculi identified. 2. Slight increase in chronic dilatation of the main pancreatic duct since CT of March 27, 2017. Lyme and Anaplasma testing negative. f/u Ehrlichia and Babesia. Given possible infectious findings on CT, started empiric Zosyn 11/21. WBC improving. We will discharge her on 5 days worth of Augmentin. GI consulted: Checking viral etiology for hepatitis. Suspecting infectious et iology for transaminitis. Several serology studies pending, patient will need to get in touch with her PCP for follow-up on her serology studies while inpatient. LFTs trended down towards normal. #. Elevated troponin: #. Abnormal EKG: Admitting EKG showed new T wave inversion in the anterior leads Troponin trends flat at 0.2, likely secondary to SRIDHAR over CKD No reporting of chest pain Patient was to have outpatient dobutamine stress test in September however she declined to schedule Cardiology on board: Recommends outpatient cardiovascular evaluation with stress testing. Patient agreeable. 11/22 echo: EF greater than 70% with estimated systolic pulmonary pressure 43 mmHg. #. COPD, severe: No signs of acute exacerbation Continue home inhalers #. Depression: #. Anxiety: Given SRIDHAR, will hold duloxetine, gabapentin, mirtazapine for now #. DVT prophylaxis: -SQ heparin while inpatient PT recommending 24-hour care at home versus short-term inpatient rehab upon discharge. Patient insisted on going home, CM arranging home health. Patient is being discharged to home with home health with the following instruction at time discharge: Follow-up with primary care physician within 1 week time. Hold on home Lasix until seen and evaluated by your primary care physician within a week time. Get blood work BMP within a week time. You will need to be reevaluated for resuming your home dose of Lasix within a week time. Follow-up with GI doctor in 1 to 2 months time Follow-up with cardiology In 1 to 2 months time for further cardiovascular evaluation with outpatient stress testing. Take medications as prescribed. Total Time Total Time Spent Total Time Spent (In Minutes): 45 Discharge Plan Discharge Items Patient Disposition: Home - Home Health Services Reason For Visit: WEAKNESS, FALLS Discharge Diagnosis: Falls, generalized weakness Transaminitis SRIDHAR over CKD Activity: Resume your previous activity Non-emergency contact: Primary Care Provider Call non-emergency contact if: you have any medication questions, your symptoms worsen, your pain is not controlled, your pain is worsening and your rectal temperature is above 100.4 Follow-up/Referrals: Aileen Fung PA-C [Physician Casing Grader] - (Date & Time 11/28/2020 10:00 AM Provider Aileen Fung PA-C Department Cardiology [facility] ) Sugar Gaines MD [Primary Care Provider] - (Date & Time 11/29/2020 2:40 PM Provider Sugar Kiser MD Department Family Medicine [facility] ) Diet: Heart Healthy Addtl Attending Provider Instructions: Follow-up with primary care physician within 1 week time. Hold on home Lasix until seen and evaluated by your primary care physician within a week time. Get blood work BMP within a week time. You will need to be reevaluated for resuming your home dose of Lasix within a week time. Follow-up with GI doctor in 1 to 2 months time Follow-up with cardiology In 1 to 2 months time for further cardiovascular evaluation with outpatient stress testing. Take medications as prescribed. Pending Studies at Discharge: Yes (Serologic markers; Admitting blood cultures final results pending. ) Stand-Alone Forms: My WEALTH at work, Smoking Cessation Medications and DC Order Prescriptions: New amoxicillin-pot clavulanate [Augmentin] 875-125 mg Tablet 1 tab PO BIDM 5 Days Qty: 10 RF: 0 Continued atorvastatin [Lipitor] 20 mg Tablet 10 mg PO QAM RF: 0 ipratropium-albuterol 0.5 mg-3 mg(2.5 mg base)/3 mL solution for nebulization 1 vial inhalation Q6H PRN (Reason: Wheezing) RF: 0 gabapentin [Neurontin] 400 mg capsule 400 mg PO TID RF: 0 cyanocobalamin (vitamin B-12) [Vitamin B-12] 1,000 mcg Tablet 1,000 mcg PO QAM RF: 0 albuterol sulfate [Ventolin HFA] 90 mcg/actuation Hfa Aerosol Inhaler 1 puff INHALATION Q6H PRN (Reason: Shortness Of Breath) RF: 0 cholecalciferol (vitamin D3) [Vitamin D3] 1,000 unit Capsule 1,000 unit PO QAM RF: 0 calcium carb and citrate-vitD3 [Citracal-D3 Slow Release] 600 mg calcium- 500 unit Tablet Extended Release 1 tab PO QAM RF: 0 magnesium oxide 400 mg magnesium Tablet 400 mg PO QAM RF: 0 diazepam [Valium] 2 mg tablet 2 mg PO QAM RF: 0 pantoprazole [Protonix] 40 mg tablet,delayed release (/EC) 40 mg PO DAILYBB RF: 0 duloxetine [Cymbalta] 60 mg capsule,delayed release(DR/EC) 60 mg PO QAM RF: 0 Trelegy Ellipta 100-62.5-25 mcg blister with device 1 inh INHALATION QAM RF: 0 oxybutynin chloride [Ditropan XL] 5 mg tablet extended release 24hr 5 mg PO QAM RF: 0 mirtazapine 45 mg tablet 45 mg PO HS RF: 0 furosemide [Lasix] 20 mg tablet 10 mg PO MOWEFR RF: 0 aspirin 81 mg Tablet 81 mg PO DAILY RF: 0 Discharge Orders: Discharge Order (Routine); Ordered 11/23/20 Ordered By: Arnold Quintero Admission Data Admit Date/Time: 11/21/20 11:52 Attending Provider: Arnold Quintero Admit Provider: Coleman Cohen Primary Care Provider: Sugar Gaines Other Providers: Coleman Cohen ; Sixto Slaughter,[facility] Other Interventions: Discharge Summary Assessment (RN) Last Done: 11/23/20 15:44
[2020-11-23] MEDS ORDERED: AMOXICILLIN/CLAVULANATE 875 MG TAB PO SCH (17:00)
[2020-11-24 15:47] LABS: CMV IgM Antibody <30.00 AU/mL; Hepatitis A Antibody IgM NON-REACTIVE (NON-REACTIVE); Hepatitis A Antibody Total REACTIVE (NON-REACTIVE); Parvovirus IgG 4.5 (<0.9)
[2020-11-24 23:16] LABS: CMV IgM Antibody <30.00 AU/mL; Ehrlichia chaff IgG Ab <1:64 (<1:64); Ehrlichia chaff IgM Ab <1:20 (<1:20)
[2020-11-27 01:06] LABS: Ehrlichia chaff DNA Bld Negative (Negative)
== END 2020-11-23 16:40 | disposition home health service (06) | DRG 684 ==
LOC: ED 09:09 → EDINP 11:52 → SUATTDRO 11:52 → 2N 12:55

== ENCOUNTER 2021-05-23 15:25 | Inpatient (IN) ==
[2021-05-23] MEDS ORDERED: SODIUM CHLORIDE 0.9% 500 ML IV STA (16:01)
[2021-05-23] MEDS ORDERED: ONDANSETRON INJ 2 MG/ML 2 ML VIAL IV STA (16:01)
--- NOTE | 2021-05-23 16:07 | Emergency Department Note ---
Impression & Plan Epigastric abdominal pain, Transaminitis, Acute pancreatitis, Acute pancreatitis after endoscopic retrograde cholangiopancreatography (ERCP) ED Provider Note NAME: ASIF BERNAL AGE: 75 SEX: F : 1945 ARRIVES VIA: Ambulance INFORMANT: [Patient][ems, nursing] ED PROVIDER(S): [Jm Middleton MD] CHIEF COMPLAINT: Abdominal pain HISTORY OF PRESENT ILLNESS: The patient is a 75-year-old female presents to the ER with upper abdominal pain radiating to her back. The pain is severe. The patient was at [facility] undergoing an endoscopy. The ERCP portion of the procedure was performed. They were unable to place the stent. Since the procedure, the patient has had abdominal pain and there is concern for pancreatitis. The patient denies being short of breath. She denies any fever or vomiting. There has been no urinary complaints. She has recently been diagnosed with transaminitis. She has had her gallbladder removed previously. REVIEW OF SYSTEMS: See HPI for pertinent positives and negatives. A total of ten systems were reviewed and were otherwise negative. PMHx/PSHx: See Below SOCIAL HISTORY: See Below. PHYSICAL EXAM: GENERAL: Patient is in no acute distress. HEENT: No acute trauma, normocephalic atraumatic, mucous membranes dry, no nasal congestion, no scleral icterus. NECK: No stridor, no adenopathy, no meningismus, trachea is midline. LUNGS: Clear to auscultation bilaterally when listening anterior, no wheeze, no rhonchi, breath sounds equal. HEART: Without murmurs gallops or rubs, regular rate and rhythm. ABDOMEN: Soft, moderately tender in the epigastrium, bowel sounds positive, no hernias, no peritonitis. EXTREMITIES: No cyanosis or edema, full range of motion of all the joints without pain or difficulty, no signs for acute trauma. NEUROLOGIC: Oriented x 3, no acute motor or sensory deficits, no focal weakness. SKIN: No rash, no jaundice, no diaphoresis. Pale. DIFFERENTIAL DIAGNOSIS: Appendicitis, ovarian cyst, ovarian torsion, ectopic , diverticulitis, UTI, obstruction, mesenteric ischemia, aortic pathology, inflammatory bowel disease, renal colic, PUD, pancreatitis, biliary pathology, hernia, volvulus, constipation, as well as other pathologies. EMERGENCY DEPARTMENT COURSE/PROCEDURES: ECG: Indication was epigastric pain. The ECG shows a normal sinus rhythm with a rate of 77. There is no ST elevation, no PVCs. The QTc is 468. Continuous Cardiac Monitoring: An order was placed for continuous cardiac monitoring. The monitor shows a rate of 80 with normal sinus rhythm. MEDICAL DECISION MAKING: There is no leukocytosis or concerning anemia. There is a normal platelet count. No coagulopathy. Creatinine was slightly high at 1.23, no significant electrolyte abnormality in need of emergent correction. Liver enzymes were elevated. Pancreatitis was noted by our testing with a lipase of 246. ECG showed a normal sinus rhythm, no ST elevation. Cardiac enzyme testing x1 is not consistent with acute cardiac injury. Urinalysis does not show infection. Covid testing returned negative. Chest x-ray did not show free air or pneumonia. No CHF. Abdominal and pelvis CT shows inflammation and fluid around the pancreas consistent with his recent procedure and possibly pancreatitis. There were a few bubbles of free air raising the possibility for bowel perforation. On my exam, the patient was tender across the epigastrium, she was not toxic or febrile. The patient received IV Zosyn as antibiotic coverage. She was given IV saline, 500 cc. She received IV morphine for pain, IV Zofran for nausea. I spoke with Dr. Whaley, he had performed the endoscopy and ERCP earlier. The patient is being hospitalized. The findings on abdominal CT imaging are expected given the procedure performed. I talked to the patient about her findings, I spoke with case management. The on-call hospitalist was consulted. Past Med/Surg History Medical History Anxiety CKD (chronic kidney disease) stage 3, GFR 30-59 ml/min COPD (chronic obstructive pulmonary disease) 2L N/C prn Depression Dyslipidemia Generalized osteoarthritis GERD (gastroesophageal reflux disease) Peptic ulcer disease HX Stress incontinence Surgical History History of gastric surgery TO REMOVE ULCER History of hemorrhoidectomy History of left cataract extraction History of tooth extraction Hx of cholecystectomy S/P appendectomy Family History Grandmother Diabetes Other No family history of adverse response to anesthesia Social History Smoking Status: Never smoker Second Hand Exposure: Yes; Hx Alcohol Use: No Hx Substance Use: No Preferred Language: Iraqi Communication Ability: Effective Director [employer] Required: No Beliefs That Will Affect Care: None marital status: / Current Living Situation: Alone current occupational status: retired Feels Safe at Home: Yes Assistive Devices: Walker Allergies Allergies Allergy/AdvReac Type Severity Reaction Status Date / Time codeine Allergy Mild Vomiting Verified 05/23/21 16:37 mirtazapine Allergy Unknown Unknown Verified 05/23/21 16:35 Home Meds Home Medications Medication Instructions Recorded Confirmed albuterol sulfate 90 mcg/actuation 1 puff INHALATION Q6H PRN 06/18/18 05/23/21 aerosol inhaler (Ventolin HFA) atorvastatin 20 mg tablet (Lipitor) 10 mg PO QAM 06/18/18 05/23/21 cholecalciferol (vitamin D3) 25 1,000 unit PO QAM 06/18/18 05/23/21 mcg (1,000 unit) capsule (Vitamin D3) cyanocobalamin (vitamin B-12) 1,000 mcg PO QAM 06/18/18 05/23/21 1,000 mcg tablet (Vitamin B-12) ipratropium 0.5 mg-albuterol 3 mg 1 vial INHALATION Q6H PRN 06/18/18 05/23/21 (2.5 mg base)/3 mL nebulization soln diazepam 2 mg tablet (Valium) 2 mg PO QAM 09/18/20 05/23/21 duloxetine 60 mg capsule,delayed 60 mg PO QAM 09/18/20 05/23/21 release (Cymbalta) pantoprazole 40 mg tablet,delayed 40 mg PO DAILYBB 09/18/20 05/23/21 release (Protonix) fluticasone fur. 100 mcg-umeclid 1 inh INHALATION QAM 09/19/20 05/23/21 62.5 mcg-vilant 25 mcg inhalat.powder (Trelegy Ellipta) buspirone 10 mg tablet 10 mg PO TID 05/23/21 05/23/21 cetirizine 10 mg tablet (Allergy 5 mg PO DAILY 05/23/21 05/23/21 Relief (cetirizine)) diphenhydramine HCl 25 mg capsule 25 mg PO QID PRN 05/23/21 05/23/21 (Diphenhist) docusate sodium 100 mg capsule 100 mg PO BID 05/23/21 05/23/21 hydroxyzine HCl 25 mg tablet 25 mg PO QID PRN 05/23/21 05/23/21 ondansetron 4 mg disintegrating 4 mg PO UD PRN 05/23/21 05/23/21 tablet oxybutynin chloride 10 mg 10 mg PO QAM 05/23/21 05/23/21 tablet,extended release 24 hr ropinirole 1 mg tablet 1 mg PO HS 05/23/21 05/23/21 sucralfate 1 gram tablet 1 g PO QID 05/23/21 05/23/21 tramadol 50 mg tablet 50 mg PO TID PRN 05/23/21 05/23/21 Results & Data (ED) Vital Signs Vital Signs - 24 hr 05/23/21 15:40 05/23/21 16:36 05/23/21 17:00 Temperature 36.8 C Temperature Source Oral Pulse Rate 79 Pulse Rate [Apical] 78 Respiratory Rate 16 18 Blood Pressure 174/106 H Blood Pressure [Left Arm] 182/104 H Blood Pressure Mean 128 Blood Pressure Mean [Left Arm] 130 Pulse Oximetry 86 L 95 99 Oxygen Delivery Method Room Air Nasal Cannula Nasal Cannula Oxygen Flow Rate 2 2 Sepsis Recent Fever Within 48 Hours No Sepsis New/Unexplained Change in Mental Status No Sepsis Action Taken by Nursing No Action Required Home Medications Current Medication List: was personally reviewed by me Laboratory Data Attestation: I reviewed the patient's lab results. Result diagrams: 05/23/21 16:15 05/23/21 16:15 Lab Results 05/23/21 05/23/21 05/23/21 Range/Units 16:15 16:15 16:15 WBC 9.11 (4.8-10.8) K/uL RBC 4.33 (4.2-5.4) M/uL Hgb 13.5 (12.0-16.0) g/dL Hct 40.1 (37-47) % MCV 92.6 (80-100) fL MCH 31.2 (25-34) pg MCHC 33.7 (32-36) g/dL RDW Std Deviation 42.8 (36.4-46.3) fL RDW Coeff of Walter 12.5 (11.5-14.5) % Plt Count 305 (130-400) K/uL MPV 8.9 (7.4-10.4) fL Immature Gran % (Auto) 0.1 % Neut % (Auto) 92.9 % Lymph % (Auto) 4.0 % [place] % (Auto) 2.7 % Eos % (Auto) 0.2 % Baso % (Auto) 0.1 % Neut # (Auto) 8.46 H (1.4-6.5) K/uL Lymph # (Auto) 0.36 L (1.2-3.4) K/uL [place] # (Auto) 0.25 (0.11-0.59) K/uL Eos # (Auto) 0.02 (0-0.5) K/uL Baso # (Auto) 0.01 (0-0.2) K/uL Immature Gran # (Auto) 0.01 (0.00-0.02) K/uL PT 10.4 (9.0-12.0) Seconds INR 1.0 (0.9-1.1) APTT 27.7 (21.0-31.0) Seconds PTT Ratio 1.0 Sodium 136 (136-145) mmol/L Potassium 3.9 (3.5-5.1) mmol/L Chloride 98 (98-107) mmol/L Carbon Dioxide 28 (21-32) mmol/L Anion Gap 10 (3-11) BUN 16 (6-23) mg/dl Creatinine 1.23 H (0.6-1.2) mg/dl Est Cr Clr Drug Dosing 37.8 ml/min Est GFR ( Amer) 49.3 ml/min Est GFR (Non-Af Amer) 42.6 ml/min BUN/Creatinine Ratio 13.0 (10-20) Glucose 180 H (70-99(Fasting)) mg/dl Calcium 8.6 (8.5-10.1) mg/dl Total Bilirubin 0.9 (0.2-1.0) mg/dl AST 291 H (13-39) U/L ALT 161 H (7-52) U/L Alkaline Phosphatase 260 H (34-104) U/L Troponin I < 0.03 (0-0.04) ng/ml Total Protein 7.0 (6.0-8.3) gm/dl Albumin 3.8 (3.4-5.0) gm/dl Globulin 3.2 (2.5-4.0) gm/dl Albumin/Globulin Ratio 1.2 (0.9-2) Lipase 246 H (11-82) U/L Urine Color Urine Appearance (Clear) Urine pH (4.5-7.5) Ur Specific [place] (1.000-1.030) Urine Protein (Negative) Urine Glucose (UA) (Negative) Urine Ketones (Negative) Urine Blood (Negative) Urine Nitrite (Negative) Urine Bilirubin (Negative) Urine Urobilinogen (Negative) Ur Leukocyte Esterase (Negative) SARS-CoV-2, RNA, NAAT (NEGATIVE) 05/23/21 05/23/21 Range/Units 16:30 16:30 WBC (4.8-10.8) K/uL RBC (4.2-5.4) M/uL Hgb (12.0-16.0) g/dL Hct (37-47) % MCV (80-100) fL MCH (25-34) pg MCHC (32-36) g/dL RDW Std Deviation (36.4-46.3) fL RDW Coeff of Walter (11.5-14.5) % Plt Count (130-400) K/uL MPV (7.4-10.4) fL Immature Gran % (Auto) % Neut % (Auto) % Lymph % (Auto) % [place] % (Auto) % Eos % (Auto) % Baso % (Auto) % Neut # (Auto) (1.4-6.5) K/uL Lymph # (Auto) (1.2-3.4) K/uL [place] # (Auto) (0.11-0.59) K/uL Eos # (Auto) (0-0.5) K/uL Baso # (Auto) (0-0.2) K/uL Immature Gran # (Auto) (0.00-0.02) K/uL PT (9.0-12.0) Seconds INR (0.9-1.1) APTT (21.0-31.0) Seconds PTT Ratio Sodium (136-145) mmol/L Potassium (3.5-5.1) mmol/L Chloride (98-107) mmol/L Carbon Dioxide (21-32) mmol/L Anion Gap (3-11) BUN (6-23) mg/dl Creatinine (0.6-1.2) mg/dl Est Cr Clr Drug Dosing ml/min Est GFR ( Amer) ml/min Est GFR (Non-Af Amer) ml/min BUN/Creatinine Ratio (10-20) Glucose (70-99(Fasting)) mg/dl Calcium (8.5-10.1) mg/dl Total Bilirubin (0.2-1.0) mg/dl AST (13-39) U/L ALT (7-52) U/L Alkaline Phosphatase (34-104) U/L Troponin I (0-0.04) ng/ml Total Protein (6.0-8.3) gm/dl Albumin (3.4-5.0) gm/dl Globulin (2.5-4.0) gm/dl Albumin/Globulin Ratio (0.9-2) Lipase (11-82) U/L Urine Color Yellow Urine Appearance Clear (Clear) Urine pH 7.0 (4.5-7.5) Ur Specific [place] 1.016 (1.000-1.030) Urine Protein Negative (Negative) Urine Glucose (UA) Trace H (Negative) Urine Ketones Trace H (Negative) Urine Blood Negative (Negative) Urine Nitrite Negative (Negative) Urine Bilirubin Negative (Negative) Urine Urobilinogen Negative (Negative) Ur Leukocyte Esterase Negative (Negative) SARS-CoV-2, RNA, NAAT NEGATIVE (NEGATIVE) Administered Medications Lactated Ringer's (Lr) 1,000 mls @ 150 mls/hr IV .Q6H40M RANI Stop: 06/22/21 21:10 Last Admin: 05/23/21 21:48 Dose: 150 mls/hr Documented by: [id number] Ondansetron HCl (Ondansetron Inj 2 Mg/Ml 2 Ml Vial) 4 mg IV Q6H PRN PRN Reason: Nausea Stop: 06/22/21 21:10 Last Admin: 05/23/21 21:56 Dose: 4 mg Documented by: [id number] Tramadol HCl (Tramadol Hcl 50 Mg Tablet) 100 mg PO TID PRN PRN Reason: Pain Stop: 06/22/21 21:10 Last Admin: 05/23/21 21:54 Dose: 100 mg Documented by: [id number] Discontinued Medications Sodium Chloride (Nss) 500 mls @ 999 mls/hr IV .Q31M STA Stop: 05/23/21 16:31 Last Infusion: 05/23/21 16:59 Dose: 0 mls/hr Documented by: [id number] Admin: 05/23/21 16:20 Dose: 999 mls/hr Documented by: [id number] Piperacillin Sod/Tazobactam Sod (Zosyn) 4.5 gm in 120 mls @ 240 mls/hr IV NOW ONE Stop: 05/23/21 18:29 Last Infusion: 05/23/21 19:06 Dose: 0 mls/hr Documented by: [id number] Admin: 05/23/21 18:02 Dose: 240 mls/hr Documented by: [id number] Morphine Sulfate (Morphine Sulfate 4 Mg/Ml 1 Ml Carp\Vial) 4 mg IV Q15M PRN PRN Reason: Pain Stop: 06/06/21 16:00 Last Admin: 05/23/21 18:02 Dose: 4 mg Documented by: [id number] Admin: 05/23/21 17:12 Dose: 4 mg Documented by: [id number] Admin: 05/23/21 16:19 Dose: 4 mg Documented by: [id number] Ondansetron HCl (Ondansetron Inj 2 Mg/Ml 2 Ml Vial) 4 mg IV NOW STA Stop: 05/23/21 16:02 Last Admin: 05/23/21 16:17 Dose: 4 mg Documented by: [id number] Imaging Data Radiologist's Impression: Abdomen/Pelvis CT 05/23/21 16:01 CT OF THE ABDOMEN AND PELVIS WITHOUT CONTRAST CLINICAL HISTORY: poss free air or obstruction, s/p ercp COMPARISON STUDY: CT of the abdomen and pelvis and MRCP November 21, 2020. TECHNIQUE: Axial images of the abdomen and pelvis were obtained without IV contrast. Images were reviewed in the axial, sagittal, and coronal planes. Automated exposure control was utilized for the study. A dose lowering technique was utilized adhering to the principles of ALARA. FINDINGS: Subpleural opacities within the lower lungs favor atelectasis. 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 Moderate to marked intra and extra hepatic biliary ductal dilatation is similar to prior exam. Mild dilatation of the pancreatic duct is similar to prior exam as well. There has been interval development of extensive infiltration within the right upper quadrant, within the operative bed, adjacent to the pancreatic head and multiple jejunal loops. Fluid extends into the mesentery and right anterior pararenal space. There may be a few locules of extraluminal gas. This could reflect a contained perforation. There is no evid ence for large or small bowel obstruction. Colonic diverticulosis is noted without evidence for acute diverticulitis. There is trace fluid within the pelvis. The urine within the bladder is slightly dense. This could be due to excreted contrast. No acute fracture or suspicious lesion within the visualized skeletal structures. IMPRESSION: 1. Interval development of extensive stranding and fluid within the right upper quadrant, adjacent to the pancreatic head and within the operative bed status post distal gastrectomy with Billroth II. A few locules of possible extraluminal gas which raise the possibility of a contained perforation. Depending on the recent procedure, this trace extraluminal gas may not be unexpected. Acute stokes creatitis is also within the differential and could be correlated with serum lipase level. 2. No bowel obstruction. 3. No significant change in moderate to marked biliary ductal dilatation. ACT 112: Negative or not required by law. Electronically signed by: David Adler M.D. 05/23/2021 5:16 PM Chest X-Ray 05/23/21 16:02 XR chest 1V portable CLINICAL HISTORY: abd pain TECHNIQUE: Single frontal radiograph of the chest was obtained. Comparison: Comparison is made to chest one view 11/21/2020 FINDINGS: No lines and tubes are seen. Calcified aortic knob is seen. The lungs are clear. No evidence of pleural effusion or pneumothorax. No evidence of pneumoperitoneum. IMPRESSION: No acute abnormality. ACT 112: Negative or not required by law. Electronically signed by: Abelardo Almanza M.D. 05/23/2021 4:37 PM Discharge Plan Visit Data Chief Complaint: Abdominal Pain ED Provider: Jm Middleton Discharge Problem: Epigastric abdominal pain, Transaminitis, Acute pancreatitis, Acute pancreatitis after endoscopic retrograde cholangiopancreatography (ERCP) Patient Disposition: Admitted As Inpatient Condition: Fair Discharge Instructions Interventions: ED Discharge Assessment Last Done: 05/23/21 20:52
[2021-05-23] MEDS: MoRPHine SULFATE 4 MG/ML 1 ML CARP\\VIAL IV PRN ×3 (16:19→18:02)
[2021-05-23 16:31] LABS: Basophils # (auto) 0.01 K/uL (0-0.2); Basophils % (auto) 0.1 %; Eosinophils # (auto) 0.02 K/uL (0-0.5); Eosinophils % (auto) 0.2 %; Hematocrit (blood only) 40.1 % (37-47); Hemoglobin 13.5 g/dL (12.0-16.0); Immature Granulocytes # (auto) 0.01 K/uL (0.00-0.02); Immature Granulocytes % (auto) 0.1 %; Lymphocytes # (auto) 0.36 K/uL (1.2-3.4); Mean Corpuscular Hemoglobin 31.2 pg (25-34); Mean Corpuscular Hgb Conc 33.7 g/dL (32-36); Mean Corpuscular Volume 92.6 fL (80-100); Mean Platelet Volume 8.9 fL (7.4-10.4); Monocytes # (auto) 0.25 K/uL (0.11-0.59); Monocytes % (auto) 2.7 %; Neutrophils # (auto) 8.46 K/uL (1.4-6.5); Neutrophils % (auto) 92.9 %; Platelet Count 305 K/uL (130-400); RDW Coefficient of Variation 12.5 % (11.5-14.5); RDW Standard Deviation 42.8 fL (36.4-46.3); Red Blood Count 4.33 M/uL (4.2-5.4); White Blood Count 9.11 K/uL (4.8-10.8)
--- NOTE | 2021-05-23 16:39 | XRay Report ---
XR chest 1V portable CLINICAL HISTORY: abd pain TECHNIQUE: Single frontal radiograph of the chest was obtained. Comparison: Comparison is made to chest one view 11/21/2020 FINDINGS: No lines and tubes are seen. Calcified aortic knob is seen. The lungs are clear. No evidence of pleur al effusion or pneumothorax. No evidence of pneumoperitoneum. IMPRESSION: No acute abnormality. ACT 112: Negative or not required by law. Electronically signed by: Abelardo Almanza M.D. 05/23/2021 4:37 PM
[2021-05-23 16:44] LABS: Partial Thromboplastin Time 27.7 Seconds (21.0-31.0); Prothrombin Time 10.4 Seconds (9.0-12.0)
[2021-05-23 16:50] LABS: Appearance Urine Clear (Clear); Bilirubin Urine Negative (Negative); Blood Urine Negative (Negative); Color Urine Yellow; Glucose Urine UA Trace (Negative); Ketones Urine Trace (Negative); Leukocyte Esterase Urine Negative (Negative); Nitrite Urine Negative (Negative); Protein Urine Negative (Negative); Specific Gravity Urine 1.016 (1.000-1.030); Urobilinogen Urine Negative (Negative)
[2021-05-23 16:54] LABS: Troponin I < 0.03 ng/ml (0-0.04)
[2021-05-23 17:01] LABS: Alanine Aminotransferase 161 U/L (7-52); Albumin Globulin Ratio 1.2 (0.9-2); Albumin Level 3.8 gm/dl (3.4-5.0); Alkaline Phosphatase 260 U/L (34-104); Anion Gap 10 (3-11); Aspartate Aminotransferase 291 U/L (13-39); Bilirubin,Total 0.9 mg/dl (0.2-1.0); Blood Urea Nitrogen 16 mg/dl (6-23); Calcium 8.6 mg/dl (8.5-10.1); Carbon Dioxide 28 mmol/L (21-32); Chloride 98 mmol/L (98-107); Creatinine Clr Calc Pharmacy 37.8 ml/min; Est GFR (African American) 49.3 ml/min; Est GFR (Non-African American) 42.6 ml/min; Globulin 3.2 gm/dl (2.5-4.0); Glucose 180 mg/dl (70-99(Fasting)); Lipase 246 U/L (11-82); Potassium 3.9 mmol/L (3.5-5.1); Sodium 136 mmol/L (136-145)
--- NOTE | 2021-05-23 17:18 | CT Scan Report ---
CT OF THE ABDOMEN AND PELVIS WITHOUT CONTRAST CLINICAL HISTORY: poss free air or obstruction, s/p ercp COMPARISON STUDY: CT of the abdomen and pelvis and MRCP November 21, 2020. TECHNIQUE: Axial images of the abdomen and pelvis were obtained without IV contrast. Images were revi ewed in the axial, sagittal, and coronal planes. Automated exposure control was utilized for the dayna dy. A dose lowering technique was utilized adhering to the principles of ALARA. FINDINGS: Subpleural opacities within the lower lungs favor atelectasis. 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 Moderate to marked in tra and extra hepatic biliary ductal dilatation is similar to prior exam. Mild dilatation of the panc reatic duct is similar to prior exam as well. There has been interval development of extensive infilt ration within the right upper quadrant, within the operative bed, adjacent to the pancreatic head and multiple jejunal loops. Fluid extends into the mesentery and right anterior pararenal space. There m ay be a few locules of extraluminal gas. This could reflect a contained perforation. There is no evid ence for large or small bowel obstruction. Colonic diverticulosis is noted without evidence for acute diverticulitis. There is trace fluid within the pelvis. The urine within the bladder is slightly den se. This could be due to excreted contrast. No acute fracture or suspicious lesion within the visualized skeletal structures. IMPRESSION: 1. Interval development of extensive stranding and fluid within the right upper quadrant, adjacent to the pancreatic head and within the operative bed status post distal gastrectomy with Billroth II. A few locules of possible extraluminal gas which raise the possibility of a contained perforation. Depe nding on the recent procedure, this trace extraluminal gas may not be unexpected. Acute pancreatitis is also within the differential and could be correlated with serum lipase level. 2. No bowel obstruction. 3. No significant change in moderate to marked biliary ductal dilatation. ACT 112: Negative or not required by law. Electronically signed by: David Adler M.D. 05/23/2021 5:16 PM
[2021-05-23] MEDS ORDERED: PIPERACILL/TAZOBAC CONSULT ACTIVE PRN ×2 (17:28→21:11)
[2021-05-23] MEDS ORDERED: PIPERACILLIN/TAZOBACTAM 4.5 GM in DEXTROSE 5% 100 ML IV ONE (17:28)
--- NOTE | 2021-05-23 17:51 | History & Physical Report ---
Date of Service May 23, 2021 Assessment & Plan (1) Post-ERCP acute pancreatitis: (2) Elevated LFTs: (3) Abdominal pain: Plan: This is a 75-year-old female who has significant past medical history of COPD on 2 L of O2 intermittently at home, HLD, hyperparathyroidism, history of paroxysmal SVT, GERD, CKD stage III, neuropathy, chronic back pain, depression with anxiety, history of tobacco abuse who presents to ED secondary to abdominal pain status post ERCP. Post ERCP acute pancreatitis Elevated LFTs Abdominal pain Admit to medical Consult GI Dr. Matias - only contact him and not webmethods consultant providers as he will be the sole provider for this patient due to performing ERCP NPO IVF LR @ 150/hr, will reduce rate slightly due to age, monitor volume status closely IV zosyn empirically per GI antiemetics pain meds Follow lipase and LFTs No NSAIDs History of PUD Status with Billroth II procedure 20+ years ago Continue PPI COPD No acute exacerbation Oxygen as needed to maintain O2 sat greater than 92% Continue Trelegy, as needed inhalers Hyperlipidemia hold statin given lfts resume when able CKD stage III Creatinine 1.2 Monitor, avoid nephrotoxic agents Depression with anxiety Grief Patient recently lost Continue BuSpar, Valium, Cymbalta DVT prophylaxis: SCDs for now, if to remain hospitalized and no upcoming procedures would recommend chemical prophylaxis Dispo: MedSur PCP: Shon Kiser DNR/DNI Patient was seen and examined in collaboration with Dr. Acevedo, please see addendum Patient's [id number] Nayla pike for updates, Patient's daughter Dominga who lives in [place] is History of Present Illness Chief Complaint: Abdominal pain s/p ERCP Primary Care Provider: Sugar Kiser MD This is a 75-year-old female who has significant past medical history of COPD on 2 L of O2 intermittently at home, HLD, hyperparathyroidism, history of paroxysmal SVT, GERD, CKD stage III, neuropathy, chronic back pain, depression with anxiety, history of tobacco abuse who presents to ED secondary to abdominal pain status post ERCP. Patient underwent ERCP today due to concern for sphincter of Oddi dysfunction/spasm by Dr. Matias. It was a difficult ERCP due to previous Billroth II anatomy/procedure. Failed biliary cannulation despite biliary precut sphincterotomy. It is recommended to schedule a repeat ERCP to attempt EUS guided rendezvous biliary access. Postprocedure patient complained of abdominal pain and there was concern of post ERCP pancreatitis and therefore she was referred to ED. of significance patient did have a gastrectomy with gastrojejunostomy approximately 20 years ago secondary to history of peptic ulcer disease. She admits approximately for the past 4 months she has been experiencing epigastric abdominal pain that has been radiating to her back. The pain comes and goes and she cannot pinpoint anything that makes it better or wor se. Overall feels her appetite is decreased but denies any significant weight gain or loss. She feels she is drinking liquids well. [id number] at bedside is also concerned as her symptoms of been ongoing for the past 4 months and is not convinced it is related to procedure. Patient denies recent fever, chills, sweats, lightheadedness, dizziness, chest pain, shortness breath at rest, dysuria, increased urgency or frequency with urination, melena or hematochezia. She tends to be more on the constipated side but her last bowel movement was 1 day ago. She does have chronic shortness of breath in setting of COPD and uses oxygen intermittently at home when she needs it. She also complains of a wet but nonproductive cough. She has been using her Trelegy daily and has not been needing her rescue or nebulizer treatments. In ED patient remained hemodynamically stable. Her lab work was significant for elevated lipase at 246, AST 291, ALT 161, alk phos 260, glucose 180 and creatinine at 1.23. Her CBC was generally unremarkable. CT a/p revealed Interval development of extensive stranding and fluid within the right upper quadrant, adjacent to the pancreatic head and within the operative bed status post distal gastrectomy with Billroth II. A few locules of possible extraluminal gas which raise the possibility of a contained perforation. Depending on the recent procedure, this trace extraluminal gas may not be unexpected. Acute pancreatitis is also within the differential and could be correlated with serum lipase level. Chest x-ray was without acute abnormality. ED provider contacted GI provider who performed procedure and recommended n.p.o., IV fluids and IV Zosyn. Also of note patient has been recently which has been contributing to increased depression with anxiety. Allergies Allergy/AdvReac Type Severity Reaction Status Date / Time codeine Allergy Mild Vomiting Verified 05/23/21 16:37 mirtazapine Allergy Unknown Unknown Verified 05/23/21 16:35 Home Medications Medication Instructions Recorded Confirmed Type albuterol sulfate 90 mcg/actuation 1 puff INHALATION Q6H PRN 06/18/18 05/23/21 History aerosol inhaler (Ventolin HFA) atorvastatin 20 mg tablet (Lipitor) 10 mg PO QAM 06/18/18 05/23/21 History cholecalciferol (vitamin D3) 25 1,000 unit PO QAM 06/18/18 05/23/21 History mcg (1,000 unit) capsule (Vitamin D3) cyanocobalamin (vitamin B-12) 1,000 mcg PO QAM 06/18/18 05/23/21 History 1,000 mcg tablet (Vitamin B-12) ipratropium 0.5 mg-albuterol 3 mg 1 vial INHALATION Q6H PRN 06/18/18 05/23/21 History (2.5 mg base)/3 mL nebulization soln diazepam 2 mg tablet (Valium) 2 mg PO QAM 09/18/20 05/23/21 History duloxetine 60 mg capsule,delayed 60 mg PO QAM 09/18/20 05/23/21 History release (Cymbalta) pantoprazole 40 mg tablet,delayed 40 mg PO DAILYBB 09/18/20 05/23/21 History release (Protonix) fluticasone fur. 100 mcg-umeclid 1 inh INHALATION QAM 09/19/20 05/23/21 History 62.5 mcg-vilant 25 mcg inhalat.powder (Trelegy Ellipta) buspirone 10 mg tablet 10 mg PO TID 05/23/21 05/23/21 History cetirizine 10 mg tablet (Allergy 5 mg PO DAILY 05/23/21 05/23/21 History Relief (cetirizine)) diphenhydramine HCl 25 mg capsule 25 mg PO QID PRN 05/23/21 05/23/21 History (Diphenhist) docusate sodium 100 mg capsule 100 mg PO BID 05/23/21 05/23/21 History hydroxyzine HCl 25 mg tablet 25 mg PO QID PRN 05/23/21 05/23/21 History ondansetron 4 mg disintegrating 4 mg PO UD PRN 05/23/21 05/23/21 History tablet oxybutynin chloride 10 mg 10 mg PO QAM 05/23/21 05/23/21 History tablet,extended release 24 hr ropinirole 1 mg tablet 1 mg PO HS 05/23/21 05/23/21 History sucralfate 1 gram tablet 1 g PO QID 05/23/21 05/23/21 History tramadol 50 mg tablet 50 mg PO TID PRN 05/23/21 05/23/21 History Past Med/Surg History Medical History (Updated 05/23/21 @ 18:30 by Ginette Jeffries PA-C) Anxiety CKD (chronic kidney disease) stage 3, GFR 30-59 ml/min COPD (chronic obstructive pulmonary disease) 2L N/C prn Depression Dyslipidemia Generalized osteoarthritis GERD (gastroesophageal reflux disease) Peptic ulcer disease HX Stress incontinence Surgical History History of gastric surgery TO REMOVE ULCER History of hemorrhoidectomy History of left cataract extraction History of tooth extraction Hx of cholecystectomy S/P appendectomy Family History Grandmother Diabetes Other No family history of adverse response to anesthesia Social History (Updated 05/23/21 @ 18:29 by Ginette Jeffries PA-C) Smoking Status: Never smoker Second Hand Exposure: Yes; Hx Alcohol Use: No Hx Substance Use: No Preferred Language: Comoran Communication Ability: Effective Horologist Required: No Beliefs That Will Affect Care: None marital status: / Current Living Situation: Alone current occupational status: retired Feels Safe at Home: Yes Assistive Devices: Walker Review of Systems Review of Systems: All systems reviewed & are unremarkable except as noted in HPI & below Physical Exam Physical Exam: Constitutional: WD/WN, elderly, F, vitals as above, NAD, sitting up in bed, pleasant, conversing easily Head: Normocephalic, Atraumatic Eyes: PERRL, conjunctivae normal, anicteric sclerae ENMT: external ear and nose normal, oropharynx normal Neck: trachea midline, no thyromegaly normal visual inspection Respiratory: normal respiratory effort, lungs clear to auscultation with LLL crackles, no wheeze/rhonchi. Normal insp/exp effort, no accessory muscle use Cardiovascular: RRR, no murmur, no edema Vessels: no JVD or carotid bruit Chest: normal inspection of chest Abdomen: normal bowel sounds, soft, +pain in RUQ and epigastrum, no rebound/guarding, rigidity, Musculoskeletal: no cyanosis or clubbing, extremities motor strength 5/5 Skin: no rashes, warm and dry normal turgor Neurologic: PERRL, EOMI, accommodation nl, no face palsy, no dysarthria CN's II-XI intact bilaterally and moves all extremities Psychiatric: A+Ox3, flat affect Lymphatic: no cervical or axillary lymphadenopathy : deferred Results & Data Results & Data ([facility]) Vital Signs (Past 12 Hours) Vital Signs Temp Pulse Resp BP Pulse Ox 05/23/21 16:36 95 05/23/21 15:40 36.8 C 79 16 174/106 H 86 L Diagnostic Findings Abdomen/Pelvis CT 05/23/21 16:01 CT OF THE ABDOMEN AND PELVIS WITHOUT CONTRAST CLINICAL HISTORY: poss free air or obstruction, s/p ercp COMPARISON STUDY: CT of the abdomen and pelvis and MRCP November 21, 2020. TECHNIQUE: Axial images of the abdomen and pelvis were obtained without IV contrast. Images were reviewed in the axial, sagittal, and coronal planes. Automated exposure control was utilized for the study. A dose lowering technique was utilized adhering to the principles of ALARA. FINDINGS: Subpleural opacities within the lower lungs favor atelectasis. 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 Moderate to marked intra and extra hepatic biliary ductal dilatation is similar to prior exam. Mild dilatation of the pancreatic duct is similar to prior exam as well. There has been interval development of extensive infiltration within the right upper quadrant, within the operative bed, adjacent to the pancreatic head and multiple jejunal loops. Fluid extends into the mesentery and right anterior pararenal space. There may be a few locules of extraluminal gas. This could reflect a contained perforation. There is no evidence for large or small bowel obstruction. Colonic diverticulosis is noted without evidence for acute diverticulitis. There is trace fluid within the pelvis. The urine within the bladder is slightly dense. This could be due to excreted contrast. No acute fracture or suspicious lesion within the visualized skeletal structures. IMPRESSION: 1. Interval development of extensive stranding and fluid within the right upper quadrant, adjacent to the pancreatic head and within the operative bed status post distal gastrectomy with Billroth II. A few locules of possible extraluminal gas which raise the possibility of a contained perforation. Depending on the recent procedure, this trace extraluminal gas may not be unexpected. Acute pancreatitis is also within the differential and could be correlated with serum lipase level. 2. No bowel obstruction. 3. No significant change in moderate to marked biliary ductal dilatation. ACT 112: Negative or not required by law. Electronically signed by: David Adler M.D. 05/23/2021 5:16 PM Chest X-Ray 05/23/21 16:02 XR chest 1V portable CLINICAL HISTORY: abd pain TECHNIQUE: Single frontal radiograph of the chest was obtained. Comparison: Comparison is made to chest one view 11/21/2020 FINDINGS: No lines and tubes are seen. Calcified aortic knob is seen. The lungs are clear. No evidence of pleural effusion or pneumothorax. No evidence of pneumoperitoneum. IMPRESSION: No acute abnormality. ACT 112: Negative or not required by law. Electronically signed by: Abelardo Almanza M.D. 05/23/2021 4:37 PM Medications Administered Medication List Morphine Sulfate (Morphine Sulfate 4 Mg/Ml 1 Ml Carp\Vial) 4 mg IV Q15M PRN PRN Reason: Pain Stop: 06/06/21 16:00 Last Admin: 05/23/21 17:12 Dose: 4 mg Documented by: [id number] Admin: 05/23/21 16:19 Dose: 4 mg Documented by: [id number] Discontinued Medications Sodium Chloride (Nss) 500 mls @ 999 mls/hr IV .Q31M STA Stop: 05/23/21 16:31 Last Infusion: 05/23/21 16:59 Dose: 0 mls/hr Documented by: [id number] Admin: 05/23/21 16:20 Dose: 999 mls/hr Documented by: [id number] Ondansetron HCl (Ondansetron Inj 2 Mg/Ml 2 Ml Vial) 4 mg IV NOW STA Stop: 05/23/21 16:02 Last Admin: 05/23/21 16:17 Dose: 4 mg Documented by: [id number] ECG Rate (beats per minute): 77 Rhythm: normal sinus COVID-19 Results Results COVID-19 Adm Lab Results: RBC 4.33 M/uL (4.2-5.4) 05/23/21 WBC 9.11 K/uL (4.8-10.8) 05/23/21 Hgb 13.5 g/dL (12.0-16.0) 05/23/21 Hct 40.1 % (37-47) 05/23/21 Plt Count 305 K/uL (130-400) 05/23/21 Neutrophils (%) (Auto) 92.9 % 05/23/21 Lymphocytes (%) (Auto) 4.0 % 05/23/21 Monocytes # (Auto) 0.25 K/uL (0.11-0.59) 05/23/21 Eosinophils # (Auto) 0.02 K/uL (0-0.5) 05/23/21 Immature Granulocyte % (Auto) 0.1 % 05/23/21 Neutrophils # (Auto) 8.46 K/uL (1.4-6.5) H 05/23/21 Lymphocytes # (Auto) 0.36 K/uL (1.2-3.4) L 05/23/21 Monocytes # (Auto) 0.25 K/uL (0.11-0.59) 05/23/21 Eosinophils # (Auto) 0.02 K/uL (0-0.5) 05/23/21 Basophils # (Auto) 0.01 K/uL (0-0.2) 05/23/21 Immature Granulocyte # (Auto) 0.01 K/uL (0.00-0.02) 05/23/21 Na 136 mmol/L (136-145) 05/23/21 K 3.9 mmol/L (3.5-5.1) 05/23/21 Cl 98 mmol/L (98-107) 05/23/21 CO2 28 mmol/L (21-32) 05/23/21 Anion Gap 10 (3-11) 05/23/21 BUN 16 mg/dl (6-23) 05/23/21 Creatinine 1.23 mg/dl (0.6-1.2) H 05/23/21 BUN/Creatinine Ratio 13.0 (10-20) 05/23/21 Glucose Level 180 mg/dl (70-99(Fasting)) H 05/23/21 Ca 8.6 mg/dl (8.5-10.1) 05/23/21 Total Bilirubin 0.9 mg/dl (0.2-1.0) 05/23/21 AST/SGOT 291 U/L (13-39) H 05/23/21 ALT/SGPT 161 U/L (7-52) H 05/23/21 Alkaline Phosphatase 260 U/L (34-104) H 05/23/21 Total Protein 7.0 gm/dl (6.0-8.3) 05/23/21 Albumin 3.8 gm/dl (3.4-5.0) 05/23/21 Globulin 3.2 gm/dl (2.5-4.0) 05/23/21 Albumin/Globulin Ratio 1.2 (0.9-2) 05/23/21 Troponin I < 0.03 ng/ml (0-0.04) 05/23/21 PTT 27.7 Seconds (21.0-31.0) 05/23/21 INR 1.0 (0.9-1.1) 05/23/21 SARS-CoV-2, RNA, NAAT NEGATIVE (NEGATIVE) 05/23/21 Chest X-Ray 05/23/21 Code Status & VTE Plan Code Status FULL CODE VTE Prophylaxis Plan VTE Prophylaxis will be ordered: Yes Supervising Physician Co-Signing Physician Notes Patient was seen and evaluated independently. Chart was reviewed. Case was discussed with IRWIN. Will keep NPO, continue IVF, morphine 2mg IV Q 2 PRN for pain, zosyn empirically although patient with no fever/leukocytosis
[2021-05-23] MEDS ORDERED: PIPERACILLIN/TAZOBACTAM 4.5 GM/120 ML BAG IV ONE (18:00)
[2021-05-23] MEDS ORDERED: traMADol HCL 50 MG TABLET PO PRN (21:11)
[2021-05-23] MEDS ORDERED: ALBUT/IPRATROP 3MG/0.5MG NEB 3 ML VIAL INH PRN (21:11)
[2021-05-23] MEDS ORDERED: ALBUTEROL HFA 8 GM INHALER INH PRN (21:11)
[2021-05-23] MEDS: LACTATED RINGER'S 1,000 ML IV SCH (21:48)
[2021-05-23] MEDS: traMADol HCL 50 MG TABLET PO PRN (21:54)
[2021-05-23] MEDS: ONDANSETRON INJ 2 MG/ML 2 ML VIAL IV PRN (21:56)
[2021-05-23] MEDS: SUCRALFATE 1 GM TAB PO SCH (22:03)
[2021-05-23] MEDS: busPIRone 5 MG TAB PO SCH (22:03)
[2021-05-23] MEDS: rOPINIRole HCL 1 MG TABLET PO SCH (22:04)
[2021-05-23] MEDS: PIPERACILLIN/TAZOBACTAM 3.375 GM in DEXTROSE 5% 100 ML IV SCH (22:19)
[2021-05-24] MEDS: MoRPHine SULFATE 2 MG/ML CARP IV PRN ×3 (02:20→07:32)
[2021-05-24] MEDS: LACTATED RINGER'S 1,000 ML IV SCH ×4 (04:19→21:45)
[2021-05-24] MEDS: PANTOprazole 40 MG TAB PO SCH (06:02)
[2021-05-24] MEDS: PIPERACILLIN/TAZOBACTAM 3.375 GM in DEXTROSE 5% 100 ML IV SCH ×3 (06:03→23:03)
[2021-05-24] MEDS: traMADol HCL 50 MG TABLET PO PRN ×2 (06:09→12:03)
--- NOTE | 2021-05-24 07:20 | Electrocardiogram Report ---
Test Reason : Blood Pressure : / mmHG Vent. Rate : 077 BPM Atrial Rate : 077 BPM P-R Int : 178 ms QRS Dur : 082 ms QT Int : 414 ms P-R-T Axes : 069 -01 062 degrees QTc Int : 468 ms Normal sinus rhythm Consider inferior WI Abnormal ECG When compared with ECG of 21-NOV-2020 09:18, Questionable change in QRS axis Confirmed by Jonny Teresa ([id number]) on 05/24/2021 7:20:18 AM Referred By: REFERRED SELF Confirmed By:Jonny Teresa
[2021-05-24 07:28] LABS: Basophils # (auto) 0.01 K/uL (0-0.2); Basophils % (auto) 0.1 %; Eosinophils # (auto) 0.03 K/uL (0-0.5); Eosinophils % (auto) 0.2 %; Hematocrit (blood only) 41.9 % (37-47); Hemoglobin 13.6 g/dL (12.0-16.0); Immature Granulocytes # (auto) 0.04 K/uL (0.00-0.02); Immature Granulocytes % (auto) 0.3 %; Lymphocytes # (auto) 0.65 K/uL (1.2-3.4); Lymphocytes % (auto) 4.6 %; Mean Corpuscular Hemoglobin 30.6 pg (25-34); Mean Corpuscular Hgb Conc 32.5 g/dL (32-36); Mean Corpuscular Volume 94.4 fL (80-100); Mean Platelet Volume 9.1 fL (7.4-10.4); Monocytes # (auto) 1.36 K/uL (0.11-0.59); Monocytes % (auto) 9.6 %; Neutrophils # (auto) 12.02 K/uL (1.4-6.5); Neutrophils % (auto) 85.2 %; Platelet Count 289 K/uL (130-400); RDW Coefficient of Variation 12.8 % (11.5-14.5); RDW Standard Deviation 44.1 fL (36.4-46.3); Red Blood Count 4.44 M/uL (4.2-5.4); White Blood Count 14.11 K/uL (4.8-10.8)
[2021-05-24 07:46] LABS: Albumin Globulin Ratio 1.2 (0.9-2); Albumin Level 3.2 gm/dl (3.4-5.0); BUN Creatinine Ratio 11.9 (10-20); Bilirubin,Total 1.4 mg/dl (0.2-1.0); Calcium 7.5 mg/dl (8.5-10.1); Creatinine Clr Calc Pharmacy 34.7 ml/min; Est GFR (African American) 44.5 ml/min; Est GFR (Non-African American) 38.4 ml/min; Globulin 2.6 gm/dl (2.5-4.0); Potassium 4.7 mmol/L (3.5-5.1); Total Protein 5.8 gm/dl (6.0-8.3)
[2021-05-24] MEDS: diazePAM 2 MG TABLET PO SCH (08:28)
[2021-05-24] MEDS: SUCRALFATE 1 GM TAB PO SCH ×4 (08:28→21:29)
[2021-05-24] MEDS: DULoxetine HCL 60 MG CAP PO SCH (08:29)
[2021-05-24] MEDS: OXYBUTYNIN CHLORIDE XL 5 MG TABCR PO SCH (08:29)
[2021-05-24] MEDS: busPIRone 5 MG TAB PO SCH ×3 (08:30→21:28)
[2021-05-24] MEDS: FLUTICASONE FUROATE 100MCG 14 PUFFS/INHALER INH SCH (08:30)
[2021-05-24] MEDS ORDERED: HYDROmorphone INJ 0.5 MG/0.5 ML SYR IV STA (09:25)
[2021-05-24] MEDS ORDERED: HYDROmorphone INJ 0.5 MG/0.5 ML SYR IV PRN ×2 (09:50→09:54)
[2021-05-24] MEDS ORDERED: STAT IV STA (10:42)
[2021-05-24] MEDS: OCTREOTIDE ACETATE 50 MCG in SYRINGE 9.5 ML IV SCH ×2 (11:19→21:41)
--- NOTE | 2021-05-24 12:27 | Gastrointestinal Consultation ---
Date of Consultation May 24, 2021 Assessment & Plan (1) Abdominal pain: (2) Elevated LFTs: (3) Elevated lipase: Pt is a 75 yo female w suspected Sphincter of Oddi dysfunction, admitted yesterday w symptoms of abd pain after ERCP procedure with failed cannulation. Labs and CT changes likely inflammatory related after ERCP procedure - NPO - Zosyn IV - IVF support - Octreotide 50mcg IV BID today - Repeat ERCP tomorrow by Dr. Whaley - Symptomatic management with analgesics & antiemetics prn Supervising Physician Co-Signing Physician Notes I performed a history and physical examination of the patient today, including specifically on physical exam - soft abdomen. I have discussed the patient's management with the advanced practitioner. Please refer to the nurse practitioner's note for the documented findings and plan of care. CT scan reviewed, the findings are related to catheterization of the minor papilla. Plan for second attempt ERCP tomorrow to place stents. History of Present Illness Reason for Consultation: Abd pain Requesting Physician: Dr. Yuan Acevedo Attending Physician: Dr. Andra Whaley History of Present Illness Pt is 75 yo female who was admitted for abd pain symptoms. She has hx of PUD, s/p gastrectomy w gastrojejunostomy. She was being evaluated for weight loss, findings of biliary & pancreatic duct dilation, abnormal appearing pancreas not ed on prior abd imaging studies and EUS. She was suspected to have Sphincter of Oddi dysfunction, ERCP yesterday by Dr. Whaley with failed cannulation despite biliary sphincterectomy. On evaluation, labs showed elevated WBC, LFTs, lipase. CT abd/pelvis showed interval development of extensive stranding and fluid within the right upper quadrant, adjacent to the pancreatic head and wit hin the operative bed status post distal gastrectomy with Billroth II. A few locules of possible extraluminal gas which raise the possibility of a contained perforation. Allergies Allergy/AdvReac Type Severity Reaction Status Date / Time codeine Allergy Mild Vomiting Verified 05/23/21 16:37 mirtazapine Allergy Unknown Unknown Verified 05/23/21 16:35 Home Medications Medication Instructions Recorded Confirmed Type albuterol sulfate 90 mcg/actuation 1 puff INHALATION Q6H PRN 06/18/18 05/23/21 History aerosol inhaler (Ventolin HFA) atorvastatin 20 mg tablet (Lipitor) 10 mg PO QAM 06/18/18 05/23/21 History cholecalciferol (vitamin D3) 25 1,000 unit PO QAM 06/18/18 05/23/21 History mcg (1,000 unit) capsule (Vitamin D3) cyanocobalamin (vitamin B-12) 1,000 mcg PO QAM 06/18/18 05/23/21 History 1,000 mcg tablet (Vitamin B-12) ipratropium 0.5 mg-albuterol 3 mg 1 vial INHALATION Q6H PRN 06/18/18 05/23/21 History (2.5 mg base)/3 mL nebulization soln diazepam 2 mg tablet (Valium) 2 mg PO QAM 09/18/20 05/23/21 History duloxetine 60 mg capsule,delayed 60 mg PO QAM 09/18/20 05/23/21 History release (Cymbalta) pantoprazole 40 mg tablet,delayed 40 mg PO DAILYBB 09/18/20 05/23/21 History release (Protonix) fluticasone fur. 100 mcg-umeclid 1 inh INHALATION QAM 09/19/20 05/23/21 History 62.5 mcg-vilant 25 mcg inhalat.powder (Trelegy Ellipta) buspirone 10 mg tablet 10 mg PO TID 05/23/21 05/23/21 History cetirizine 10 mg tablet (Allergy 5 mg PO DAILY 05/23/21 05/23/21 History Relief (cetirizine)) diphenhydramine HCl 25 mg capsule 25 mg PO QID PRN 05/23/21 05/23/21 History (Diphenhist) docusate sodium 100 mg capsule 100 mg PO BID 05/23/21 05/23/21 History hydroxyzine HCl 25 mg tablet 25 mg PO QID PRN 05/23/21 05/23/21 History ondansetron 4 mg disintegrating 4 mg PO UD PRN 05/23/21 05/23/21 History tablet oxybutynin chloride 10 mg 10 mg PO QAM 05/23/21 05/23/21 History tablet,extended release 24 hr ropinirole 1 mg tablet 1 mg PO HS 05/23/21 05/23/21 History sucralfate 1 gram tablet 1 g PO QID 05/23/21 05/23/21 History tramadol 50 mg tablet 50 mg PO TID PRN 05/23/21 05/23/21 History Patient History Medical History (Updated 05/24/21 @ 12:33 by SIENNA Cm) Anxiety CKD (chronic kidney disease) stage 3, GFR 30-59 ml/min COPD (chronic obstructive pulmonary disease) 2L N/C prn Depression Dyslipidemia Generalized osteoarthritis GERD (gastroesophageal reflux disease) Peptic ulcer disease HX Stress incontinence Surgical History History of gastric surgery TO REMOVE ULCER History of hemorrhoidectomy History of left cataract extraction History of tooth extraction Hx of cholecystectomy S/P appendectomy Family History Grandmother Diabetes Other No family history of adverse response to anesthesia Social History Smoking Status: Former smoker Smoking End Date: 12 years ago; Second Hand Exposure: Yes; Do You Dip or Chew Tobacco: No; Hx Alcohol Use: No Hx Substance Use: No Preferred Language: Bhutanese Communication Ability: Effective Senior Solutions Consultant Required: No Beliefs That Will Affect Care: None marital status: / Current Living Situation: Alone current occupational status: retired How many Children do You have: 2 Feels Safe at Home: Yes Safety Concerns: Feels Safe At This Time Assistive Devices: Cane and Walker Review of Systems Review of Systems: All systems reviewed & are unremarkable except as noted in HPI & below Physical Exam Constitutional: WD/WN, vitals as above well groomed, cooperative and comfortable Eyes: PERRL, conjunctivae normal, anicteric sclerae ENMT: external ear and nose normal, oropharynx normal Respiratory: normal respiratory effort, lungs clear to auscultation Cardiovascular: RRR, no murmur, no edema Gastrointestinal (Abdomen): normal bowel sounds, soft, nontender, no hepatosplenomegaly Skin: no rashes, warm and dry no jaundice Psychiatric: A+Ox3, euthymic affect Lymphatic: no lymphedema Results & Data ([facility]) Vital Signs (Past 12 Hours) Vital Signs Temp Pulse Resp BP Pulse Ox 05/24/21 07:56 36.7 C 100 H 16 118/60 94
--- NOTE | 2021-05-24 12:57 | Hospitalist Progress Note ---
Date of Service May 24, 2021 Assessment & Plan (1) Post-ERCP acute pancreatitis: (2) Elevated LFTs: (3) Abdominal pain: Plan: This is a 75-year-old female who has significant past medical history of COPD on 2 L of O2 intermittently at home, HLD, hyperparathyroidism, history of paroxysmal SVT, GERD, CKD stage III, neuropathy, chronic back pain, depression with anxiety, history of tobacco abuse who presents to ED secondary to abdominal pain status post ERCP. 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 Continue PPI COPD No acute exacerbation Oxygen as needed to maintain O2 sat greater than 92% Continue Trelegy, as needed inhalers Hyperlipidemia hold statin due to LFT elevation CKD stage III Monitor, avoid nephrotoxic agents Depression with anxiety Continue BuSpar, Valium, Cymbalta DVT prophylaxis: SCDs for now with plan for repeat ERCP tomorrow Patient's [id number] Nayla pike for updates, Patient's daughter Dominga who lives in [place] is Admission and Anticipated Discharge Date Admission Date: May 23, 2021 Subjective Still with epigastric pain Physical Exam Physical Exam: appears uncomfortable and in pain ENMT: mucous membrane dry Respiratory: breathing comfortably, no wheezing/rhonchi/rales Cardiovascular: mildly tachycardic, no murmurs/rubs/gallops Gastrointestinal (Abdomen): +epigastric tenderness Musculoskeletal: no edema Results & Data Results & Data ([facility]) Vital Signs (Past 12 Hours) Vital Signs Temp Pulse Resp BP Pulse Ox 05/24/21 07:56 36.7 C 100 H 16 118/60 94 Laboratory Results Short CBC 05/23/21 05/24/21 Range/Units 16:15 06:45 WBC 9.11 14.11 H (4.8-10.8) K/uL Hgb 13.5 13.6 (12.0-16.0) g/dL Hct 40.1 41.9 (37-47) % Plt Count 305 289 (130-400) K/uL BMP 05/23/21 05/24/21 16:15 06:45 Sodium 136 139 Potassium 3.9 4.7 D Chloride 98 103 Carbon Dioxide 28 29 BUN 16 16 Creatinine 1.23 H 1.34 H Glucose 180 H 110 H Calcium 8.6 7.5 L Cardiac Enzymes 05/23/21 Range/Units 16:15 Troponin I < 0.03 (0-0.04) ng/ml Liver Function 05/23/21 05/24/21 Range/Units 16:15 06:45 Total Bilirubin 0.9 1.4 H D (0.2-1.0) mg/dl AST 291 H 120 H (13-39) U/L ALT 161 H 119 H (7-52) U/L Alkaline Phosphatase 260 H 216 H (34-104) U/L Albumin 3.8 3.2 L (3.4-5.0) gm/dl Urine 05/23/21 Range/Units 16:30 Urine Color Yellow Urine Appearance Clear (Clear) Urine pH 7.0 (4.5-7.5) Ur Specific [place] 1.016 (1.000-1.030) Urine Protein Negative (Negative) Urine Glucose (UA) Trace H (Negative) Medications Administered Current Inpatient Medications Acetaminophen (Acetaminophen 325 Mg Tab) 650 mg PO Q4H PRN PRN Reason: pain/fever Stop: 06/22/21 21:10 Albuterol (Albuterol Hfa 8 Gm Inhaler) 1 puffs INH Q6H PRN PRN Reason: Shortness Of Breath Stop: 06/22/21 21:10 Albuterol (Albut/Ipratrop 3mg/0.5mg Neb 3 Ml Vial) 3 ml INH Q6H PRN; Protocol PRN Reason: Wheezing Stop: 06/22/21 21:10 Buspirone HCl (Buspirone 5 Mg Tab) 10 mg PO TID [facility] Stop: 06/22/21 21:10 Last Admin: 05/24/21 08:30 Dose: 10 mg Documented by: Diazepam (Diazepam 2 Mg Tablet) 2 mg PO QAM [facility] Stop: 06/23/21 08:59 Last Admin: 05/24/21 08:28 Dose: 2 mg Documented by: Duloxetine HCl (Duloxetine Hcl 60 Mg Cap) 60 mg PO QAM [facility] Stop: 06/23/21 08:59 Last Admin: 05/24/21 08:29 Dose: 60 mg Documented by: Fluticasone Furoate (Fluticasone Furoate 100mcg 14 Puffs/Inhaler) 1 puffs INH DAILY [facility]; Protocol Stop: 06/23/21 08:59 Last Admin: 05/24/21 08:30 Dose: 1 puffs Documented by: Hydromorphone HCl (Hydromorphone Inj 0.5 Mg/0.5 Ml Syr) 0.5 mg IV Q4 PRN; Protocol PRN Reason: Pain Stop: 06/07/21 09:51 Hydromorphone HCl (Hydromorphone Inj 0.5 Mg/0.5 Ml Syr) 0.25 mg IV Q4 PRN; Protocol PRN Reason: Pain Stop: 06/07/21 09:49 Lactated Ringer's (Lr) 1,000 mls @ 150 mls/hr IV .Q6H40M [facility] Stop: 06/22/21 21:10 Last Admin: 05/24/21 10:41 Dose: 150 mls/hr Documented by: Piperacillin Sod/Tazobactam (Sod 3.375 gm/ Dextrose) 115 mls @ 28.75 mls/hr IV Q8H [facility]; Protocol Stop: 06/02/21 22:59 Last Infusion: 05/24/21 10:20 Dose: Infused Documented by: Octreotide Acetate 50 mcg/ (Syringe) 10 mls @ 3 mls/min IV BID [facility] Stop: 05/24/21 21:04 Last Admin: 05/24/21 11:19 Dose: 3 mls/min Documented by: Indomethacin (Indomethacin 50 Mg Supp) 100 mg VT ONE ONE Stop: 05/25/21 10:03 Miscellaneous Information (Piperacill/Tazobac Consult Active) 1 ea N/A UD PRN PRN Reason: Consult Stop: 06/22/21 21:10 Ondansetron HCl (Ondansetron Inj 2 Mg/Ml 2 Ml Vial) 4 mg IV Q6H PRN PRN Reason: Nausea Stop: 06/22/21 21:10 Last Admin: 05/23/21 21:56 Dose: 4 mg Documented by: Oxybutynin Chloride (Oxybutynin Chloride Xl 5 Mg Tabcr) 10 mg PO QAM [facility] Stop: 06/23/21 08:59 Last Admin: 05/24/21 08:29 Dose: 10 mg Documented by: Pantoprazole Sodium (Pantoprazole 40 Mg Tab) 40 mg PO DAILYBB [facility] Stop: 06/23/21 06:29 Last Admin: 05/24/21 06:02 Dose: 40 mg Documented by: Ropinirole HCl (Ropinirole Hcl 1 Mg Tablet) 1 mg PO HS [facility] Stop: 06/22/21 21:10 Last Admin: 05/23/21 22:04 Dose: 1 mg Documented by: Sucralfate (Sucralfate 1 Gm Tab) 1 gm PO QID [facility] Stop: 06/22/21 21:10 Last Admin: 05/24/21 12:03 Dose: 1 gm Documented by: Tramadol HCl (Tramadol Hcl 50 Mg Tablet) 100 mg PO TID PRN PRN Reason: Pain Stop: 06/22/21 21:10 Last Admin: 05/24/21 12:03 Dose: 100 mg Documented by:
[2021-05-24] MEDS: HYDROmorphone INJ 0.5 MG/0.5 ML SYR IV PRN ×3 (13:11→21:26)
[2021-05-24] MEDS: ACETAMINOPHEN 325 MG TAB PO PRN ×2 (14:59→23:07)
[2021-05-24] MEDS ORDERED: LORATADINE 10 MG TAB PO ONE (21:00)
[2021-05-24] MEDS: rOPINIRole HCL 1 MG TABLET PO SCH (21:29)
[2021-05-24] MEDS: ONDANSETRON INJ 2 MG/ML 2 ML VIAL IV PRN (21:48)
[2021-05-25] MEDS: HYDROmorphone INJ 0.5 MG/0.5 ML SYR IV PRN ×4 (01:42→20:04)
[2021-05-25] MEDS: traMADol HCL 50 MG TABLET PO PRN ×2 (02:40→22:19)
[2021-05-25] MEDS: LACTATED RINGER'S 1,000 ML IV SCH ×4 (03:02→19:49)
[2021-05-25] MEDS: PANTOprazole 40 MG TAB PO SCH (06:17)
[2021-05-25] MEDS: ONDANSETRON INJ 2 MG/ML 2 ML VIAL IV PRN (06:26)
[2021-05-25] MEDS: PIPERACILLIN/TAZOBACTAM 3.375 GM in DEXTROSE 5% 100 ML IV SCH ×3 (06:29→23:38)
--- NOTE | 2021-05-25 07:19 | Anesthesiology Consultation ---
Date of Service May 25, 2021 Assessment & Plan (1) Encounter for pre-operative examination: Chart Review Chart Review: certified mortician initiated History Surgery Operation Date: 05/25/21 07:10 Proposed Procedures p Endoscopic Retrograde Cholangiopancreatogram - Andra Whaley MD Height/Weight Height: 5 ft 7 in Weight: 65.7 kg Allergies Allergy/AdvReac Type Severity Reaction Status Date / Time codeine Allergy Mild Vomiting Verified 05/23/21 16:37 mirtazapine Allergy Unknown Unknown Verified 05/23/21 16:35 Medications Home Medications Medication Instructions Recorded Confirmed Last Taken albuterol sulfate 90 mcg/actuation 1 puff INHALATION Q6H PRN 06/18/18 05/23/21 11/21/20 aerosol inhaler (Ventolin HFA) atorvastatin 20 mg tablet (Lipitor) 10 mg PO QAM 06/18/18 05/23/21 07/06/19 cholecalciferol (vitamin D3) 25 1,000 unit PO QAM 06/18/18 05/23/21 07/06/19 mcg (1,000 unit) capsule (Vitamin D3) cyanocobalamin (vitamin B-12) 1,000 mcg PO QAM 06/18/18 05/23/21 07/06/19 1,000 mcg tablet (Vitamin B-12) ipratropium 0.5 mg-albuterol 3 mg 1 vial INHALATION Q6H PRN 06/18/18 05/23/21 Unknown (2.5 mg base)/3 mL nebulization soln diazepam 2 mg tablet (Valium) 2 mg PO QAM 09/18/20 05/23/21 Unknown duloxetine 60 mg capsule,delayed 60 mg PO QAM 09/18/20 05/23/21 Unknown release (Cymbalta) pantoprazole 40 mg tablet,delayed 40 mg PO DAILYBB 09/18/20 05/23/21 Unknown release (Protonix) fluticasone fur. 100 mcg-umeclid 1 inh INHALATION QAM 09/19/20 05/23/21 Unknown 62.5 mcg-vilant 25 mcg inhalat.powder (Trelegy Ellipta) buspirone 10 mg tablet 10 mg PO TID 05/23/21 05/23/21 Unknown cetirizine 10 mg tablet (Allergy 5 mg PO DAILY 05/23/21 05/23/21 Unknown Relief (cetirizine)) diphenhydramine HCl 25 mg capsule 25 mg PO QID PRN 05/23/21 05/23/21 Unknown (Diphenhist) docusate sodium 100 mg capsule 100 mg PO BID 05/23/21 05/23/21 Unknown hydroxyzine HCl 25 mg tablet 25 mg PO QID PRN 05/23/21 05/23/21 Unknown ondansetron 4 mg disintegrating 4 mg PO UD PRN 05/23/21 05/23/21 Unknown tablet oxybutynin chloride 10 mg 10 mg PO QAM 05/23/21 05/23/21 Unknown tablet,extended release 24 hr ropinirole 1 mg tablet 1 mg PO HS 05/23/21 05/23/21 Unknown sucralfate 1 gram tablet 1 g PO QID 05/23/21 05/23/21 Unknown tramadol 50 mg tablet 50 mg PO TID PRN 05/23/21 05/23/21 Unknown Active Medications Generic Name Dose Route Start Last Admin Trade Name [facility] PRN Reason Stop Dose Admin Acetaminophen 650 mg 05/23/21 21:11 05/24/21 23:07 Acetaminophen 325 Mg Tab PO 06/22/21 21:10 650 mg Q4H PRN Administration pain/fever Buspirone HCl 10 mg 05/23/21 21:11 05/24/21 21:28 Buspirone 5 Mg Tab PO 06/22/21 21:10 10 mg TID RANI Administration Diazepam 2 mg 05/24/21 09:00 05/24/21 08:28 Diazepam 2 Mg Tablet PO 06/23/21 08:59 2 mg QAM RANI Administration Duloxetine HCl 60 mg 05/24/21 09:00 05/24/21 08:29 Duloxetine Hcl 60 Mg Cap PO 06/23/21 08:59 60 mg QAM [facility]ANI Administration Fluticasone Furoate 1 puffs 05/24/21 09:00 05/24/21 08:30 Fluticasone Furoate 100mcg 14 Puffs/Inhaler INH 06/23/21 08:59 1 puffs DAILY [facility]ANI Administration Protocol Hydromorphone HCl 0.5 mg 05/24/21 09:52 05/25/21 06:22 Hydromorphone Inj 0.5 Mg/0.5 Ml Syr IV 06/07/21 09:51 0.5 mg Q4 PRN Administration Pain Protocol Lactated Ringer's 1,000 mls @ 200 mls/hr 05/23/21 21:11 05/25/21 03:02 Lr IV 06/22/21 21:10 200 mls/hr .Q5H [facility]ANI Administration Piperacillin Sod/Tazobactam 115 mls @ 28.75 mls/hr 05/23/21 23:00 05/25/21 06:29 Sod 3.375 gm/ Dextrose IV 06/02/21 22:59 28.8 mls/hr Q8H RANI Administration Protocol Ondansetron HCl 4 mg 05/23/21 21:11 05/25/21 06:26 Ondansetron Inj 2 Mg/Ml 2 Ml Vial IV 06/22/21 21:10 4 mg Q6H PRN Administration Nausea Oxybutynin Chloride 10 mg 05/24/21 09:00 05/24/21 08:29 Oxybutynin Chloride Xl 5 Mg Tabcr PO 06/23/21 08:59 10 mg QAM RANI Administration Pantoprazole Sodium 40 mg 05/24/21 06:30 05/25/21 06:17 Pantoprazole 40 Mg Tab PO 06/23/21 06:29 40 mg DAILYBB RANI Administration Ropinirole HCl 1 mg 05/23/21 21:11 05/24/21 21:29 Ropinirole Hcl 1 Mg Tablet PO 06/22/21 21:10 1 mg HS RANI Administration Sucralfate 1 gm 05/23/21 21:11 05/24/21 21:29 Sucralfate 1 Gm Tab PO 06/22/21 21:10 1 gm QID [facility]ANI Administration Tramadol HCl 100 mg 05/23/21 21:42 05/25/21 02:40 Tramadol Hcl 50 Mg Tablet PO 06/22/21 21:10 100 mg TID PRN Administration Pain Past Medical History Medical History (Updated 05/25/21 @ 07:18 by Kyaw Reveles DO) Anxiety CKD (chronic kidney disease) stage 3, GFR 30-59 ml/min COPD (chronic obstructive pulmonary disease) 2L N/C prn Depression Dyslipidemia Generalized osteoarthritis GERD (gastroesophageal reflux disease) Peptic ulcer disease HX Stress incontinence Past Family History Family History Grandmother Diabetes Other No family history of adverse response to anesthesia Past Surgical History Surgical History History of gastric surgery TO REMOVE ULCER History of hemorrhoidectomy History of left cataract extraction History of tooth extraction Hx of cholecystectomy S/P appendectomy Social History Smoking Status: Former smoker tobacco type: cigarettes Do You Dip or Chew Tobacco: No Smoking End Date: 12 years ago Hx Alcohol Use: No Hx Substance Use: No substance use type: does not use Physical Exam Vital Signs Last Vital Signs Temp 98.8 F 05/24/21 22:45 Pulse 99 H 05/24/21 22:45 Resp 18 05/24/21 22:45 BP 94/57 L 05/24/21 22:45 Pulse Ox 97 05/24/21 22:45 Testing Laboratory Results 05/24/21 06:45 05/24/21 06:45 PT 10.4 Seconds (9.0-12.0) 05/23/21 16:15 INR 1.0 (0.9-1.1) 05/23/21 16:15 APTT 27.7 Seconds (21.0-31.0) 05/23/21 16:15 Urine Color Yellow 05/23/21 16:30 Urine Appearance Clear (Clear) 05/23/21 16:30 Urine pH 7.0 (4.5-7.5) 05/23/21 16:30 Ur Specific [place] 1.016 (1.000-1.030) 05/23/21 16:30 Urine Protein Negative (Negative) 05/23/21 16:30 Urine Glucose (UA) Trace (Negative) H 05/23/21 16:30 Urine Ketones Trace (Negative) H 05/23/21 16:30 Urine Nitrite Negative (Negative) 05/23/21 16:30 Ur Leukocyte Esterase Negative (Negative) 05/23/21 16:30 Electrocardiogram Date: 05/23/21 Normal sinus rhythm, rate 77 bpm Consider inferior DE Abnormal ECG When compared with ECG of 21-NOV-2020 09:18, Questionable change in QRS axis Confirmed by Jonny Teresa ([id number]) on 05/24/2021 7:20:18 AM Chest X-Ray Date: 05/23/21 Findings: + NAD Echocardiogram Date: 11/22/20 The study was technically adequate. Compared to prior study, changes are noted. The LV is hyperdynamic EF => 70% LV wall motion is normal Mild TR Estimated systolic pulmonary pressure is 43mmHg
[2021-05-25] MEDS: busPIRone 5 MG TAB PO SCH ×3 (07:58→21:43)
[2021-05-25] MEDS: OXYBUTYNIN CHLORIDE XL 5 MG TABCR PO SCH (07:59)
[2021-05-25] MEDS: diazePAM 2 MG TABLET PO SCH (07:59)
[2021-05-25] MEDS: FLUTICASONE FUROATE 100MCG 14 PUFFS/INHALER INH SCH (07:59)
[2021-05-25] MEDS: SUCRALFATE 1 GM TAB PO SCH ×4 (07:59→21:44)
[2021-05-25] MEDS: DULoxetine HCL 60 MG CAP PO SCH (07:59)
[2021-05-25 08:06] LABS: Hematocrit (blood only) 41.1 % (37-47); Hemoglobin 13.6 g/dL (12.0-16.0); Mean Corpuscular Hemoglobin 30.9 pg (25-34); Mean Corpuscular Hgb Conc 33.1 g/dL (32-36); Mean Corpuscular Volume 93.4 fL (80-100); Platelet Count 295 K/uL (130-400); RDW Coefficient of Variation 13.2 % (11.5-14.5); RDW Standard Deviation 45.1 fL (36.4-46.3); White Blood Count 15.87 K/uL (4.8-10.8)
[2021-05-25] MEDS ORDERED: OCTREOTIDE ACETATE 100 MCG/ML VIAL SQ ONE (08:12)
[2021-05-25 08:27] LABS: Albumin Globulin Ratio 1.2 (0.9-2); BUN Creatinine Ratio 12.5 (10-20); Bilirubin,Total 2.1 mg/dl (0.2-1.0); Calcium 6.6 mg/dl (8.5-10.1); Creatinine Clr Calc Pharmacy 25.3 ml/min; Est GFR (African American) 30.3 ml/min; Est GFR (Non-African American) 26.2 ml/min; Globulin 2.6 gm/dl (2.5-4.0); Potassium 4.3 mmol/L (3.5-5.1); Total Protein 5.6 gm/dl (6.0-8.3)
[2021-05-25] MEDS: ACETAMINOPHEN 325 MG TAB PO PRN ×3 (09:01→21:42)
--- NOTE | 2021-05-25 09:15 | Gastroenterology Progress Note ---
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 Plan for repeat ERCP today w stent placements - NPO - Zosyn IV - IVF support - Octreotide 50mcg IV x 1 dose today - ERCP today by Dr. Whaley - Symptomatic management with analgesics & antiemetics prn Admission and Anticipated Discharge Date Admission Date: May 24, 2021 Supervising Physician Co-Signing Physician Notes I performed a history and physical examination of the patient today, including specifically on physical exam - soft abdomen. I have discussed the patient's management with the advanced practitioner. Please refer to the nurse practitioner's note for the documented findings and plan of care. Pain is slightly better, more on the lower quadrants now. Plan for repeat ERCP/ possible EUS access. Subjective Pt c/o abd pain, mild nausea, no vomiting. Review of Systems Review of Systems: All systems reviewed & are unremarkable except as noted in HPI & below Physical Exam Constitutional: WD/WN, vitals as above well groomed, cooperative and comfortable Eyes: PERRL, conjunctivae normal, anicteric sclerae ENMT: external ear and nose normal, oropharynx normal Respiratory: normal respiratory effort, lungs clear to auscultation Cardiovascular: RRR, no murmur, no edema Gastrointestinal (Abdomen): Abd w mild distension, hypoactive BS, diffusely tender Skin: no rashes, warm and dry no jaundice Psychiatric: A+Ox3, euthymic affect Lymphatic: no lymphedema Results & Data ([facility]) Vital Signs (Past 12 Hours) Vital Signs Temp Pulse Pulse Resp BP BP Pulse Ox 05/25/21 07:56 37.1 C 102 H 16 110/70 94 05/24/21 22:45 37.1 C 99 H 18 94/57 L 97 05/24/21 21:18 74 110/70
[2021-05-25] MEDS ORDERED: fentaNYL citrate 100 MCG/2 ML VIAL IV PRN (09:51)
[2021-05-25] MEDS ORDERED: ONDANSETRON INJ 2 MG/ML 2 ML VIAL IV PRN (09:51)
[2021-05-25] MEDS ORDERED: ATROPINE SULFATE 0.1 MG/ML 10ML SYR IV PRN (09:51)
[2021-05-25] MEDS ORDERED: ePHEDrine sulfate 50 MG/ML AMP IV PRN (09:51)
[2021-05-25] MEDS ORDERED: INDOMETHACIN 50 MG SUPP PR ONE ×2 (10:02→15:00)
--- NOTE | 2021-05-25 12:40 | History & Physical Bridge Note ---
Date of Service May 25, 2021 History & Physical Bridge Note I have examined the patient, reviewed the History & Physical and in the interval since the performance of the History & Physical I have noted the following changes of clinical significance: no changes noted EUS/ERCP
[2021-05-25 12:49] LABS: Creatinine Urine Random 124.3 mg/dl
[2021-05-25] MEDS ORDERED: LIDOCAINE 2% 2 ML VIAL/AMP(20MG/ML) INFIL ONE (14:03)
[2021-05-25] MEDS ORDERED: ROCURONIUM BROMIDE 10 MG/ML 5 ML VIAL IV ONE (14:03)
[2021-05-25] MEDS ORDERED: PROPOFOL IV EMULSION 10 MG/ML 20 ML VIAL IV ONE (14:03)
[2021-05-25] MEDS ORDERED: SUCCINYLCHOLINE CHLORIDE 20 MG/ML 10 ML VIAL IV ONE (14:03)
[2021-05-25] MEDS ORDERED: ONDANSETRON INJ 2 MG/ML 2 ML VIAL ONE (14:03)
[2021-05-25] MEDS ORDERED: DEXAMETHASONE SOD INJ 4 MG/ML VIAL ONE (14:03)
[2021-05-25] MEDS ORDERED: fentaNYL citrate 100 MCG/2 ML VIAL ONE (14:15)
--- NOTE | 2021-05-25 14:50 | Ultrasound Report ---
RENAL ULTRASOUND HISTORY: Acute kidney injury. COMPARISON: Abdomen and pelvis CT 05/23/2021. FINDINGS: Right kidney: 9.0 cm. No hydronephrosis. Small amount of complex fluid within Morison's pouch, unchan ged. There is 9 mm exophytic cyst. Mild cortical thinning with increased cortical echogenicity. Left kidney: 8.2 cm. No hydronephrosis. Mild cortical thinning with slight increased cortical echogen icity. Bladder: The bladder is decompressed by Lombardi catheter. Small amount of fluid within the deep pelvis. IMPRESSION: 1. No hydronephrosis. 2. Mild bilateral cortical with slight increased cortical thickness. 3. Small amount of complex fluid within Morison's pouch which is unchanged compared to the prior CT e xamination. ACT 112: Negative or not required by law. Electronically signed by: Tha Vargas M.D. 05/25/2021 2:48 PM
--- NOTE | 2021-05-25 18:18 | Operative Report ---
Post Operative Report Pre & Post Diagnosis Operation Date: 05/25/21 07:10 Pre-Op Diagnosis: Post endoscopic retrograde cholangiopancreatogram acute pancreatitis, abdominal pain, elevated liver function test, elevated lipase Post-Op Diagnosis: Post endoscopic retrograde cholangiopancreatogram acute pancreatitis, abdominal pain, elevated liver function test, elevated lipase, complete biliary obstruction I identified the patient and participated in the time-out.: Yes Procedure Operation Date: 05/25/21 07:10 Actual Procedures p Endoscopic Retrograde Cholangiopancreatogram, Endoscopic Ultrasound - Andra Whaley MD Surgeon Andra Whaley MD Health Assistant None Estimated Blood Loss 0 Findings See Below (CBD and PD obstruction, Stents placed) Specimens None Description of Procedure EUS/ERCP I attest to the content of the Intraoperative Record and any orders documented therein. Any exceptions are noted below.
--- NOTE | 2021-05-25 19:17 | GI REPORT ---
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 Estimated Blood Loss: Estimated blood loss: none. Procedure: Pre-Anesthesia Assessment: - Prior to the procedure, a History and Physical was performed, and patient medications, allergies and sensitivities were reviewed. The patient's tolerance of previous anesthesia was reviewed. - The risks and benefits of the procedure and the sedation options and risks were discussed with the patient. All questions were answered and informed consent was obtained. - Patient identification and proposed procedure were verified prior to the procedure by the physician and the nurse. The procedure was verified in the procedure room. - Pre-procedure physical examination revealed no contraindications to sedation. After obtaining informed consent, the scope was passed under direct vision. Throughout the procedure, the patient's blood pressure, pulse, and oxygen saturations were monitored continuously. The Endoscope was introduced through the mouth, and advanced to the duodenum and used to inject contrast into the bile duct and ventral pancreatic duct. The patient tolerated the procedure well. The ERCP was technically difficult and complex due to post-surgical anatomy. Findings: The executive candidate developer film was normal. The esophagus was successfully intubated under direct vision. The scope was advanced to a normal major papilla in the descending duodenum without detailed examination of the pharynx, larynx and associated structures, and upper GI tract. The upper GI tract was grossly normal. Patient had Billroth II anatomy. The afferent limb was accessed. A major papilla precut sphincterotomy had been performed with surrounding ulceration. The minor papilla was edematous due to prior cannulation. There was no clear biliary or pancreatic opening despite prior precut . Upon gentle probing with the guidewire, A 0.025 inch x 270 cm angled Visiglide wire was passed into the ventral pancreatic duct. The ventral pancreatic duct was then deeply cannulated with the Fusion OMNI sphincterotome. Contrast was injected. I personally interpreted the pancreatic duct images. There was appropriate flow of contrast through the ducts. Image quality was adequate. Contrast extended to the pancreatic duct. The ventral pancreatic duct in the head of the pancreas was dilated markedly and segmentally. Contrast backflow into the accessory duct and there was mild extravasated from the accessory pancreatic duct just near the minor papilla. One 10 Fr by 9 cm plastic pancreatic stent with a single external flap and a single internal flap was placed into the ventral pancreatic duct to maintain access. Clear fluid flowed through the stent. The stent was in good position. Because deep cannulation of the bile duct was attempted but not achieved, preparations were made for a rendezvous maneuver. The therapeutic gastroscope was removed and exchanged for a therapeutic echoendoscope, which was inserted. The left intrahepatic bile duct was punctured using a 19 gauge needle under endosonographic and radiologic guidance through a transgastric approach. Bile was aspirated. Next, the bile duct was injected with contrast, and a cholangiogram was obtained under fluoroscopy. Contrast extended to the left intrahepatic bile duct. The distal common bile duct was grossly dilated and obstructed at the major papilla. A 0.025 inch x 450 cm angled Visiglide wire was passed anterograde through the needle but failed to traverse the obstruction. The needle was removed and a 4 mm dilation balloon was inserted over the wire and advanced deeply into the duct but still could not traverse the papilla. Another guidewire was placed and looped near the papilla. The tract was dilated and a 7 Fr x 10 cm double pigtail stent was placed into the hepaticogastrostomy to maintain access and drainage of the biliary tree. The echoendoscope was exchanged back for the upper gastroscope. The scope was reinserted. Using fluoroscopy and the looped rendezvous wire as a guide, careful needle knife using a freehand technique dissection at the axis of the wire was performed till the rendezvous wire popped out of the duct into the duodenum. The bile duct was deeply cannulated. The rendezvous wire was then removed. A 0.025 inch x 270 cm angled Visiglide wire was passed into the biliary tree. The short-nosed traction sphincterotome was passed over the guidewire and the bile duct was then deeply cannulated. Contrast was injected. Opacification of the entire biliary tree except for the gallbladder was successful. The maximum diameter of the ducts was 20 mm. The biliary orifice was stenotic. This appeared benign. The biliary sphincterotomy was extended with a monofilament traction (standard) sphincterotome using ERBE electrocautery. There was no post-sphincterotomy bleeding. Dilation of the common bile duct with an 8 mm balloon dilator was successful. The biliary tree was swept with a 20 mm balloon starting at the bifurcation. Sludge was swept from the duct. One 10 mm by 10 cm covered metal biliary stent was placed into the common bile duct. Bile flowed through the stent. The stent was in good position. One 7 Fr by 13 cm plastic pancreatic stent with a single external flap and a single internal flap was placed into the ventral pancreatic duct next to the previously placed stent. Clear fluid flowed through the stent. The stent was in good position. Indomethacin 100 mg was given via suppository to decrease the risk of post-ERCP pancreatitis (PEP). Impression: - Complex ERCP in Billroth II anatomy however successful. - Prior major papilla precut sphincterotomy seen with surrounding ulceration. - The minor papilla appeared edematous due to prior cannulation. - Ventral pancreatic duct was successfully cannulated, the orifice was very stenotic, pancreatogram from the dorsal duct showed mild pancreatic ductal leak near the minor papillary orifice. - Two plastic stents ( 10 Fr x 9 cm and 7 Fr x 13 cm ) were placed into the dorsal duct to facilitate drainage away from the accessory duct/fistula. - Biliary rendezvous performed. The wire would not traverse the major papilla due to severe stenosis. One 7 Fr x 10 cm double pigtail stent was placed as a hepaticogastrostomy access for biliary drainage. - Freehand, fluoroscopy guided needle knife sphincterotomy over the axis of the looped second rendezvous wire behind the papilla resulted in successful cannulation of the duct. - A biliary sphincterotomy was performed followed by balloon dilation sphincteroplasty. - One covered metal biliary stent was placed into the common bile duct. Recommendation: - [facility] to [facility] for [facility] care. - Clear liquid diet. - Octreotide 100 mcg BID. - Watch for ileus. - Repeat ERCP in 2 months to remove stent. Andra Whaley MD 05/25/2021 7:16:25 PM This report has been signed electronically. Note Initiated On: 05/25/2021 2:02 PM Number of Addenda: 0 I attest to the content of the Intraoperative Record and orders documented therein, exceptions below {[id number]}
--- NOTE | 2021-05-25 19:18 | Hospitalist Progress Note ---
Date of Service May 25, 2021 Assessment & Plan (1) Post-ERCP acute pancreatitis: (2) Elevated LFTs: (3) Abdominal pain: Plan: This is a 75-year-old female who has significant past medical history of COPD on 2 L of O2 intermittently at home, HLD, hyperparathyroidism, history of paroxysmal SVT, GERD, CKD stage III, neuropathy, chronic back pain, depression with anxiety, history of tobacco abuse who presents to ED secondary to abdominal pain status post ERCP. Post ERCP acute pancreatitis Elevated LFTs Abdominal pain continue bowel rest, IVF, pain control ERCP again today, reported noted will continue clear liquid diet. 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 Continue PPI COPD No acute exacerbation Oxygen as needed to maintain O2 sat greater than 92% Continue Trelegy, as needed inhalers Hyperlipidemia hold statin due to LFT elevation CKD stage III Monitor, avoid nephrotoxic agents Depression with anxiety Continue BuSpar, Valium, Cymbalta DVT prophylaxis: SCDs for now Patient's [id number] Nayla pike for updates, Patient's daughter Dominga who lives in [place] is Admission and Anticipated Discharge Date Admission Date: May 24, 2021 Subjective Patient seen in PACU Went for her ERCP Physical Exam Physical Exam: Appears drowsy but no acute distress Respiratory: breathing comfortably, no wheezing/rhonchi/rales Cardiovascular: tachycardic but regular (HR 100s on telemetry)no murmurs/rubs/gallops Gastrointestinal (Abdomen): soft, non tender Musculoskeletal: no edema Results & Data Results & Data ([facility]) Vital Signs (Past 12 Hours) Vital Signs Temp Pulse Pulse Resp BP BP Pulse Ox 05/25/21 19:00 36.9 C 108 H 20 124/91 94 05/25/21 18:50 112 H 18 125/82 99 05/25/21 18:40 115 H 24 128/91 98 05/25/21 18:31 36.2 C L 117 H 22 126/90 96 05/25/21 13:55 36.6 C 117 H 20 106/74 98 05/25/21 09:26 36.9 C 109 H 94 H 20 108/63 94 05/25/21 07:56 37.1 C 102 H 16 110/70 94 Laboratory Results Short CBC 05/25/21 Range/Units 07:26 WBC 15.87 H (4.8-10.8) K/uL Hgb 13.6 (12.0-16.0) g/dL Hct 41.1 (37-47) % Plt Count 295 (130-400) K/uL BMP 05/25/21 07:26 Sodium 133 L Potassium 4.3 Chloride 100 Carbon Dioxide 25 BUN 23 Creatinine 1.84 H D Glucose 103 H Calcium 6.6 L Liver Function 05/25/21 Range/Units 07:26 Total Bilirubin 2.1 H (0.2-1.0) mg/dl AST 62 H (13-39) U/L ALT 79 H (7-52) U/L Alkaline Phosphatase 170 H (34-104) U/L Albumin 3.0 L (3.4-5.0) gm/dl Medications Administered Current Inpatient Medications Acetaminophen (Acetaminophen 325 Mg Tab) 650 mg PO Q4H PRN PRN Reason: pain/fever Stop: 06/22/21 21:10 Last Admin: 05/25/21 09:01 Dose: 650 mg Documented by: Albuterol (Albuterol Hfa 8 Gm Inhaler) 1 puffs INH Q6H PRN PRN Reason: Shortness Of Breath Stop: 06/22/21 21:10 Albuterol (Albut/Ipratrop 3mg/0.5mg Neb 3 Ml Vial) 3 ml INH Q6H PRN; Protocol PRN Reason: Wheezing Stop: 06/22/21 21:10 Buspirone HCl (Buspirone 5 Mg Tab) 10 mg PO TID [facility] Stop: 06/22/21 21:10 Last Admin: 05/25/21 07:58 Dose: 10 mg Documented by: Diazepam (Diazepam 2 Mg Tablet) 2 mg PO QAM [facility] Stop: 06/23/21 08:59 Last Admin: 05/25/21 07:59 Dose: 2 mg Documented by: Duloxetine HCl (Duloxetine Hcl 60 Mg Cap) 60 mg PO QAM [facility] Stop: 06/23/21 08:59 Last Admin: 05/25/21 07:59 Dose: 60 mg Documented by: Fluticasone Furoate (Fluticasone Furoate 100mcg 14 Puffs/Inhaler) 1 puffs INH DAILY [facility]ANI; Protocol Stop: 06/23/21 08:59 Last Admin: 05/25/21 07:59 Dose: 1 puffs Documented by: Hydromorphone HCl (Hydromorphone Inj 0.5 Mg/0.5 Ml Syr) 0.5 mg IV Q4 PRN; Protocol PRN Reason: Pain Stop: 06/07/21 09:51 Last Admin: 05/25/21 10:43 Dose: 0.5 mg Documented by: Hydromorphone HCl (Hydromorphone Inj 0.5 Mg/0.5 Ml Syr) 0.25 mg IV Q4 PRN; Protocol PRN Reason: Pain Stop: 06/07/21 09:49 Lactated Ringer's (Lr) 1,000 mls @ 200 mls/hr IV .Q5H [facility] Stop: 06/22/21 21:10 Last Admin: 05/25/21 11:09 Dose: 200 mls/hr Documented by: Piperacillin Sod/Tazobactam (Sod 3.375 gm/ Dextrose) 115 mls @ 28.75 mls/hr IV Q8H [facility]ANI; Protocol Stop: 06/02/21 22:59 Last Admin: 05/25/21 14:46 Dose: 28.8 mls/hr Documented by: Miscellaneous Information (Piperacill/Tazobac Consult Active) 1 ea N/A UD PRN PRN Reason: Consult Stop: 06/22/21 21:10 Ondansetron HCl (Ondansetron Inj 2 Mg/Ml 2 Ml Vial) 4 mg IV Q6H PRN PRN Reason: Nausea Stop: 06/22/21 21:10 Last Admin: 05/25/21 06:26 Dose: 4 mg Documented by: Oxybutynin Chloride (Oxybutynin Chloride Xl 5 Mg Tabcr) 10 mg PO QAM [facility] Stop: 06/23/21 08:59 Last Admin: 05/25/21 07:59 Dose: 10 mg Documented by: Pantoprazole Sodium (Pantoprazole 40 Mg Tab) 40 mg PO DAILYBB [facility] Stop: 06/23/21 06:29 Last Admin: 05/25/21 06:17 Dose: 40 mg Documented by: Ropinirole HCl (Ropinirole Hcl 1 Mg Tablet) 1 mg PO HS [facility] Stop: 06/22/21 21:10 Last Admin: 05/24/21 21:29 Dose: 1 mg Documented by: Sucralfate (Sucralfate 1 Gm Tab) 1 gm PO QID [facility] Stop: 06/22/21 21:10 Last Admin: 05/25/21 07:59 Dose: 1 gm Documented by: Tramadol HCl (Tramadol Hcl 50 Mg Tablet) 100 mg PO TID PRN PRN Reason: Pain Stop: 06/22/21 21:10 Last Admin: 05/25/21 02:40 Dose: 100 mg Documented by:
[2021-05-25] MEDS ORDERED: GLUCAGON FOR INJ 1 MG VIAL ONE (19:27)
--- NOTE | 2021-05-25 20:47 | Fluoroscopy Report ---
INTRAOPERATIVE RADIOGRAPHS CLINICAL HISTORY: ERCP. Fluoroscopy time: 18 minutes 19 seconds. FINDINGS: 20 spot fluoroscopic views of the upper abdomen are correlated with abdominal CT dated 2021. Postoperative change is noted in the upper abdominal wall. A catheter is advanced into the panc reatic duct which appears markedly dilated. A stent is placed in the pancreatic duct. A catheter was then placed into the common bile duct which also appears markedly dilated. A balloon sweep of the jerrod t is performed. There is also intrahepatic biliary ductal dilatation. A common bile duct stent is sukumar nieves. A second pancreatic stent then appears to be placed. IMPRESSION: Intraoperative ERCP images as above with pancreatic and common bile duct stents placed. S ee operative report for detailed findings. Electronically signed by: Jm Holliday M.D. 05/25/2021 8:45 PM
[2021-05-25] MEDS: rOPINIRole HCL 1 MG TABLET PO SCH (21:43)
--- NOTE | 2021-05-25 22:27 | Anesthesiology Progress Note ---
Date of Service May 25, 2021 Anesthesia Post Procedure Vital Signs Vital Signs: Temp Pulse Pulse Resp BP BP Pulse Ox 05/25/21 21:20 36.6 C 109 H 18 109/72 93 05/25/21 20:21 36.9 C 107 H 18 132/80 98 05/25/21 19:57 37.1 C 104 H 18 120/79 93 05/25/21 19:10 105 H 20 109/87 94 05/25/21 19:00 36.9 C 108 H 20 124/91 94 05/25/21 18:50 112 H 18 125/82 99 05/25/21 18:40 115 H 24 128/91 98 05/25/21 18:31 36.2 C L 117 H 22 126/90 96 05/25/21 13:55 36.6 C 117 H 20 106/74 98 05/25/21 09:26 36.9 C 109 H 94 H 20 108/63 94 05/25/21 07:56 37.1 C 102 H 16 110/70 94 05/24/21 22:45 37.1 C 99 H 18 94/57 L 97 Pain Intensity Upper Abdomen: Pain Intensity: 9 Right Lower Abdomen: Pain Intensity: 7 Transfer of Care Handoff Completed per policy Notes Mental Status: alert / awake / arousable and participated in evaluation Patient Amnestic to Procedure: Yes Nausea / Vomiting: adequately controlled Pain: adequately controlled Airway Patency, RR, SpO2: stable & adequate BP & HR: stable & adequate Hydration State: stable & adequate Anesthetic Complications: no major complications apparent and Pt Satisfied with anesthetic care
[2021-05-25] MEDS: OCTREOTIDE ACETATE 100 MCG in SYRINGE 9 ML IV SCH (23:05)
[2021-05-26] MEDS: HYDROmorphone INJ 0.5 MG/0.5 ML SYR IV PRN ×2 (02:14→23:36)
[2021-05-26] MEDS: LACTATED RINGER'S 1,000 ML IV SCH ×2 (02:27→13:45)
[2021-05-26] MEDS: traMADol HCL 50 MG TABLET PO PRN ×2 (05:52→22:03)
[2021-05-26] MEDS: PANTOprazole 40 MG TAB PO SCH (05:53)
[2021-05-26] MEDS: PIPERACILLIN/TAZOBACTAM 3.375 GM in DEXTROSE 5% 100 ML IV SCH ×2 (06:02→18:28)
[2021-05-26 06:11] LABS: Hemoglobin 13.1 g/dL (12.0-16.0); Mean Corpuscular Hgb Conc 33.6 g/dL (32-36); Mean Corpuscular Volume 92.2 fL (80-100); Mean Platelet Volume 9.1 fL (7.4-10.4); Platelet Count 288 K/uL (130-400); RDW Coefficient of Variation 13.3 % (11.5-14.5); Red Blood Count 4.23 M/uL (4.2-5.4); White Blood Count 16.13 K/uL (4.8-10.8)
[2021-05-26 06:42] LABS: Albumin Globulin Ratio 1.1 (0.9-2); Albumin Level 2.6 gm/dl (3.4-5.0); BUN Creatinine Ratio 14.3 (10-20); Bilirubin,Total 1.4 mg/dl (0.2-1.0); Calcium 5.7 mg/dl (8.5-10.1); Est GFR (African American) 20.1 ml/min; Est GFR (Non-African American) 17.3 ml/min; Globulin 2.4 gm/dl (2.5-4.0); Potassium 4.8 mmol/L (3.5-5.1)
[2021-05-26] MEDS ORDERED: STAT IV STA ×3 (06:50→12:50)
[2021-05-26] MEDS ORDERED: CALCIUM GLUCONATE 10% 3,000 MG in DEXTROSE 5% 100 ML IV ONE ×2 (07:15→13:00)
[2021-05-26] MEDS ORDERED: CALCIUM GLUCONATE 10% 2,000 MG in DEXTROSE 5% 50 ML IV ONE (08:20)
[2021-05-26] MEDS: ONDANSETRON INJ 2 MG/ML 2 ML VIAL IV PRN (08:43)
[2021-05-26] MEDS: OCTREOTIDE ACETATE 100 MCG in SYRINGE 9 ML IV SCH ×2 (08:49→22:00)
[2021-05-26] MEDS: DULoxetine HCL 60 MG CAP PO SCH (09:31)
[2021-05-26] MEDS: SUCRALFATE 1 GM TAB PO SCH ×4 (09:31→21:27)
[2021-05-26] MEDS: busPIRone 5 MG TAB PO SCH ×3 (09:31→21:33)
[2021-05-26] MEDS: OXYBUTYNIN CHLORIDE XL 5 MG TABCR PO SCH (09:31)
[2021-05-26] MEDS: diazePAM 2 MG TABLET PO SCH (09:32)
[2021-05-26] MEDS: MAGNESIUM SULFATE / D5W 1 GM/100 ML BAG IV SCH ×2 (09:33→11:16)
[2021-05-26] MEDS: FLUTICASONE FUROATE 100MCG 14 PUFFS/INHALER INH SCH (09:33)
[2021-05-26] MEDS: ACETAMINOPHEN 325 MG TAB PO PRN (11:00)
[2021-05-26] MEDS ORDERED: ALBUMIN 25% 100 mL 25 GM/100 ML VIAL IV ONE ×2 (11:38→17:00)
[2021-05-26] MEDS ORDERED: MINERAL OIL ENEMA 133 ML BTL PR ONE (11:49)
[2021-05-26] MEDS ORDERED: METHYLNALTREXONE BROMIDE 12 MG/0.6 ML VIAL SQ ONE (11:51)
--- NOTE | 2021-05-26 11:53 | Gastroenterology Progress Note ---
Date of Service May 26, 2021 Assessment & Plan Admission and Anticipated Discharge Date Admission Date: May 24, 2021 Subjective Patient was seen and examined today, looks much better. She also feels better, p kristen is better today. Vitals: HR is better with less tachycardia. Labs: WBC stable at 16. SRIDHAR. LFTs trending down. KUB reviewed with early ileus and fecal retention. Likely opioid induced. Recommend: Stat dose of Relistor Decrease opioids. IV Albumin 25 gm one dose now to help her SRIDHAR. Renal consult ? need for diuresis. Miralax BID Rectal enema now. Consider paracentesis if there is ascites. Results & Data ([facility]) Vital Signs (Past 12 Hours) Vital Signs Temp Pulse Pulse Resp BP BP Pulse Ox 05/26/21 11:00 99 H 18 124/75 97 05/26/21 07:00 36.3 C L 105 H 20 119/79 98 05/26/21 03:17 36.7 C 110 H 18 120/70 95 05/26/21 01:19 36.7 C 105 H 18 115/75 93
--- NOTE | 2021-05-26 12:09 | XRay Report ---
CHEST AND ABDOMEN 2 VIEWS HISTORY: abdominal distension. Generalized abdominal pain. COMPARISON: Abdomen and pelvis CT 05/23/2021. Chest x-ray 05/23/2021. FINDINGS: No pneumothorax. No pleural effusions. The heart remains mildly enlarged. There is progress daryn interstitial/vascular thickening suggestive of mild congestive change. There is a linear density overlying the right heart border suggestive of atelectasis. No pneumoperitoneum. No pneumatosis. Mode rate well-formed stool within the colon. Mildly dilated gas-filled loops of large or small bowel seen throughout the abdomen. This favors a mild ileus. Postoperative changes within the upper abdomen inc luding common bile duct and main pancreatic duct stents. There is also a stent within the epigastric region. Pneumobilia is present consistent with patency of the common bile duct stent. IMPRESSION: 1. Mild cardiomegaly and developing mild pulmonary edema. 2. Mildly dilated gas-filled loops of large and small bowel seen throughout the abdomen. This favors a mild ileus. 3. Postprocedural changes within the upper abdomen. ACT 112: Negative or not required by law. Electronically signed by: Tha Vargas M.D. 05/26/2021 12:08 PM
--- NOTE | 2021-05-26 12:28 | Hospitalist Progress Note ---
Date of Service May 26, 2021 Assessment & Plan (1) Post-ERCP acute pancreatitis: (2) Elevated LFTs: (3) Abdominal pain: Plan: This is a 75-year-old female who has significant past medical history of COPD on 2 L of O2 intermittently at home, HLD, hyperparathyroidism, history of paroxysmal SVT, GERD, CKD stage III, neuropathy, chronic back pain, depression with anxiety, history of tobacco abuse who presents to ED secondary to abdominal pain status post ERCP. Post ERCP acute pancreatitis Elevated LFTs Abdominal pain ERCP 05/25 with several stents placed will continue clear liquid diet. She will need repeat ERCP in 2 months for sten t removal -continue pain control, reduce NSS down to 100 cc/hr Shortness of Breath -CXR shows pleural effusion, increased pulmonary edema -due to IVF, will reduce to 100cc/hr Ileus -AXR shows consiptation and ileus -will start miralax BID, mineral oil enema now -will also obtain abdominal ultrasound to evalutae for ascites SRIDHAR on CKD stage 3 -Nephrology consult placed -FENA 0.48% suggests prerenal despite getting large volumes of NSS. Will give 1 dose Albumin 25gm. -will obtain abdominal u/s to evaluate for ascites History of PUD Status with Billroth II procedure 20+ years ago Continue PPI COPD No acute exacerbation Oxygen as needed to maintain O2 sat greater than 92% Continue Trelegy, as needed inhalers Hyperlipidemia hold statin due to LFT elevation Depression with anxiety Continue BuSpar, Valium, Cymbalta DVT prophylaxis: SCDs for now Patient's [id number] Nayla wishes for updates, Patient's daughter Dominga who lives in [place] is Admission and Anticipated Discharge Date Admission Date: May 24, 2021 Subjective " I feel terrible" When pressed further, patient reports having difficulty breathing, no BM in several days However, abdominal pain is improved and she is tolerating a clear lquid diet ERCP with stents placed yesterday Physical Exam Physical Exam: Appears stated age ENMT: Mucous membrane dry Respiratory: diminished at bases, no wheezing/rhonchi/rales Cardiovascular: tachycardic but regular, no murmurs/rubs/gallops Gastrointestinal (Abdomen): +increased distension, generalized tenderness Musculoskeletal: No edema Genitourinary: aranda is draining dark brown urine Results & Data Results & Data ([facility]) Vital Signs (Past 12 Hours) Vital Signs Temp Pulse Pulse Resp BP BP Pulse Ox 05/26/21 11:00 99 H 18 124/75 97 05/26/21 07:00 36.3 C L 105 H 20 119/79 98 05/26/21 03:17 36.7 C 110 H 18 120/70 95 05/26/21 01:19 36.7 C 105 H 18 115/75 93 Laboratory Results Short CBC 05/26/21 Range/Units 05:47 WBC 16.13 H (4.8-10.8) K/uL Hgb 13.1 (12.0-16.0) g/dL Hct 39.0 (37-47) % Plt Count 288 (130-400) K/uL BMP 05/26/21 05:47 Sodium 131 L Potassium 4.8 Chloride 101 Carbon Dioxide 19 L BUN 37 H Creatinine 2.59 H D Glucose 128 H Calcium 5.7 L* Liver Function 05/26/21 Range/Units 05:47 Total Bilirubin 1.4 H (0.2-1.0) mg/dl AST 50 H (13-39) U/L ALT 51 (7-52) U/L Alkaline Phosphatase 118 H (34-104) U/L Albumin 2.6 L (3.4-5.0) gm/dl Medications Administered Current Inpatient Medications Acetaminophen (Acetaminophen 325 Mg Tab) 650 mg PO Q4H PRN PRN Reason: pain/fever Stop: 06/22/21 21:10 Last Admin: 05/26/21 11:00 Dose: 650 mg Documented by: Albuterol (Albuterol Hfa 8 Gm Inhaler) 1 puffs INH Q6H PRN PRN Reason: Shortness Of Breath Stop: 06/22/21 21:10 Albuterol (Albut/Ipratrop 3mg/0.5mg Neb 3 Ml Vial) 3 ml INH Q6H PRN; Protocol PRN Reason: Wheezing Stop: 06/22/21 21:10 Buspirone HCl (Buspirone 5 Mg Tab) 10 mg PO TID [facility] Stop: 06/22/21 21:10 Last Admin: 05/26/21 09:31 Dose: Not Given Documented by: Diazepam (Diazepam 2 Mg Tablet) 2 mg PO QAM [facility] Stop: 06/23/21 08:59 Last Admin: 05/26/21 09:32 Dose: 2 mg Documented by: Duloxetine HCl (Duloxetine Hcl 60 Mg Cap) 60 mg PO QAM [facility] Stop: 06/23/21 08:59 Last Admin: 05/26/21 09:31 Dose: Not Given Documented by: Fluticasone Furoate (Fluticasone Furoate 100mcg 14 Puffs/Inhaler) 1 puffs INH DAILY [facility]; Protocol Stop: 06/23/21 08:59 Last Admin: 05/26/21 09:33 Dose: 1 puffs Documented by: Hydromorphone HCl (Hydromorphone Inj 0.5 Mg/0.5 Ml Syr) 0.5 mg IV Q4 PRN; Protocol PRN Reason: Pain Stop: 06/07/21 09:51 Last Admin: 05/26/21 02:14 Dose: 0.5 mg Documented by: Hydromorphone HCl (Hydromorphone Inj 0.5 Mg/0.5 Ml Syr) 0.25 mg IV Q4 PRN; Protocol PRN Reason: Pain Stop: 06/07/21 09:49 Lactated Ringer's (Lr) 1,000 mls @ 100 mls/hr IV .Q10H [facility] Stop: 06/22/21 21:10 Last Admin: 05/26/21 02:27 Dose: 100 mls/hr Documented by: Octreotide Acetate 100 mcg/ (Syringe) 10 mls @ 3 mls/min IV BID [facility] Stop: 06/24/21 22:29 Last Admin: 05/26/21 08:49 Dose: 3 mls/min Documented by: Magnesium Sulfate/Dextrose (Magnesium Sulfate / D5w) 1 gm in 100 mls @ 50 mls/hr IV Q2H [facility] Stop: 05/26/21 12:59 Last Admin: 05/26/21 11:16 Dose: 50 mls/hr Documented by: Piperacillin Sod/Tazobactam (Sod 3.375 gm/ Dextrose) 115 mls @ 28.75 mls/hr IV Q12H [facility]; Protocol Stop: 06/02/21 17:59 Albumin Human (Albumin 25% 100 Ml) 25 gm in 100 mls @ 50 mls/hr IV ONCE ONE Stop: 05/26/21 13:37 Miscellaneous Information (Piperacill/Tazobac Consult Active) 1 ea N/A UD PRN PRN Reason: Consult Stop: 06/22/21 21:10 Ondansetron HCl (Ondansetron Inj 2 Mg/Ml 2 Ml Vial) 4 mg IV Q6H PRN PRN Reason: Nausea Stop: 06/22/21 21:10 Last Admin: 05/26/21 08:43 Dose: 4 mg Documented by: Oxybutynin Chloride (Oxybutynin Chloride Xl 5 Mg Tabcr) 10 mg PO QAM [facility] Stop: 06/23/21 08:59 Last Admin: 05/26/21 09:31 Dose: Not Given Documented by: Pantoprazole Sodium (Pantoprazole 40 Mg Tab) 40 mg PO DAILYBB [facility] Stop: 06/23/21 06:29 Last Admin: 05/26/21 05:53 Dose: 40 mg Documented by: Polyethylene Glycol (Polyethylene (Miralax) 17 Gm Pack) 17 gm PO BID [facility] Stop: 06/25/21 11:59 Ropinirole HCl (Ropinirole Hcl 1 Mg Tablet) 1 mg PO HS [facility] Stop: 06/22/21 21:10 Last Admin: 05/25/21 21:43 Dose: 1 mg Documented by: Sucralfate (Sucralfate 1 Gm Tab) 1 gm PO QID [facility] Stop: 06/22/21 21:10 Last Admin: 05/26/21 09:31 Dose: Not Given Documented by: Tramadol HCl (Tramadol Hcl 50 Mg Tablet) 100 mg PO TID PRN PRN Reason: Pain Stop: 06/22/21 21:10 Last Admin: 05/26/21 05:52 Dose: 100 mg Documented by:
--- NOTE | 2021-05-26 13:05 | Ultrasound Report ---
US abdomen ltd ascites CLINICAL HISTORY: eval for ascites COMPARISON STUDY: Abdomen and pelvis CT 05/23/2021. Renal ultrasound 05/25/2021. FINDINGS: Transabdominal scanning of the abdomen was performed with senior sales representative images. Small amou nt of complex fluid again noted within the right upper quadrant/Morison's pouch. This remains unchang ed. No additional ascites identified. IMPRESSION: Small amount of complex fluid again noted within the right upper quadrant/Morison's pouc h. This remains unchanged. No additional ACT 112: Negative or not required by law. Electronically signed by: Tha Vargas M.D. 05/26/2021 1:04 PM
[2021-05-26] MEDS: POLYETHYLENE (MIRALAX) 17 GM PACK PO SCH ×2 (13:34→21:27)
[2021-05-26] MEDS ORDERED: PROCHLORPERAZINE 5 MG in SYRINGE 4 ML IV PRN (15:12)
[2021-05-26] MEDS: FUROSEMIDE 10 MG/ML 10 ML VIAL IV SCH (17:32)
[2021-05-26 17:42] LABS: Alanine Aminotransferase 42 U/L (7-52); Albumin Globulin Ratio 1.2 (0.9-2); Alkaline Phosphatase 94 U/L (34-104); Anion Gap 11 (3-11); BUN Creatinine Ratio 12.5 (10-20); Bilirubin,Total 1.4 mg/dl (0.2-1.0); Blood Urea Nitrogen 41 mg/dl (6-23); Calcium 7.4 mg/dl (8.5-10.1); Carbon Dioxide 22 mmol/L (21-32); Chloride 97 mmol/L (98-107); Creatinine Clr Calc Pharmacy 14.2 ml/min; Est GFR (African American) 15.1 ml/min; Globulin 2.5 gm/dl (2.5-4.0); Glucose 125 mg/dl (70-99(Fasting)); Lipase 358 U/L (11-82); Sodium 130 mmol/L (136-145); Total Protein 5.5 gm/dl (6.0-8.3)
--- NOTE | 2021-05-26 18:07 | Consultation Report ---
NEPHROLOGY CONSULTATION NOTE DATE OF SERVICE: 05/26/2021. REASON FOR CONSULTATION: Acute renal failure in a patient with pancreatitis. HISTORY OF PRESENT ILLNESS: The patient is a 75-year-old female who was admitted 2 days ago because of abdominal pain and elevated liver enzymes following ERCP. She was diagnosed as having post-ERCP acute pancreatitis. The patient has a past medical history significant for COPD on 2 L oxygen at home; hyperlipidemia, hyperparathyroidism, history of SVT, chronic kidney disease stage III with a baseline creatinine in the low 1s, chronic back pain, depression, anxiety. At the time of admission, her creatinine was at baseline, but since then it has been rising from 1.23 to 1.34, then 1.84 and today it is 2.59. Sodium is also dropping. Calcium is dropping and is now critically low at 5.7. At this point, she is getting IV fluid and she has been getting aggressive IV hydration from the time of admission. Her blood pressures are reasonable and did not have any period of hypotension. Already had a renal ultrasound as well as abdominal ultrasound. Renal ultrasound did not show any hydronephrosis. PAST MEDICAL AND SURGICAL HISTORY: Includes COPD on 2 L oxygen, hypertension, hyperlipidemia, hyperparathyroidism, CKD stage III, baseline creatinine in the low 1s, depression, anxiety, chronic back pain, history of tobacco abuse, history of gastric ulcer surgery, Billroth surgery done, cholecystectomy, appendicectomy, tooth extraction, hemorrhoid surgery, cataract extraction, history of severe peptic ulcer disease. FAMILY HISTORY: Negative for renal disease or dialysis. SOCIAL HISTORY: The patient has a history of tobacco abuse. She is a , lives alone. She is retired. She uses walker for ambulation and also has oxygen at home. REVIEW OF SYSTEMS: All systems reviewed and negative unless stated otherwise in the HPI. The positive review of system includes abdominal pain, nausea, weakness, chronic shortness of breath and chronic cough. PHYSICAL EXAMINATION: GENERAL: Elderly white female who is awake and alert. She does have some mild respiratory distress. HEENT: Normocephalic, atraumatic. NECK: Supple. No jugular venous distention. CHEST: Bilateral decreased breath sound and prolonged expiration, occasional wheezing. CARDIOVASCULAR: S1 and S2, regular. No murmur. No edema. ABDOMEN: Mild diffuse tenderness. SKIN: No rashes. NEUROLOGIC: Awake, alert and oriented. Normal speech. Moving all 4 extremities. LABORATORY TEST: Reviewed in detail. Her kidney function is worsening. Creatinine has gone up from 1.23 on admission to the current level of 2.59 in a span of 3 days. Sodium is dropping and now down to 131. Calcium is dropping from 8.6, now down to 5.7. Magnesium is also low at 1.4. Liver enzymes elevated, but trending down. Lipase elevated. Albumin is dropping and is now down to 2.6. Chest x-ray shows some cardiomegaly and mild pulmonary edema developing. ASSESSMENT AND PLAN: A 75-year-old female with complicated gastrointestinal history. Now admitted with post-ERCP pancreatitis. She has developed acute renal failure in the setting of pancreatitis and I have been consulted for the management. Acute renal failure: The clinical situation of developing acute renal failure in the pancreatitis situation, almost always means this is a case of acute tubular necrosis. Even though her fractional excretion of sodium is somewhat low, it is misleading in elderly female, especially in preexisting chronic kidney disease. She has received aggressive IV hydration for the last 2 days and is now in fact in fluid overload and is starting to develop pulmonary edema. The severity of pancreatitis at this point, has to be quite severe based on the criteria. Her calcium is dropping. Albumin is dropping. Creatinine is rising. She is also oliguric with urine output of only about 400 mL in the last 2 days. At this point, I would Stop IV fluids. Her renal prognosis is poor and there is high likelihood that she will have worsening kidney function in the coming days. Continue octreotide. Continue to support her blood pressure and vital signs. Given developing pulmonary edema, I believe we have to give her some Lasix also, 80 mg IV Lasix bid with 25% albumin. Her calcium is also very low, part of it is from the low albumin, but even corrected calcium is very low, and I will give her 3 grams of IV calcium through a piggyback now. Check ionized calcium every day in the morning. I would consider putting patient in a more monitored setting as I feel patient is very likely to deteriorate in the coming days. Job ID: [id number] [facility] HOSPITALAutumn
[2021-05-26 18:35] LABS: Hematocrit (blood only) 35.5 % (37-47); Hemoglobin 11.6 g/dL (12.0-16.0); Mean Corpuscular Hemoglobin 30.8 pg (25-34); Mean Corpuscular Volume 94.2 fL (80-100); Mean Platelet Volume 9.3 fL (7.4-10.4); Platelet Count 294 K/uL (130-400); RDW Coefficient of Variation 13.3 % (11.5-14.5); RDW Standard Deviation 45.8 fL (36.4-46.3); Red Blood Count 3.77 M/uL (4.2-5.4)
[2021-05-26 18:39] LABS: Mean Corpuscular Hgb Conc 32.7 g/dL (32-36)
[2021-05-26 18:43] LABS: Potassium 4.8 mmol/L (3.5-5.1)
[2021-05-26 18:57] LABS: Basophils # (auto) 0.01 K/uL (0-0.2); Basophils % (auto) 0.1 %; Dohle Bodies 1+; Eosinophils # (auto) 0.02 K/uL (0-0.5); Eosinophils % (auto) 0.1 %; Immature Granulocytes # (auto) 0.13 K/uL (0.00-0.02); Immature Granulocytes % (auto) 0.9 %; Lymphocytes # (auto) 0.41 K/uL (1.2-3.4); Lymphocytes % (auto) 2.9 %; Monocytes # (auto) 1.27 K/uL (0.11-0.59); Monocytes % (auto) 8.9 %; Neutrophils # (auto) 12.46 K/uL (1.4-6.5); Neutrophils % (auto) 87.1 %; Toxic Vacuolation 1+
[2021-05-26] MEDS: rOPINIRole HCL 1 MG TABLET PO SCH (22:00)
[2021-05-26] MEDS: MELATONIN 3 MG TAB PO PRN (23:34)
[2021-05-27] MEDS: PIPERACILLIN/TAZOBACTAM 3.375 GM in DEXTROSE 5% 100 ML IV SCH ×2 (05:57→17:42)
[2021-05-27] MEDS: PANTOprazole 40 MG TAB PO SCH (06:30)
[2021-05-27 07:13] LABS: Hematocrit (blood only) 36.5 % (37-47); Hemoglobin 12.1 g/dL (12.0-16.0); Mean Corpuscular Hgb Conc 33.2 g/dL (32-36); Mean Corpuscular Volume 93.6 fL (80-100); Mean Platelet Volume 9.3 fL (7.4-10.4); Platelet Count 284 K/uL (130-400); RDW Coefficient of Variation 13.5 % (11.5-14.5); RDW Standard Deviation 46.1 fL (36.4-46.3); White Blood Count 15.99 K/uL (4.8-10.8)
[2021-05-27 08:06] LABS: Albumin Globulin Ratio 1.3 (0.9-2); Albumin Level 3.1 gm/dl (3.4-5.0); Bilirubin,Total 1.2 mg/dl (0.2-1.0); Calcium 7.7 mg/dl (8.5-10.1); Creatinine Clr Calc Pharmacy 12.2 ml/min; Est GFR (African American) 11.3 ml/min; Est GFR (Non-African American) 9.8 ml/min; Globulin 2.3 gm/dl (2.5-4.0); Potassium 4.5 mmol/L (3.5-5.1); Total Protein 5.4 gm/dl (6.0-8.3)
[2021-05-27] MEDS ORDERED: STAT IV STA (08:26)
[2021-05-27] MEDS ORDERED: CALCIUM GLUCONATE 10% 2,000 MG in DEXTROSE 5% 50 ML IV ONE (08:45)
[2021-05-27] MEDS: OCTREOTIDE ACETATE 100 MCG in SYRINGE 9 ML IV SCH ×2 (08:58→20:28)
[2021-05-27] MEDS ORDERED: HYDROmorphone INJ 0.5 MG/0.5 ML SYR IV PRN (10:07)
[2021-05-27] MEDS: busPIRone 5 MG TAB PO SCH ×3 (10:25→20:27)
[2021-05-27] MEDS: FLUTICASONE FUROATE 100MCG 14 PUFFS/INHALER INH SCH (10:25)
[2021-05-27] MEDS: diazePAM 2 MG TABLET PO SCH (10:25)
[2021-05-27] MEDS: DULoxetine HCL 60 MG CAP PO SCH (10:25)
[2021-05-27] MEDS: FUROSEMIDE 10 MG/ML 10 ML VIAL IV SCH ×2 (10:25→17:42)
[2021-05-27] MEDS: SUCRALFATE 1 GM TAB PO SCH ×4 (10:26→20:26)
[2021-05-27] MEDS: bisacodyL 10 MG SUPP PR SCH (10:26)
[2021-05-27] MEDS: MAGNESIUM HYDROXIDE SUSP 30 ML UDC PO SCH ×2 (10:26→20:27)
[2021-05-27] MEDS: POLYETHYLENE (MIRALAX) 17 GM PACK PO SCH ×2 (10:26→20:28)
[2021-05-27] MEDS: OXYBUTYNIN CHLORIDE XL 5 MG TABCR PO SCH (10:26)
[2021-05-27] MEDS ORDERED: FUROSEMIDE INJ 20 MG/2 ML VIAL IV ONE (11:00)
[2021-05-27] MEDS ORDERED: metOLazone 5 MG TABLET PO ONE (11:00)
--- NOTE | 2021-05-27 11:00 | Nephrology Progress Note ---
Date of Service May 27, 2021 Assessment & Plan Admission and Anticipated Discharge Date Admission Date: May 24, 2021 Subjective S--not much urine even with lasix and albumin and previously iv fluid. Starting to get little SOB. PHYSICAL EXAMINATION: GENERAL: Elderly white female who is awake and alert. She does have some mild respiratory distress. HEENT: Normocephalic, atraumatic. NECK: Supple. No jugular venous distention. CHEST: Bilateral decreased breath sound and prolonged expiration, occasional wheezing. CARDIOVASCULAR: S1 and S2, regular. No murmur. No edema. ABDOMEN: Mild diffuse tenderness. SKIN: No rashes. NEUROLOGIC: Awake, alert and oriented. Normal speech. Moving all 4 extremities. LABORATORY TEST: Reviewed in detail. Her kidney function is worsening.ca 7.7 today. Chest x-ray shows some cardiomegaly and mild pulmonary edema developing. ASSESSMENT AND PLAN: A 75-year-old female with complicated gastrointestinal history. Now admitted with post-ERCP pancreatitis. She has developed acute renal failure in the setting of pancreatitis and I have been consulted for the management. Acute renal failure--severe from ATN in Pancreatitis with Severe Oliguria. worse lupis Early pulm edema.--given pre exisiting Severe COPD she cannot tolerate much. Rec: lasix 100 bid. give extra 20 now. Also add metolazone 5 to see if we can make more urine. Discussed about possible need ( high chance) of dialysis in the coming days if kidney does not start recovering. as of now severe Oliguria. She is fully agreeable to do dialysis if needed. Results & Data ([facility]) Vital Signs (Past 12 Hours) Vital Signs Temp Pulse Pulse Resp BP Pulse Ox 05/27/21 07:05 36.5 C 99 H 19 117/71 97 05/27/21 03:00 36.6 C 93 H 16 104/61 97 05/27/21 01:57 95 H 05/26/21 23:00 36.8 C 95 H 18 115/72 98
--- NOTE | 2021-05-27 11:33 | Hospitalist Progress Note ---
Date of Service May 27, 2021 Assessment & Plan (1) Post-ERCP acute pancreatitis: (2) Elevated LFTs: (3) Abdominal pain: Plan: This is a 75-year-old female who has significant past medical history of COPD on 2 L of O2 intermittently at home, HLD, hyperparathyroidism, history of paroxysmal SVT, GERD, CKD stage III, neuropathy, chronic back pain, depression with anxiety, history of tobacco abuse who presents to ED secondary to abdominal pain status post ERCP. Post ERCP acute pancreatitis Elevated LFTs Abdominal pain ERCP 05/25 with several stents placed will continue clear liquid diet. She will need repeat ERCP in 2 months for nathan nt removal -reduce dilaudid to 0.25mg Q 6PRN Shortness of Breath -CXR shows pleural effusion, increased pulmonary edema -IV discontinued 05/26 -started lasix 80mg IV BID, now increasing to 100mg IV BID Ileus -AXR shows consiptation and ileus -abdominal u/s negative for ascites -continue aggressive bowel regimen, ambulate SRIDHAR on CKD stage 3 ATN -Appreciate Nephrology input, likely ATN from pancreatitis -lasix increased to 100mg IV BID, continue albumin BID with lasix -High likelihood of needing dialysis Hypocalcemia -from pancreatitis -repleted -monitor ICa daily History of PUD 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 Just feels "sore" Still no BM Making very little urine Feels short of breath Physical Exam Physical Exam: sitting in chair, non toxic Respiratory: diminished diffusely, no wheezing/rhonchi/rales Cardiovascular: tachycardic but regular, no murmurs/rubs Gastrointestinal (Abdomen): +hypoactive, +generalized tenderness Musculoskeletal: non pitting edema of arms and legs Neurologic: awake, alert, spontaneously moving extremities Results & Data Results & Data ([facility]) Vital Signs (Past 12 Hours) Vital Signs Temp Pulse Pulse Resp BP Pulse Ox 04/10/22 11:04 36.5 C 100 H 19 109/68 100 05/27/21 07:05 36.5 C 99 H 19 117/71 97 05/27/21 03:00 36.6 C 93 H 16 104/61 97 05/27/21 01:57 95 H Laboratory Results Short CBC 05/26/21 05/26/21 05/27/21 Range/Units 17:00 18:05 06:36 WBC Cancelled 14.30 H 15.99 H Hgb Cancelled 11.6 L 12.1 Hct Cancelled 35.5 L 36.5 L Plt Count Cancelled 294 284 BMP 05/26/21 05/26/21 05/27/21 17:00 18:05 06:36 Sodium 130 L 130 L Potassium TNP 4.8 4.5 Chloride 97 L 97 L Carbon Dioxide 22 22 BUN 41 H 50 H Creatinine 3.28 H D 4.15 H D Glucose 125 H 92 Calcium 7.4 L 7.7 L Liver Function 05/26/21 05/26/21 05/27/21 Range/Units 17:00 18:05 06:36 Total Bilirubin 1.4 H 1.2 H (0.2-1.0) mg/dl AST TNP 36 38 ALT 42 35 (7-52) U/L Alkaline Phosphatase 94 83 (34-104) U/L Albumin 3.0 L 3.1 L (3.4-5.0) gm/dl Medications Administered Current Inpatient Medications Acetaminophen (Acetaminophen 325 Mg Tab) 650 mg PO Q4H PRN PRN Reason: pain/fever Stop: 06/22/21 21:10 Last Admin: 05/26/21 11:00 Dose: 650 mg Documented by: Albuterol (Albuterol Hfa 8 Gm Inhaler) 1 puffs INH Q6H PRN PRN Reason: Shortness Of Breath Stop: 06/22/21 21:10 Albuterol (Albut/Ipratrop 3mg/0.5mg Neb 3 Ml Vial) 3 ml INH Q6H PRN; Protocol PRN Reason: Wheezing Stop: 06/22/21 21:10 Bisacodyl (Bisacodyl 10 Mg Supp) 10 mg TN DAILY [facility]ANI Stop: 06/26/21 10:14 Last Admin: 05/27/21 10:26 Dose: 10 mg Documented by: Buspirone HCl (Buspirone 5 Mg Tab) 10 mg PO TID [facility] Stop: 06/22/21 21:10 Last Admin: 05/27/21 10:25 Dose: Not Given Documented by: Diazepam (Diazepam 2 Mg Tablet) 2 mg PO QAM [facility] Stop: 06/23/21 08:59 Last Admin: 05/27/21 10:25 Dose: Not Given Documented by: Duloxetine HCl (Duloxetine Hcl 60 Mg Cap) 60 mg PO QAM [facility] Stop: 06/23/21 08:59 Last Admin: 05/27/21 10:25 Dose: Not Given Documented by: Fluticasone Furoate (Fluticasone Furoate 100mcg 14 Puffs/Inhaler) 1 puffs INH DAILY [facility]; Protocol Stop: 06/23/21 08:59 Last Admin: 05/27/21 10:25 Dose: Not Given Documented by: Furosemide (Furosemide 10 Mg/Ml 10 Ml Vial) 80 mg IV BID17 [facility] Stop: 06/25/21 16:59 Last Admin: 05/27/21 10:25 Dose: 80 mg Documented by: Hydromorphone HCl (Hydromorphone Inj 0.5 Mg/0.5 Ml Syr) 0.25 - 0.5 mg IV Q6H PRN PRN Reason: Pain Stop: 06/07/21 09:53 Octreotide Acetate 100 mcg/ (Syringe) 10 mls @ 3 mls/min IV BID [facility] Stop: 06/24/21 22:29 Last Admin: 05/27/21 08:58 Dose: 3 mls/min Documented by: Piperacillin Sod/Tazobactam (Sod 3.375 gm/ Dextrose) 115 mls @ 28.75 mls/hr IV Q12H [facility]; Protocol Stop: 06/02/21 17:59 Last Infusion: 05/27/21 09:54 Dose: Infused Documented by: Prochlorperazine 5 mg/ Syringe 5 mls @ 5 mls/min IV Q6H PRN PRN Reason: Nausea And Vomiting Stop: 06/25/21 15:11 Magnesium Hydroxide (Magnesium Hydroxide Susp 30 Ml Udc) 30 ml PO BID [facility] Stop: 06/26/21 09:14 Last Admin: 05/27/21 10:26 Dose: 30 ml Documented by: Melatonin (Melatonin 3 Mg Tab) 3 mg PO HS PRN PRN Reason: Sleep Stop: 06/25/21 23:10 Last Admin: 05/26/21 23:34 Dose: 3 mg Documented by: Miscellaneous Information (Piperacill/Tazobac Consult Active) 1 ea N/A UD PRN PRN Reason: Consult Stop: 06/22/21 21:10 Ondansetron HCl (Ondansetron Inj 2 Mg/Ml 2 Ml Vial) 4 mg IV Q6H PRN PRN Reason: Nausea Stop: 06/22/21 21:10 Last Admin: 05/26/21 08:43 Dose: 4 mg Documented by: Oxybutynin Chloride (Oxybutynin Chloride Xl 5 Mg Tabcr) 10 mg PO QAM [facility] Stop: 06/23/21 08:59 Last Admin: 05/27/21 10:26 Dose: Not Given Documented by: Pantoprazole Sodium (Pantoprazole 40 Mg Tab) 40 mg PO DAILYBB [facility] Stop: 06/23/21 06:29 Last Admin: 05/27/21 06:30 Dose: 40 mg Documented by: Polyethylene Glycol (Polyethylene (Miralax) 17 Gm Pack) 17 gm PO BID [facility] Stop: 06/25/21 11:59 Last Admin: 05/27/21 10:26 Dose: 17 gm Documented by: Ropinirole HCl (Ropinirole Hcl 1 Mg Tablet) 1 mg PO HS [facility] Stop: 06/22/21 21:10 Last Admin: 05/26/21 22:00 Dose: 1 mg Documented by: Senna/Docusate Sodium (Docusate Sodium/Senna 50/8.6mg Tab) 1 tab PO PM [facility] Stop: 06/26/21 20:59 Sucralfate (Sucralfate 1 Gm Tab) 1 gm PO QID [facility] Stop: 06/22/21 21:10 Last Admin: 05/27/21 10:26 Dose: Not Given Documented by: Tramadol HCl (Tramadol Hcl 50 Mg Tablet) 100 mg PO TID PRN PRN Reason: Pain Stop: 06/22/21 21:10 Last Admin: 05/26/21 22:03 Dose: 100 mg Documented by:
--- NOTE | 2021-05-27 20:14 | XRay Report ---
KUB CLINICAL HISTORY: Enteric tube placement. FINDINGS: An AP, portable, upright view of the lower chest and upper abdomen is compared to study aurelio ed 05/26/2021 and correlated with abdominal CT dated 05/23/2021. An enteric tube has been placed. The tip projects below the diaphragm over the mid stomach. Common bile duct stents and pancreatic stents are in place. There is no radiographic evidence of bowel obstruction. Suture and musculature projects ov er the upper abdomen. No evidence of intraperitoneal free air is seen. There are small pleural effusi ons with bibasilar airspace opacities. IMPRESSION: 1. An enteric tube has been placed as above. 2. There is no evidence of bowel obstruction. 3. Postoperative findings as above. Electronically signed by: Jm Holliday M.D. 05/27/2021 8:13 PM
[2021-05-27] MEDS: DOCUSATE SODIUM/SENNA 50/8.6MG TAB PO SCH (20:26)
[2021-05-27] MEDS: traMADol HCL 50 MG TABLET PO PRN (20:26)
[2021-05-27] MEDS: rOPINIRole HCL 1 MG TABLET PO SCH (20:27)
[2021-05-27] MEDS: MELATONIN 3 MG TAB PO PRN (20:27)
[2021-05-27] MEDS: HEPARIN SOD 5,000 UNIT/0.5 ML VIAL SQ SCH (20:27)
[2021-05-28] MEDS: ONDANSETRON INJ 2 MG/ML 2 ML VIAL IV PRN (00:17)
[2021-05-28] MEDS: PIPERACILLIN/TAZOBACTAM 3.375 GM in DEXTROSE 5% 100 ML IV SCH ×2 (05:46→19:51)
[2021-05-28] MEDS: PANTOprazole 40 MG TAB PO SCH (05:47)
[2021-05-28 06:34] LABS: Hematocrit (blood only) 33.9 % (37-47); Mean Corpuscular Hemoglobin 30.1 pg (25-34); Mean Corpuscular Hgb Conc 32.4 g/dL (32-36); Mean Corpuscular Volume 92.9 fL (80-100); Mean Platelet Volume 9.4 fL (7.4-10.4); Nucleated RBC # (auto) 0.04 K/uL (0-0); Nucleated RBC % (auto) 0.2 %; Platelet Count 320 K/uL (130-400); RDW Coefficient of Variation 13.7 % (11.5-14.5); RDW Standard Deviation 46.2 fL (36.4-46.3); Red Blood Count 3.65 M/uL (4.2-5.4); White Blood Count 18.44 K/uL (4.8-10.8)
[2021-05-28 07:06] LABS: Alanine Aminotransferase 35 U/L (7-52); Albumin Globulin Ratio 1.1 (0.9-2); Albumin Level 3.1 gm/dl (3.4-5.0); Alkaline Phosphatase 101 U/L (34-104); Anion Gap 13 (3-11); BUN Creatinine Ratio 11.1 (10-20); Bilirubin,Total 1.1 mg/dl (0.2-1.0); Blood Urea Nitrogen 59 mg/dl (6-23); Calcium 8.2 mg/dl (8.5-10.1); Carbon Dioxide 26 mmol/L (21-32); Chloride 93 mmol/L (98-107); Creatinine Clr Calc Pharmacy 9.5 ml/min; Est GFR (African American) 8.4 ml/min; Est GFR (Non-African American) 7.3 ml/min; Globulin 2.8 gm/dl (2.5-4.0); Glucose 111 mg/dl (70-99(Fasting)); Lipase 134 U/L (11-82); Sodium 132 mmol/L (136-145); Total Protein 5.9 gm/dl (6.0-8.3)
[2021-05-28 08:29] LABS: Potassium 4.4 mmol/L (3.5-5.1)
[2021-05-28] MEDS ORDERED: STAT IV STA (09:19)
[2021-05-28] MEDS: bisacodyL 10 MG SUPP PR SCH (09:22)
[2021-05-28] MEDS: busPIRone 5 MG TAB PO SCH ×2 (09:22→13:29)
[2021-05-28] MEDS: FLUTICASONE FUROATE 100MCG 14 PUFFS/INHALER INH SCH (09:23)
[2021-05-28] MEDS: diazePAM 2 MG TABLET PO SCH (09:23)
[2021-05-28] MEDS: DULoxetine HCL 60 MG CAP PO SCH (09:23)
[2021-05-28] MEDS: HEPARIN SOD 5,000 UNIT/0.5 ML VIAL SQ SCH ×2 (09:24→22:48)
[2021-05-28] MEDS: FUROSEMIDE 10 MG/ML 10 ML VIAL IV SCH ×2 (09:25→17:30)
[2021-05-28] MEDS: MAGNESIUM HYDROXIDE SUSP 30 ML UDC PO SCH ×2 (09:25→22:48)
[2021-05-28] MEDS: OXYBUTYNIN CHLORIDE XL 5 MG TABCR PO SCH (09:26)
[2021-05-28] MEDS: POLYETHYLENE (MIRALAX) 17 GM PACK PO SCH ×2 (09:26→22:48)
[2021-05-28] MEDS: SUCRALFATE 1 GM TAB PO SCH ×4 (09:26→23:17)
[2021-05-28] MEDS ORDERED: CALCIUM GLUCONATE 10% 2,000 MG in DEXTROSE 5% 50 ML IV ONE (09:30)
--- NOTE | 2021-05-28 10:19 | Consultation ---
Date of Consultation May 28, 2021 Assessment & Plan (1) SRIDHAR (acute kidney injury): Pt with SRIDHAR and severe abd pain. Pt to have femoral temporary HD catheter insertion today. States probably cannot lie completely flat for procedure d/t abd pain. Procedure, risks, benefits and alternatives discussed with pt by myself at Dr Garvey's request. Pt expresses understanding and agreement. Patient was seen, examined, and chart reviewed. Agree with exam and treatment plan of the Vascular PA. History of Present Illness Reason for Consultation: SRIDHAR Attending Physician: Yuan Acevedo MD History of Present Illness 75 yo f with hx of PUD, CKD, COPD, osteoarthritis, dyslipidemia, depression/anxiety, admitted with acute pancreatitis after attempted ERCP, seen in consultation today for HD access d/t significantly worsening renal fxn. Pt admits fatigue, malaise, and states she is even hallucinating. Admits severe abd pain worse with deep breaths, and distention. Denies fever, chest pain, SOB, rest pain, claudication, other complaints. Allergies Allergy/AdvReac Type Severity Reaction Status Date / Time codeine Allergy Mild Vomiting Verified 05/23/21 16:37 mirtazapine Allergy Unknown Unknown Verified 05/23/21 16:35 Home Medications Medication Instructions Recorded Confirmed Type albuterol sulfate 90 mcg/actuation 1 puff INHALATION Q6H PRN 06/18/18 05/23/21 History aerosol inhaler (Ventolin HFA) atorvastatin 20 mg tablet (Lipitor) 10 mg PO QAM 06/18/18 05/23/21 History cholecalciferol (vitamin D3) 25 1,000 unit PO QAM 06/18/18 05/23/21 History mcg (1,000 unit) capsule (Vitamin D3) cyanocobalamin (vitamin B-12) 1,000 mcg PO QAM 06/18/18 05/23/21 History 1,000 mcg tablet (Vitamin B-12) ipratropium 0.5 mg-albuterol 3 mg 1 vial INHALATION Q6H PRN 06/18/18 05/23/21 History (2.5 mg base)/3 mL nebulization soln diazepam 2 mg tablet (Valium) 2 mg PO QAM 09/18/20 05/23/21 History duloxetine 60 mg capsule,delayed 60 mg PO QAM 09/18/20 05/23/21 History release (Cymbalta) pantoprazole 40 mg tablet,delayed 40 mg PO DAILYBB 09/18/20 05/23/21 History release (Protonix) fluticasone fur. 100 mcg-umeclid 1 inh INHALATION QAM 09/19/20 05/23/21 History 62.5 mcg-vilant 25 mcg inhalat.powder (Trelegy Ellipta) buspirone 10 mg tablet 10 mg PO TID 05/23/21 05/23/21 History cetirizine 10 mg tablet (Allergy 5 mg PO DAILY 05/23/21 05/23/21 History Relief (cetirizine)) diphenhydramine HCl 25 mg capsule 25 mg PO QID PRN 05/23/21 05/23/21 History (Diphenhist) docusate sodium 100 mg capsule 100 mg PO BID 05/23/21 05/23/21 History hydroxyzine HCl 25 mg tablet 25 mg PO QID PRN 05/23/21 05/23/21 History ondansetron 4 mg disintegrating 4 mg PO UD PRN 05/23/21 05/23/21 History tablet oxybutynin chloride 10 mg 10 mg PO QAM 05/23/21 05/23/21 History tablet,extended release 24 hr ropinirole 1 mg tablet 1 mg PO HS 05/23/21 05/23/21 History sucralfate 1 gram tablet 1 g PO QID 05/23/21 05/23/21 History tramadol 50 mg tablet 50 mg PO TID PRN 05/23/21 05/23/21 History Patient History Medical History Anxiety CKD (chronic kidney disease) stage 3, GFR 30-59 ml/min COPD (chronic obstructive pulmonary disease) 2L N/C prn Depression Dyslipidemia Generalized osteoarthritis GERD (gastroesophageal reflux disease) Peptic ulcer disease HX Stress incontinence Surgical History History of gastric surgery TO REMOVE ULCER History of hemorrhoidectomy History of left cataract extraction History of tooth extraction Hx of cholecystectomy S/P appendectomy Family History Grandmother Diabetes Other No family history of adverse response to anesthesia Social History Smoking Status: Former smoker Smoking End Date: 12 years ago; Second Hand Exposure: Yes; Do You Dip or Chew Tobacco: No; Hx Alcohol Use: No Hx Substance Use: No Preferred Language: [place]an Communication Ability: Effective Cafeteria Director Required: No Beliefs That Will Affect Care: None marital status: / Current Living Situation: Alone current occupational status: retired How many Children do You have: 2 Feels Safe at Home: Yes Safety Concerns: Feels Safe At This Time Assistive Devices: Cane and Walker Review of Systems Review of Systems: All systems reviewed & are unremarkable except as noted in HPI & below Physical Exam Constitutional: + ill appearing and cooperative; not in distress ENMT: Ears: no hearing impairment Neck: trachea midline Respiratory: normal respiratory effort, lungs clear to auscultation Auscultation: + diminished lung sounds Cardiovascular: Rate/Rhythm: regular rate and regular rhythm Vessels: posterior tibial pulses present, dorsalis pedis pulses present and radial pulses present; + abnormal peripheral pulses Extremities: normal capillary refill Gastrointestinal (Abdomen): Inspection/Auscultation: + abdomen distended Percussion/Palpation: + abdomen tender and + abdomen firm Musculoskeletal: no cyanosis or clubbing, extremities motor strength 5/5 Skin: no rashes, warm and dry Neurologic: moves all extremities and awake; no focal motor deficits and not confused Psychiatric: A+Ox3, euthymic affect Results & Data ([facility]) Vital Signs (Past 12 Hours) Vital Signs Temp Pulse Pulse Resp BP Pulse Ox 05/28/21 09:56 36.6 C 102 H 18 142/83 H 95 05/28/21 08:26 101 H 05/28/21 07:32 36.4 C L 97 H 19 129/78 95 05/28/21 03:47 36.6 C 98 H 18 141/79 H 94 05/28/21 00:05 36.5 C 98 H 18 148/84 H 95 05/27/21 23:32 96 H
--- NOTE | 2021-05-28 10:46 | Pre Anesthesia Assessment ---
Date of Service May 28, 2021 Pre Sedation Assessment Vital Signs Temp Pulse Pulse Resp BP BP Pulse Ox 05/28/21 09:56 36.6 C 102 H 18 142/83 H 95 05/28/21 08:26 101 H 05/28/21 07:32 36.4 C L 97 H 19 129/78 95 05/28/21 03:47 36.6 C 98 H 18 141/79 H 94 05/28/21 00:05 36.5 C 98 H 18 148/84 H 95 05/27/21 23:32 96 H 05/27/21 19:52 36.7 C 106 H 18 149/74 H 92 05/27/21 14:53 101 H 05/27/21 11:04 36.5 C 100 H 19 109/68 100 Cardiovascular RRR, no murmur, no edema Respiratory + respiratory effort normal + diminished lung sounds Pre-Sedation Airway Assessment Smoking Status: Former smoker Hx Sleep Apnea: No Short, Thick Neck: No Thyromental Distance: > or= 3.5 Finger Breadths Oral Cavity: + Dentures Mallampati Class: III ASA: ASA4 NPO Status Date of Last Intake of Fluids: 05/28/21 Time of Last Intake of Fluids: 00:00 Last Oral Intake of Fluids Comment: atleast since midnight Date of Last Intake of Solid Food: 05/28/21 Time of Last Intake of Solid Foods: 00:00 Last Intake of Solids Comment: atleast since midnight Procedure Planning Contraindications for Sedation: none Current Medications Reviewed: Yes Notes The planned sedation has been discussed with the patient. Informed Consent was obtained. I have identified the patient, determined the appropriateness of sedation and have assessed the patient immediately prior to the procedure. All medicine(s) and interventions are by my order.
--- NOTE | 2021-05-28 11:00 | Gastrointestinal Consultation ---
Date of Consultation May 28, 2021 Assessment & Plan (1) Ileus: CTAP, non contrast today. Minimize narcotics and benzos. Continue BID Miralax. If CTAP w/o obstruction, will repeat Relistor and give stimulant laxatives. Supervising Physician Co-Signing Physician Notes Attending attestation I have seen, examined this patient, and agree with the findings and above by our mid-level provider SIENNA Flores, with the following additions: Soft but mildly distended abdomen, will suggest non-contrast CT Going for dialysis catheter today Concern for ileus History of Present Illness Reason for Consultation: 75, female, ERCP on 05/25 Attending Physician: Yuan Acevedo MD History of Present Illness 75 female difficult ERCP on 05/25/21 (due to altered anatomy from hx of Billroth 2), ventral duct cannulated, two stents placed. Lipase increased to 400's on 05/24 (the day prior to the ERCP) and decreasing since the AM labs were done on the day of the ERCP on 05/25. Now decreased to 137 today. Pt with diffuse abd pain, ileus. Worsening renal status Cr 5.3 today. Allergies Allergy/AdvReac Type Severity Reaction Status Date / Time codeine Allergy Mild Vomiting Verified 05/23/21 16:37 mirtazapine Allergy Unknown Unknown Verified 05/23/21 16:35 Home Medications Medication Instructions Recorded Confirmed Type albuterol sulfate 90 mcg/actuation 1 puff INHALATION Q6H PRN 06/18/18 05/23/21 History aerosol inhaler (Ventolin HFA) atorvastatin 20 mg tablet (Lipitor) 10 mg PO QAM 06/18/18 05/23/21 History cholecalciferol (vitamin D3) 25 1,000 unit PO QAM 06/18/18 05/23/21 History mcg (1,000 unit) capsule (Vitamin D3) cyanocobalamin (vitamin B-12) 1,000 mcg PO QAM 06/18/18 05/23/21 History 1,000 mcg tablet (Vitamin B-12) ipratropium 0.5 mg-albuterol 3 mg 1 vial INHALATION Q6H PRN 06/18/18 05/23/21 History (2.5 mg base)/3 mL nebulization soln diazepam 2 mg tablet (Valium) 2 mg PO QAM 09/18/20 05/23/21 History duloxetine 60 mg capsule,delayed 60 mg PO QAM 09/18/20 05/23/21 History release (Cymbalta) pantoprazole 40 mg tablet,delayed 40 mg PO DAILYBB 09/18/20 05/23/21 History release (Protonix) fluticasone fur. 100 mcg-umeclid 1 inh INHALATION QAM 09/19/20 05/23/21 History 62.5 mcg-vilant 25 mcg inhalat.powder (Trelegy Ellipta) buspirone 10 mg tablet 10 mg PO TID 05/23/21 05/23/21 History cetirizine 10 mg tablet (Allergy 5 mg PO DAILY 05/23/21 05/23/21 History Relief (cetirizine)) diphenhydramine HCl 25 mg capsule 25 mg PO QID PRN 05/23/21 05/23/21 History (Diphenhist) docusate sodium 100 mg capsule 100 mg PO BID 05/23/21 05/23/21 History hydroxyzine HCl 25 mg tablet 25 mg PO QID PRN 05/23/21 05/23/21 History ondansetron 4 mg disintegrating 4 mg PO UD PRN 05/23/21 05/23/21 History tablet oxybutynin chloride 10 mg 10 mg PO QAM 05/23/21 05/23/21 History tablet,extended release 24 hr ropinirole 1 mg tablet 1 mg PO HS 05/23/21 05/23/21 History sucralfate 1 gram tablet 1 g PO QID 05/23/21 05/23/21 History tramadol 50 mg tablet 50 mg PO TID PRN 05/23/21 05/23/21 History Patient History Medical History (Updated 05/28/21 @ 10:58 by SIENNA Beltran) Anxiety CKD (chronic kidney disease) stage 3, GFR 30-59 ml/min COPD (chronic obstructive pulmonary disease) 2L N/C prn Depression Dyslipidemia Generalized osteoarthritis GERD (gastroesophageal reflux disease) Peptic ulcer disease HX Stress incontinence Surgical History History of gastric surgery TO REMOVE ULCER History of hemorrhoidectomy History of left cataract extraction History of tooth extraction Hx of cholecystectomy S/P appendectomy Family History Grandmother Diabetes Other No family history of adverse response to anesthesia Social History Smoking Status: Former smoker Smoking End Date: 12 years ago; Second Hand Exposure: Yes; Do You Dip or Chew Tobacco: No; Hx Alcohol Use: No Hx Substance Use: No Preferred Language: Citizen Of [place] Communication Ability: Effective [employer] Required: No Beliefs That Will Affect Care: None marital status: / Current Living Situation: Alone current occupational status: retired How many Children do You have: 2 Feels Safe at Home: Yes Safety Concerns: Feels Safe At This Time Assistive Devices: Cane and Walker Review of Systems Review of Systems: ROS: Gen: Denies weakness, No fevers, weight loss Eyes: No eye redness, or pain, no recent vision changes Resp: No SOB, no cough Cardio: No palpitations/irregular beats, no chest pain GI: As per HPI, otherwise (-) : Denies pain on urination Skin: No jaundice, itching or new rashes Physical Exam Constitutional: well developed, + ill appearing and cooperative Eyes: PERRL, conjunctivae normal, anicteric sclerae Respiratory: normal respiratory effort, lungs clear to auscultation Cardiovascular: RRR, no murmur, no edema Skin: no rashes, warm and dry normal turgor Neurologic: PERRL, EOMI, accommodation nl, no face palsy, no dysarthria awake; not confused Psychiatric: A+Ox3, euthymic affect Orientation: cooperative Results & Data ([facility]) Vital Signs (Past 12 Hours) Vital Signs Temp Pulse Pulse Resp BP Pulse Ox 05/28/21 09:56 36.6 C 102 H 18 142/83 H 95 05/28/21 08:26 101 H 05/28/21 07:32 36.4 C L 97 H 19 129/78 95 05/28/21 03:47 36.6 C 98 H 18 141/79 H 94 05/28/21 00:05 36.5 C 98 H 18 148/84 H 95 05/27/21 23:32 96 H Laboratory Results WBC 18, Hb 11, Hct 33, Plts 32, INR 1.0, Na 132, K 4.4, Cl 93, CO2 26, BUN 59, Cr 5.3, glucose 111. T Bili 1.1, AST 38, ALT 35, Alk Phos 101. Diagnostic Findings Abd X-ray on 05/27/21: 1. An enteric tube has been placed as above. 2. There is no evidence of bowel obstruction. 3. Postoperative findings as above
[2021-05-28] MEDS ORDERED: LIDOCAINE 1% LOCAL 20 ML VIAL INFIL ONE (11:28)
--- NOTE | 2021-05-28 11:36 | Operative Report ---
Post Operative Report Pre & Post Diagnosis Operation Date: 05/25/21 07:10 Pre-Op Diagnosis: Post endoscopic retrograde cholangiopancreatogram acute pancreatitis, abdominal pain, elevated liver function test, elevated lipase Post-Op Diagnosis: Post endoscopic retrograde cholangiopancreatogram acute pancreatitis, abdominal pain, elevated liver function test, elevated lipase, complete biliary obstruction Operation Date: 05/28/21 12:15 Pre-Op Diagnosis: Acute Kidney Injury Post-Op Diagnosis: Acute Kidney Injury Operation Date: 05/29/21 14:25 <No data on this case meets the specified criteria> I identified the patient and participated in the time-out.: Yes Procedure Operation Date: 05/25/21 07:10 Actual Procedures p Endoscopic Retrograde Cholangiopancreatogram, - Andra Whaley MD s Endoscopic Ultrasound - Andra Whaley MD Operation Date: 05/28/21 12:15 Actual Procedures p Temporary Femoral Dialysis Catheter Insertion(Right), Ultrasound localization of femoral vein, Fluoro for positioning - Pietro Garvey MD Operation Date: 05/29/21 14:25 <No data on this case meets the specified criteria> Surgeon Pietro Garvey MD Chemical Plant Manager None Estimated Blood Loss 0 Findings Consistent with Post-Op Diagnosis Specimens none Anesthesia Type Local Complications none Disposition Accompanied Patient To Recovery: No Disposition: Recovery Room Indications This is a 75-year-old female who was admitted with acute pancreatitis and subsequently ended up with acute renal failure. She is in need of dialysis at this time. Being that she cannot lay flat and she does have shortness of breath elected to do a temporary femoral catheter for dialysis. I have discussed the risks options and benefits of the procedure with the patient. The patient understands the risks options and benefits and agrees to the procedure. Description of Procedure Patient was taken to the angio suite and placed in the supine position. The right groin were prepped and draped in a sterile manner. The patient was iden tified and a timeout performed. Local anesthesia was then administered to the appropriate areas of the groin. Ultrasound was then used to locate the right common femoral vein. The vein compressed easily, had no filing defects, and was patent. The vein was then punctured under direct ultrasound imaging. A guidewire was then passed centrally under fluoroscopic imaging. A small stab wound was made at the puncture site. A 20 cm temporary dialysis catheter was passed after dilating the puncture site with a small dilator. The catheter was then sutured in place using nylon sutures. Both ports aspirated and flushed easily and were then packed with heparin. A sterile dressing was applied to the catheter. The patient left the operation room in satisfactory condition and tolerated the procedure well. All needle and sponge counts were correct at the end of the procedure. I attest to the content of the Intraoperative Record and any orders documented therein. Any exceptions are noted below.
--- NOTE | 2021-05-28 13:10 | Nephrology Progress Note ---
Date of Service May 28, 2021 Assessment & Plan (1) SRIDHAR (acute kidney injury): Plan: oliguric ATN markedly worsening with pulmonary edema on CXR 48 hrs back and baseline COPD. again reviewed indication/risk/benefit/alternative to dialysis w/ pt > will proceed w/ dialysis; vascular help appreciated w/ getting line. -HD today 2 hrs -HD tomorrow planned and daily x 3 days Admission and Anticipated Discharge Date Admission Date: May 24, 2021 Subjective seen on rounds at 0815; very Nauseated and marked abdominal pain; not NPO but taking almost nothing d/t N; some SOB Review of Systems Review of Systems: All systems reviewed & are unremarkable except as noted in Subjective Physical Exam Constitutional: well developed, + ill appearing and cooperative; no acute distress Eyes: EOM intact bilaterally ENMT: Ears: no external ear abnormality Nose: no external nose abnormality Mouth: + dry oral mucous membranes Neck: no nuchal rigidity Respiratory: normal respiratory effort Auscultation: + diminished lung sounds (diminished BL bases) Cardiovascular: Rate/Rhythm: regular rhythm and + tachycardic Extremities: + edema (trace dependnet) Gastrointestinal (Abdomen): Inspection/Auscultation: normal bowel sounds Percussion/Palpation: + abdomen tender (+ rebound) and + guarding NGT present Musculoskeletal: Extremities: strength 5/5 throughout Skin: no rashes, warm and dry Neurologic: cain, fluent speech, no tremor Psychiatric: Orientation: oriented to person and oriented to place Insight: good insight Judgement: good judgement Genitourinary: aranda w/ scant urine Results & Data ([facility]) Vital Signs (Past 12 Hours) Vital Signs Temp Pulse Pulse Resp BP BP BP 05/28/21 12:00 36.7 C 99 H 17 120/66 05/28/21 11:35 36.5 C 101 H 18 146/83 H 05/28/21 11:30 101 H 18 132/79 05/28/21 11:25 101 H 18 132/78 05/28/21 09:56 36.6 C 102 H 18 142/83 H 05/28/21 08:26 101 H 05/28/21 07:32 36.4 C L 97 H 19 129/78 05/28/21 03:47 36.6 C 98 H 18 141/79 H Pulse Ox 05/28/21 12:00 99 05/28/21 11:35 96 05/28/21 11:30 98 05/28/21 11:25 98 05/28/21 09:56 95 05/28/21 08:26 05/28/21 07:32 95 05/28/21 03:47 94 Laboratory Results 05/28/21 05:48 05/28/21 07:49
[2021-05-28] MEDS ORDERED: SODIUM CHLORIDE 0.9% 1000ML 1,000 ML IV PRN (13:15)
--- NOTE | 2021-05-28 16:51 | Hospitalist Progress Note ---
Date of Service May 28, 2021 Assessment & Plan (1) Post-ERCP acute pancreatitis: (2) Elevated LFTs: (3) Abdominal pain: Plan: This is a 75-year-old female who has significant past medical history of COPD on 2 L of O2 intermittently at home, HLD, hyperparathyroidism, history of paroxysmal SVT, GERD, CKD stage III, neuropathy, chronic back pain, depression with anxiety, history of tobacco abuse who presents to ED secondary to abdominal pain status post ERCP. Post ERCP acute pancreatitis Elevated LFTs Abdominal pain ERCP 05/25 with several stents placed will continue clear liquid diet. She will need repeat ERCP in 2 months for nathan nt removal -reduce dilaudid to 0.25mg Q 6PRN Shortness of Breath -CXR shows pleural effusion, increased pulmonary edema -fluid status will be managed by dialysis (see below) Ileus -AXR shows consiptation and ileus -abdominal u/s negative for ascites -continue aggressive bowel regimen, ambulate SRIDHAR on CKD stage 3 ATN Anuric -Appreciate Nephrology input, likely ATN from pancreatitis -lasix increased to 100mg IV BID, continue albumin BID with lasix but very little urine output. 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 Continue PPI COPD No acute exacerbation Oxygen as needed to maintain O2 sat greater than 92% Continue Trelegy, as needed inhalers Hyperlipidemia hold statin due to LFT elevation Depression with anxiety Continue BuSpar, Valium, Cymbalta DVT prophylaxis: SQ heparin Daughter, Dominga, updated 05/26 and 05/27 Patient's daughter Dominga who lives in [place] is Admission and Anticipated Discharge Date Admission Date: May 24, 2021 Subjective Still no BM received 2 hr dialysis session today Still feels short of breath Abdomen bloated but no pain Physical Exam Physical Exam: No acute distress, non toxic appearing Respiratory: breathing comfortably, no wheezing/rhonchi/rales Cardiovascular: tachycardic but regular, no murmurs/rubs/gallops Chest (Breasts): Additional Comments: right chest wall permacath Gastrointestinal (Abdomen): +increased girth, +hypoactive bowel sounds Musculoskeletal: no edema Neurologic: awake, alert, spontaneously moving extremities Results & Data Results & Data ([facility]) Vital Signs (Past 12 Hours) Vital Signs Temp Pulse Pulse Resp BP BP BP 05/28/21 15:21 36.7 C 106 H 19 135/72 05/28/21 14:25 105 H 05/28/21 12:00 36.7 C 99 H 17 120/66 05/28/21 11:35 36.5 C 101 H 18 146/83 H 05/28/21 11:30 101 H 18 132/79 05/28/21 11:25 101 H 18 132/78 05/28/21 09:56 36.6 C 102 H 18 142/83 H 05/28/21 08:26 101 H 05/28/21 07:32 36.4 C L 97 H 19 129/78 Pulse Ox 05/28/21 15:21 94 05/28/21 14:25 05/28/21 12:00 99 05/28/21 11:35 96 05/28/21 11:30 98 05/28/21 11:25 98 05/28/21 09:56 95 05/28/21 08:26 05/28/21 07:32 95
[2021-05-28] MEDS ORDERED: OLANZapine 10 MG/2.1 ML SDV IM STA (19:18)
[2021-05-28 20:44] LABS: BUN Creatinine Ratio 10.4 (10-20); Calcium 8.1 mg/dl (8.5-10.1); Creatinine Clr Calc Pharmacy 10.7 ml/min; Est GFR (African American) 9.8 ml/min; Est GFR (Non-African American) 8.4 ml/min
--- NOTE | 2021-05-28 21:16 | Communication Note ---
Date of Service: May 28, 2021 715 PM Patient confused, pulling at her NGT and trying to call out of bed as per RN AP Delirium Zyprexa trial Hold neuropsychotropic meds for now until patient mentation back to baseline 11 PM Patient with transient runs of A. 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 AP PAF IV Lopressor for rate control interim (patient will not take oral medications as per RN) TTE, Cardiology consult Re: PAF (no prior diagnosis) Will relay to AM provider.
[2021-05-28] MEDS: DOCUSATE SODIUM/SENNA 50/8.6MG TAB PO SCH (22:48)
[2021-05-28] MEDS ORDERED: ALBUMIN 25% 12.5 GM/50 ML VIAL IV ONE (22:52)
[2021-05-28] MEDS ORDERED: METOPROLOL TARTRATE 1 MG/ML VIAL IV STA (23:03)
[2021-05-29 00:27] LABS: Thyroid Stimulating Hormone 0.084 uIu/ml (0.300-4.500)
[2021-05-29] MEDS ORDERED: OLANZapine 10 MG/2.1 ML SDV IM STA ×2 (00:30→08:17)
[2021-05-29 01:01] LABS: T4 Free Thyroxine 0.83 ng/dl (0.61-1.60)
[2021-05-29] MEDS: METOPROLOL TARTRATE 1 MG/ML VIAL IV SCH ×4 (06:14→23:54)
[2021-05-29] MEDS: PANTOprazole 40 MG TAB PO SCH (06:14)
[2021-05-29] MEDS: PIPERACILLIN/TAZOBACTAM 3.375 GM in DEXTROSE 5% 100 ML IV SCH ×2 (06:14→17:54)
[2021-05-29 06:37] LABS: Hematocrit (blood only) 30.6 % (37-47); Hemoglobin 9.9 g/dL (12.0-16.0); Mean Corpuscular Hemoglobin 30.6 pg (25-34); Mean Corpuscular Hgb Conc 32.4 g/dL (32-36); Mean Corpuscular Volume 94.4 fL (80-100); Mean Platelet Volume 9.5 fL (7.4-10.4); Nucleated RBC # (auto) 0.04 K/uL (0-0); Nucleated RBC % (auto) 0.2 %; Platelet Count 307 K/uL (130-400); RDW Coefficient of Variation 14.3 % (11.5-14.5); RDW Standard Deviation 49.3 fL (36.4-46.3); Red Blood Count 3.24 M/uL (4.2-5.4); White Blood Count 24.45 K/uL (4.8-10.8)
[2021-05-29 06:45] LABS: Partial Thromboplastin Ratio 1.4; Partial Thromboplastin Time 39.6 Seconds (21.0-31.0)
[2021-05-29 07:16] LABS: Albumin Globulin Ratio 1.2 (0.9-2); BUN Creatinine Ratio 11.6 (10-20); Creatinine Clr Calc Pharmacy 10.2 ml/min; Est GFR (African American) 9.2 ml/min; Est GFR (Non-African American) 7.9 ml/min; Globulin 2.6 gm/dl (2.5-4.0); Potassium 4.3 mmol/L (3.5-5.1); Total Protein 5.6 gm/dl (6.0-8.3)
[2021-05-29] MEDS: DULoxetine HCL 60 MG CAP PO SCH (08:37)
[2021-05-29] MEDS: FLUTICASONE FUROATE 100MCG 14 PUFFS/INHALER INH SCH (08:38)
[2021-05-29] MEDS: SUCRALFATE 1 GM TAB PO SCH ×5 (08:39→22:20)
[2021-05-29] MEDS: ADVANCED PROBIOTIC 1250 MG CAPSULE PO SCH ×2 (08:39→08:43)
[2021-05-29] MEDS: HEPARIN SOD 5,000 UNIT/0.5 ML VIAL SQ SCH ×2 (08:40→22:23)
[2021-05-29] MEDS: bisacodyL 10 MG SUPP PR SCH (08:44)
[2021-05-29] MEDS: MAGNESIUM HYDROXIDE SUSP 30 ML UDC PO SCH ×2 (08:44→22:20)
[2021-05-29] MEDS: POLYETHYLENE (MIRALAX) 17 GM PACK PO SCH ×2 (08:44→22:20)
--- NOTE | 2021-05-29 09:43 | Cardiology Consultation ---
Date of Consultation May 29, 2021 Assessment & Plan (1) Post-ERCP acute pancreatitis: (2) PAF (paroxysmal atrial fibrillation): (3) COPD (chronic obstructive pulmonary disease): The patient is confused. In reviewing the telemetry, she has been in sinus rhythm since last night. She is on Lopressor 2.5 mg IV every 6 hours which I would continue. At this point, I believe the subcu heparin is adequate anticoagulation. I do not believe she will be a candidate for long-term anticoagulation after discharge. History of Present Illness Attending Physician: Yuan Acevedo MD History of Present Illness This is a 75-year-old female with a history of COPD and paroxysmal atrial arrhythmias who underwent an ERCP and then developed pancreatitis. She is currently confused and cannot respond to questioning. The information is taken from the medical record as well as from nursing. After being admitted to the telemetry the patient has had short runs of PAF and was started on IV metoprolol. Currently she is in a normal sinus rhythm. Allergies Allergy/AdvReac Type Severity Reaction Status Date / Time codeine Allergy Mild Vomiting Verified 05/23/21 16:37 mirtazapine Allergy Unknown Unknown Verified 05/23/21 16:35 Home Medications Medication Instructions Recorded Confirmed Type albuterol sulfate 90 mcg/actuation 1 puff INHALATION Q6H PRN 06/18/18 05/23/21 History aerosol inhaler (Ventolin HFA) atorvastatin 20 mg tablet (Lipitor) 10 mg PO QAM 06/18/18 05/23/21 History cholecalciferol (vitamin D3) 25 1,000 unit PO QAM 06/18/18 05/23/21 History mcg (1,000 unit) capsule (Vitamin D3) cyanocobalamin (vitamin B-12) 1,000 mcg PO QAM 06/18/18 05/23/21 History 1,000 mcg tablet (Vitamin B-12) ipratropium 0.5 mg-albuterol 3 mg 1 vial INHALATION Q6H PRN 06/18/18 05/23/21 History (2.5 mg base)/3 mL nebulization soln diazepam 2 mg tablet (Valium) 2 mg PO QAM 09/18/20 05/23/21 History duloxetine 60 mg capsule,delayed 60 mg PO QAM 09/18/20 05/23/21 History release (Cymbalta) pantoprazole 40 mg tablet,delayed 40 mg PO DAILYBB 09/18/20 05/23/21 History release (Protonix) fluticasone fur. 100 mcg-umeclid 1 inh INHALATION QAM 09/19/20 05/23/21 History 62.5 mcg-vilant 25 mcg inhalat.powder (Trelegy Ellipta) buspirone 10 mg tablet 10 mg PO TID 05/23/21 05/23/21 History cetirizine 10 mg tablet (Allergy 5 mg PO DAILY 05/23/21 05/23/21 History Relief (cetirizine)) diphenhydramine HCl 25 mg capsule 25 mg PO QID PRN 05/23/21 05/23/21 History (Diphenhist) docusate sodium 100 mg capsule 100 mg PO BID 05/23/21 05/23/21 History hydroxyzine HCl 25 mg tablet 25 mg PO QID PRN 05/23/21 05/23/21 History ondansetron 4 mg disintegrating 4 mg PO UD PRN 05/23/21 05/23/21 History tablet oxybutynin chloride 10 mg 10 mg PO QAM 05/23/21 05/23/21 History tablet,extended release 24 hr ropinirole 1 mg tablet 1 mg PO HS 05/23/21 05/23/21 History sucralfate 1 gram tablet 1 g PO QID 05/23/21 05/23/21 History tramadol 50 mg tablet 50 mg PO TID PRN 05/23/21 05/23/21 History Patient History Medical History (Updated 05/29/21 @ 16:23 by Yessi Mccauley PA-C) Anxiety CKD (chronic kidney disease) stage 3, GFR 30-59 ml/min COPD (chronic obstructive pulmonary disease) 2L N/C prn Depression Dyslipidemia Generalized osteoarthritis GERD (gastroesophageal reflux disease) Peptic ulcer disease HX Stress incontinence Surgical History History of gastric surgery TO REMOVE ULCER History of hemorrhoidectomy History of left cataract extraction History of tooth extraction Hx of cholecystectomy S/P appendectomy Family History Grandmother Diabetes Other No family history of adverse response to anesthesia Social History Smoking Status: Former smoker Smoking End Date: 12 years ago; Second Hand Exposure: Yes; Do You Dip or Chew Tobacco: No; Hx Alcohol Use: No Hx Substance Use: No Preferred Language: Danish Communication Ability: Effective 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 All other 10 point review of systems are negative. Physical Exam Physical Exam: General: Patient is confused and currently mittens are being put on so things are not pulled out. Head: normocephalic, no masses, lesions, tenderness or abnormalities Eyes: conjunctiva are pink and non-injected, sclera clear Neck: supple, no adenopathy, no bruits, normal jugular venous pulse, no hepatojugular reflux Chest: normal shape and normal respiratory effort Lungs: clear to auscultation and percussion Cardiac Exam: - regular rate & rhythm, no murmurs gallops or rubs - normal S1, normal S2 Pulses: 2(+) throughout Abdomen: abdomen soft, non-tender, no abnormal masses and no hepatosplenomegaly Musculoskeletal: no gait disturbance, no joint inflammation, no deforming arthritis Extremities: no edema and no cyanosis Neuro: Confused but grossly normal exam Results & Data ([facility]) Vital Signs (Past 12 Hours) Vital Signs Temp Pulse Pulse Resp BP BP Pulse Ox 05/29/21 08:06 36.6 C 110 H 18 128/72 92 05/29/21 08:00 105 H 05/29/21 06:14 118 H 133/71 05/29/21 04:31 36.9 C 118 H 18 133/71 87 L 05/28/21 23:53 106 H 05/28/21 23:21 110 H 124/70 05/28/21 23:18 110 H 124/70 05/28/21 22:58 36.8 C 130 H 18 128/68 90 Laboratory Results Laboratory Results - last 24 hr 05/28/21 05/28/21 05/28/21 14:13 19:55 20:03 WBC RBC Hgb Hct MCV MCH MCHC RDW Std Deviation RDW Coeff of Walter Plt Count MPV Absolute Nucleated RBC Nucleated RBC % (auto) APTT PTT Ratio Sodium 133 L Potassium Chloride 96 L Carbon Dioxide 26 Anion Gap 11 BUN 49 H Creatinine 4.69 H* D Est Cr Clr Drug Dosing 10.7 Est GFR ( Amer) 9.8 Est GFR (Non-Af Amer) 8.4 BUN/Creatinine Ratio 10.4 Glucose 95 Calcium 8.1 L Ionized Calcium Magnesium Total Bilirubin AST ALT Alkaline Phosphatase Ammonia 19.0 Total Protein Albumin Globulin Albumin/Globulin Ratio Lipase TSH Free T4 Hep Bs Antigen Pending Hep Bs Ag Confirmation Pending Hep Bs Antibody, Quant Pending Hep B Core Total Ab Pending 05/28/21 05/28/21 05/28/21 21:10 21:10 21:14 WBC RBC Hgb Hct MCV MCH MCHC RDW Std Deviation RDW Coeff of Walter Plt Count MPV Absolute Nucleated RBC Nucleated RBC % (auto) APTT PTT Ratio Sodium Potassium 4.0 Chloride Carbon Dioxide Anion Gap BUN Creatinine Est Cr Clr Drug Dosing Est GFR ( Amer) Est GFR (Non-Af Amer) BUN/Creatinine Ratio Glucose Calcium Ionized Calcium Magnesium 3.5 H Total Bilirubin AST ALT Alkaline Phosphatase Ammonia Total Protein Albumin Globulin Albumin/Globulin Ratio Lipase TSH 0.084 L Free T4 0.83 Hep Bs Antigen Hep Bs Ag Confirmation Hep Bs Antibody, Quant Hep B Core Total Ab 05/29/21 05/29/21 05/29/21 05:47 05:47 05:47 WBC 24.45 H RBC 3.24 L Hgb 9.9 L Hct 30.6 L MCV 94.4 MCH 30.6 MCHC 32.4 RDW Std Deviation 49.3 H RDW Coeff of Walter 14.3 Plt Count 307 MPV 9.5 Absolute Nucleated RBC 0.04 H Nucleated RBC % (auto) 0.2 APTT PTT Ratio Sodium 136 Potassium 4.3 Chloride 98 Carbon Dioxide 26 Anion Gap 12 H BUN 57 H Creatinine 4.93 H* Est Cr Clr Drug Dosing 10.2 Est GFR ( Amer) 9.2 Est GFR (Non-Af Amer) 7.9 BUN/Creatinine Ratio 11.6 Glucose 77 Calcium 8.0 L Ionized Calcium 1.11 L Magnesium Total Bilirubin 1.0 AST 45 H ALT 29 Alkaline Phosphatase 98 Ammonia Total Protein 5.6 L Albumin 3.0 L Globulin 2.6 Albumin/Globulin Ratio 1.2 Lipase 89 H TSH Free T4 Hep Bs Antigen Hep Bs Ag Confirmation Hep Bs Antibody, Quant Hep B Core Total Ab 05/29/21 05:47 WBC RBC Hgb Hct MCV MCH MCHC RDW Std Deviation RDW Coeff of Walter Plt Count MPV Absolute Nucleated RBC Nucleated RBC % (auto) APTT 39.6 H PTT Ratio 1.4 Sodium Potassium Chloride Carbon Dioxide Anion Gap BUN Creatinine Est Cr Clr Drug Dosing Est GFR ( Amer) Est GFR (Non-Af Amer) BUN/Creatinine Ratio Glucose Calcium Ionized Calcium Magnesium Total Bilirubin AST ALT Alkaline Phosphatase Ammonia Total Protein Albumin Globulin Albumin/Globulin Ratio Lipase TSH Free T4 Hep Bs Antigen Hep Bs Ag Confirmation Hep Bs Antibody, Quant Hep B Core Total Ab Medications Administered Current Inpatient Medications Acetaminophen (Acetaminophen 325 Mg Tab) 650 mg PO Q4H PRN PRN Reason: pain/fever Stop: 06/22/21 21:10 Last Admin: 05/26/21 11:00 Dose: 650 mg Documented by: Albuterol (Albuterol Hfa 8 Gm Inhaler) 1 puffs INH Q6H PRN PRN Reason: Shortness Of Breath Stop: 06/22/21 21:10 Albuterol (Albut/Ipratrop 3mg/0.5mg Neb 3 Ml Vial) 3 ml INH Q6H PRN; Protocol PRN Reason: Wheezing Stop: 06/22/21 21:10 Bisacodyl (Bisacodyl 10 Mg Supp) 10 mg NH DAILY [facility] Stop: 06/26/21 10:14 Last Admin: 05/29/21 08:44 Dose: Not Given Documented by: Buspirone HCl (Buspirone 5 Mg Tab) 10 mg PO TID [facility] Stop: 06/22/21 21:10 Last Admin: 05/28/21 13:29 Dose: 10 mg Documented by: Diazepam (Diazepam 2 Mg Tablet) 2 mg PO QAM [facility] Stop: 06/23/21 08:59 Last Admin: 05/28/21 09:23 Dose: 2 mg Documented by: Duloxetine HCl (Duloxetine Hcl 60 Mg Cap) 60 mg PO QAM [facility] Stop: 06/23/21 08:59 Last Admin: 05/29/21 08:37 Dose: 60 mg Documented by: Fluticasone Furoate (Fluticasone Furoate 100mcg 14 Puffs/Inhaler) 1 puffs INH DAILY [facility]; Protocol Stop: 06/23/21 08:59 Last Admin: 05/29/21 08:38 Dose: 1 puffs Documented by: Heparin Sodium (Porcine) (Heparin Sod 5,000 Unit/0.5 Ml Vial) 5,000 units SQ Q12 RANI Stop: 06/26/21 20:59 Last Admin: 05/29/21 08:40 Dose: 5,000 units Documented by: Hydromorphone HCl (Hydromorphone Inj 0.5 Mg/0.5 Ml Syr) 0.25 - 0.5 mg IV Q6H PRN PRN Reason: Pain Stop: 06/07/21 09:53 Last Admin: 05/28/21 00:14 Dose: 0.5 mg Documented by: Piperacillin Sod/Tazobactam (Sod 3.375 gm/ Dextrose) 115 mls @ 28.75 mls/hr IV Q12H [facility]; Protocol Stop: 06/02/21 17:59 Last Admin: 05/29/21 06:14 Dose: 28.8 mls/hr Documented by: Prochlorperazine 5 mg/ Syringe 5 mls @ 5 mls/min IV Q6H PRN PRN Reason: Nausea And Vomiting Stop: 06/25/21 15:11 Lactobacillus Acidophilus (Advanced Probiotic 1250 Mg Capsule) 2 cap PO DAILY [facility] Stop: 06/28/21 08:59 Last Admin: 05/29/21 08:43 Dose: Not Given Documented by: Magnesium Hydroxide (Magnesium Hydroxide Susp 30 Ml Udc) 30 ml PO BID [facility] Stop: 06/26/21 09:14 Last Admin: 05/29/21 08:44 Dose: Not Given Documented by: Melatonin (Melatonin 3 Mg Tab) 3 mg PO HS PRN PRN Reason: Sleep Stop: 06/25/21 23:10 Last Admin: 05/27/21 20:27 Dose: 3 mg Documented by: Metoprolol Tartrate (Metoprolol Tartrate 1 Mg/Ml Vial) 2.5 mg IV Q6H [facility]; Protocol Stop: 06/28/21 05:59 Last Admin: 05/29/21 06:14 Dose: 2.5 mg Documented by: Miscellaneous Information (Piperacill/Tazobac Consult Active) 1 ea N/A UD PRN PRN Reason: Consult Stop: 06/22/21 21:10 Ondansetron HCl (Ondansetron Inj 2 Mg/Ml 2 Ml Vial) 4 mg IV Q6H PRN PRN Reason: Nausea Stop: 06/22/21 21:10 Last Admin: 05/28/21 00:17 Dose: 4 mg Documented by: Oxybutynin Chloride (Oxybutynin Chloride Xl 5 Mg Tabcr) 10 mg PO QAM [facility] Stop: 06/23/21 08:59 Last Admin: 05/28/21 09:26 Dose: 10 mg Documented by: Pantoprazole Sodium (Pantoprazole 40 Mg Tab) 40 mg PO DAILYBB [facility] Stop: 06/23/21 06:29 Last Admin: 05/29/21 06:14 Dose: 40 mg Documented by: Polyethylene Glycol (Polyethylene (Miralax) 17 Gm Pack) 17 gm PO BID [facility] Stop: 06/25/21 11:59 Last Admin: 05/29/21 08:44 Dose: Not Given Documented by: Ropinirole HCl (Ropinirole Hcl 1 Mg Tablet) 1 mg PO HS [facility] Stop: 06/22/21 21:10 Last Admin: 05/27/21 20:27 Dose: 1 mg Documented by: Senna/Docusate Sodium (Docusate Sodium/Senna 50/8.6mg Tab) 1 tab PO PM [facility] Stop: 06/26/21 20:59 Last Admin: 05/28/21 22:48 Dose: Not Given Documented by: Sucralfate (Sucralfate 1 Gm Tab) 1 gm PO QID [facility] Stop: 06/22/21 21:10 Last Admin: 05/29/21 08:44 Dose: Not Given Documented by: Tramadol HCl (Tramadol Hcl 50 Mg Tablet) 100 mg PO TID PRN PRN Reason: Pain Stop: 06/22/21 21:10 Last Admin: 05/27/21 20:26 Dose: 100 mg Documented by:
--- NOTE | 2021-05-29 09:49 | Gastroenterology Progress Note ---
Date of Service May 29, 2021 Assessment & Plan (1) Ileus: Plan: Blood Cx. Cont Zosyn and IV fluids, NPO, NG. Appreciate nephrology management of renal failure. CTAP, non contrast today. If no obstruction/perforation then Reglan, Dulcolax, Relistor. Continue BID Miralax. Admission and Anticipated Discharge Date Admission Date: May 24, 2021 Supervising Physician Co-Signing Physician Notes PE - alert to person, time, somewhat agitated with ng tube in, abd - distended and firm but not rigid No reports of passing gas Labs reviewed- wbc count elevated Recent complicated ercp due to altered anatomy and inflamed ampulla, now with pancreatitis, renal failure, ileus. Agree with further mgmt plan as already delineated, ct a/p non contrast given renal failure, ng tube and bid miralax for ileus mgmt s/p reglan, dulcolax, and relistor. Continue abx. Subjective 72, female admitted on 05/25 for abd pain, pancreatitis. Developed ARF, ileus. WBc 25 on Zosyn. Lipase was 400-> 89 today. LFTs wiith AST 45, otherwise normal. Last night became confused and is awake, alert, now able to tell us her name and the month of the year, but is agitated, not real communicative. Review of Systems Review of Systems: ROS: Gen: + agitated, + c/o pain; +weakness, No fevers Unable to obtain ROS from the pt. Physical Exam Constitutional: + ill appearing and + altered mental status (aggitated, judgement limited, minimally oriented. ) Eyes: PERRL, conjunctivae normal, anicteric sclerae ENMT: external ear and nose normal, oropharynx normal (mouth breathing, mouth w/o teeth) Neck: trachea midline, no thyromegaly Respiratory: Auscultation: + crackles (left base); no wheezes Cardiovascular: RRR, no murmur, no edema Gastrointestinal (Abdomen): Inspection/Auscultation: + abdomen distended (but not taunt) and + hypoactive bowel sounds; no abdominal edema Percussion/Palpation: + abdomen tender (diffusely); + abdomen not soft (moderately firm, not rigid) Skin: no rashes, warm and dry normal turgor Neurologic: PERRL, EOMI, accommodation nl, no face palsy, no dysarthria awake; not confused Psychiatric: A+Ox3, euthymic affect Orientation: cooperative Lymphatic: no cervical or axillary lymphadenopathy Results & Data ([facility]) Vital Signs (Past 12 Hours) Vital Signs Temp Pulse Pulse Resp BP BP Pulse Ox 05/29/21 08:06 36.6 C 110 H 18 128/72 92 05/29/21 08:00 105 H 05/29/21 06:14 118 H 133/71 05/29/21 04:31 36.9 C 118 H 18 133/71 87 L 05/28/21 23:53 106 H 05/28/21 23:21 110 H 124/70 05/28/21 23:18 110 H 124/70 05/28/21 22:58 36.8 C 130 H 18 128/68 90 Laboratory Results WBC 24, Hb 9.9, Hct 30.6, Plts 307, Na 136, K 4.3, Cl 98, CO2 26, BUN 57, Cr 4.94, glucose 77 T Bili 3.6, AST 45, ALT 33, Alk P 147. Lipase 89 Diagnostic Findings KUB 05/27: 1. An enteric tube has been placed as above. 2. There is no evidence of bowel obstruction. US 05/26/21: Small amount of complex fluid again noted within the right upper quadrant/Morison's pouch. This remains unchanged. No additional See ERCP findings 05/25/21. Renal US 05/25/21: 1. No hydronephrosis. 2. Mild bilateral cortical with slight increased cortical thickness. 3. Small amount of complex fluid within Morison's pouch which is unchanged compared to the prior CT examination. Non contrast CTAP on arrival05/25/21: . Interval development of extensive s tranding and fluid within the right upper quadrant, adjacent to the pancreatic head and within the operative bed status post distal gastrectomy with Billroth II. A few locules of possible extraluminal gas which raise the possibility of a contained perforation. Depending on the recent procedure, this trace extraluminal gas may not be unexpected. Acute pancreatitis is also within the differential and could be correlated with serum lipase level. No bowel obstruction. No significant change in moderate to marked biliary ductal dilatation.
[2021-05-29] MEDS ORDERED: HALOPERIDOL LACTATE 5 MG/ML 1 ML VIAL IM PRN (10:32)
[2021-05-29] MEDS ORDERED: LORazepam 2 MG/1 ML VIAL IV STA ×2 (10:32→16:15)
--- NOTE | 2021-05-29 12:21 | XRay Report ---
SINGLE VIEW CHEST CLINICAL HISTORY: Change in mental status. Aspiration. FINDINGS: An AP, portable, upright chest radiograph is compared to study dated 05/26/2021 correlation i s made with chest CT dated 02/15/2016. An enteric tube has been placed. The tip projects below the di aphragm over the proximal stomach. The heart is mildly enlarged noting atherosclerotic calcification of the thoracic aorta. There is pulmonary vascular congestion. Emphysema and chronic interstitial thi ckening is similar to previous. Scarring/atelectasis is noted at the lung bases. No airspace consolid ation typical for pneumonia or large pleural effusion is identified. No pneumothorax is seen. The ske letal structures are osteopenic. The bony thorax is grossly intact. A biliary drain is noted in the u pper abdomen. IMPRESSION: 1. Cardiomegaly and emphysema with pulmonary vascular congestion. 2. No airspace consolidation typical for pneumonia or large pleural effusion is identified. 3. An enteric tube has been placed as above ACT 112: Negative or not required by law. Electronically signed by: Jm Holliday M.D. 05/29/2021 12:19 PM
--- NOTE | 2021-05-29 13:26 | Nephrology Progress Note ---
Date of Service May 29, 2021 Assessment & Plan (1) SRIDHAR (acute kidney injury): Plan: oliguric ATN markedly worsening with pulmonary edema on CXR today and baseline COPD. had one dialysis tx 90 min on 05/28 via temp fem cath. -HD May 28 for 2 hrs > stopped after 90 minutes due to patient agitation -Ideally she would have dialysis today and tomorrow. However with her significant agitation, do not believe this procedure would be safe today. Will reassess tomorrow. -With worsening hypoxia, will trial IV diuretics but do not believe these have a high chance of working well for her Admission and Anticipated Discharge Date Admission Date: May 24, 2021 Subjective Delirious and with a sitter now. Also had new onset paroxysmal atrial fibrillation overnight. Dialysis stopped early yesterday due to patient agitation. Review of Systems Review of Systems: All systems reviewed & are unremarkable except as noted in Subjective Physical Exam Constitutional: well developed, + acute distress (Moderate agitation), + ill appearing and + altered mental status; + uncooperative Eyes: EOM intact bilaterally ENMT: Ears: no external ear abnormality Nose: no external nose abnormality Mouth: + dry oral mucous membranes Neck: no nuchal rigidity Respiratory: normal respiratory effort Auscultation: + diminished lung sounds (diminished BL bases) Cardiovascular: Rate/Rhythm: regular rhythm and + tachycardic Extremities: + edema (trace dependnet) Gastrointestinal (Abdomen): Inspection/Auscultation: normal bowel sounds Percussion/Palpation: + abdomen tender (+ rebound) and + guarding Musculoskeletal: Extremities: strength 5/5 throughout Skin: no rashes, warm and dry Psychiatric: Orientation: oriented to person and oriented to place Insight: good insight Judgement: good judgement Results & Data ([facility]) Vital Signs (Past 12 Hours) Vital Signs Temp Pulse Pulse Pulse Resp BP BP 05/29/21 12:53 36.7 C 93 H 22 125/71 05/29/21 12:26 96 H 112/66 05/29/21 12:14 36.7 C 96 H 18 112/66 05/29/21 08:06 36.6 C 110 H 18 128/72 05/29/21 08:00 105 H 05/29/21 06:14 118 H 133/71 05/29/21 04:31 36.9 C 118 H 18 133/71 Pulse Ox 05/29/21 12:53 96 04/12/22 12:26 05/29/21 12:14 97 05/29/21 08:06 92 05/29/21 08:00 05/29/21 06:14 05/29/21 04:31 87 L Laboratory Results 05/29/21 05:47 05/29/21 05:47 Diagnostic Findings Chest x-ray today 1. Cardiomegaly and emphysema with pulmonary vascular congestion. 2. No airspace consolidation typical for pneumonia or large pleural effusion is identified. 3. An enteric tube has been placed as above
[2021-05-29] MEDS ORDERED: FUROSEMIDE 40 MG/4 ML VIAL IV ONE (13:28)
--- NOTE | 2021-05-29 14:37 | Hospitalist Progress Note ---
Date of Service May 29, 2021 Assessment & Plan (1) Post-ERCP acute pancreatitis: (2) Elevated LFTs: (3) Abdominal pain: Plan: This is a 75-year-old female who has significant past medical history of COPD on 2 L of O2 intermittently at home, HLD, hyperparathyroidism, history of paroxysmal SVT, GERD, CKD stage III, neuropathy, chronic back pain, depression with anxiety, history of tobacco abuse who presents to ED secondary to abdominal pain status post ERCP. Post ERCP acute pancreatitis Elevated LFTs Abdominal pain ERCP 05/25 with several stents placed. She will need repeat ERCP in 2 months for stent removal -continue dilaudid to 0.25mg Q 6PRN Confusion -overnight 05/28 became agitated and confused, remains so -Possibly delirium. However, will consult Neurology for further evaluation. Will also order CT head since the confusion yesterday also coincided with new onset A fib. She may need MRI brain if her mental status does not improve -Will check RPR, B12, thiamine, folic acid, ammonia levels Shortness of Breath -CXR shows pleural effusion, increased pulmonary edema -fluid status will be managed by dialysis (see below) Ileus -AXR 05/26 shows consiptation and ileus -abdominal u/s negative for ascites -continue aggressive bowel regimen -CT A/P without contrast ordered 05/28 SRIDHAR on CKD stage 3 ATN Anuric -Appreciate Nephrology input, likely ATN from pancreatitis -dialysis started 05/28. Completed 2 hours yesterday, plan for session again today and tomorrow. 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 Continue PPI COPD No acute exacerbation Oxygen as needed to maintain O2 sat greater than 92% Continue Trelegy, as needed inhalers Hyperlipidemia hold statin due to LFT elevation Depression with anxiety Continue BuSpar, Valium, Cymbalta DVT prophylaxis: SQ heparin Daughter, Dominga, updated 05/26 and 05/27 Patient's daughter Dominga who lives in [place] is Admission and Anticipated Discharge Date Admission Date: May 24, 2021 Subjective Overnight became confused, agitated and received IM zyprexa 5mg Today, required bedside sitter Physical Exam Physical Exam: Confused, squirming in bed ENMT: NGT is clamped Respiratory: Breathing comfortably, no wheezing/rhonchi/rales Cardiovascular: Regular rate and rhythm, no murmurs/rubs/gallops Gastrointestinal (Abdomen): Hypoactive, no rebound or guarding Musculoskeletal: no edema Neurologic: Confused, unable to answer questions, spontaneously moving extremities Results & Data Results & Data ([facility]) Vital Signs (Past 12 Hours) Vital Signs Temp Pulse Pulse Pulse Resp BP BP 05/29/21 12:53 36.7 C 93 H 22 125/71 05/29/21 12:26 96 H 112/66 05/29/21 12:14 36.7 C 96 H 18 112/66 05/29/21 08:06 36.6 C 110 H 18 128/72 05/29/21 08:00 105 H 05/29/21 06:14 118 H 133/71 05/29/21 04:31 36.9 C 118 H 18 133/71 Pulse Ox 05/29/21 12:53 96 05/29/21 12:26 05/29/21 12:14 97 05/29/21 08:06 92 05/29/21 08:00 05/29/21 06:14 05/29/21 04:31 87 L Laboratory Results Short CBC 05/29/21 Range/Units 05:47 WBC 24.45 H (4.8-10.8) K/uL Hgb 9.9 L (12.0-16.0) g/dL Hct 30.6 L (37-47) % Plt Count 307 (130-400) K/uL BMP 05/28/21 05/28/21 05/29/21 19:55 21:10 05:47 Sodium 133 L 136 Potassium 4.0 4.3 Chloride 96 L 98 Carbon Dioxide 26 26 BUN 49 H 57 H Creatinine 4.69 H* D 4.93 H* Glucose 95 77 Calcium 8.1 L 8.0 L Liver Function 05/29/21 Range/Units 05:47 Total Bilirubin 1.0 (0.2-1.0) mg/dl AST 45 H (13-39) U/L ALT 29 (7-52) U/L Alkaline Phosphatase 98 (34-104) U/L Albumin 3.0 L (3.4-5.0) gm/dl Medications Administered Current Inpatient Medications Acetaminophen (Acetaminophen 325 Mg Tab) 650 mg PO Q4H PRN PRN Reason: pain/fever Stop: 06/22/21 21:10 Last Admin: 05/26/21 11:00 Dose: 650 mg Documented by: Albuterol (Albuterol Hfa 8 Gm Inhaler) 1 puffs INH Q6H PRN PRN Reason: Shortness Of Breath Stop: 06/22/21 21:10 Albuterol (Albut/Ipratrop 3mg/0.5mg Neb 3 Ml Vial) 3 ml INH Q6H PRN; Protocol PRN Reason: Wheezing Stop: 06/22/21 21:10 Bisacodyl (Bisacodyl 10 Mg Supp) 10 mg TN DAILY [facility] Stop: 06/26/21 10:14 Last Admin: 05/29/21 08:44 Dose: Not Given Documented by: Buspirone HCl (Buspirone 5 Mg Tab) 10 mg PO TID [facility] Stop: 06/22/21 21:10 Last Admin: 05/28/21 13:29 Dose: 10 mg Documented by: Diazepam (Diazepam 2 Mg Tablet) 2 mg PO QAM [facility] Stop: 06/23/21 08:59 Last Admin: 05/28/21 09:23 Dose: 2 mg Documented by: Duloxetine HCl (Duloxetine Hcl 60 Mg Cap) 60 mg PO QAM [facility] Stop: 06/23/21 08:59 Last Admin: 05/29/21 08:37 Dose: 60 mg Documented by: Fluticasone Furoate (Fluticasone Furoate 100mcg 14 Puffs/Inhaler) 1 puffs INH DAILY [facility]; Protocol Stop: 06/23/21 08:59 Last Admin: 05/29/21 08:38 Dose: 1 puffs Documented by: Haloperidol Lactate (Haloperidol Lactate 5 Mg/Ml 1 Ml Vial) 3 mg IM Q6 PRN PRN Reason: Agitation Stop: 06/28/21 10:31 Heparin Sodium (Porcine) (Heparin Sod 5,000 Unit/0.5 Ml Vial) 5,000 units SQ Q12 RANI Stop: 06/26/21 20:59 Last Admin: 05/29/21 08:40 Dose: 5,000 units Documented by: Hydromorphone HCl (Hydromorphone Inj 0.5 Mg/0.5 Ml Syr) 0.25 - 0.5 mg IV Q6H PRN PRN Reason: Pain Stop: 06/07/21 09:53 Last Admin: 05/28/21 00:14 Dose: 0.5 mg Documented by: Piperacillin Sod/Tazobactam (Sod 3.375 gm/ Dextrose) 115 mls @ 28.75 mls/hr IV Q12H [facility]; Protocol Stop: 06/02/21 17:59 Last Infusion: 05/29/21 11:01 Dose: Infused Documented by: Prochlorperazine 5 mg/ Syringe 5 mls @ 5 mls/min IV Q6H PRN PRN Reason: Nausea And Vomiting Stop: 06/25/21 15:11 Lactobacillus Acidophilus (Advanced Probiotic 1250 Mg Capsule) 2 cap PO DAILY [facility] Stop: 06/28/21 08:59 Last Admin: 05/29/21 08:43 Dose: Not Given Documented by: Magnesium Hydroxide (Magnesium Hydroxide Susp 30 Ml Udc) 30 ml PO BID [facility] Stop: 06/26/21 09:14 Last Admin: 05/29/21 08:44 Dose: Not Given Documented by: Melatonin (Melatonin 3 Mg Tab) 3 mg PO HS PRN PRN Reason: Sleep Stop: 06/25/21 23:10 Last Admin: 05/27/21 20:27 Dose: 3 mg Documented by: Metoprolol Tartrate (Metoprolol Tartrate 1 Mg/Ml Vial) 2.5 mg IV Q6H [facility]; Protocol Stop: 06/28/21 05:59 Last Admin: 05/29/21 12:26 Dose: 2.5 mg Documented by: Miscellaneous Information (Piperacill/Tazobac Consult Active) 1 ea N/A UD PRN PRN Reason: Consult Stop: 06/22/21 21:10 Ondansetron HCl (Ondansetron Inj 2 Mg/Ml 2 Ml Vial) 4 mg IV Q6H PRN PRN Reason: Nausea Stop: 06/22/21 21:10 Last Admin: 05/28/21 00:17 Dose: 4 mg Documented by: Oxybutynin Chloride (Oxybutynin Chloride Xl 5 Mg Tabcr) 10 mg PO QAM [facility] Stop: 06/23/21 08:59 Last Admin: 05/28/21 09:26 Dose: 10 mg Documented by: Pantoprazole Sodium (Pantoprazole 40 Mg Tab) 40 mg PO DAILYBB [facility] Stop: 06/23/21 06:29 Last Admin: 05/29/21 06:14 Dose: 40 mg Documented by: Polyethylene Glycol (Polyethylene (Miralax) 17 Gm Pack) 17 gm PO BID [facility] Stop: 06/25/21 11:59 Last Admin: 05/29/21 08:44 Dose: Not Given Documented by: Ropinirole HCl (Ropinirole Hcl 1 Mg Tablet) 1 mg PO HS [facility] Stop: 06/22/21 21:10 Last Admin: 05/27/21 20:27 Dose: 1 mg Documented by: Senna/Docusate Sodium (Docusate Sodium/Senna 50/8.6mg Tab) 1 tab PO PM [facility] Stop: 06/26/21 20:59 Last Admin: 05/28/21 22:48 Dose: Not Given Documented by: Sucralfate (Sucralfate 1 Gm Tab) 1 gm PO QID [facility] Stop: 06/22/21 21:10 Last Admin: 05/29/21 14:28 Dose: Not Given Documented by: Tramadol HCl (Tramadol Hcl 50 Mg Tablet) 100 mg PO TID PRN PRN Reason: Pain Stop: 06/22/21 21:10 Last Admin: 05/27/21 20:26 Dose: 100 mg Documented by:
--- NOTE | 2021-05-29 14:43 | CT Scan Report ---
CT abd pelvis wo con CLINICAL HISTORY: post ERCP abd pain, distention and constipation COMPARISON STUDY: 05/23/2021 CT DOSE: 1025.49 mGycm TECHNIQUE: Standard CT of the Abdomen and Pelvis was performed without IV contrast. The patient did not receive oral contrast. A dose lowering technique was utilized adhering to the principles of EUGENIO Khanna FINDINGS: Lung base: There has been interval development of a small to moderate size right pleural effusion wit h compressive atelectasis involving the right lower lobe. There is also interval development of small left pleural effusion and left basilar atelectasis. Emphysematous changes are seen within the remain radha of the lungs. Abdominal cavity: Compared to previous examination, there is increased amount of ascites present with increased fluid seen in Morison's pouch extending down the right paracolic gutter into the pelvis. Liver: The liver is homogeneous in attenuation on these limited noncontrast images..Compared to previ ous examination, the patient has had an interval ERCP with placement of multiple biliary stents and d ecompression of the intrahepatic biliary duct radicles. There is now mild pneumobilia present related to the procedure. Spleen: The spleen is homogeneous in attenuation on these limited noncontrast images. Pancreas: The pancreas is homogeneous in attenuation on these limited noncontrast images. There appea rs to be a stent within the pancreatic duct. Gall Bladder: The gallbladder is absent. Adrenal glands: The adrenal glands are normal in size and attenuation on these limited noncontrast im ages. Kidneys: The kidneys are mildly atrophic with no evidence for renal calculus or hydronephrosis. Bowel: The patient is again status post distal gastrectomy with suspected Billroth II procedure. NG t ube is present within the stomach. Residual oral contrast is seen within the colon to the level of th e rectum. Fluid-filled loops of large and small bowel present throughout the abdomen and pelvis witho ut evidence for disproportionate dilatation or obstruction. There is no significant fecal stasis or e vidence for fecal impaction. There is no evidence for mass lesion. There are no inflammatory changes present. There is no evidence for free air. Bladder: Lombardi catheter is present within the bladder. : There is no evidence for pelvic mass or adenopathy. Vasculature: There is no evidence for focal aneurysmal dilatation of the abdominal aorta. Atheroscler otic calcification is present. Osseous structures: There is no acute osseous pathology. Degenerative changes are seen within the spi ne. IMPRESSION: 1. Status post interval ERCP with multiple biliary stents in place. There has been decompression of p reviously identified intrahepatic or duct dilatation. Minimal pneumobilia is present related to the p rocedure. 2. Increase abdominal ascites with increased fluid present within Morison pouch and extending down th e right paracolic gutter and into the pelvis. 3. Interval development of small to moderate size right pleural effusion with right basilar atelectas is. 4. Interval development of small left pleural effusion with left basilar atelectasis. 5. Fluid-filled loops of small and large bowel without evidence for disproportionate dilatation or ob struction. The findings are most characteristic of an ileus. 6. No significant fecal stasis or fecal impaction. 7. 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 ACT 112: Negative or not required by law. Electronically signed by: Omer Cortez M.D. 05/29/2021 2:41 PM
--- NOTE | 2021-05-29 14:47 | Neurology Consultation ---
Date of Consultation May 29, 2021 Assessment & Plan (1) Acute delirium: 1. CT head patient is able to tolerate 2. psychiatry for managment of delirium 3. nothing focal with exam 4. hold any narcotics including ultram 5. keep window blinds open during the day 6. haldol ok psychiatry may have other recommendations 7. WBC 24.45 infectious issues, renal clearance - monitor 8. would taper off cymbalta , and valium rather than abruptly discontinue 9. check ammonia level (2) PAF (paroxysmal atrial fibrillation): 1. not on anticoagulation (3) Ileus: 1. GI for input Supervising Physician Co-Signing Physician Notes I have seen and discussed above patient with Dr Yessi Morocho, neurology Patient seen and examined. She chart reviewed she had been in the process of being sedated. She was following no commands. Her neck was supple. Heart was regular rate and rhythm. Pupils are equal. No fixed gaze preference. No extraocular muscle palsy. No obvious facial asymmetry. Moving all fours upper greater than lowers greater than antigravity. Rare myoclonic jerk noted. Right knee jerk brisker than left ankle jerks absent toes downgoing cerebellar sensory not testable Impression delirium, nonfocal exam recommend CT of the head monitor for infectious etiologies of delirium given white count of 24,000. Agree with Yessi Mccauley regarding reducing the dose of Cymbalta rather than discontinuing and decreasing the Valium dose rather than abruptly discontinuing which can cause delirium. Can hold ropinirole Hepatic level. We will follow with you Yessi Morocho MD History of Present Illness Reason for Consultation: confusion Requesting Physician: Jennifer Acevedo MD Attending Physician: Yuan Acevedo MD History of Present Illness Reena a 75 year old female who was admitted on 05/23/21 for abdominal pain status post ERCP. She has PMH- COPD on 2 L of O2 intermittently at home, HLD, hyperparathyroidism, paroxysmal SVT, GERD, CKD stage III, neuropathy, chronic back pain, depression with anxiety, tobacco abuse. She is currently very combative and unable to give ROS. She does say she wants to go home. Allergies Allergy/AdvReac Type Severity Reaction Status Date / Time codeine Allergy Mild Vomiting Verified 05/23/21 16:37 mirtazapine Allergy Unknown Unknown Verified 05/23/21 16:35 Home Medications Medication Instructions Recorded Confirmed Type albuterol sulfate 90 mcg/actuation 1 puff INHALATION Q6H PRN 06/18/18 05/23/21 History aerosol inhaler (Ventolin HFA) atorvastatin 20 mg tablet (Lipitor) 10 mg PO QAM 06/18/18 05/23/21 History cholecalciferol (vitamin D3) 25 1,000 unit PO QAM 06/18/18 05/23/21 History mcg (1,000 unit) capsule (Vitamin D3) cyanocobalamin (vitamin B-12) 1,000 mcg PO QAM 06/18/18 05/23/21 History 1,000 mcg tablet (Vitamin B-12) ipratropium 0.5 mg-albuterol 3 mg 1 vial INHALATION Q6H PRN 06/18/18 05/23/21 History (2.5 mg base)/3 mL nebulization soln diazepam 2 mg tablet (Valium) 2 mg PO QAM 09/18/20 05/23/21 History duloxetine 60 mg capsule,delayed 60 mg PO QAM 09/18/20 05/23/21 History release (Cymbalta) pantoprazole 40 mg tablet,delayed 40 mg PO DAILYBB 09/18/20 05/23/21 History release (Protonix) fluticasone fur. 100 mcg-umeclid 1 inh INHALATION QAM 09/19/20 05/23/21 History 62.5 mcg-vilant 25 mcg inhalat.powder (Trelegy Ellipta) buspirone 10 mg tablet 10 mg PO TID 05/23/21 05/23/21 History cetirizine 10 mg tablet (Allergy 5 mg PO DAILY 05/23/21 05/23/21 History Relief (cetirizine)) diphenhydramine HCl 25 mg capsule 25 mg PO QID PRN 05/23/21 05/23/21 History (Diphenhist) docusate sodium 100 mg capsule 100 mg PO BID 05/23/21 05/23/21 History hydroxyzine HCl 25 mg tablet 25 mg PO QID PRN 05/23/21 05/23/21 History ondansetron 4 mg disintegrating 4 mg PO UD PRN 05/23/21 05/23/21 History tablet oxybutynin chloride 10 mg 10 mg PO QAM 05/23/21 05/23/21 History tablet,extended release 24 hr ropinirole 1 mg tablet 1 mg PO HS 05/23/21 05/23/21 History sucralfate 1 gram tablet 1 g PO QID 05/23/21 05/23/21 History tramadol 50 mg tablet 50 mg PO TID PRN 05/23/21 05/23/21 History Patient History Medical History (Updated 05/29/21 @ 16:23 by Yessi Mccauley PA-C) Anxiety CKD (chronic kidney disease) stage 3, GFR 30-59 ml/min COPD (chronic obstructive pulmonary disease) 2L N/C prn Depression Dyslipidemia Generalized osteoarthritis GERD (gastroesophageal reflux disease) Peptic ulcer disease HX Stress incontinence Surgical History History of gastric surgery TO REMOVE ULCER History of hemorrhoidectomy History of left cataract extraction History of tooth extraction Hx of cholecystectomy S/P appendectomy Family History Grandmother Diabetes Other No family history of adverse response to anesthesia Social History Smoking Status: Former smoker Smoking End Date: 12 years ago; Second Hand Exposure: Yes; Do You Dip or Chew Tobacco: No; Hx Alcohol Use: No Hx Substance Use: No Preferred Language: Ukrainian Communication Ability: Effective Water Systems Designer Required: No Beliefs That Will Affect Care: None marital status: / Current Living Situation: Alone current occupational status: retired How many Children do You have: 2 Feels Safe at Home: Yes Safety Concerns: Feels Safe At This Time Assistive Devices: Cane and Walker Review of Systems Review of Systems: Unobtainable due to cognitive status Physical Exam Physical Exam: Physical Exam: Constitutional: appearance over nourished combative Ears, Nose, Mouth and Throat: mucous membranes moist, no injection and skin normal, eyes normal Cardiovascular: irregular Respiratory: course breath sounds Musculoskeletal: no peripheral edema Skin: no stigmata of neurocutaneous disease noted and normal and intact Eyes: extraocular muscles intact (EOMI) abdomen non tender with palpation firm distended NEUROLOGIC EXAMINATION: Mental status: Alert and combative and talking to a person not in the room Speech unable to understand some words Cranial Nerves facial symmetry Sensory: light and cool touch Gait/Stance: Posture lying in bed Motor: move both arms and legs with purpose Strength: confrontation of arms 4+/5 resistance and hip flex 4+/5 Results & Data ([facility]) Vital Signs (Past 12 Hours) Vital Signs Temp Pulse Pulse Pulse Resp BP BP 05/29/21 12:53 36.7 C 93 H 22 125/71 05/29/21 12:26 96 H 112/66 05/29/21 12:14 36.7 C 96 H 18 112/66 05/29/21 08:06 36.6 C 110 H 18 128/72 05/29/21 08:00 105 H 05/29/21 06:14 118 H 133/71 05/29/21 04:31 36.9 C 118 H 18 133/71 Pulse Ox 05/29/21 12:53 96 05/29/21 12:26 05/29/21 12:14 97 05/29/21 08:06 92 05/29/21 08:00 05/29/21 06:14 05/29/21 04:31 87 L Laboratory Results Abnormal lab results 05/28/21 05/28/21 05/28/21 Range/Units 19:55 21:10 21:14 WBC (4.8-10.8) K/uL RBC (4.2-5.4) M/uL Hgb (12.0-16.0) g/dL Hct (37-47) % RDW Std Deviation (36.4-46.3) fL Absolute Nucleated RBC (0-0) K/uL APTT (21.0-31.0) Seconds Sodium 133 L (136-145) mmol/L Chloride 96 L (98-107) mmol/L Anion Gap (3-11) BUN 49 H (6-23) mg/dl Creatinine 4.69 H* D (0.6-1.2) mg/dl Calcium 8.1 L (8.5-10.1) mg/dl Ionized Calcium (1.12-1.32) mmol/L Magnesium 3.5 H (1.7-2.4) mg/dl AST (13-39) U/L Total Protein (6.0-8.3) gm/dl Albumin (3.4-5.0) gm/dl Lipase (11-82) U/L TSH 0.084 L (0.300-4.500) uIu/ml 05/29/21 05/29/21 05/29/21 Range/Units 05:47 05:47 05:47 WBC 24.45 H (4.8-10.8) K/uL RBC 3.24 L (4.2-5.4) M/uL Hgb 9.9 L (12.0-16.0) g/dL Hct 30.6 L (37-47) % RDW Std Deviation 49.3 H (36.4-46.3) fL Absolute Nucleated RBC 0.04 H (0-0) K/uL APTT (21.0-31.0) Seconds Sodium (136-145) mmol/L Chloride (98-107) mmol/L Anion Gap 12 H (3-11) BUN 57 H (6-23) mg/dl Creatinine 4.93 H* (0.6-1.2) mg/dl Calcium 8.0 L (8.5-10.1) mg/dl Ionized Calcium 1.11 L (1.12-1.32) mmol/L Magnesium (1.7-2.4) mg/dl AST 45 H (13-39) U/L Total Protein 5.6 L (6.0-8.3) gm/dl Albumin 3.0 L (3.4-5.0) gm/dl Lipase 89 H (11-82) U/L TSH (0.300-4.500) uIu/ml 05/29/21 Range/Units 05:47 WBC (4.8-10.8) K/uL RBC (4.2-5.4) M/uL Hgb (12.0-16.0) g/dL Hct (37-47) % RDW Std Deviation (36.4-46.3) fL Absolute Nucleated RBC (0-0) K/uL APTT 39.6 H (21.0-31.0) Seconds Sodium (136-145) mmol/L Chloride (98-107) mmol/L Anion Gap (3-11) BUN (6-23) mg/dl Creatinine (0.6-1.2) mg/dl Calcium (8.5-10.1) mg/dl Ionized Calcium (1.12-1.32) mmol/L Magnesium (1.7-2.4) mg/dl AST (13-39) U/L Total Protein (6.0-8.3) gm/dl Albumin (3.4-5.0) gm/dl Lipase (11-82) U/L TSH (0.300-4.500) uIu/ml Diagnostic Findings CXR-. Cardiomegaly and emphysema with pulmonary vascular congestion. No airspace consolidation typical for pneumonia or large pleural effusion is identified. An enteric tube has been placed as above
[2021-05-29] MEDS ORDERED: THIAMINE HCL 200 MG in SODIUM CHLORIDE 0.9% 50 ML IV STA (14:48)
[2021-05-29 15:27] LABS: Base Excess ABG -2.6 mEq/L (-9-1.8); HCO3 ABG 23 mmol/L (19-24); Oxygen Saturation ABG 93.4 % (90-95); PCO2 ABG 44 mmHg (35-46); PO2 ABG 68 mmHg (80-95); pH ABG 7.34 (7.35-7.45)
[2021-05-29] MEDS ORDERED: METHYLNALTREXONE BROMIDE 12 MG/0.6 ML VIAL SQ ONE (16:15)
[2021-05-29 16:28] LABS: Vitamin B12 > 1500 pg/ml (180-914)
[2021-05-29 16:29] LABS: Folate (Folic Acid) 18.08 ng/ml (>5.38)
[2021-05-29 17:29] LABS: Allen Test Pos (Pos)
--- NOTE | 2021-05-29 19:38 | CT Scan Report ---
CT head/brain wo con CLINICAL HISTORY: confusion Technique: Contiguous axial CT images of the head were acquired from the base of the skull to the enrrique pete without intravenous contrast administration. Images were viewed in brain, subdural and [facility]. Automated dose lowering techniques and/or adjustment according to patient size were utilized for this exam. Comparison: Comparison is made to CT head 09/18/2020 Findings: The ventricles, basal cisterns, and cerebral sulci are normal. There is no acute intracranial hemorrh age or evidence of acute territorial infarction. Neither mass effect, shift of the midline structures , nor abnormal extra-axial fluid collections are shown. Imaged portions of the paranasal sinuses and mastoid air cells are clear. The orbits appear normal. There are no acute fractures of the calvaria or scalp swelling. Impression: No acute intracranial hemorrhage, no evidence of acute territorial infarction or other acute intracra nial disease process. ACT 112: Negative or not required by law. Electronically signed by: Abelardo Almanza M.D. 05/29/2021 7:37 PM
[2021-05-29] MEDS: DOCUSATE SODIUM/SENNA 50/8.6MG TAB PO SCH (22:20)
[2021-05-30] MEDS: METOPROLOL TARTRATE 1 MG/ML VIAL IV SCH ×3 (05:40→17:44)
[2021-05-30] MEDS: PIPERACILLIN/TAZOBACTAM 3.375 GM in DEXTROSE 5% 100 ML IV SCH ×2 (05:47→17:43)
[2021-05-30] MEDS: PANTOprazole 40 MG TAB PO SCH (05:47)
[2021-05-30 07:23] LABS: Mean Platelet Volume 9.1 fL (7.4-10.4); Platelet Count 266 K/uL (130-400)
[2021-05-30 07:33] LABS: Prothrombin Time 10.2 Seconds (9.0-12.0)
[2021-05-30 07:46] LABS: ALC (manual) 1.12 K/uL (1.2-3.4); ANC (manual) 22.82 K/uL (1.4-6.5); Hematocrit (blood only) 27.8 % (37-47); Hemoglobin 8.9 g/dL (12.0-16.0); Lymphocytes # (manual) 1.12 K/uL (1.2-3.4); Lymphocytes % (manual) 4.3 %; Mean Corpuscular Hemoglobin 30.5 pg (25-34); Mean Corpuscular Volume 95.2 fL (80-100); Metamyelocytes # (manual) 0.23 K/uL (0-0); Metamyelocytes % (manual) 0.9 %; Monocytes # (manual) 1.59 K/uL (0.11-0.59); Monocytes % (manual) 6.1 %; Myelocytes # (manual) 0.23 K/uL (0-0); Myelocytes % (manual) 0.9 %; Neutrophils # (manual) 22.82 K/uL (1.4-6.5); Neutrophils % (manual) 87.8 %; RDW Coefficient of Variation 14.4 % (11.5-14.5); RDW Standard Deviation 49.6 fL (36.4-46.3); Red Blood Count 2.92 M/uL (4.2-5.4); White Blood Count 25.99 K/uL (4.8-10.8)
[2021-05-30 07:48] LABS: Albumin Level 2.6 gm/dl (3.4-5.0); BUN Creatinine Ratio 11.9 (10-20); Bilirubin,Total 0.9 mg/dl (0.2-1.0); Calcium 8.1 mg/dl (8.5-10.1); Creatinine Clr Calc Pharmacy 7.5 ml/min; Est GFR (African American) 6.3 ml/min; Est GFR (Non-African American) 5.5 ml/min; Globulin 2.6 gm/dl (2.5-4.0); Potassium 4.8 mmol/L (3.5-5.1); Total Protein 5.2 gm/dl (6.0-8.3)
[2021-05-30 08:01] LABS: HBSAG NON-REACTIVE (NON-REACTIVE); Hepatitis B Core Antibody Total NON-REACTIVE (NON-REACTIVE); Hepatitis B Surface Ab, Quant <5 mIU/mL (> OR = 10)
[2021-05-30] MEDS ORDERED: ALBUMIN 25% 100 mL 25 GM/100 ML VIAL IV ONE (08:02)
[2021-05-30] MEDS: ADVANCED PROBIOTIC 1250 MG CAPSULE PO SCH (08:28)
[2021-05-30] MEDS: SUCRALFATE 1 GM TAB PO SCH (08:29)
[2021-05-30] MEDS: DULoxetine HCL 60 MG CAP PO SCH (08:32)
[2021-05-30] MEDS: bisacodyL 10 MG SUPP PR SCH (08:32)
[2021-05-30] MEDS: FLUTICASONE FUROATE 100MCG 14 PUFFS/INHALER INH SCH (08:32)
[2021-05-30] MEDS: HEPARIN SOD 5,000 UNIT/0.5 ML VIAL SQ SCH ×2 (08:32→21:42)
[2021-05-30] MEDS: MAGNESIUM HYDROXIDE SUSP 30 ML UDC PO SCH (08:46)
[2021-05-30] MEDS ORDERED: DAPTOmycin 375 MG in SYRINGE 0 ML IV SCH (09:00)
--- NOTE | 2021-05-30 09:36 | Ultrasound Report ---
US abdomen ltd ascites HISTORY: 75 years-old Female ascites recurrent ascites COMPARISON: CT 05/29/2021 TECHNIQUE: Multiple real-time sonographic images of the abdomen were obtained assessing grayscale jerel earance and color flow FINDINGS: Obscuring bowel gas without significant ascites. [employer] also reports that the patient was agitat ed and restless for the study. IMPRESSION: No significant ascites. Paracentesis was not conducted. ACT 112: Negative or not required by law. The above report was generated using voice recognition software. It may contain grammatical, syntax o r spelling errors. Electronically signed by: Joey Perla M.D. 05/30/2021 9:35 AM
--- NOTE | 2021-05-30 10:19 | Gastroenterology Progress Note ---
Date of Service May 30, 2021 Assessment & Plan (1) Acute pancreatitis: Plan: Supportive care: cont. IV fluids, coverage with broad spectrum antibiotic, when alert can have clear liquids. Recommend PPI, will change from Lansoprazole po to pantoprazole BID because not taking po meds. (2) SRIDHAR (acute kidney injury): Plan: Nephrology following, dialyzing (3) Ileus: Plan: Much improved. Passed BMs yesterday and has normal BS today. (4) Leukocytosis: Plan: Because leukocytosis not responding to Zosyn, Daptomycin. Consider adding an antifungal. Admission and Anticipated Discharge Date Admission Date: May 24, 2021 Supervising Physician Co-Signing Physician Notes Attending attestation I have seen, examined this patient, and agree with the findings and above by our mid-level provider SIENNA Flores, with the following additions: Patient with with delirium, No overt signs of infection, agree with antibiotics, consider PPN, as well as anti-fungal. CT yesterday shows expected abdominal fluid as well as pleural effusion's having bowel movements as ileus is like partially resolved, Subjective 75 yr female, admitted on 05/25 for abd pain, pancreatitis. Developed ARF, dialized, nephrology following. WBC 25 on Zosyn, Dapto. Preliminary blood cx w/o growth. Lipase was 400-> 53 today. LFTs with AST 49, otherwise normal. Lethargic, somnolent today, reacts to tactile stim but does not become alert and is not verbally communicating today. Agitation when arouses. CT head normal. Review of Systems Review of Systems: ROS: Unable to obtain ROS from the pt. Physical Exam Constitutional: + ill appearing and + altered mental status Eyes: PERRL, conjunctivae normal, anicteric sclerae ENMT: external ear and nose normal, oropharynx normal (mouth breathing, mouth w/o teeth) Neck: trachea midline, no thyromegaly Respiratory: normal respiratory effort, lungs clear to auscultation Auscultation: + crackles (both bases); no wheezes O2 on at 5L/min by NC Cardiovascular: RRR, no murmur, no edema Gastrointestinal (Abdomen): Inspection/Auscultation: + abdomen distended (but not taunt, and less distended than yesterday) and normal bowel sounds; no abdominal edema Percussion/Palpation: + abdomen tender (diffusely); + abdomen not soft (moderately firm, not rigid) Skin: no rashes, warm and dry normal turgor Neurologic: PERRL, EOMI, accommodation nl, no face palsy, no dysarthria awake; not confused Psychiatric: Orientation: + not alert and + not oriented x 3 Motor Behavior: n tremor Lymphatic: no cervical or axillary lymphadenopathy Results & Data ([facility]) Vital Signs (Past 12 Hours) Vital Signs Temp Pulse Pulse Pulse Resp BP BP 05/30/21 07:46 36.8 C 89 22 123/72 05/30/21 07:45 36.8 C 89 22 123/72 05/30/21 05:40 100 H 05/30/21 03:06 36.9 C 100 H 21 05/30/21 00:11 36.9 C 99 H 24 05/29/21 23:54 115 H 112/67 05/29/21 23:37 89 05/29/21 23:35 109 H 05/29/21 22:46 36.7 C 112 H 22 BP Pulse Ox 05/30/21 07:46 93 05/30/21 07:45 92 05/30/21 05:40 05/30/21 03:06 121/69 97 05/30/21 00:11 113/42 L 91 05/29/21 23:54 05/29/21 23:37 05/29/21 23:35 05/29/21 22:46 112/67 97 Laboratory Results WBC 25, Hb 14, Hct 40, Plts 227, Na 140, K 4.8, BUN 80, Cr 6.7, glucose 94. Diagnostic Findings Non contrast CT 05/29/21: 1. Status post interval ERCP with multiple biliary stents in place. There has been decompression of previously identified intrahepatic or duct dilatation. Minimal pneumobilia is present related to the procedure. 2. Increase abdominal ascites with increased fluid present within Morison pouch and extending down the right paracolic gutter and into the pelvis. 3. Interval development of small to moderate size right pleural effusion with right basilar atelectasis. 4. Interval development of small left pleural effusion with left basilar atelectasis. 5. Fluid-filled loops of small and large bowel without evidence for disproportionate dilatation or obstruction. The findings are most characteristic of an ileus. 6. No significant fecal stasis or fecal impaction. 7. 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 Abd US 05/30/21: No significant ascites. Paracentesis was not conducted. (1) Acute pancreatitis Acute pancreatitis complication: unspecified Pancreatitis type: idiopathic Qualified Code(s): K85.00 - Idiopathic acute pancreatitis without necrosis or infection
[2021-05-30] MEDS: POLYETHYLENE (MIRALAX) 17 GM PACK PO SCH (10:44)
[2021-05-30] MEDS: SUCRALFATE 1 GM TAB NG SCH ×3 (12:31→21:40)
[2021-05-30] MEDS: busPIRone 5 MG TAB NG SCH ×2 (13:42→21:41)
--- NOTE | 2021-05-30 13:57 | Neurology Progress Note ---
Date of Service May 30, 2021 Assessment & Plan (1) Acute delirium: Plan: 1. CT head - no acute findings 2. psychiatry for management of delirium 3. nothing focal with exam 4. hold any narcotics including ultram 5. keep window blinds open during the day 6. haldol ok psychiatry may have other recommendations 7. WBC 24.45 infectious Pancreatitis issues, renal clearance - monitor 8. would taper off cymbalta , and valium rather than abruptly discontinue 9. ammonia level -19 will sign off for now but will be available for any further questions concerns. (2) PAF (paroxysmal atrial fibrillation): Plan: 1. not on anticoagulation (3) Ileus: Plan: 1. GI for input Admission and Anticipated Discharge Date Admission Date: May 24, 2021 Supervising Physician Co-Signing Physician Notes I have seen and discussed above patient with Dr Yessi Morocho, neurology. Patient seen and examined. CT of the head reviewed shows chronic vascular changes no acute large vessel infarction. Ammonia level normal. Patient is seen in dialysis she is sleepy but oriented to place and year. She follows some simple commands. She asks for her labs to be taken off. Denies headache. On exam her neck is supple. No fixed gaze preference no facial asymmetry moves the uppers symmetrically I did not ask her to move the lowers as she has a femoral dialysis cath Clinical impression is that this patient has a polyfactorial delirium she appears much improved at present. It is reported in the chart has a history of atrial fibrillation. Patient is currently critically ill And I suspect is not an anticoagulation candidate however would defer to cardiology will sign off Yessi Morocho MD Subjective Reena a 75 year old female who was admitted on 05/23/21 for abdominal pain status post ERCP. She has PMH- COPD on 2 L of O2 intermittently at home, HLD, hyperparathyroidism, paroxysmal SVT, GERD, CKD stage III, neuropathy, chronic back pain, depression with anxiety, tobacco abuse. Seeing her in dialysis today. She said "I told you I want to be left alone" Review of Systems Review of Systems: Unobtainable due to cognitive status Physical Exam Physical Exam: Physical Exam: Constitutional: appearance over nourished lethargic Ears, Nose, Mouth and Throat: mucous membranes moist, no injection and skin normal, eyes normal Cardiovascular: irregular Respiratory: course breath sounds Musculoskeletal: no peripheral edema Skin: no stigmata of neurocutaneous disease noted and normal and intact Eyes: extraocular muscles intact (EOMI) abdomen slightly tender with palpation firm distended no rebound tenderness NEUROLOGIC EXAMINATION: Mental status: Alert and lethargic Speech very clear when she does talk Cranial Nerves facial symmetry Sensory: light and cool touch Gait/Stance: Posture lying in bed Motor: move both arms and legs with purpose Results & Data ([facility]) Vital Signs (Past 12 Hours) Vital Signs Temp Pulse Pulse Pulse Resp BP BP 05/30/21 12:23 96 H 138/70 05/30/21 11:12 36.5 C 96 H 22 138/70 05/30/21 10:19 36.6 C 89 22 144/69 H 05/30/21 07:46 36.8 C 89 22 123/72 05/30/21 07:45 36.8 C 89 22 123/72 05/30/21 06:15 94 H 05/30/21 05:40 100 H 05/30/21 03:06 36.9 C 100 H 21 BP Pulse Ox 05/30/21 12:23 05/30/21 11:12 99 05/30/21 10:19 99 05/30/21 07:46 93 05/30/21 07:45 92 05/30/21 06:15 05/30/21 05:40 05/30/21 03:06 121/69 97 Laboratory Results Abnormal lab results 05/28/21 05/29/21 05/29/21 Range/Units 14:13 15:06 15:06 WBC (4.8-10.8) K/uL RBC (4.2-5.4) M/uL Hgb (12.0-16.0) g/dL Hct (37-47) % RDW Std Deviation (36.4-46.3) fL Neutrophils # (Manual) (1.4-6.5) K/uL Total Absolute Neuts (1.4-6.5) K/uL Lymphocytes # (Manual) (1.2-3.4) K/uL Total Abs Lymphocytes (1.2-3.4) K/uL Monocytes # (Manual) (0.11-0.59) K/uL Metamyelocytes # (Man) (0-0) K/uL Myelocytes # (Manual) (0-0) K/uL ABG pH 7.34 L (7.35-7.45) ABG pO2 68 L (80-95) mmHg Anion Gap (3-11) BUN (6-23) mg/dl Creatinine (0.6-1.2) mg/dl Calcium (8.5-10.1) mg/dl Ionized Calcium (1.12-1.32) mmol/L AST (13-39) U/L Total Protein (6.0-8.3) gm/dl Albumin (3.4-5.0) gm/dl Vitamin B12 > 1500 H (180-914) pg/ml Procalcitonin (0-0.5) ng/ml Hep Bs Antibody, Quant <5 L (> OR = 10) mIU/mL 05/30/21 05/30/21 05/30/21 Range/Units 06:58 06:58 06:58 WBC (4.8-10.8) K/uL RBC (4.2-5.4) M/uL Hgb (12.0-16.0) g/dL Hct (37-47) % RDW Std Deviation (36.4-46.3) fL Neutrophils # (Manual) (1.4-6.5) K/uL Total Absolute Neuts (1.4-6.5) K/uL Lymphocytes # (Manual) (1.2-3.4) K/uL Total Abs Lymphocytes (1.2-3.4) K/uL Monocytes # (Manual) (0.11-0.59) K/uL Metamyelocytes # (Man) (0-0) K/uL Myelocytes # (Manual) (0-0) K/uL ABG pH (7.35-7.45) ABG pO2 (80-95) mmHg Anion Gap 14 H (3-11) BUN 80 H D (6-23) mg/dl Creatinine 6.72 H* D (0.6-1.2) mg/dl Calcium 8.1 L (8.5-10.1) mg/dl Ionized Calcium 1.10 L (1.12-1.32) mmol/L AST 49 H (13-39) U/L Total Protein 5.2 L (6.0-8.3) gm/dl Albumin 2.6 L (3.4-5.0) gm/dl Vitamin B12 (180-914) pg/ml Procalcitonin 18.42 H (0-0.5) ng/ml Hep Bs Antibody, Quant (> OR = 10) mIU/mL 05/30/21 Range/Units 06:58 WBC 25.99 H (4.8-10.8) K/uL RBC 2.92 L (4.2-5.4) M/uL Hgb 8.9 L (12.0-16.0) g/dL Hct 27.8 L (37-47) % RDW Std Deviation 49.6 H (36.4-46.3) fL Neutrophils # (Manual) 22.82 H (1.4-6.5) K/uL Total Absolute Neuts 22.82 H (1.4-6.5) K/uL Lymphocytes # (Manual) 1.12 L (1.2-3.4) K/uL Total Abs Lymphocytes 1.12 L (1.2-3.4) K/uL Monocytes # (Manual) 1.59 H (0.11-0.59) K/uL Metamyelocytes # (Man) 0.23 H (0-0) K/uL Myelocytes # (Manual) 0.23 H (0-0) K/uL ABG pH (7.35-7.45) ABG pO2 (80-95) mmHg Anion Gap (3-11) BUN (6-23) mg/dl Creatinine (0.6-1.2) mg/dl Calcium (8.5-10.1) mg/dl Ionized Calcium (1.12-1.32) mmol/L AST (13-39) U/L Total Protein (6.0-8.3) gm/dl Albumin (3.4-5.0) gm/dl Vitamin B12 (180-914) pg/ml Procalcitonin (0-0.5) ng/ml Hep Bs Antibody, Quant (> OR = 10) mIU/mL Diagnostic Findings CT head-No acute intracranial hemorrhage, no evidence of acute territorial infarction or other acute intracranial disease process.
--- NOTE | 2021-05-30 15:38 | Hospitalist Progress Note ---
Date of Service May 30, 2021 Assessment & Plan (1) Post-ERCP acute pancreatitis: (2) Elevated LFTs: (3) Abdominal pain: Plan: per Dr. Acevedo's notes with addendum: This is a 75-year-old female who has significant past medical history of COPD on 2 L of O2 intermittently at home, HLD, hyperparathyroidism, history of paroxysmal SVT, GERD, CKD stage III, neuropathy, chronic back pain, depression with anxiety, history of tobacco abuse who presents to ED secondary to abdominal pain status post ERCP. Post ERCP acute pancreatitis Elevated LFTs Abdominal pain ERCP 05/25 with several stents placed. She will need repeat ERCP in 2 months for stent removal 05/30 Lipase back to baseline off IV fluids due to volume overload Ileus -AXR 05/26 shows consiptation and ileus -abdominal u/s negative for ascites -continue aggressive bowel regimen -CT A/P without contrast ordered 05/28 05/30 - (+) BMs - advance to clear liquid diet once mental status improves SRIDHAR on CKD stage 3, ATN, Anuric Volume Overload -Appreciate Nephrology input, likely ATN from pancreatitis -dialysis started 05/28- Delirium, likely multifactorial Underlying Infection? Acute Renal Failure Psych Meds Tramadol Anesthesia -overnight 05/28 became agitated and confused - CT head: No acute intracranial hemorrhage, no evidence of acute territorial infarction or other acute intracranial disease process. 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 Continue PPI COPD No acute exacerbation Oxygen as needed to maintain O2 sat greater than 92% Continue Trelegy, as needed inhalers Hyperlipidemia hold statin due to LFT elevation Depression with anxiety on BuSpar- held, Valium, Cymbalta DVT prophylaxis: SQ heparin Patient's daughter Dominga who lives in [place] is Admission and Anticipated Discharge Date Admission Date: May 24, 2021 Subjective ff up for acute pancreatitis, SRIDHAR, volume overload, ileus, A fib, delirium, etc seen resting in bed, HD in progress appears comfortable, not in distress confused (+) BMs today no other issues Review of Systems Review of Systems: all noted and negative except for above Physical Exam Physical Exam: General- oriented x 0, not in distress, confused Head- atraumatic Eyes- PERRL, EOMI, anicteric ENT- oropharynx clear Neck- supple, no JVD, no adenopathy, no thyromegaly; carotids +2/2, no bruits appreciated Lungs- mild rales at the bases Heart- normal rate, regular rhythm; no murmur, no gallop, no rub appreciated Abdomen- normal bowel sounds, nondistended, soft, nontender, no masses or hepatosplenomegaly Extremities- no pretibial edema, no calf tenderness; peripheral pulses intact Neuro- alert, oriented x 0; CN 2-12 grossly intact; no other gross focal deficits noted Skin- warm & dry Results & Data Results & Data ([facility]) Vital Signs (Past 12 Hours) Vital Signs Temp Pulse Pulse Pulse Resp BP BP 05/30/21 15:30 88 140/92 05/30/21 15:00 100 H 114/74 05/30/21 14:30 97 H 132/73 05/30/21 14:10 37 C 94 H 05/30/21 12:23 96 H 138/70 05/30/21 11:12 36.5 C 96 H 22 138/70 05/30/21 10:19 36.6 C 89 22 144/69 H 05/30/21 07:46 36.8 C 89 22 123/72 05/30/21 07:45 36.8 C 89 22 123/72 05/30/21 06:15 94 H 05/30/21 05:40 100 H Pulse Ox 05/30/21 15:30 05/30/21 15:00 05/30/21 14:30 05/30/21 14:10 05/30/21 12:23 05/30/21 11:12 99 05/30/21 10:19 99 05/30/21 07:46 93 05/30/21 07:45 92 05/30/21 06:15 05/30/21 05:40 all noted and reviewed including below
--- NOTE | 2021-05-30 17:05 | Dialysis Progress Note ---
Date of Service May 30, 2021 Assessment & Plan (1) SRIDHAR (acute kidney injury): Plan: oliguric ATN markedly worsening with pulmonary edema on CXR, worsening hypoxia and baseline COPD. had one dialysis tx 90 min on 05/28 via temp fem cath. -HD May 28 for 2 hrs > stopped after 90 minutes due to patient agitation We had to hold dialysis on May 29 due to altered mental status and agitation. Today she has tolerated at the time of my evaluation all by 15 minutes of 2-1/2 hour dialysis treatment with goal of 1 L fluid removal Likely to need dialysis again tomorrow and will assess the on her needs and what she tolerates Admission and Anticipated Discharge Date Admission Date: May 24, 2021 Subjective Seen on dialysis. Had been somnolent earlier in the day but awake though still very confused on my evaluation. Sitter present. Review of Systems Review of Systems: Other (Unable to obtain due to altered mental status) Physical Exam Constitutional: well developed, + ill appearing and + altered mental status; no acute distress and + uncooperative Eyes: EOM intact bilaterally ENMT: Ears: no external ear abnormality Nose: no external nose abnormality Mouth: + dry oral mucous membranes Neck: no nuchal rigidity Respiratory: normal respiratory effort, + tachypneic and + paradoxical thoraco-abdominal movement Auscultation: + diminished lung sounds (diminished BL bases) Cardiovascular: Rate/Rhythm: regular rate and regular rhythm Extremities: + edema (trace dependnet) Gastrointestinal (Abdomen): Inspection/Auscultation: + abdomen distended and normal bowel sounds Percussion/Palpation: abdomen soft; abdomen nontender and no guarding Musculoskeletal: Extremities: strength 5/5 throughout Skin: no rashes, warm and dry Neurologic: Moves all extremities, no tremor, fluent but tangential speech Psychiatric: Orientation: + not oriented to person, + not oriented to place and + uncooperative Insight: + impaired insight Judgement: + impaired j udgement Genitourinary: Lombardi present with scant dark yellow urine Results & Data ([facility]) Vital Signs (Past 12 Hours) Vital Signs Temp Pulse Pulse Pulse Resp BP BP 05/30/21 16:00 77 107/85 05/30/21 15:55 98 H 79/50 L 05/30/21 15:30 88 140/92 05/30/21 15:00 100 H 114/74 05/30/21 14:30 97 H 132/73 05/30/21 14:10 37 C 94 H 05/30/21 12:23 96 H 138/70 05/30/21 11:12 36.5 C 96 H 22 138/70 05/30/21 10:19 36.6 C 89 22 144/69 H 05/30/21 07:46 36.8 C 89 22 123/72 05/30/21 07:45 36.8 C 89 22 123/72 05/30/21 06:15 94 H 05/30/21 05:40 100 H Pulse Ox 05/30/21 16:00 05/30/21 15:55 05/30/21 15:30 05/30/21 15:00 05/30/21 14:30 05/30/21 14:10 05/30/21 12:23 05/30/21 11:12 99 05/30/21 10:19 99 05/30/21 07:46 93 05/30/21 07:45 92 05/30/21 06:15 05/30/21 05:40 Laboratory Results 05/30/21 06:58 05/30/21 06:58
--- NOTE | 2021-05-30 17:27 | Communication Note ---
Date of Service: May 30, 2021 attempt to see patient earlier this afternoon to complete consult but was in dialysis. Chart reviewed and case discussed with nursing. Hospitalized since , multiple medical issues at this time (ATN secondary to severe pancreatitis, increased confusion since 05/28, timing coincided with onset of afib. She has required prn Zyprexa for agitation and neuro is following. Cymbalta generally does not require dose adjustment for mild to moderate renal impairment but may not be recommended in severe renal impairment, cannot exclude some degree of serotonin syndrome given SNRI plus recent d/c of Buspar. Consider decrease or hold. it's impossible to calculate the 1/2 life of valium in this patient and ideally benzos should be avoided but obviously given length of time on Valium would need to be tapered super slowly, like 0.25 mg every 1-2 weeks (only faster if obtunded). as far as prns, Zyprexa vs Haldol for agitation--neither seems more effective than the other at this point, Haldol 1-2 mg IV can be given if on tele. May benefit from trial of standing Zyprexa 1.25 mg Bid or 2.5 mg hs.
[2021-05-30] MEDS: DOCUSATE SODIUM/SENNA 50/8.6MG TAB PO SCH (21:41)
[2021-05-30] MEDS: rOPINIRole HCL 1 MG TABLET NG SCH (21:41)
[2021-05-30] MEDS: PANTOprazole 40 MG in SYRINGE 0 ML IV SCH (21:42)
[2021-05-30] MEDS: POLYETHYLENE (MIRALAX) 17 GM PACK NG SCH (21:49)
[2021-05-30] MEDS: MAGNESIUM HYDROXIDE SUSP 30 ML UDC NG SCH (21:49)
[2021-05-31] MEDS: METOPROLOL TARTRATE 1 MG/ML VIAL IV SCH ×3 (04:46→15:40)
[2021-05-31] MEDS: PIPERACILLIN/TAZOBACTAM 3.375 GM in DEXTROSE 5% 100 ML IV SCH ×2 (06:03→18:19)
[2021-05-31] MEDS ORDERED: LANSOPRAZOLE 30 MG SOLTAB NG SCH (06:30)
[2021-05-31 08:24] LABS: Mean Platelet Volume 9.7 fL (7.4-10.4); Nucleated RBC # (auto) 0.03 K/uL (0-0); Nucleated RBC % (auto) 0.1 %; Platelet Count 299 K/uL (130-400)
[2021-05-31] MEDS ORDERED: SODIUM CHLORIDE 0.9% 1000ML 1,000 ML IV PRN (08:34)
[2021-05-31] MEDS ORDERED: HEPARIN SOD (PORCINE) 1000 UNIT/ML IV ONE (08:34)
[2021-05-31] MEDS ORDERED: EPOETIN ALFA 10,000 UNITS/ML VIAL IV ONE (09:00)
[2021-05-31] MEDS ORDERED: IRON SUCROSE 100 MG in SYRINGE 0 ML IV ONE (09:00)
[2021-05-31 09:06] LABS: BUN Creatinine Ratio 11.4 (10-20); Calcium 8.7 mg/dl (8.5-10.1); Creatinine Clr Calc Pharmacy 8.5 ml/min; Est GFR (African American) 8.1 ml/min; Potassium 4.3 mmol/L (3.5-5.1)
[2021-05-31 09:08] LABS: ALC (manual) 0.25 K/uL (1.2-3.4); ANC (manual) 24.21 K/uL (1.4-6.5); Hematocrit (blood only) 28.7 % (37-47); Hemoglobin 9.2 g/dL (12.0-16.0); Lymphocytes # (manual) 0.25 K/uL (1.2-3.4); Lymphocytes % (manual) 0.9 %; Mean Corpuscular Hemoglobin 30.4 pg (25-34); Mean Corpuscular Hgb Conc 32.1 g/dL (32-36); Mean Corpuscular Volume 94.7 fL (80-100); Monocytes # (manual) 2.65 K/uL (0.11-0.59); Monocytes % (manual) 9.6 %; Myelocytes # (manual) 0.47 K/uL (0-0); Myelocytes % (manual) 1.7 %; Neutrophils # (manual) 24.21 K/uL (1.4-6.5); Neutrophils % (manual) 87.8 %; RDW Coefficient of Variation 14.6 % (11.5-14.5); RDW Standard Deviation 49.8 fL (36.4-46.3); Red Blood Count 3.03 M/uL (4.2-5.4); Toxic Granulation 1+; White Blood Count 27.57 K/uL (4.8-10.8)
[2021-05-31] MEDS: HEPARIN SOD 5,000 UNIT/0.5 ML VIAL SQ SCH ×2 (09:35→21:54)
[2021-05-31] MEDS: PANTOprazole 40 MG in SYRINGE 0 ML IV SCH ×2 (09:35→21:53)
[2021-05-31] MEDS: HEPARIN SOD (PORCINE) 1000 UNIT/ML IV SCH (11:53)
--- NOTE | 2021-05-31 12:01 | Hospitalist Progress Note ---
Date of Service May 31, 2021 Assessment & Plan (1) Post-ERCP acute pancreatitis: (2) Elevated LFTs: (3) Abdominal pain: Plan: per Dr. Acevedo's notes with addendum: This is a 75-year-old female who has significant past medical history of COPD on 2 L of O2 intermittently at home, HLD, hyperparathyroidism, history of paroxysmal SVT, GERD, CKD stage III, neuropathy, chronic back pain, depression with anxiety, history of tobacco abuse who presents to ED secondary to abdominal pain status post ERCP. Post ERCP acute pancreatitis Elevated LFTs Abdominal pain ERCP 05/25 with several stents placed. She will need repeat ERCP in 2 months for stent removal 05/31 Lipase back to baseline off IV fluids due to volume overload (+) persistent leukocytosis Dapto Added to Zosyn afebrile blood culture negative so far ID consulted Ileus -AXR 05/26 shows consiptation and ileus -abdominal u/s negative for ascites -continue aggressive bowel regimen -CT A/P without contrast ordered 05/28 05/31 - (+) BMs - advance to clear liquid diet speech therapy consulted as patient coughing on sips of water per RN SRIDHAR on CKD stage 3, ATN, Anuric Volume Overload -Appreciate Nephrology input, likely ATN from pancreatitis -dialysis started 05/28- Delirium, likely multifactorial Underlying Infection? Acute Renal Failure Psych Meds Tramadol Anesthesia -overnight 05/28 became agitated and confused - CT head: No acute intracranial hemorrhage, no evidence of acute territorial infarction or other acute intracranial disease process. 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 Continue PPI COPD No acute exacerbation Oxygen as needed to maintain O2 sat greater than 92% Continue Trelegy, as needed inhalers Hyperlipidemia hold statin due to LFT elevation Depression with anxiety on BuSpar- held, Valium, Cymbalta DVT prophylaxis: SQ heparin Patient's daughter Dominga who lives in [place] is Admission and Anticipated Discharge Date Admission Date: May 24, 2021 Subjective ff up for acute pancreatitis, etc seen resting in bed, comfortable sleeping but easily awakened mostly drowsy but oriented to place, her birthday follows some simple commands then drifts back to sleep denies pain, dyspnea full ROS difficult to perform due to patient's drowsiness no other issues per solvent mixer of Systems Review of Systems: all noted and negative except for above Physical Exam Physical Exam: General- oriented x 2, not in distress, speaks in phrases with no effort or accessory muscle use drowsy Eyes- anicteric Neck- no JVD Lungs- mild rales at the bases bilaterally, no rales/wheezes Heart- normal rate, regular rhythm; no murmurs Abdomen- normal bowel sounds, nondistended, soft, nontender Extremities- no pretibial edema, no calf tenderness Neuro- alert, oriented x 2; no gross focal neurologic deficits Skin- warm & dry Results & Data Results & Data ([facility]) Vital Signs (Past 12 Hours) Vital Signs Temp Pulse Pulse Pulse Resp BP BP 05/31/21 11:30 95 H 119/76 05/31/21 11:00 88 158/86 H 05/31/21 10:55 36.9 C 90 05/31/21 06:28 37.1 C 91 H 20 139/67 05/31/21 06:10 92 H 139/67 05/31/21 06:06 92 H 139/67 05/31/21 03:22 37.2 C 100 H 20 112/64 Pulse Ox 05/31/21 11:30 05/31/21 11:00 05/31/21 10:55 05/31/21 06:28 94 05/31/21 06:10 05/31/21 06:06 05/31/21 03:22 96 all noted and reviewed including below
--- NOTE | 2021-05-31 12:25 | Psychiatric Consultation ---
Date of Consultation May 31, 2021 Psych History History of Present Illness patient remains medically quite ill, in dialysis during morning rounds. PO meds held this am as ?aspiration. Appears less agitated overnight as I do not see any additional prns administered. No longer requiring mitts. recs from yesterday discussed with Dr. Marroquin: attempt to see patient earlier this afternoon to complete consult but was in dialysis. Chart reviewed and case discussed with nursing. Hospitalized since 05/23/21, multiple medical issues at this time (ATN secondary to severe pancreatitis, increased confusion since 05/28, timing coincided with onset of afib. She has required prn Zyprexa for agitation and neuro is following. Cymbalta generally does not require dose adjustment for mild to moderate renal impairment but may not be recommended in severe renal impairment, cannot exclude some degree of serotonin syndrome given SNRI plus recent d/c of Buspar. Consider decrease or hold. it's impossible to calculate the 1/2 life of valium in this patient and ideally benzos should be avoided but obviously given length of time on Valium would need to be tapered super slowly, like 0.25 mg every 1-2 weeks (only faster if obtunded). as far as prns, Zyprexa vs Haldol for agitation--neither seems more effective than the other at this point, Haldol 1-2 mg IV can be given if on tele. May benefit from trial of standing Zyprexa 1.25 mg Bid or 2.5 mg hs. On re-review of med list this am, patient is prescribed Cymbalta, Buspar was ordered so I held for today. Last admin Valium appears to be 05/28/21. Patient is likely clearly Valium given long half life and needs to be monitored for late withdrawal. May need reinitiated at some point at a lower dose and tapered as above. No additional recs at this time. Dr. Jerez to assume primary clinical responsibility for consult service at 1700 hrs. Allergies Allergy/AdvReac Type Severity Reaction Status Date / Time codeine Allergy Mild Vomiting Verified 05/23/21 16:37 mirtazapine Allergy Unknown Unknown Verified 05/23/21 16:35 Home Medications Medication Instructions Recorded Confirmed Type albuterol sulfate 90 mcg/actuation 1 puff INHALATION Q6H PRN 06/18/18 05/23/21 History aerosol inhaler (Ventolin HFA) atorvastatin 20 mg tablet (Lipitor) 10 mg PO QAM 06/18/18 05/23/21 History cholecalciferol (vitamin D3) 25 1,000 unit PO QAM 06/18/18 05/23/21 History mcg (1,000 unit) capsule (Vitamin D3) cyanocobalamin (vitamin B-12) 1,000 mcg PO QAM 06/18/18 05/23/21 History 1,000 mcg tablet (Vitamin B-12) ipratropium 0.5 mg-albuterol 3 mg 1 vial INHALATION Q6H PRN 06/18/18 05/23/21 History (2.5 mg base)/3 mL nebulization soln diazepam 2 mg tablet (Valium) 2 mg PO QAM 09/18/20 05/23/21 History duloxetine 60 mg capsule,delayed 60 mg PO QAM 09/18/20 05/23/21 History release (Cymbalta) pantoprazole 40 mg tablet,delayed 40 mg PO DAILYBB 09/18/20 05/23/21 History release (Protonix) fluticasone fur. 100 mcg-umeclid 1 inh INHALATION QAM 09/19/20 05/23/21 History 62.5 mcg-vilant 25 mcg inhalat.powder (Trelegy Ellipta) buspirone 10 mg tablet 10 mg PO TID 05/23/21 05/23/21 History cetirizine 10 mg tablet (Allergy 5 mg PO DAILY 05/23/21 05/23/21 History Relief (cetirizine)) diphenhydramine HCl 25 mg capsule 25 mg PO QID PRN 05/23/21 05/23/21 History (Diphenhist) docusate sodium 100 mg capsule 100 mg PO BID 05/23/21 05/23/21 History hydroxyzine HCl 25 mg tablet 25 mg PO QID PRN 05/23/21 05/23/21 History ondansetron 4 mg disintegrating 4 mg PO UD PRN 05/23/21 05/23/21 History tablet oxybutynin chloride 10 mg 10 mg PO QAM 05/23/21 05/23/21 History tablet,extended release 24 hr ropinirole 1 mg tablet 1 mg PO HS 05/23/21 05/23/21 History sucralfate 1 gram tablet 1 g PO QID 05/23/21 05/23/21 History tramadol 50 mg tablet 50 mg PO TID PRN 05/23/21 05/23/21 History Personal History Highest Grade Completed: College Beliefs That Will Affect Care: None Patient History Medical History (Updated 05/30/21 @ 12:35 by SIENNA Beltran) Anxiety CKD (chronic kidney disease) stage 3, GFR 30-59 ml/min COPD (chronic obstructive pulmonary disease) 2L N/C prn Depression Dyslipidemia Generalized osteoarthritis GERD (gastroesophageal reflux disease) Peptic ulcer disease HX Stress incontinence Surgical History History of gastric surgery TO REMOVE ULCER History of hemorrhoidectomy History of left cataract extraction History of tooth extraction Hx of cholecystectomy S/P appendectomy Family History Grandmother Diabetes Other No family history of adverse response to anesthesia Social History Smoking Status: Former smoker Smoking End Date: 12 years ago; Second Hand Exposure: Yes; Do You Dip or Chew Tobacco: No; Hx Alcohol Use: No Hx Substance Use: No Preferred Language: [place] Leonean Communication Ability: Effective Circuit Clerk Required: No Beliefs That Will Affect Care: None marital status: / Current Living Situation: Alone current occupational status: retired How many Children do You have: 2 Feels Safe at Home: Yes Safety Concerns: Feels Safe At This Time Assistive Devices: Cane and Walker Physical Exam Vital Signs (Past 24 Hours): Last Vital Signs Temp 36.9 C 05/31/21 10:55 Pulse 96 H 05/31/21 12:00 Resp 20 05/31/21 06:28 BP 127/78 05/31/21 12:00 Pulse Ox 94 05/31/21 06:28 Results & Data (PSY) Medications Administered Bisacodyl (Bisacodyl 10 Mg Supp) 10 mg PA DAILY [facility]ANI Stop: 06/26/21 10:14 Last Admin: 05/30/21 08:32 Dose: Not Given Documented by: [id number] Admin: 05/29/21 08:44 Dose: Not Given Documented by: [id number] Admin: 05/28/21 09:22 Dose: Not Given Documented by: [id number] Admin: 05/27/21 10:26 Dose: 10 mg Documented by: [id number] Buspirone HCl (Buspirone 5 Mg Tab) 10 mg NG TID [facility] Stop: 06/22/21 21:10 Last Admin: 05/30/21 21:41 Dose: 10 mg Documented by: [id number] Admin: 05/30/21 13:42 Dose: Not Given Documented by: [id number] Diazepam (Diazepam 2 Mg Tablet) 2 mg PO QAM [facility] Stop: 06/23/21 08:59 Last Admin: 05/28/21 09:23 Dose: 2 mg Documented by: [id number] Admin: 05/27/21 10:25 Dose: Not Given Documented by: [id number] Admin: 05/26/21 09:32 Dose: 2 mg Documented by: [id number] Admin: 05/25/21 07:59 Dose: 2 mg Documented by: [id number] Admin: 05/24/21 08:28 Dose: 2 mg Documented by: [id number] Fluticasone Furoate (Fluticasone Furoate 100mcg 14 Puffs/Inhaler) 1 puffs INH DAILY [facility]ANI; Protocol Stop: 06/23/21 08:59 Last Admin: 05/30/21 08:32 Dose: Not Given Documented by: [id number] Admin: 05/29/21 08:38 Dose: 1 puffs Documented by: [id number] Admin: 05/28/21 09:23 Dose: 1 puffs Documented by: [id number] Admin: 05/27/21 10:25 Dose: Not Given Documented by: [id number] Admin: 05/26/21 09:33 Dose: 1 puffs Documented by: [id number] Admin: 05/25/21 07:59 Dose: 1 puffs Documented by: [id number] Admin: 05/24/21 08:30 Dose: 1 puffs Documented by: [id number] Haloperidol Lactate (Haloperidol Lactate 5 Mg/Ml 1 Ml Vial) 3 mg IM Q6 PRN PRN Reason: Agitation Stop: 06/28/21 10:31 Last Admin: 05/29/21 14:41 Dose: 3 mg Documented by: [id number] Heparin Sodium (Porcine) (Heparin Sod 5,000 Unit/0.5 Ml Vial) 5,000 units SQ Q12 [facility]ANI Stop: 06/26/21 20:59 Last Admin: 05/31/21 09:35 Dose: 5,000 units Documented by: [id number] Admin: 05/30/21 21:42 Dose: 5,000 units Documented by: [id number] Admin: 05/30/21 08:32 Dose: 5,000 units Documented by: [id number] Admin: 05/29/21 22:23 Dose: 5,000 units Documented by: [id number] Admin: 05/29/21 08:40 Dose: 5,000 units Documented by: [id number] Admin: 05/28/21 22:48 Dose: Not Given Documented by: [id number] Admin: 05/28/21 09:24 Dose: Not Given Documented by: [id number] Admin: 05/27/21 20:27 Dose: 5,000 units Documented by: [id number] Hydromorphone HCl (Hydromorphone Inj 0.5 Mg/0.5 Ml Syr) 0.25 - 0.5 mg IV Q6H PRN PRN Reason: Pain Stop: 06/07/21 09:53 Last Admin: 05/28/21 00:14 Dose: 0.5 mg Documented by: [id number] Piperacillin Sod/Tazobactam (Sod 3.375 gm/ Dextrose) 115 mls @ 28.75 mls/hr IV Q12H [facility]; Protocol Stop: 06/02/21 17:59 Last Admin: 05/31/21 06:03 Dose: 28.8 mls/hr Documented by: [id number] Infusion: 05/30/21 21:43 Dose: 28.8 mls/hr Documented by: [id number] Admin: 05/30/21 17:43 Dose: 28.8 mls/hr Documented by: [id number] Infusion: 05/30/21 08:13 Dose: 0 mls/hr Documented by: [id number] Infusion: 05/30/21 07:58 Dose: 230 mls/hr Documented by: [id number] Admin: 05/30/21 05:47 Dose: 28.8 mls/hr Documented by: [id number] Infusion: 05/29/21 22:21 Dose: 0 mls/hr Documented by: [id number] Admin: 05/29/21 17:54 Dose: 28.8 mls/hr Documented by: [id number] Infusion: 05/29/21 11:01 Dose: 0 mls/hr Documented by: [id number] Admin: 05/29/21 06:14 Dose: 28.8 mls/hr Documented by: [id number] Infusion: 05/29/21 00:00 Dose: 0 mls/hr Documented by: [id number] Admin: 05/28/21 19:51 Dose: 28.8 mls/hr Documented by: [id number] Infusion: 05/28/21 09:46 Dose: 0 mls/hr Documented by: [id number] Admin: 05/28/21 05:46 Dose: 28.8 mls/hr Documented by: [id number] Infusion: 05/27/21 22:02 Dose: 0 mls/hr Documented by: [id number] Admin: 05/27/21 17:42 Dose: 28.8 mls/hr Documented by: [id number] Infusion: 05/27/21 09:54 Dose: 0 mls/hr Documented by: [id number] Admin: 05/27/21 05:57 Dose: 28.8 mls/hr Documented by: [id number] Infusion: 05/26/21 22:09 Dose: 0 mls/hr Documented by: [id number] Admin: 05/26/21 18:28 Dose: 28.8 mls/hr Documented by: [id number] Daptomycin 375 mg/ Syringe 7.5 mls @ 3.75 mls/min IV Q48H [facility]; Protocol Stop: 06/09/21 08:59 Last Admin: 05/30/21 10:32 Dose: 3.75 mls/min Documented by: [id number] Pantoprazole Sodium 40 mg/ (Syringe) 10 mls @ 5 mls/min IV BID [facility] Stop: 06/29/21 20:59 Last Admin: 05/31/21 09:35 Dose: 5 mls/min Documented by: [id number] Admin: 05/30/21 21:42 Dose: 5 mls/min Documented by: [id number] Magnesium Hydroxide (Magnesium Hydroxide Susp 30 Ml Udc) 30 ml NG BID [facility]ANI Stop: 06/26/21 09:14 Last Admin: 05/30/21 21:49 Dose: 30 ml Documented by: [id number] Metoprolol Tartrate (Metoprolol Tartrate 1 Mg/Ml Vial) 2.5 mg IV Q6H [facility]ANI; Protocol Stop: 06/28/21 05:59 Last Admin: 05/31/21 06:10 Dose: 2.5 mg Documented by: [id number] Admin: 05/31/21 04:46 Dose: Not Given Documented by: [id number] Admin: 05/30/21 17:44 Dose: Not Given Documented by: [id number] Admin: 05/30/21 12:23 Dose: 2.5 mg Documented by: [id number] Admin: 05/30/21 05:40 Dose: 2.5 mg Documented by: [id number] Admin: 05/29/21 23:54 Dose: 2.5 mg Documented by: [id number] Admin: 05/29/21 17:50 Dose: Not Given Documented by: [id number] Admin: 05/29/21 12:26 Dose: 2.5 mg Documented by: [id number] Admin: 05/29/21 06:14 Dose: 2.5 mg Documented by: [id number] Ondansetron HCl (Ondansetron Inj 2 Mg/Ml 2 Ml Vial) 4 mg IV Q6H PRN PRN Reason: Nausea Stop: 06/22/21 21:10 Last Admin: 05/28/21 00:17 Dose: 4 mg Documented by: [id number] Admin: 05/26/21 08:43 Dose: 4 mg Documented by: [id number] Admin: 05/25/21 06:26 Dose: 4 mg Documented by: [id number] Admin: 05/24/21 21:48 Dose: 4 mg Documented by: [id number] Admin: 05/23/21 21:56 Dose: 4 mg Documented by: [id number] Oxybutynin Chloride (Oxybutynin Chloride Xl 5 Mg Tabcr) 10 mg PO QAM [facility] Stop: 06/23/21 08:59 Last Admin: 05/28/21 09:26 Dose: 10 mg Documented by: [id number] Admin: 05/27/21 10:26 Dose: Not Given Documented by: [id number] Admin: 05/26/21 09:31 Dose: Not Given Documented by: [id number] Admin: 05/25/21 07:59 Dose: 10 mg Documented by: [id number] Admin: 05/24/21 08:29 Dose: 10 mg Documented by: [id number] Polyethylene Glycol (Polyethylene (Miralax) 17 Gm Pack) 17 gm NG BID [facility] Stop: 06/25/21 11:59 Last Admin: 05/30/21 21:49 Dose: 17 gm Documented by: [id number] Ropinirole HCl (Ropinirole Hcl 1 Mg Tablet) 1 mg NG HS [facility]ANI Stop: 06/22/21 21:10 Last Admin: 05/30/21 21:41 Dose: 1 mg Documented by: [id number] Senna/Docusate Sodium (Docusate Sodium/Senna 50/8.6mg Tab) 1 tab PO PM [facility]ANI Stop: 06/26/21 20:59 Last Admin: 05/30/21 21:41 Dose: 1 tab Documented by: [id number] Admin: 05/29/21 22:20 Dose: Not Given Documented by: [id number] Admin: 05/28/21 22:48 Dose: Not Given Documented by: [id number] Admin: 05/27/21 20:26 Dose: 1 tab Documented by: [id number] Sucralfate (Sucralfate 1 Gm Tab) 1 gm NG QID [facility]ANI Stop: 06/22/21 21:10 Last Admin: 05/30/21 21:40 Dose: 1 gm Documented by: [id number] Admin: 05/30/21 17:24 Dose: 1 gm Documented by: [id number] Admin: 05/30/21 12:31 Dose: 1 gm Documented by: [id number] Tramadol HCl (Tramadol Hcl 50 Mg Tablet) 100 mg PO TID PRN PRN Reason: Pain Stop: 06/22/21 21:10 Last Admin: 05/27/21 20:26 Dose: 100 mg Documented by: [id number] Admin: 05/26/21 22:03 Dose: 100 mg Documented by: [id number] Admin: 05/26/21 05:52 Dose: 100 mg Documented by: [id number] Admin: 05/25/21 22:19 Dose: 100 mg Documented by: [id number] Admin: 05/25/21 02:40 Dose: 100 mg Documented by: [id number] Admin: 05/24/21 12:03 Dose: 100 mg Documented by: [id number] Admin: 05/24/21 06:09 Dose: 100 mg Documented by: [id number] Admin: 05/23/21 21:54 Dose: 100 mg Documented by: [id number] Coding Level of Care Code None
--- NOTE | 2021-05-31 14:15 | Gastroenterology Progress Note ---
Date of Service May 31, 2021 Assessment & Plan (1) Leukocytosis: (2) Acute pancreatitis: (3) SRIDHAR (acute kidney injury): Plan: Would remove NG and allow clear liquids po. Appreciate nephrology following and dialysis today. Regarding leukocytosis, continue broad spectrum antibiotics - ID consult ordered. Will continue to follow. Will need OP ERCP for remove stent in approx 2m. 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 Developed ARF, dialyzed, nephrology following. Developed ileus - now resolved, passing soft BMs 1-2x/day. Abd no longer di stended. NG still in place this morning. WBC 27 on Zosyn, Dapto. Blood cx (-). ID consulted Lipase and LFTs normalized by yesterday. Clinically much improved today: awake, alert, oriented to person, place, able to answer questions, denies abd pain. Review of Systems Review of Systems: ROS: Gen: +weakness, + weight loss; no fevers Eyes: No eye redness, or pain, no recent vision changes Resp: No SOB, no cough Cardio: No palpitations/irregular beats, no chest pain GI: Denies any abd pain today. : Denies pain on urination Skin: No jaundice, itching or new rashes Physical Exam Constitutional: well developed, + ill appearing and cooperative Eyes: PERRL, conjunctivae normal, anicteric sclerae ENMT: external ear and nose normal, oropharynx normal Neck: trachea midline, no thyromegaly Respiratory: normal respiratory effort, lungs clear to auscultation normal respiratory effort and able to speak in complete sentences; no respiratory distress, no labored breathing, does not use accessory muscles and no cough Cardiovascular: RRR, no murmur, no edema Gastrointestinal (Abdomen): normal bowel sounds, soft, nontender, no hepatosplenomegaly Skin: no rashes, warm and dry normal turgor Neurologic: PERRL, EOMI, accommodation nl, no face palsy, no dysarthria awake; not confused Psychiatric: A+Ox3, euthymic affect Orientation: alert and cooperative Lymphatic: no cervical or axillary lymphadenopathy Results & Data ([facility]) Vital Signs (Past 12 Hours) Vital Signs Temp Pulse Pulse Pulse Resp BP BP 05/31/21 14:00 98 H 134/64 05/31/21 13:30 100 H 112/68 05/31/21 13:00 97 H 105/69 05/31/21 12:30 99 H 111/66 05/31/21 12:00 96 H 127/78 05/31/21 11:30 95 H 119/76 05/31/21 11:00 88 158/86 H 05/31/21 10:55 36.9 C 90 05/31/21 06:28 37.1 C 91 H 20 139/67 05/31/21 06:10 92 H 139/67 05/31/21 06:06 92 H 139/67 05/31/21 03:22 37.2 C 100 H 20 112/64 Pulse Ox 05/31/21 14:00 05/31/21 13:30 05/31/21 13:00 05/31/21 12:30 05/31/21 12:00 05/31/21 11:30 05/31/21 11:00 05/31/21 10:55 05/31/21 06:28 94 05/31/21 06:10 05/31/21 06:06 05/31/21 03:22 96 Laboratory Results WBC 27.3, Hb 9.2, Hct 28, Plts 299, INR 1.0, Na 138, K 4.3, BUN 62, Cr 5.4, glucose 120 Diagnostic Findings Abd US on 05/[address] asc[address]. Non contrast CT on : 1. Status post interval ERCP with multiple biliary stents in place. There has been decompression of previously identified intrahepatic or duct dilatation. Minimal pneumobilia is present related to the procedure. 2. Increase abdominal ascites with increased fluid present within Morison pouch and extending down the right paracolic gutter and into the pelvis. 3. Interval development of small to moderate size right pleural effusion with right basilar atelectasis. 4. Interval development of small left pleural effusion with left basilar atelectasis. 5. Fluid-filled loops of small and large bowel without evidence for disproportionate dilatation or obstruction. The findings are most characteristic of an ileus. 6. No significant fecal stasis or fecal impaction. 7. 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 (1) Acute pancreatitis Acute pancreatitis complication: unspecified Pancreatitis type: idiopathic Qualified Code(s): K85.00 - Idiopathic acute pancreatitis without necrosis or infection
[2021-05-31] MEDS: FLUTICASONE FUROATE 100MCG 14 PUFFS/INHALER INH SCH (15:40)
[2021-05-31] MEDS: bisacodyL 10 MG SUPP PR SCH (15:41)
[2021-05-31] MEDS: SUCRALFATE 1 GM TAB NG SCH ×4 (15:41→21:33)
[2021-05-31] MEDS: MAGNESIUM HYDROXIDE SUSP 30 ML UDC NG SCH ×2 (15:41→21:33)
[2021-05-31] MEDS: LACTOBACILLUS ACIDOPHILUS 1 GM PACK NG SCH (15:41)
[2021-05-31] MEDS: POLYETHYLENE (MIRALAX) 17 GM PACK NG SCH ×2 (15:41→21:33)
--- NOTE | 2021-05-31 19:42 | Nephrology Progress Note ---
Date of Service May 31, 2021 Assessment & Plan (1) SRIDHAR (acute kidney injury): Plan: oliguric ATN initially with markedly worsening with pulmonary edema on CXR, worsening hypoxia and baseline COPD. had one dialysis tx 90 min on 05/28 via temp fem cath placed on the same day -HD May 28 for 2 hrs > stopped after 90 minutes due to patient agitation We had to hold dialysis on May 29 due to altered mental status and agitation. She tolerated 1 L fluid removal on May 30 and 2.5 L fluid removal on May 31. Reevaluate for possible dialysis on June 01 or May need to consider tunneled dialysis catheter early next week depending on clinical course and goals of care. Did ask attending to further review goals of care with the patient Admission and Anticipated Discharge Date Admission Date: May 24, 2021 Subjective Doing better clinically today. Off of one-to-one sitter. NG tube removed. She is completely n.p.o. however after speech eval, pending formal swallow study likely tomorrow. Tells me she wants us "just to let me go," because she does not want to be a burden and because she has nobody outside of the hospital. Tolerated dialysis well and had 2.5 L off Review of Systems Review of Systems: All systems reviewed & are unremarkable except as noted in Subjective Physical Exam Constitutional: well developed, + ill appearing, + frail appearing and titus ative; no acute distress and no altered mental status Eyes: EOM intact bilaterally ENMT: Ears: no external ear abnormality Nose: no external nose abnormality Mouth: + dry oral mucous membranes Neck: no nuchal rigidity Respiratory: normal respiratory effort; no respiratory distress Auscu ltation: + diminished lung sounds (diminished BL bases) Cardiovascular: Rate/Rhythm: regular rate and regular rhythm Extremities: + edema (trace dependnet) Gastrointestinal (Abdomen): Inspection/Auscultation: + abdomen distended and normal bowel sounds Percussion/Palpation: abdomen soft; abdomen nontender (But the patient does have occasional jags of sudden abdominal pain in exam) and no guarding Musculoskeletal: Extremities: strength 5/5 throughout Skin: no rashes, warm and dry Psychiatric: Orientation: + not oriented to person, + not oriented to place and + uncooperative Insight: + impaired insight Judgement: + impaired judg ement Genitourinary: Lombardi present Results & Data ([facility]) Vital Signs (Past 12 Hours) Vital Signs Temp Pulse Pulse Resp BP BP 05/31/21 15:57 36.4 C L 94 H 14 117/72 05/31/21 14:30 36.8 C 98 H 146/76 H 05/31/21 14:00 98 H 134/64 05/31/21 13:30 100 H 112/68 05/31/21 13:00 97 H 105/69 05/31/21 12:30 99 H 111/66 05/31/21 12:00 96 H 127/78 05/31/21 11:30 95 H 119/76 05/31/21 11:00 88 158/86 H 05/31/21 10:55 36.9 C 90 Laboratory Results 05/31/21 05:45 05/31/21 05:45
[2021-05-31] MEDS: DOCUSATE SODIUM/SENNA 50/8.6MG TAB PO SCH (21:32)
[2021-05-31] MEDS: rOPINIRole HCL 1 MG TABLET NG SCH (21:33)
[2021-05-31] MEDS ORDERED: LORazepam 2 MG/1 ML VIAL IV STA (21:58)
[2021-06-01] MEDS: PIPERACILLIN/TAZOBACTAM 3.375 GM in DEXTROSE 5% 100 ML IV SCH (05:36)
--- NOTE | 2021-06-01 09:49 | Gastroenterology Progress Note ---
Date of Service June 01, 2021 Assessment & Plan (1) Ileus: (2) Acute pancreatitis: Plan: Pancreatitis and ileus are clinically resolved. GI will sign off. Appreciate nephrology and primary services management of renal issues. Our office will contact her to arrange endoscopy to remove stent to be arranged for 6-8 wks. Admission and Anticipated Discharge Date Admission Date: May 24, 2021 Supervising Physician Co-Signing Physician Notes Patient is alert and oriented to person, place, time, abd soft Labs reviewed She is passing gas and having bm's Agree with further plan of care. Subjective 75 yr old female admitted on 05/25 for abd pain, pancreatitis after difficult ERCP in setting of prior Billroth II. Developed ARF, dialyzed, nephrology follo Developed ileus - now resolved, passing soft BMs 1-2x/day. Abd no longer distended. NG still in place this morning. WBC 27 on Zosyn, Dapto. Blood cx (-). ID consulted Lipase and LFTs normalized by yesterday. Significant clinically yesterday and further improvement today. Is awake, alert, oriented and denies any abdominal pain. Passing loose BMs and abd is non distended, non tender to palpation. Review of Systems Review of Systems: ROS: Gen: + weakness - much improved. No fevers. Eyes: No eye redness, or pain, no recent vision changes Resp: No SOB, no cough Cardio: No palpitations/irregular beats, no chest pain GI: No abdominal pain, no nausea/vomiting or diarrhea : Denies pain on urination Skin: No jaundice, itching or new rashes Neuro: no confusion, no excessive sleepiness. Physical Exam Constitutional: well developed, + ill appearing and cooperative Eyes: PERRL, conjunctivae normal, anicteric sclerae ENMT: external ear and nose normal, oropharynx normal Neck: trachea midline, no thyromegaly Respiratory: normal respiratory effort, lungs clear to auscultation Cardiovascular: RRR, no murmur, no edema Gastrointestinal (Abdomen): normal bowel sounds, soft, nontender, no hepatosplenomegaly Skin: no rashes, warm and dry normal turgor Neurologic: PERRL, EOMI, accommodation nl, no face palsy, no dysarthria awake; not confused Psychiatric: A+Ox3, euthymic affect Orientation: alert and cooperative; + not oriented x 3 Motor Behavior: n tremor Lymphatic: no cervical or axillary lymphadenopathy Results & Data ([facility]) Vital Signs (Past 12 Hours) Vital Signs Temp Pulse Pulse Pulse Resp BP Pulse Ox 06/01/21 07:19 36.8 C 96 H 20 164/77 H 95 06/01/21 04:42 36.6 C 103 H 172/79 H 96 05/31/21 23:15 36.4 C L 89 18 130/61 98 05/31/21 22:25 89 Laboratory Results yesterday Hb 9.2, Hct 28, BUN 62 and Cr 5.46. (1) Acute pancreatitis Acute pancreatitis complication: unspecified Pancreatitis type: idiopathic Qualified Code(s): K85.00 - Idiopathic acute pancreatitis without necrosis or infection
[2021-06-01] MEDS: bisacodyL 10 MG SUPP PR SCH (09:51)
[2021-06-01] MEDS: LACTOBACILLUS ACIDOPHILUS 1 GM PACK NG SCH (09:51)
[2021-06-01] MEDS: MAGNESIUM HYDROXIDE SUSP 30 ML UDC NG SCH ×2 (09:51→19:50)
[2021-06-01] MEDS: DULoxetine HCL 30 MG CAP PO SCH (09:51)
[2021-06-01] MEDS: POLYETHYLENE (MIRALAX) 17 GM PACK NG SCH ×2 (09:52→19:51)
[2021-06-01] MEDS: SUCRALFATE 1 GM TAB NG SCH ×4 (09:52→20:02)
[2021-06-01 10:14] LABS: Mean Corpuscular Hgb Conc 32.3 g/dL (32-36); Mean Platelet Volume 9.6 fL (7.4-10.4); Nucleated RBC % (auto) 0.3 %; Platelet Count 297 K/uL (130-400)
[2021-06-01 10:20] LABS: Hematocrit (blood only) 29.1 % (37-47); Hemoglobin 9.4 g/dL (12.0-16.0); Mean Corpuscular Hemoglobin 30.2 pg (25-34); Mean Corpuscular Volume 93.6 fL (80-100); RDW Coefficient of Variation 14.3 % (11.5-14.5); RDW Standard Deviation 48.7 fL (36.4-46.3); Red Blood Count 3.11 M/uL (4.2-5.4); White Blood Count 29.49 K/uL (4.8-10.8)
[2021-06-01] MEDS: PANTOprazole 40 MG in SYRINGE 0 ML IV SCH ×2 (10:51→20:01)
[2021-06-01] MEDS: FLUTICASONE FUROATE 100MCG 14 PUFFS/INHALER INH SCH (10:51)
[2021-06-01] MEDS: HEPARIN SOD 5,000 UNIT/0.5 ML VIAL SQ SCH ×2 (10:51→20:01)
[2021-06-01 10:53] LABS: BUN Creatinine Ratio 11.2 (10-20); Calcium 9.4 mg/dl (8.5-10.1); Creatinine Clr Calc Pharmacy 10.1 ml/min; Est GFR (African American) 9.9 ml/min; Est GFR (Non-African American) 8.6 ml/min; Potassium 4.1 mmol/L (3.5-5.1)
[2021-06-01 11:12] LABS: ALC (manual) 1.47 K/uL (1.2-3.4); ANC (manual) 26.28 K/uL (1.4-6.5); Lymphocytes # (manual) 1.47 K/uL (1.2-3.4); Monocytes # (manual) 1.74 K/uL (0.11-0.59); Monocytes % (manual) 5.9 %; Neutrophils # (manual) 26.28 K/uL (1.4-6.5); Neutrophils % (manual) 89.1 %; Toxic Granulation 1+
--- NOTE | 2021-06-01 15:03 | Psychiatric Progress Note ---
Date of Service June 01, 2021 Impression / Recommendations Impression This is a 75 yo old admitted for pancreatitis. Diagnostically consistent with encephalopathy/delirium which is steadily improving with no evidence for delirium today. Goal in dementia is to avoid medication management of behaviors if possible by maximizing non-pharmacologic strategies for behavioral management. However, if she again develops worsening agitation/aggression would utilize prn haldol. -C/w melatonin 3mg qhs prn -Continue medical workup to rule out and treat any underlying causes contributing to potential delirium, avoid or limit use of deliriogenic medications (benzodiazepines, opioids, anticholinergics) -Continue with delirium prevention measures: raising blinds during the day, closing at night, frequent re-orientation, contact with family/friends, explaining procedures/nursing care measures prior to physical contact, correct any hearing and visual impairments -For behavioral emergency: haldol 2.5 mg IM x 1 (DO NOT exceed 10mg per 24 hours , check EKG if IV dose required). (1) Acute delirium: see above Interval History Identifying Information 75 yo woman with history of COPD, depression, anxiety, and history of abdominal pain (s/p ERCP) admitted medically for pancreatitis. Psychiatry was consulted for delirium/agitated behaviors. Chief Complaint "I'm weak". Review of Systems Notes see HPI Subjective Subjective Patient was seen & assessed and interval progress reviewed. Fully oriented today, behaviorally appropriate, appreciative of check-in endorses stable sleep and starting to tolerate some liquids/po intake like soup and jello. Denies any other concerns. Procedures Performed Operation Date: 05/25/21 07:10 Actual Procedures p Endoscopic Retrograde Cholangiopancreatogram, - Andra Whaley MD s Endoscopic Ultrasound - Andra Whaley MD Operation Date: 05/28/21 12:15 Actual Procedures p Temporary Femoral Dialysis Catheter Insertion(Right) - Pietro Garvey MD Operation Date: 05/29/21 14:25 <No data on this case meets the specified criteria> Physical Exam Psychiatric Orientation: alert and oriented x 3 ([facility], know state but not city, knows month and year) Apperance: appropriately dressed and appropriately groomed Eye Contact: good eye contact Motor Behavior: no abnormal motor movements Speech: normal rate/rhythm/volume of speech (soft) Affect: euthymic affect Mood: no depressed mood and no anxious mood Thought Process: goal directed thought process Thought Content: reality based without delusions Suicidal Thoughts: denies suicidal thoughts Homicidal Thoughts: denies homicidal thoughts Hallucinations: no auditory hallucinations and no visual hallucinations Cognition: recent memory grossly intact, attention grossly intact and language grossly intact Insight: + fair insight Judgement: + fair judgement Vital Signs (Past 24 Hours) Last Vital Signs Temp 36.8 C 06/01/21 07:19 Pulse 96 H 06/01/21 07:19 Resp 20 06/01/21 07:19 BP 164/77 H 06/01/21 07:19 Pulse Ox 95 06/01/21 07:19 Results & Data ([facility]) Laboratory Results Laboratory Results - last 24 hr 06/01/21 06/01/21 10:04 10:04 WBC 29.49 H RBC 3.11 L Hgb 9.4 L Hct 29.1 L MCV 93.6 MCH 30.2 MCHC 32.3 RDW Std Deviation 48.7 H RDW Coeff of Walter 14.3 Plt Count 297 MPV 9.6 Absolute Nucleated RBC 0.10 H Nucleated RBC % (auto) 0.3 Neutrophils % (Manual) 89.1 Lymphocytes % (Manual) 5.0 Monocytes % (Manual) 5.9 Neutrophils # (Manual) 26.28 H Total Absolute Neuts 26.28 H Lymphocytes # (Manual) 1.47 Total Abs Lymphocytes 1.47 Monocytes # (Manual) 1.74 H Toxic Granulation 1+ Sodium 138 Potassium 4.1 Chloride 100 Carbon Dioxide 28 Anion Gap 10 BUN 52 H Creatinine 4.63 H* D Est Cr Clr Drug Dosing 10.1 Est GFR ( Amer) 9.9 Est GFR (Non-Af Amer) 8.6 BUN/Creatinine Ratio 11.2 Glucose 137 H Calcium 9.4 Current Inpatient Medications Current Inpatient Medications: Current Inpatient Medications Acetaminophen (Acetaminophen Susp 325 Mg/10.15 Ml Udc) 650 mg NG Q4H PRN PRN Reason: pain/fever Stop: 06/29/21 09:56 Albuterol (Albuterol Hfa 8 Gm Inhaler) 1 puffs INH Q6H PRN PRN Reason: Shortness Of Breath Stop: 06/22/21 21:10 Albuterol (Albut/Ipratrop 3mg/0.5mg Neb 3 Ml Vial) 3 ml INH Q6H PRN; Protocol PRN Reason: Wheezing Stop: 06/22/21 21:10 Bisacodyl (Bisacodyl 10 Mg Supp) 10 mg ME DAILY RANI Stop: 06/26/21 10:14 Last Admin: 06/01/21 09:51 Dose: Not Given Documented by: Buspirone HCl (Buspirone 5 Mg Tab) 10 mg NG TID RANI Stop: 06/22/21 21:10 Last Admin: 05/30/21 21:41 Dose: 10 mg Documented by: Diazepam (Diazepam 2 Mg Tablet) 2 mg PO QAM RANI Stop: 06/23/21 08:59 Last Admin: 05/28/21 09:23 Dose: 2 mg Documented by: Duloxetine HCl (Duloxetine Hcl 30 Mg Cap) 30 mg PO QAM [facility] Stop: 07/01/21 08:59 Last Admin: 06/01/21 09:51 Dose: Not Given Documented by: Fluticasone Furoate (Fluticasone Furoate 100mcg 14 Puffs/Inhaler) 1 puffs INH DAILY [facility]; Protocol Stop: 06/23/21 08:59 Last Admin: 06/01/21 10:51 Dose: 1 puffs Documented by: Haloperidol Lactate (Haloperidol Lactate 5 Mg/Ml 1 Ml Vial) 3 mg IM Q6 PRN PRN Reason: Agitation Stop: 06/28/21 10:31 Last Admin: 05/29/21 14:41 Dose: 3 mg Documented by: Heparin Sodium (Porcine) (Heparin Sod 5,000 Unit/0.5 Ml Vial) 5,000 units SQ Q12 RANI Stop: 06/26/21 20:59 Last Admin: 06/01/21 10:51 Dose: 5,000 units Documented by: Hydromorphone HCl (Hydromorphone Inj 0.5 Mg/0.5 Ml Syr) 0.25 - 0.5 mg IV Q6H ME N PRN Reason: Pain Stop: 06/07/21 09:53 Last Admin: 05/28/21 00:14 Dose: 0.5 mg Documented by: Pantoprazole Sodium 40 mg/ (Syringe) 10 mls @ 5 mls/min IV BID RANI Stop: 06/29/21 20:59 Last Admin: 06/01/21 10:51 Dose: 5 mls/min Documented by: Lactobacillus Acidophilus (Lactobacillus Acidophilus 1 Gm Pack) 2 gm NG DAILY [facility] Stop: 06/30/21 08:59 Last Admin: 06/01/21 09:51 Dose: Not Given Documented by: Magnesium Hydroxide (Magnesium Hydroxide Susp 30 Ml Udc) 30 ml NG BID [facility] Stop: 06/26/21 09:14 Last Admin: 06/01/21 09:51 Dose: Not Given Documented by: Melatonin (Melatonin 3 Mg Tab) 3 mg PO HS PRN PRN Reason: Sleep Stop: 06/29/21 10:05 Metoprolol Tartrate (Metoprolol Tartrate 1 Mg/Ml Vial) 2.5 mg IV Q6H RANI; Pro tocol Stop: 06/28/21 05:59 Last Admin: 05/31/21 15:40 Dose: Not Given Documented by: Ondansetron HCl (Ondansetron Inj 2 Mg/Ml 2 Ml Vial) 4 mg IV Q6H PRN PRN Reason: Nausea Stop: 06/22/21 21:10 Last Admin: 05/28/21 00:17 Dose: 4 mg Documented by: Oxybutynin Chloride (Oxybutynin Chloride Xl 5 Mg Tabcr) 10 mg PO QAM [facility] Stop: 06/23/21 08:59 Last Admin: 05/28/21 09:26 Dose: 10 mg Documented by: Polyethylene Glycol (Polyethylene (Miralax) 17 Gm Pack) 17 gm NG BID [facility] Stop: 06/25/21 11:59 Last Admin: 06/01/21 09:52 Dose: Not Given Documented by: Ropinirole HCl (Ropinirole Hcl 1 Mg Tablet) 1 mg NG HS [facility] Stop: 06/22/21 21:10 Last Admin: 05/31/21 21:33 Dose: Not Given Documented by: Senna/Docusate Sodium (Docusate Sodium/Senna 50/8.6mg Tab) 1 tab PO PM [facility] Stop: 06/26/21 20:59 Last Admin: 05/31/21 21:32 Dose: Not Given Documented by: Sucralfate (Sucralfate 1 Gm Tab) 1 gm NG QID [facility] Stop: 06/22/21 21:10 Last Admin: 06/01/21 14:46 Dose: Not Given Documented by: Tramadol HCl (Tramadol Hcl 50 Mg Tablet) 100 mg PO TID PRN PRN Reason: Pain Stop: 06/22/21 21:10 Last Admin: 05/27/21 20:26 Dose: 100 mg Documented by:
--- NOTE | 2021-06-01 15:40 | Hospitalist Progress Note ---
Date of Service June 01, 2021 Assessment & Plan (1) Post-ERCP acute pancreatitis: (2) Elevated LFTs: (3) Abdominal pain: Plan: per Dr. Acevedo's notes with addendum: This is a 75-year-old female who has significant past medical history of COPD on 2 L of O2 intermittently at home, HLD, hyperparathyroidism, history of paroxysmal SVT, GERD, CKD stage III, neuropathy, chronic back pain, depression with anxiety, history of tobacco abuse who presents to ED secondary to abdominal pain status post ERCP. Post ERCP acute pancreatitis Elevated LFTs Abdominal pain ERCP 05/25 with several stents placed. She will need repeat ERCP in 2 months for stent removal 06/01 Lipase back to baseline off IV fluids due to volume overload (+) persistent leukocytosis ID consulted- likely from acute pancreatitis, ileus, etc; recommend to d/c Abx and monitor afebrile blood culture negative so far Ileus -AXR 05/26 shows consiptation and ileus -abdominal u/s negative for ascites -continue aggressive bowel regimen -CT A/P without contrast ordered 05/28 06/01 - (+) BMs - advance to clear liquid diet speech therapy consulted: clears, moderately thick liquids monior SRIDHAR on CKD stage 3, ATN, Anuric Volume Overload -Appreciate Nephrology input, likely ATN from pancreatitis -dialysis started 05/28- - Nephro on board Delirium, likely multifactorial Underlying Infection? Acute Renal Failure Psych Meds Tramadol Anesthesia -overnight 05/28 became agitated and confused - CT head: No acute intracranial hemorrhage, no evidence of acute territorial infarction or other acute intracranial disease process. 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 Continue PPI COPD No acute exacerbation Oxygen as needed to maintain O2 sat greater than 92% Continue Trelegy, as needed inhalers Hyperlipidemia hold statin due to LFT elevation Depression with anxiety on BuSpar- held, Valium, Cymbalta DVT prophylaxis: SQ heparin Patient's daughter Dominga who lives in [place] is Admission and Anticipated Discharge Date Admission Date: May 24, 2021 Subjective ff up for acute pancreatitis, SRIDHAR, etc seen resting in bed, sleeping but easily awakened oriented x 2 answers questions appropriately states she feels fine just tired, weak no abdominal pain, nausea/vomiting no chest pain, dyspnea, palpitations, dizziness tolerating clear liquids per RN no other symptoms Review of Systems Review of Systems: all noted and negative except for above Physical Exam Physical Exam: General- oriented x2, not in distress, speaks in sentences with no effort or accessory muscle use Eyes- anicteric Neck- no JVD Lungs- clear breath sounds bilaterally, no rales/wheezes Heart- normal rate, regular rhythm; no murmurs Abdomen- normal bowel sounds, nondistended, soft, nontender Extremities- no pretibial edema, no calf tenderness Neuro- alert, oriented x 2; no new gross focal neurologic deficits Skin- warm & dry Results & Data Results & Data ([facility]) Vital Signs (Past 12 Hours) Vital Signs Temp Pulse Pulse Resp BP Pulse Ox 06/01/21 07:19 36.8 C 96 H 20 164/77 H 95 06/01/21 04:42 36.6 C 103 H 172/79 H 96 all noted and reviewed including below
[2021-06-01] MEDS: DOCUSATE SODIUM/SENNA 50/8.6MG TAB PO SCH (19:50)
[2021-06-01] MEDS: MELATONIN 3 MG TAB PO PRN (20:00)
[2021-06-01] MEDS: ACETAMINOPHEN SUSP 325 MG/10.15 ML UDC NG PRN (20:01)
[2021-06-01] MEDS: rOPINIRole HCL 1 MG TABLET NG SCH (20:01)
--- NOTE | 2021-06-01 20:42 | Nephrology Progress Note ---
Date of Service June 01, 2021 Assessment & Plan (1) SRIDHAR (acute kidney injury): Plan: oliguric ATN initially with markedly worsening with pulmonary edema on CXR, worsening hypoxia and baseline COPD. had one dialysis tx 90 min on 05/28 via temp fem cath placed on the same day -HD May 28 for 2 hrs > stopped after 90 minutes due to patient agitation We had to hold dialysis on May 29 due to altered mental status and agitation. She tolerated 1 L fluid removal on May 30 and 2.5 L fluid removal on May 31. Reevaluate for possible dialysis on 06/02, Continues to be Oliguric, unlikley will recover the renal functions anytime soon. May need to consider tunneled dialysis catheter early next week depending on clinical course and goals of care. Did ask attending to further review goals of care with the patient Admission and Anticipated Discharge Date Admission Date: May 24, 2021 Subjective ff up for acute pancreatitis, SRIDHAR, etc Comfortable, no distress oriented x 2 tolerating clear liquids per prepress technician of Systems Review of Systems: All systems reviewed & are unremarkable except as noted in HPI & below Physical Exam Physical Exam: General- oriented x2, not in distress, speaks in sentences with no effort or accessory muscle use Eyes- anicteric Neck- no JVD Lungs- clear breath sounds bilaterally, no rales/wheezes Heart- normal rate, regular rhythm; no murmurs Abdomen- normal bowel sounds, nondistended, soft, nontender Extremities- no pretibial edema, no calf tenderness Neuro- alert, oriented x 2; no new gross focal neurologic deficits Skin- warm & dry Results & Data ([facility]) Vital Signs (Past 12 Hours) Vital Signs Temp Pulse Pulse Resp BP BP Pulse Ox 06/01/21 19:11 36.7 C 97 H 26 H 152/82 H 100 06/01/21 17:19 69 15 164/85 H 98 06/01/21 12:00 36.8 C 98 H 18 158/83 H Laboratory Results 06/01/21 10:04 06/01/21 10:04
[2021-06-02] MEDS ORDERED: ZOLPIDEM TARTRATE 5 MG TAB PO STA (00:25)
[2021-06-02] MEDS ORDERED: CALCIUM CARBONATE 500 MG CHEWABLE TAB PO PRN (04:02)
[2021-06-02 07:53] LABS: Hematocrit (blood only) 27.2 % (37-47); Hemoglobin 8.9 g/dL (12.0-16.0); Mean Corpuscular Hemoglobin 30.5 pg (25-34); Mean Corpuscular Hgb Conc 32.7 g/dL (32-36); Mean Corpuscular Volume 93.2 fL (80-100); Mean Platelet Volume 9.9 fL (7.4-10.4); Nucleated RBC # (auto) 0.07 K/uL (0-0); Nucleated RBC % (auto) 0.2 %; Platelet Count 303 K/uL (130-400); RDW Coefficient of Variation 14.4 % (11.5-14.5); RDW Standard Deviation 48.5 fL (36.4-46.3); Red Blood Count 2.92 M/uL (4.2-5.4); White Blood Count 30.62 K/uL (4.8-10.8)
[2021-06-02 08:13] LABS: Calcium 9.4 mg/dl (8.5-10.1); Creatinine Clr Calc Pharmacy 8.6 ml/min; Est GFR (African American) 8.3 ml/min; Est GFR (Non-African American) 7.1 ml/min; Potassium 3.8 mmol/L (3.5-5.1)
[2021-06-02 08:21] LABS: ALC (manual) 1.84 K/uL (1.2-3.4); ANC (manual) 26.15 K/uL (1.4-6.5); Lymphocytes # (manual) 1.84 K/uL (1.2-3.4); Monocytes # (manual) 2.63 K/uL (0.11-0.59); Monocytes % (manual) 8.6 %; Neutrophils # (manual) 26.15 K/uL (1.4-6.5); Neutrophils % (manual) 85.4 %; Polychromasia 1+; Toxic Granulation 1+
[2021-06-02] MEDS ORDERED: SODIUM CHLORIDE 0.9% 1000ML 1,000 ML IV PRN ×3 (08:25→09:13)
[2021-06-02] MEDS: HEPARIN SOD 5,000 UNIT/0.5 ML VIAL SQ SCH ×2 (08:42→20:00)
[2021-06-02] MEDS: PANTOprazole 40 MG in SYRINGE 0 ML IV SCH ×2 (08:42→20:00)
[2021-06-02] MEDS: FLUTICASONE FUROATE 100MCG 14 PUFFS/INHALER INH SCH (08:42)
[2021-06-02] MEDS ORDERED: HEPARIN SOD (PORCINE) 1000 UNIT/ML IV ONE (09:08)
--- NOTE | 2021-06-02 10:12 | CT Scan Report ---
CT chest diagnostic wo con CLINICAL HISTORY: History of pancreatitis. Possible aspiration pneumonitis portable chest from 022 COMPARISON STUDY: No previous studies for comparison. CT DOSE: 908.75 mGy.cm TECHNIQUE: Standard CT of the Chest was performed without IV contrast. A dose lowering technique was utilized adhering to the principles of ALARA. FINDINGS: Airway: The airway is clear. No endobronchial lesion is identified. Lungs and pleural: There has been interval development of a moderate size no confluent alveolar opaci ty or air bronchograms is seen. Small left pleural effusion and left basilar atelectasis also present . The remainder of the lungs are clear. Centrilobular emphysematous changes are present. Mediastinum: There is no evidence for pathologic adenopathy on these limited noncontrast images. The heart size is within normal limits. The thoracic aorta is within normal limits. Atherosclerotic calci fication is present. There is no evidence for pericardial effusion. Osseous structures: There is no acute osseous pathology. IMPRESSION: 1. Interval development of moderate size right pleural effusion with compressive atelectasis involvin g the right lower lobe. 2. Minimal left pleural effusion and left basilar atelectasis is present as well. 3. No confluent alveolar opacities or air bronchograms. ACT 112: Negative or not required by law. Electronically signed by: Omer Cortez M.D. 06/02/2021 10:09 AM
[2021-06-02] MEDS ORDERED: EPOETIN ALFA 10,000 UNITS in SYRINGE 0 ML IV SCH (10:30)
[2021-06-02] MEDS ORDERED: EPOETIN ALFA 10,000 UNITS/ML VIAL IV SCH (10:30)
--- NOTE | 2021-06-02 10:38 | CT Scan Report ---
CT abd pelvis wo con CLINICAL HISTORY: Follow-up pancreatitis. Evaluate for possible abscess. COMPARISON STUDY: 05/29/2021 CT DOSE: TECHNIQUE: Standard CT of the Abdomen and Pelvis was performed without IV contrast. The patient did not receive oral contrast. A dose lowering technique was utilized adhering to the principles of EUGENIO Khanna FINDINGS: This study is grossly limited by lack of intravenous and oral contrast. Abdominal cavity: There is again evidence for ascites present with fluid in Morison's pouch and exten ding down the right paracolic gutter. There is also evidence for fluid within the lesser sac. However , no inflammatory changes are seen within the adjacent fat. Liver: The liver is homogeneous in attenuation on these limited noncontrast images..There are again m ultiple biliary stents in place along with a pancreatic stent. There is again pneumobilia present. Spleen: The spleen is homogeneous in attenuation on these limited noncontrast images. Pancreas: The pancreas appears homogeneous in attenuation on these limited noncontrast images. No ethan ss evidence for pancreatitis is seen. No edema is seen within the peripancreatic fat. There is again fluid seen within the lesser sac adjacent to the pancreas but appears separate from the pancreas. Gall Bladder: Absent Adrenal glands: The adrenal glands are normal in size and attenuation on these limited noncontrast im ages. Kidneys: The kidneys are again atrophic. There is no evidence for gross renal mass, calculus or hydro nephrosis bilaterally. Bowel: The patient is again status post distal gastrectomy with suspected Billroth II procedure. No N G tube is identified. The remaining bowel loops are normally placed within the abdomen and pelvis wit hout evidence for dilatation or obstruction. There is no evidence for mass lesion. There are no infla mmatory changes present. There is no evidence for free air. Bladder: Lombardi catheter is present within the bladder. : There is no evidence for pelvic mass or adenopathy. Vasculature: There is no evidence for focal aneurysmal dilatation of the abdominal aorta. Atheroscler otic calcification is present. Right femoral line is in place. Osseous structures: There is no acute osseous pathology. Degenerative changes are seen. IMPRESSION: 1. Extremely limited study due to lack of intravenous and oral contrast. 2. No significant interval change is identified. 3. No definite CT evidence for pancreatitis or peripancreatic abscess. 4. Stable abdominal ascites. 5. Biliary and pancreatic stents with pneumobilia again seen. 6. No gross bowel loop dilatation or obstruction. ACT 112: Negative or not required by law. Electronically signed by: Omer Cortez M.D. 06/02/2021 10:36 AM
[2021-06-02] MEDS: HEPARIN SOD (PORCINE) 1000 UNIT/ML IV SCH ×3 (11:03→20:05)
[2021-06-02] MEDS ORDERED: ACETAMINOPHEN 1,000 MG/100 ML VIAL IV PRN (11:27)
--- NOTE | 2021-06-02 11:30 | Gastroenterology Progress Note ---
Date of Service June 02, 2021 Assessment & Plan Admission and Anticipated Discharge Date Admission Date: May 24, 2021 Subjective I have seen and examined the patient today while at HD, overall she had signifi cantly improved, abdominal pain is much better, moving her bowel, per RN it loose. Today she seems weak and wants something to help her sleep. Her WBC continues to rise while off ABx per ID. Had repeat CT scan chest and abdomen, there is right sided pleural effusion and unchanged small ascites however no clear fluid collection to suggest an underlying abscess. On exam: Abdomen is soft, mildly tender in RLQ, non distended. Labs: reviewed Recommend: Start PPN and continue Liquid diet. Advance diet as tolerated. Check Stool for C.diff. Follow up with ID. Repeat Blood Cx. Results & Data ([facility]) Vital Signs (Past 12 Hours) Vital Signs Temp Pulse Pulse Pulse Resp BP BP 06/02/21 11:00 114 H 94/62 L 06/02/21 10:40 112 H 98/62 L 06/02/21 10:20 122 H 107/69 06/02/21 10:00 115 H 125/81 06/02/21 09:40 96 H 140/78 06/02/21 09:31 36.6 C 95 H 06/02/21 09:00 94 H 06/02/21 06:30 36.7 C 90 16 06/02/21 02:56 36.6 C 85 18 140/88 06/01/21 23:43 36.6 C 93 H 16 149/80 H Pulse Ox 06/02/21 11:00 06/02/21 10:40 06/02/21 10:20 06/02/21 10:00 06/02/21 09:40 06/02/21 09:31 06/02/21 09:00 06/02/21 06:30 92 06/02/21 02:56 96 06/01/21 23:43 96
[2021-06-02] MEDS ORDERED: DEXTROSE 10% 1,000 ML IV PRN ×2 (12:04→13:23)
[2021-06-02] MEDS ORDERED: TPN/PPN CONSULT PHARMACY STA ×2 (12:04→12:34)
[2021-06-02] MEDS: ACETAMINOPHEN SUSP 325 MG/10.15 ML UDC NG PRN (12:27)
[2021-06-02 13:11] LABS: Magnesium 3.5 mg/dl (1.7-2.4); Phosphorus 4.1 mg/dl (2.5-4.9)
[2021-06-02] MEDS ORDERED: TPN/PPN CONSULT PHARMACY PRN (13:18)
--- NOTE | 2021-06-02 14:11 | Nephrology Progress Note ---
Date of Service June 02, 2021 Assessment & Plan (1) SRIDHAR (acute kidney injury): Plan: oliguric ATN initially with markedly worsening with pulmonary edema on CXR, worsening hypoxia and baseline COPD. had one dialysis tx 90 min on 05/28 via temp fem cath placed on the same day -HD May 28 for 2 hrs > stopped after 90 minutes due to patient agitation We had to hold dialysis on May 29 due to altered mental status and agitation. She tolerated 1 L fluid removal on May 30 and 2.5 L fluid removal on May 31. dialysis today 06/02, Continues to be Oliguric, unlikley will recover the renal functions anytime soon. UF as per permissiable by BP, Keep systolic > 110. - Ok to start PPN at 50 ml/hr May need to consider tunneled dialysis catheter early next week depending on clinical course and goals of care. Did ask attending to further review goals of care with the patient Admission and Anticipated Discharge Date Admission Date: May 24, 2021 Subjective Seen and examoned on Dialysis, Appears weak and cachectic. Volume depleted no edema Review of Systems Review of Systems: All systems reviewed & are unremarkable except as noted in Subjective Physical Exam Physical Exam: General- oriented x2, not in distress, speaks in sentences with no effort or accessory muscle use. volume depleted Eyes- anicteric Neck- no JVD Lungs- clear breath sounds bilaterally, no rales/wheezes Heart- normal rate, regular rhythm; no murmurs Abdomen- normal bowel sounds, nondistended, soft, nontender Extremities- no pretibial edema, no calf tenderness Neuro- alert, oriented x 2; no new gross focal neurologic deficits Skin- warm & dry Results & Data ([facility]) Vital Signs (Past 12 Hours) Vital Signs Temp Pulse Pulse Pulse Resp BP BP 06/02/21 13:15 36.5 C 97 H 111/68 06/02/21 12:40 106 H 95/52 L 06/02/21 12:20 115 H 99/64 L 06/02/21 12:00 115 H 102/65 06/02/21 11:40 116 H 97/62 L 06/02/21 11:20 111 H 102/56 L 06/02/21 11:00 114 H 94/62 L 06/02/21 10:40 112 H 98/62 L 06/02/21 10:20 122 H 107/69 06/02/21 10:00 115 H 125/81 06/02/21 09:40 96 H 140/78 06/02/21 09:31 36.6 C 95 H 06/02/21 09:00 94 H 06/02/21 06:30 36.7 C 90 16 06/02/21 02:56 36.6 C 85 18 BP Pulse Ox 06/02/21 13:15 06/02/21 12:40 06/02/21 12:20 06/02/21 12:00 06/02/21 11:40 06/02/21 11:20 06/02/21 11:00 06/02/21 10:40 06/02/21 10:20 06/02/21 10:00 06/02/21 09:40 06/02/21 09:31 06/02/21 09:00 06/02/21 06:30 92 06/02/21 02:56 140/88 96 Laboratory Results 06/02/21 07:31 06/02/21 07:31
--- NOTE | 2021-06-02 14:29 | Hospitalist Progress Note ---
Date of Service June 02, 2021 Assessment & Plan (1) Post-ERCP acute pancreatitis: (2) Elevated LFTs: (3) Abdominal pain: Plan: per Dr. Acevedo's notes with addendum: This is a 75-year-old female who has significant past medical history of COPD on 2 L of O2 intermittently at home, HLD, hyperparathyroidism, history of paroxysmal SVT, GERD, CKD stage III, neuropathy, chronic back pain, depression with anxiety, history of tobacco abuse who presents to ED secondary to abdominal pain status post ERCP. Post ERCP acute pancreatitis Elevated LFTs Abdominal pain ERCP 05/25 with several stents placed. She will need repeat ERCP in 2 months for stent removal 06/02 Lipase back to baseline off IV fluids due to volume overload (+) persistent leukocytosis ID consulted- likely from acute pancreatitis, ileus, etc; recommend to d/c Abx and monitor afebrile blood culture negative so far WBC 30k repeat CT chest and abd/pelvis: no focus of infection noted 2nd BC: pending monitor closely Ileus -AXR 05/26 shows consiptation and ileus -abdominal u/s negative for ascites -continue aggressive bowel regimen -CT A/P without contrast ordered 05/28 06/02 - (+) BMs - advanced to clear liquid diet speech therapy consulted: clears, moderately thick liquids - discussed with GI- start PPN for nutritional support SRIDHAR on CKD stage 3, ATN, Anuric Volume Overload -Appreciate Nephrology input, likely ATN from pancreatitis -dialysis started 05/28- - Nephro on board Delirium, likely multifactorial Underlying Infection? Acute Renal Failure Psych Meds Tramadol Anesthesia -overnight 05/28 became agitated and confused - CT head: No acute intracranial hemorrhage, no evidence of acute territorial infarction or other acute intracranial disease process. - MS much improved oriented x 3 answers all questions appropriately _ WBC still at 29k Dapto added to Zosyn Blood culture: negative so far ID consulted: DC abx and monitor - confusion much improved Risperdal held Psych consulted for Buspirone, Valium, Cymbalta dosing Cymbalta decreased to 30mg Valium held for now Buspirone on hold Tramadol held - Neuro consulted monitor closely New Onset A fib - SR now - hold off on Metoprolol IV Cardiology consulted Hypocalcemia -from pancreatitis -repleted -monitor ICa daily and replete PRN History of PUD Status with Billroth II procedure 20+ years ago Continue PPI COPD No acute exacerbation Oxygen as needed to maintain O2 sat greater than 92% Continue Trelegy, as needed inhalers Hyperlipidemia hold statin due to LFT elevation Depression with anxiety on BuSpar- held, Valium, Cymbalta DVT prophylaxis: SQ heparin Patient's daughter Dominga who lives in [place] is Admission and Anticipated Discharge Date Admission Date: May 24, 2021 Subjective ff up for acute pancreatitis, etc seen resting in bed, sitting up family at the bedside states she feels fine overall just tired has low back pain no chest pain, dyspnea, palpitations, dizziness no other symptoms Review of Systems Review of Systems: all noted and negative except for above Physical Exam Physical Exam: General- oriented x 3, not in distress, speaks in sentences with no effort or accessory muscle use Eyes- anicteric Neck- no JVD Lungs- mild rales at the bases Heart- normal rate, regular rhythm; no murmurs Abdomen- normal bowel sounds, nondistended, soft, nontender Extremities- no pretibial edema, no calf tenderness Neuro- alert, oriented x 3; no gross focal neurologic deficits Skin- warm & dry Results & Data Results & Data ([facility]) Vital Signs (Past 12 Hours) Vital Signs Temp Pulse Pulse Pulse Resp BP BP 06/02/21 13:15 36.5 C 97 H 111/68 06/02/21 12:40 106 H 95/52 L 06/02/21 12:20 115 H 99/64 L 06/02/21 12:00 115 H 102/65 06/02/21 11:40 116 H 97/62 L 06/02/21 11:20 111 H 102/56 L 06/02/21 11:00 114 H 94/62 L 06/02/21 10:40 112 H 98/62 L 06/02/21 10:20 122 H 107/69 06/02/21 10:00 115 H 125/81 06/02/21 09:40 96 H 140/78 06/02/21 09:31 36.6 C 95 H 06/02/21 09:00 94 H 06/02/21 06:30 36.7 C 90 16 06/02/21 02:56 36.6 C 85 18 BP Pulse Ox 06/02/21 13:15 06/02/21 12:40 06/02/21 12:20 06/02/21 12:00 06/02/21 11:40 06/02/21 11:20 06/02/21 11:00 06/02/21 10:40 06/02/21 10:20 06/02/21 10:00 06/02/21 09:40 06/02/21 09:31 06/02/21 09:00 06/02/21 06:30 92 06/02/21 02:56 140/88 96 all noted and reviewed including below
[2021-06-02] MEDS: SUCRALFATE 1 GM TAB NG SCH ×4 (14:39→20:02)
[2021-06-02] MEDS: LACTOBACILLUS ACIDOPHILUS 1 GM PACK NG SCH (14:39)
[2021-06-02] MEDS: DULoxetine HCL 30 MG CAP PO SCH (14:39)
--- NOTE | 2021-06-02 14:39 | Pharmacy Report ---
Pharmacy PN Initial Consult - Date of Service June 02, 2021 - Scope Pharmacy has been consulted to manage parenteral nutrition orders and order appropriate labs. As part of the Nutrition Support Team guidelines, pharmacy will work in conjunction with dietary when determining the patients caloric needs. - Subjective The patient is a 75 year old F admitted on 05/24/21 18:57 for POST ERCP PANCREATITIS. Patient is to receive parenteral nutrition for prolonged poor ora l intake x 10 days. Pertinent PMH: * post-ERCP acute pancreatitis * SRIDHAR/CKD * Ileus - Objective Height: 5 ft 7 in Weight: 70.1 kg Intake & Output (Last 24Hrs): Intake & Output 05/31/21 06/01/21 06/02/21 06/03/21 06:59 06:59 06:59 06:59 Intake Total 480.00 / 480.00 230 / 230 315 / 315 Output Total 300 / 300 53 / 53 250 / 250 Balance 180.00 / 180.00 177 / 177 65 / 65 Weight 73.3 kg 71.8 kg 70.1 kg 70.1 kg Laboratory Data (Last 24 Hrs):: 06/02/21 06/02/21 07:31 07:31 Sodium 135 L Potassium 3.8 Chloride 99 Carbon Dioxide 27 BUN 65 H Creatinine 5.40 H* D Glucose 118 H Calcium 9.4 Phosphorus 4.1 Magnesium 3.5 H Triglycerides 148 Nutrition Assessment:: Please refer to the Notes section of the EMR for the most recent lock tender chief operator note. - Assessment * GB is a 75 year-old female with post-ERCP acute pancreatitis/ileus (now resolved per GI notes) * Patient with inadequate PO intake over past 10 days, PPN to be initiated today * Goal macronutrients provider by registered nurse teacher - however, will likely be limited by volume/osmolarity * Discussed with hospitalist, maximum volume at this time will be ~1.5 L per nephrology * PPN including lipids today to provide ~1350 mL * Electrolytes largely normal, slightly hyponatremic and hypermagnesemic * Will maximize sodium content in PPN (limited by osmolarity) and hold magnesium - Plan For day 1 of PN administration, the following will be ordered: Macronutrients Amino acids 46 grams/day Dextrose 54 grams/day Lipids 40 grams/day Micronutrients Combined electrolytes mL - contains 35 mEq Na, 20 meq K, 4.5 mEq Ca, 5 mEq Mg, 35 mEq Cl, 29.5 mEq acetate per 20 mL Sodium phosphate 15 MMol Sodium chloride 80 mEq Potassium acetate 40 mEq Multivitamins 10 mL Trace Elements 10 mL Additional additives: thiamine 100 mg Total volume 1148 mL to be infused over 24 hrs will provide 767 kcal/day Final osmolarity 877 mOsm/L (maximum for PPN is 900 mOsm/L) Labs to be ordered per PN order protocol Pharmacy will follow and adjust parenteral nutrition orders on a daily basis. Thank you.
[2021-06-02] MEDS: MAGNESIUM HYDROXIDE SUSP 30 ML UDC NG SCH ×2 (15:25→20:03)
[2021-06-02] MEDS: bisacodyL 10 MG SUPP PR SCH (15:25)
[2021-06-02] MEDS ORDERED: PERIPHERAL TPN IV SCH (16:00)
[2021-06-02] MEDS ORDERED: D5W IV SCH (16:00)
[2021-06-02] MEDS ORDERED: AMINO ACIDS 4.25% IV SCH (16:00)
[2021-06-02] MEDS: LIDOCAINE 5% 1 PATCH TD SCH (16:19)
[2021-06-02] MEDS: POLYETHYLENE (MIRALAX) 17 GM PACK NG SCH ×2 (17:21→20:02)
[2021-06-02 18:32] LABS: Cdiff Antigen Positive; Cdiff Toxin A+B Negative Cdiff Toxin (Negative)
[2021-06-02] MEDS: DOCUSATE SODIUM/SENNA 50/8.6MG TAB PO SCH (19:59)
[2021-06-02] MEDS: CLINOLIPID 20% IV FAT EMULSION 100 ML IV SCH ×2 (19:59→22:06)
[2021-06-02] MEDS: rOPINIRole HCL 1 MG TABLET NG SCH (20:02)
[2021-06-02] MEDS: MELATONIN 3 MG TAB PO PRN (20:04)
[2021-06-02] MEDS: ZOLPIDEM TARTRATE 5 MG TAB PO PRN (21:47)
[2021-06-03 08:18] LABS: Hematocrit (blood only) 27.8 % (37-47); Hemoglobin 8.7 g/dL (12.0-16.0); Mean Corpuscular Hemoglobin 29.9 pg (25-34); Mean Corpuscular Hgb Conc 31.3 g/dL (32-36); Mean Corpuscular Volume 95.5 fL (80-100); Mean Platelet Volume 10.1 fL (7.4-10.4); Nucleated RBC # (auto) 0.16 K/uL (0-0); Nucleated RBC % (auto) 0.6 %; Platelet Count 366 K/uL (130-400); RDW Coefficient of Variation 14.5 % (11.5-14.5); RDW Standard Deviation 49.7 fL (36.4-46.3); Red Blood Count 2.91 M/uL (4.2-5.4); White Blood Count 27.54 K/uL (4.8-10.8)
[2021-06-03 08:35] LABS: ALC (manual) 1.18 K/uL (1.2-3.4); ANC (manual) 24.46 K/uL (1.4-6.5); Lymphocytes # (manual) 1.18 K/uL (1.2-3.4); Lymphocytes % (manual) 4.3 %; Monocytes # (manual) 1.65 K/uL (0.11-0.59); Myelocytes # (manual) 0.25 K/uL (0-0); Myelocytes % (manual) 0.9 %; Neutrophils # (manual) 24.46 K/uL (1.4-6.5); Neutrophils % (manual) 88.8 %; Polychromasia 1+; Toxic Granulation 1+
[2021-06-03] MEDS: FLUTICASONE FUROATE 100MCG 14 PUFFS/INHALER INH SCH (08:42)
[2021-06-03] MEDS: HEPARIN SOD 5,000 UNIT/0.5 ML VIAL SQ SCH ×2 (08:43→20:21)
[2021-06-03] MEDS: LACTOBACILLUS ACIDOPHILUS 1 GM PACK NG SCH (08:43)
[2021-06-03] MEDS: SUCRALFATE 1 GM TAB NG SCH (08:46)
[2021-06-03 08:47] LABS: BUN Creatinine Ratio 11.8 (10-20); Calcium 9.2 mg/dl (8.5-10.1); Creatinine Clr Calc Pharmacy 11.9 ml/min; Est GFR (African American) 12.2 ml/min; Est GFR (Non-African American) 10.5 ml/min; Magnesium 2.6 mg/dl (1.7-2.4); Phosphorus 2.8 mg/dl (2.5-4.9); Potassium 3.5 mmol/L (3.5-5.1)
[2021-06-03] MEDS: PANTOprazole 40 MG in SYRINGE 0 ML IV SCH ×2 (08:47→20:21)
[2021-06-03] MEDS: MAGNESIUM HYDROXIDE SUSP 30 ML UDC NG SCH ×2 (08:49→20:21)
[2021-06-03] MEDS: POLYETHYLENE (MIRALAX) 17 GM PACK NG SCH ×2 (08:49→20:21)
--- NOTE | 2021-06-03 11:10 | Nephrology Progress Note ---
Date of Service June 03, 2021 Assessment & Plan (1) SRIDHAR (acute kidney injury): Plan: oliguric ATN initially with markedly worsening with pulmonary edema on CXR, worsening hypoxia and baseline COPD. had one dialysis tx 90 min on 05/28 via temp fem cath placed on the same day -HD May 28 for 2 hrs > stopped after 90 minutes due to patient agitation We had to hold dialysis on May 29 due to altered mental status and agitation. She tolerated 1 L fluid removal on May 30 and 2.5 L fluid removal on May 31, 1.3 lt on 06/02 - next HD on Friday. Continues to be Oligoanuric- some improvement in UOP, unlikley will recover the renal functions anytime soon. May need to consider tunneled dialysis catheter early next week depending on clinical course and goals of care. Admission and Anticipated Discharge Date Admission Date: May 24, 2021 Supervising Physician Co-Signing Physician Notes . Subjective Comfortable, no respiratory distress UOP Has partially improved. Review of Systems Review of Systems: All systems reviewed & are unremarkable except as noted in Subjective Physical Exam Physical Exam: General- oriented x2, not in distress, volume depleted Eyes- anicteric Neck- no JVD Lungs- clear breath sounds bilaterally, no rales/wheezes Heart- normal rate, regular rhythm; no murmurs Abdomen- normal bowel sounds, nondistended, soft, nontender Extremities- no pretibial edema, no calf tenderness Neuro- alert, oriented x 2; no new gross focal neurologic deficits Skin- warm & dry Results & Data ([facility]) Vital Signs (Past 12 Hours) Vital Signs Temp Pulse Resp BP Pulse Ox 06/03/21 03:00 36.3 C L 104 H 16 146/72 H 96 Laboratory Results 06/03/21 07:45 06/03/21 07:45
--- NOTE | 2021-06-03 12:12 | Gastroenterology Progress Note ---
Date of Service June 03, 2021 Assessment & Plan Admission and Anticipated Discharge Date Admission Date: May 24, 2021 Subjective Patient was seen and examined today, feels much better, no abdominal pain, tole rated clear liquids, started on supplemental PPN. Stool for C.diff is gene positive but toxin negative however she was started on PO Vanco and her WBC is now trending down. Stool is smeary per RN. Seems to be making more urine now. On exam abdomen is soft and nontender. Labs: reviewed Recommend: Complete a 14 days course of PO Vancomycin. No need for other IV ABx. I will advance her diet to full liquids. If she starts eating better then we can d/c PPN after few days. SRIDHAR/CKD/HD per renal team. Recall GI if needed. Results & Data ([facility]) Vital Signs (Past 12 Hours) Vital Signs Temp Pulse Resp BP BP Pulse Ox 06/03/21 11:22 36.7 C 102 H 18 144/76 H 94 06/03/21 03:00 36.3 C L 104 H 16 146/72 H 96
[2021-06-03] MEDS: LIDOCAINE 5% 1 PATCH TD SCH (12:35)
[2021-06-03] MEDS: RASPBERRY SYRUP 5 ML UDP PO SCH ×3 (12:38→23:34)
[2021-06-03] MEDS: DULoxetine HCL 30 MG CAP PO SCH (12:38)
[2021-06-03] MEDS: VANCOMYCIN HCL 125 MG/2.5ML SOLN PO SCH ×3 (12:39→23:35)
[2021-06-03] MEDS: bisacodyL 10 MG SUPP PR SCH (12:49)
[2021-06-03] MEDS: CLINOLIPID 20% IV FAT EMULSION 100 ML IV SCH ×2 (15:55→18:18)
[2021-06-03] MEDS ORDERED: PERIPHERAL TPN IV SCH (16:00)
[2021-06-03] MEDS ORDERED: D5W IV SCH (16:00)
[2021-06-03] MEDS ORDERED: AMINO ACIDS 4.25% IV SCH (16:00)
--- NOTE | 2021-06-03 16:04 | Hospitalist Progress Note ---
Date of Service June 03, 2021 Assessment & Plan (1) Post-ERCP acute pancreatitis: (2) Elevated LFTs: (3) Abdominal pain: Plan: per Dr. Acevedo's notes with addendum: This is a 75-year-old female who has significant past medical history of COPD on 2 L of O2 intermittently at home, HLD, hyperparathyroidism, history of paroxysmal SVT, GERD, CKD stage III, neuropathy, chronic back pain, depression with anxiety, history of tobacco abuse who presents to ED secondary to abdominal pain status post ERCP. Post ERCP acute pancreatitis Elevated LFTs Abdominal pain ERCP 05/25 with several stents placed. She will need repeat ERCP in 2 months for stent removal 06/03 Lipase back to baseline off IV fluids due to volume overload (+) persistent leukocytosis ID consulted- likely from acute pancreatitis, ileus, etc; recommend to d/c Abx and monitor afebrile blood culture negative so far WBC 30k--> now 27k repeat CT chest and abd/pelvis: no focus of infection noted 2nd BC: negative so far monitor closely Ileus -AXR 05/26 shows consiptation and ileus -abdominal u/s negative for ascites -continue aggressive bowel regimen -CT A/P without contrast ordered 05/28 06/03 - (+) BMs - advanced to clear liquid diet speech therapy consulted: clears, moderately thick liquids - discussed with GI- started PPN for nutritional support day 2 SRIDHAR on CKD stage 3, ATN, Anuric Volume Overload -Appreciate Nephrology input, likely ATN from pancreatitis -dialysis started 05/28- - Nephro on board Delirium, likely multifactorial Underlying Infection? Acute Renal Failure Psych Meds Tramadol Anesthesia -overnight 05/28 became agitated and confused - CT head: No acute intracranial hemorrhage, no evidence of acute territorial in farction or other acute intracranial disease process. - MS much improved oriented x 3 answers all questions appropriately _ WBC still at 29k Dapto added to Zosyn Blood culture: negative so far ID consulted: DC abx and monitor - confusion much improved Risperdal held Psych consulted for Buspirone, Valium, Cymbalta dosing Cymbalta decreased to 30mg Valium held for now Buspirone on hold Tramadol held - Neuro consulted monitor closely New Onset A fib - SR now - hold off on Metoprolol IV Cardiology consulted Hypocalcemia -from pancreatitis -repleted -monitor ICa daily and replete PRN History of PUD Status with Billroth II procedure 20+ years ago Continue PPI COPD No acute exacerbation Oxygen as needed to maintain O2 sat greater than 92% Continue Trelegy, as needed inhalers Hyperlipidemia hold statin due to LFT elevation Depression with anxiety on BuSpar- held, Valium, Cymbalta DVT prophylaxis: SQ heparin Patient's daughter Dominga who lives in [place] is Admission and Anticipated Discharge Date Admission Date: May 24, 2021 Subjective ff up acute pancreatitis, etc seen resting in bed, not in distress sleeping but easily awakened states she feels tired also has bilateral flank/rib pain, worse with movement no chest pain, dyspnea, palpitations, dizziness no abdominal pain ,nausea/vomiting tolerating diet well no other symptoms Review of Systems Review of Systems: all noted and negative except for above Physical Exam Physical Exam: General- oriented x 3, not in distress, speaks in sentences with no effort or accessory muscle use Eyes- anicteric Neck- no JVD Lungs- clear BS bilaterally- mildly decreased R base, no rales/wheezes Heart- normal rate, regular rhythm; no murmurs Abdomen- normal bowel sounds, nondistended, soft, no tenderness Extremities- no pretibial edema, no calf tenderness Neuro- alert, oriented x 3; no gross focal neurologic deficits Skin- warm & dry Results & Data Results & Data ([facility]) Vital Signs (Past 12 Hours) Vital Signs Temp Pulse Resp BP Pulse Ox 06/03/21 11:22 36.7 C 102 H 18 144/76 H 94 all noted and reviewed including below
[2021-06-03] MEDS: rOPINIRole HCL 1 MG TABLET NG SCH (20:22)
[2021-06-03] MEDS: MELATONIN 3 MG TAB PO PRN (20:23)
[2021-06-03] MEDS: ZOLPIDEM TARTRATE 5 MG TAB PO PRN (20:23)
[2021-06-03] MEDS: ONDANSETRON INJ 2 MG/ML 2 ML VIAL IV PRN (20:25)
[2021-06-03] MEDS ORDERED: PROMETHAZINE HCL 12.5 MG in SODIUM CHLORIDE 0.9% 50 ML IV STA (21:45)
[2021-06-03] MEDS ORDERED: METOPROLOL TARTRATE 1 MG/ML VIAL IV STA (22:03)
[2021-06-03] MEDS ORDERED: SODIUM CHLORIDE 0.9% 500 ML IV SCH (22:15)
[2021-06-03] MEDS: diphenhydrAMINE Capsule 25 MG CAP PO PRN (23:35)
[2021-06-04] MEDS: ACETAMINOPHEN SUSP 325 MG/10.15 ML UDC NG PRN (04:52)
[2021-06-04] MEDS: RASPBERRY SYRUP 5 ML UDP PO SCH ×3 (06:29→16:45)
[2021-06-04] MEDS: VANCOMYCIN HCL 125 MG/2.5ML SOLN PO SCH ×3 (06:29→16:46)
[2021-06-04 07:05] LABS: Hematocrit (blood only) 25.4 % (37-47); Hemoglobin 7.9 g/dL (12.0-16.0); Mean Corpuscular Hgb Conc 31.1 g/dL (32-36); Mean Corpuscular Volume 96.6 fL (80-100); Mean Platelet Volume 10.3 fL (7.4-10.4); Nucleated RBC % (auto) 0.5 %; Platelet Count 387 K/uL (130-400); RDW Coefficient of Variation 14.6 % (11.5-14.5); RDW Standard Deviation 50.4 fL (36.4-46.3); Red Blood Count 2.63 M/uL (4.2-5.4); White Blood Count 22.43 K/uL (4.8-10.8)
[2021-06-04 07:18] LABS: BUN Creatinine Ratio 15.9 (10-20); Calcium 9.1 mg/dl (8.5-10.1); Creatinine Clr Calc Pharmacy 10.9 ml/min; Est GFR (Non-African American) 9.5 ml/min; Magnesium 2.7 mg/dl (1.7-2.4); Phosphorus 3.3 mg/dl (2.5-4.9); Potassium 3.4 mmol/L (3.5-5.1)
[2021-06-04 07:37] LABS: ALC (manual) 0.58 K/uL (1.2-3.4); ANC (manual) 19.13 K/uL (1.4-6.5); Basophils # (manual) 0.38 K/uL (0-0.2); Basophils % (manual) 1.7 %; Lymphocytes # (manual) 0.58 K/uL (1.2-3.4); Lymphocytes % (manual) 2.6 %; Monocytes # (manual) 2.33 K/uL (0.11-0.59); Monocytes % (manual) 10.4 %; Neutrophils # (manual) 19.13 K/uL (1.4-6.5); Neutrophils % (manual) 85.3 %; Polychromasia 1+; Toxic Granulation 2+
[2021-06-04] MEDS: MAGNESIUM HYDROXIDE SUSP 30 ML UDC NG SCH ×2 (08:55→20:32)
[2021-06-04] MEDS: POLYETHYLENE (MIRALAX) 17 GM PACK NG SCH ×2 (08:55→20:32)
[2021-06-04] MEDS: DULoxetine HCL 30 MG CAP PO SCH (08:55)
[2021-06-04] MEDS: LIDOCAINE 5% 1 PATCH TD SCH (08:55)
[2021-06-04] MEDS: FLUTICASONE FUROATE 100MCG 14 PUFFS/INHALER INH SCH (08:55)
[2021-06-04] MEDS: HEPARIN SOD 5,000 UNIT/0.5 ML VIAL SQ SCH ×2 (08:55→20:34)
[2021-06-04] MEDS: PANTOprazole 40 MG in SYRINGE 0 ML IV SCH ×2 (09:21→20:40)
--- NOTE | 2021-06-04 09:26 | Nephrology Progress Note ---
Date of Service June 04, 2021 Assessment & Plan Admission and Anticipated Discharge Date Admission Date: May 24, 2021 Subjective Assessment & Plan (1) SRIDHAR (acute kidney injury): Plan: oliguric ATN with Acute Pancreatitis. initially with markedly worsening pulmonary edema on CXR, worsening hypoxia and baseline COPD. - next HD on Friday. TTS schedule Some improvement in UOP, from 50 ml 3 days ago and now almost 500 ml. Will watch for renal recovery and plan for tunneled dialysis catheter this week depending on clinical course and goals of care. Subjective Comfortable, no respiratory distress UOP Has partially improved. Review of Systems Review of Systems: All systems reviewed & are unremarkable except as noted in Subjective Physical Exam Physical Exam: General- oriented x2, not in distress, volume depleted Eyes- anicteric Neck- no JVD Lungs- clear breath sounds bilaterally, no rales/wheezes Heart- normal rate, regular rhythm; no murmurs Abdomen- normal bowel sounds, nondistended, soft, nontender Extremities- no pretibial edema, no calf tenderness Neuro- alert, oriented x 2; no new gross focal neurologic deficits Skin- warm & dry Results & Data ([facility]) Vital Signs (Past 12 Hours) Vital Signs Temp Pulse Pulse Resp BP BP Pulse Ox 06/04/21 07:51 36.4 C L 88 16 136/76 97 06/04/21 04:00 36.6 C 69 20 133/85 96 06/03/21 23:00 36.5 C 98 H 16 109/68 96 06/03/21 22:18 87 06/03/21 22:01 108/65
[2021-06-04] MEDS ORDERED: FUROSEMIDE 40 MG/4 ML VIAL IV ONE (15:53)
[2021-06-04] MEDS ORDERED: FUROSEMIDE 10 MG/ML 10 ML VIAL IV STA (15:58)
[2021-06-04] MEDS ORDERED: metOLazone 5 MG TABLET PO ONE (15:58)
[2021-06-04 16:41] LABS: Allen Test Pos (Pos); Base Excess ABG -1.5 mEq/L (-9-1.8); HCO3 ABG 24 mmol/L (19-24); PCO2 ABG 43 mmHg (35-46); PO2 ABG 73 mmHg (80-95); pH ABG 7.36 (7.35-7.45)
--- NOTE | 2021-06-04 16:45 | XRay Report ---
XR chest 1V portable CLINICAL HISTORY: shortness of breath TECHNIQUE: Single frontal radiograph of the chest was obtained. Comparison: Comparison is made to chest radiograph 05/29/2021 FINDINGS: No lines and tubes are seen. Calcified aortic knob is seen. Prominence of the cardiac silhouette is s table. Faint bibasilar airspace opacities are seen. Small bilateral pleural effusions are seen. IMPRESSION: Faint bibasilar airspace opacities which may represent atelectasis, pneumonia, and/or aspiration. Sma ll bilateral pleural effusions. ACT 112: Negative or not required by law. Electronically signed by: Abelardo Almanza M.D. 06/04/2021 4:42 PM
--- NOTE | 2021-06-04 19:28 | Hospitalist Progress Note ---
Date of Service June 04, 2021 Assessment & Plan (1) Post-ERCP acute pancreatitis: (2) Elevated LFTs: (3) Abdominal pain: Plan: per Dr. Acevedo's notes with addendum: This is a 75-year-old female who has significant past medical history of COPD on 2 L of O2 intermittently at home, HLD, hyperparathyroidism, history of paroxysmal SVT, GERD, CKD stage III, neuropathy, chronic back pain, depression with anxiety, history of tobacco abuse who presents to ED secondary to abdominal pain status post ERCP. Post ERCP acute pancreatitis Elevated LFTs Abdominal pain ERCP 05/25 with several stents placed. She will need repeat ERCP in 2 months for stent removal 06/04 Lipase back to baseline off IV fluids due to volume overload (+) persistent leukocytosis ID consulted- likely from acute pancreatitis, ileus, etc; recommend to d/c Abx and monitor afebrile blood culture negative so far WBC 30k--> now 22k repeat CT chest and abd/pelvis: no focus of infection noted 2nd BC: negative so far monitor closely Ileus -AXR 05/26 shows consiptation and ileus -abdominal u/s negative for ascites -continue aggressive bowel regimen -CT A/P without contrast ordered 05/28 06/04 - (+) BMs - advanced to clear liquid diet speech therapy consulted: clears, moderately thick liquids - discussed with GI- started PPN for nutritional support day 2 SRIDHAR on CKD stage 3, ATN, Anuric Volume Overload -Appreciate Nephrology input, likely ATN from pancreatitis -dialysis started 05/28- - Nephro on board Positive shortness of breath, crackles Lasix 20 mg IV, metolazone 5 mg p.o. given after discussion with technology officer ABG okay Chest x-ray showing possible bibasilar infiltrates Start Zosyn IV Delirium, likely multifactorial Underlying Infection? Acute Renal Failure Psych Meds Tramadol Anesthesia -overnight 05/28 became agitated and confused - CT head: No acute intracranial hemorrhage, no evidence of acute territorial infarction or other acute intracranial disease process. - MS much improved oriented x 3 answers all questions appropriately _ WBC still at 29k Dapto added to Zosyn Blood culture: negative so far ID consulted: DC abx and monitor - confusion much improved Risperdal held Psych consulted for Buspirone, Valium, Cymbalta dosing Cymbalta decreased to 30mg Valium held for now Buspirone on hold Tramadol held - Neuro consulted monitor closely New Onset A fib - SR now -As needed metoprolol IV Cardiology consulted Hypocalcemia -from pancreatitis -repleted -monitor ICa daily and replete PRN History of PUD Status with Billroth II procedure 20+ years ago Continue PPI COPD No acute exacerbation Oxygen as needed to maintain O2 sat greater than 92% Continue Trelegy, as needed inhalers Hyperlipidemia hold statin due to LFT elevation Depression with anxiety on BuSpar- held, Valium, Cymbalta DVT prophylaxis: SQ heparin Patient's daughter Dominga who lives in [place] is Admission and Anticipated Discharge Date Admission Date: May 24, 2021 Subjective ff up for acute pancreatitis, etc seen resting in bed, comfortable states she feels ok overall just tired no chest pain, dyspnea, palpitations, dizziness no abdominal pain tolerating diet well in the afternoon, notified that patient is SOB given nebs seen at bedside not in distress reports mild dyspnea Review of Systems Review of Systems: all noted and negative except for above Physical Exam Physical Exam: General- oriented x2, not in distress, speaks in sentences with no effort or accessory muscle use Eyes- anicteric Neck- no JVD Lungs-mild rales bilateral bases Heart- normal rate, regular rhythm; no murmurs Abdomen- normal bowel sounds, nondistended, soft, nontender Extremities- no pretibial edema, no calf tenderness Neuro- alert, oriented x 3; no gross focal neurologic deficits Skin- warm & dry Results & Data Results & Data ([facility]) Vital Signs (Past 12 Hours) Vital Signs Temp Pulse Pulse Resp BP Pulse Ox 06/04/21 15:51 102 H 22 96 06/04/21 15:00 36.5 C 106 H 16 145/77 H 95 06/04/21 10:59 36.4 C L 83 16 146/72 H 97 06/04/21 07:51 36.4 C L 88 16 136/76 97 all noted and reviewed including below
[2021-06-04] MEDS: MoRPHine SULFATE 2 MG/ML CARP IV PRN (20:40)
[2021-06-04] MEDS: rOPINIRole HCL 1 MG TABLET NG SCH (20:40)
[2021-06-04] MEDS: diphenhydrAMINE Capsule 25 MG CAP PO PRN (22:01)
[2021-06-05] MEDS: VANCOMYCIN HCL 125 MG/2.5ML SOLN PO SCH ×3 (01:16→11:25)
[2021-06-05] MEDS: RASPBERRY SYRUP 5 ML UDP PO SCH ×3 (01:16→11:25)
[2021-06-05] MEDS: MoRPHine SULFATE 2 MG/ML CARP IV PRN ×2 (01:16→09:36)
[2021-06-05 06:01] LABS: Nucleated RBC # (auto) 0.06 K/uL (0-0); Nucleated RBC % (auto) 0.3 %; Platelet Count 507 K/uL (130-400)
[2021-06-05 06:39] LABS: BUN Creatinine Ratio 14.7 (10-20); Calcium 9.9 mg/dl (8.5-10.1); Creatinine Clr Calc Pharmacy 8.7 ml/min; Est GFR (African American) 8.3 ml/min; Est GFR (Non-African American) 7.2 ml/min; Magnesium 2.6 mg/dl (1.7-2.4); Phosphorus 4.1 mg/dl (2.5-4.9)
[2021-06-05 06:42] LABS: ALC (manual) 0.62 K/uL (1.2-3.4); ANC (manual) 21.47 K/uL (1.4-6.5); Hematocrit (blood only) 26.1 % (37-47); Hemoglobin 8.1 g/dL (12.0-16.0); Lymphocytes # (manual) 0.62 K/uL (1.2-3.4); Lymphocytes % (manual) 2.6 %; Mean Corpuscular Hemoglobin 30.1 pg (25-34); Metamyelocytes # (manual) 0.43 K/uL (0-0); Metamyelocytes % (manual) 1.8 %; Monocytes # (manual) 1.46 K/uL (0.11-0.59); Monocytes % (manual) 6.1 %; Neutrophils # (manual) 21.47 K/uL (1.4-6.5); Neutrophils % (manual) 89.5 %; Polychromasia 1+; RDW Coefficient of Variation 14.6 % (11.5-14.5); RDW Standard Deviation 50.1 fL (36.4-46.3); Red Blood Count 2.69 M/uL (4.2-5.4); White Blood Count 23.99 K/uL (4.8-10.8)
[2021-06-05] MEDS ORDERED: HEPARIN SOD (PORCINE) 1000 UNIT/ML IV ONE (07:29)
[2021-06-05] MEDS ORDERED: SODIUM CHLORIDE 0.9% 1000ML 1,000 ML IV PRN (07:29)
[2021-06-05] MEDS: DULoxetine HCL 30 MG CAP PO SCH (08:07)
[2021-06-05] MEDS: FLUTICASONE FUROATE 100MCG 14 PUFFS/INHALER INH SCH (08:08)
[2021-06-05] MEDS: HEPARIN SOD 5,000 UNIT/0.5 ML VIAL SQ SCH (08:08)
[2021-06-05] MEDS: LIDOCAINE 5% 1 PATCH TD SCH (08:09)
[2021-06-05] MEDS: POLYETHYLENE (MIRALAX) 17 GM PACK NG SCH (08:09)
[2021-06-05] MEDS: MAGNESIUM HYDROXIDE SUSP 30 ML UDC NG SCH (08:09)
[2021-06-05] MEDS: PANTOprazole 40 MG in SYRINGE 0 ML IV SCH (08:12)
[2021-06-05] MEDS: DULoxetine HCL 60 MG CAP PO SCH (08:25)
[2021-06-05] MEDS ORDERED: EPOETIN ALFA 10,000 UNITS in SYRINGE 0 ML IV SCH (09:15)
[2021-06-05] MEDS: HEPARIN SOD (PORCINE) 1000 UNIT/ML IV SCH ×3 (09:59→11:29)
[2021-06-05] MEDS ORDERED: EPOETIN ALFA 10,000 UNITS/ML VIAL IV SCH (10:00)
[2021-06-05] MEDS ORDERED: MIDODRINE HCL 2.5 MG TAB PO ONE (11:00)
[2021-06-05] MEDS ORDERED: SODIUM CHLORIDE 0.9% 1000ML 1,000 ML IV ONE (11:15)
[2021-06-05] MEDS ORDERED: PIPERACILL/TAZOBAC CONSULT ACTIVE PRN (11:42)
[2021-06-05] MEDS ORDERED: PIPERACILLIN/TAZOBACTAM 3.375 GM in DEXTROSE 5% 100 ML IV ONE (12:00)
--- NOTE | 2021-06-05 12:16 | Palliative Care Consultation ---
Date of Consultation June 05, 2021 Assessment & Plan (1) Palliative care encounter: Ms. Varela is a 75-year-old female who presented to the [facility] ED with abdominal pain secondary to post ERCP and stent placement. She has a PMH that includes: COPD on chronic supplemental oxygen at home, HLD, hyperparathyroidism, paroxysmal SVT, GERD, CKDIII, peripheral neuropathy, chronic back pain, depression and anxiety. She developed worsening acute renal failure and was started on hemodialysis during this admission. Her current creatinine is 5.38. She has not been tolerating hemodialysis well, as she has developed shortness of breath and hypotension. It has been proving to be more challenging balancing her volume overload. She is also being treated for PNA with IV abx. Today, she was unable to tolerate hemodialysis as well. Palliative Medicine was consulted to discuss overall goals of care as the patient has stated she may want to discontinue hemodialysis. I met with the patient in room 237 and she was with her son, Scottie, and later her daughter, Dominga. Reena was able to recount the details of her admission, including her need for hemodialysis. She has clearly indicated that she is 'tired'. I asked her to elaborate on this. She said that she has decided she would not like to continue with aggressive treatment, including hemodialysis. I asked her if she knew what would happen if she, at this time, stopped HD. She indicated that she knew she would eventually over a short period of time, pass away and she has accepted that. She has indicated that she is at peace with dying and has no fears of . She just stated she would want to be as comfortable as possible. Both of her adult children support her with this decision, despite it being hard to see their mother decline. Life expectancy is likely days to a week or so. Her daughter is planning to return to [place] on Friday. At this time, comfort measures orders placed and pain medication ordered. Hospitalist and focused factory manager made aware of the above. Palliative will follow. (2) Abdominal pain: abdominal distention present, likely related to pancreatitis. Patient has decided to forgo further treatment, including HD. Transition to [facility]. Will have Dilaudid 0.3mg IV Q2h ordered for comfort. (3) Acute kidney failure: creatinine today 5.38. Discontinuing HD and transitioning to [facility]. History of Present Illness Reason for Consultation: Goals of care Requesting Physician: Dr. Marroquin Attending Physician: Johnie Marroquin MD History of Present Illness Ms. Varela is a 75-year-old female who presented to the [facility] ED with abdominal pain secondary to post ERCP and stent placement. She has a PMH that includes: COPD on chronic supplemental oxygen at home, HLD, hyperparathyroidism, paroxysmal SVT, GERD, CKDIII, peripheral neuropathy, chronic back pain, depression and anxiety. She developed worsening acute renal failure and was started on hemodialysis during this admission. Her current creatinine is 5.38. She has not been tolerating hemodialysis well, as she has developed shortness of breath and hypotension. It has been proving to be more challenging balancing her volume overload. She is also being treated for PNA with IV abx. Today, she was unable to tolerate hemodialysis as well. Palliative Medicine was consulted to discuss overall goals of care as the patient has stated she may want to discontinue hemodialysis. Please see A/P for further details. Thanks for involving Palliative Medicine with this patient. Allergies Allergy/AdvReac Type Severity Reaction Status Date / Time codeine Allergy Mild Vomiting Verified 05/23/21 16:37 mirtazapine Allergy Unknown Unknown Verified 05/23/21 16:35 Home Medications Medication Instructions Recorded Confirmed Type albuterol sulfate 90 mcg/actuation 1 puff INHALATION Q6H PRN 06/18/18 05/23/21 History aerosol inhaler (Ventolin HFA) atorvastatin 20 mg tablet (Lipitor) 10 mg PO QAM 06/18/18 05/23/21 History cholecalciferol (vitamin D3) 25 1,000 unit PO QAM 06/18/18 05/23/21 History mcg (1,000 unit) capsule (Vitamin D3) cyanocobalamin (vitamin B-12) 1,000 mcg PO QAM 06/18/18 05/23/21 History 1,000 mcg tablet (Vitamin B-12) ipratropium 0.5 mg-albuterol 3 mg 1 vial INHALATION Q6H PRN 06/18/18 05/23/21 History (2.5 mg base)/3 mL nebulization soln diazepam 2 mg tablet (Valium) 2 mg PO QAM 09/18/20 05/23/21 History duloxetine 60 mg capsule,delayed 60 mg PO QAM 09/18/20 05/23/21 History release (Cymbalta) pantoprazole 40 mg tablet,delayed 40 mg PO DAILYBB 09/18/20 05/23/21 History release (Protonix) fluticasone fur. 100 mcg-umeclid 1 inh INHALATION QAM 09/19/20 05/23/21 History 62.5 mcg-vilant 25 mcg inhalat.powder (Trelegy Ellipta) buspirone 10 mg tablet 10 mg PO TID 05/23/21 05/23/21 History cetirizine 10 mg tablet (Allergy 5 mg PO DAILY 05/23/21 05/23/21 History Relief (cetirizine)) diphenhydramine HCl 25 mg capsule 25 mg PO QID PRN 05/23/21 05/23/21 History (Diphenhist) docusate sodium 100 mg capsule 100 mg PO BID 05/23/21 05/23/21 History hydroxyzine HCl 25 mg tablet 25 mg PO QID PRN 05/23/21 05/23/21 History ondansetron 4 mg disintegrating 4 mg PO UD PRN 05/23/21 05/23/21 History tablet oxybutynin chloride 10 mg 10 mg PO QAM 05/23/21 05/23/21 History tablet,extended release 24 hr ropinirole 1 mg tablet 1 mg PO HS 05/23/21 05/23/21 History sucralfate 1 gram tablet 1 g PO QID 05/23/21 05/23/21 History tramadol 50 mg tablet 50 mg PO TID PRN 05/23/21 05/23/21 History Patient History Medical History (Updated 06/05/21 @ 14:27 by SIENNA Mandujano) Abdominal pain Acute kidney failure Anxiety CKD (chronic kidney disease) stage 3, GFR 30-59 ml/min COPD (chronic obstructive pulmonary disease) 2L N/C prn Depression Dyslipidemia Generalized osteoarthritis GERD (gastroesophageal reflux disease) Palliative care encounter Peptic ulcer disease HX Stress incontinence Surgical History History of gastric surgery TO REMOVE ULCER History of hemorrhoidectomy History of left cataract extraction History of tooth extraction Hx of cholecystectomy S/P appendectomy Family History Grandmother Diabetes Other No family history of adverse response to anesthesia Social History Smoking Status: Former smoker Smoking End Date: 12 years ago; Second Hand Exposure: Yes; Do You Dip or Chew Tobacco: No; Hx Alcohol Use: No Hx Substance Use: No Preferred Language: Jordanian Communication Ability: Effective Pedigree Researcher Required: No Beliefs That Will Affect Care: None marital status: / Current Living Situation: Alone current occupational status: retired How many Children do You have: 2 Feels Safe at Home: Yes Safety Concerns: Feels Safe At This Time Assistive Devices: Cane and Walker Review of Systems Review of Systems: [place] System Assessment Scale: Pain: 2/3 Nausea: 0/3 Lack of Appetite: 1/3 SOB: 1/3 Palliative Performance Scale: 30% Physical Exam Constitutional: + acute distress, + frail appearing and cooperative ENMT: Mouth: + dry oral mucous membranes Respiratory: + uses accessory muscles Auscultation: + diminished lung sounds and + crackles Cardiovascular: Rate/Rhythm: regular rate and regular rhythm Heart Sounds: normal S1 and normal S2 Extremities: + pedal edema Gastrointestinal (Abdomen): Inspection/Auscultation: + abdomen distended and normal bowel sounds Skin: + dry skin and + pallor Psychiatric: Orientation: alert and oriented x 3 Insight: good insight Judgement: good judgement Results & Data ([facility]) Vital Signs (Past 12 Hours) Vital Signs Temp Pulse Pulse Pulse Resp BP BP 06/05/21 11:33 36.4 C L 91 H 16 92/58 L 06/05/21 11:05 36.5 C 101 H 63/50 L 06/05/21 10:40 101 H 73/47 L 06/05/21 10:29 101 H 78/59 L 06/05/21 10:20 100 H 71/51 L 06/05/21 10:00 109 H 70/48 L 06/05/21 09:49 113 H 83/49 L 06/05/21 09:40 90 74/52 L 06/05/21 09:20 86 128/47 L 06/05/21 09:00 101 H 92/61 L 06/05/21 08:50 102 H 104/69 06/05/21 08:36 36.6 C 102 H 06/05/21 08:00 37.0 C 97 H 20 06/05/21 03:00 36.9 C 95 H 22 125/77 BP Pulse Ox 06/05/21 11:33 96 06/05/21 11:05 06/05/21 10:40 06/05/21 10:29 06/05/21 10:20 06/05/21 10:00 06/05/21 09:49 06/05/21 09:40 06/05/21 09:20 06/05/21 09:00 06/05/21 08:50 06/05/21 08:36 06/05/21 08:00 132/79 98 06/05/21 03:00 100 PG Care Time/CCT Total # of Minutes Spent Total Time Spent with Patient: Total time spent is greater than 50% in coordination of care (as documented) at patient's floor/unit and/or counseling patient: 100 minutes Coding Level of Care Code 68792 Initial Inpt Care Lvl 3 Diagnoses Palliative care encounter Z51.5 Abdominal pain R10.9 Acute kidney failure N17.9 Time Spent (min) 100
[2021-06-05] MEDS ORDERED: ATROPINE SULFATE 1% OP SOLN 5 ML BTL SL PRN (13:42)
--- NOTE | 2021-06-05 13:51 | Nephrology Progress Note ---
Date of Service June 05, 2021 Assessment & Plan Admission and Anticipated Discharge Date Admission Date: May 24, 2021 Subjective Assessment & Plan (1) SRIDHAR (acute kidney injury): Plan: oliguric ATN with Acute Pancreatitis. initially with markedly worsening pulmonary edema on CXR, worsening hypoxia and baseline COPD. Earlier today had dialysis--very poor BP and uncomfortable. Then system clotted. Only minimal dialysis. BP still low. may have to do dialysis again tomorrow depending situation Will watch for renal recovery and plan for tunneled dialysis catheter this week depending on clinical course and goals of care ( note palliative med involved now) . Subjective had low BP and SOb and Pain earlier. only minimal dialysis Review of Systems Review of Systems: All systems reviewed & are unremarkable except as noted in Subjective Physical Exam Physical Exam: General- oriented x2, not in distress, volume depleted Eyes- anicteric Neck- no JVD Lungs- clear breath sounds bilaterally, no rales/wheezes Heart- normal rate, regular rhythm; no murmurs Abdomen- normal bowel sounds, nondistended, soft, nontender Extremities- no pretibial edema, no calf tenderness Neuro- alert, oriented x 2; no new gross focal neurologic deficits Skin- warm & dry Results & Data ([facility]) Vital Signs (Past 12 Hours) Vital Signs Temp Pulse Pulse Pulse Resp BP BP 06/05/21 11:33 36.4 C L 91 H 16 92/58 L 06/05/21 11:05 36.5 C 101 H 63/50 L 06/05/21 10:40 101 H 73/47 L 06/05/21 10:29 101 H 78/59 L 06/05/21 10:20 100 H 71/51 L 06/05/21 10:00 109 H 70/48 L 06/05/21 09:49 113 H 83/49 L 06/05/21 09:40 90 74/52 L 06/05/21 09:20 86 128/47 L 06/05/21 09:00 101 H 92/61 L 06/05/21 08:50 102 H 104/69 06/05/21 08:36 36.6 C 102 H 06/05/21 08:00 37.0 C 97 H 20 06/05/21 03:00 36.9 C 95 H 22 125/77 BP Pulse Ox 06/05/21 11:33 96 06/05/21 11:05 06/05/21 10:40 06/05/21 10:29 06/05/21 10:20 06/05/21 10:00 06/05/21 09:49 06/05/21 09:40 06/05/21 09:20 06/05/21 09:00 06/05/21 08:50 06/05/21 08:36 06/05/21 08:00 132/79 98 06/05/21 03:00 100
--- NOTE | 2021-06-05 14:23 | Electrocardiogram Report ---
Test Reason : Blood Pressure : / mmHG Vent. Rate : 098 BPM Atrial Rate : 098 BPM P-R Int : 170 ms QRS Dur : 080 ms QT Int : 334 ms P-R-T Axes : 063 003 072 degrees QTc Int : 426 ms Normal sinus rhythm possible Inferior infarct , age undetermined Abnormal ECG When compared with ECG of 23-MAY-2021 16:17, Inferior infarct is now Present T wave amplitude has decreased in Lateral leads Confirmed by David Logan ([id number]) on 06/05/2021 2:23:07 PM Referred By: REFERRED SELF Confirmed By:Tiago Logan
[2021-06-05] MEDS: HYDROmorphone INJ 0.5 MG/0.5 ML SYR IV PRN (15:00)
[2021-06-05] MEDS: LORazepam 2 MG/1 ML VIAL IV PRN (17:55)
[2021-06-06] MEDS: HYDROmorphone INJ 0.5 MG/0.5 ML SYR IV PRN ×4 (00:28→13:49)
[2021-06-06] MEDS: LORazepam 2 MG/1 ML VIAL IV PRN (06:01)
[2021-06-06] MEDS: LIDOCAINE 5% 1 PATCH TD SCH (08:56)
[2021-06-06] MEDS ORDERED: STAT IV Infusion **Titration per Protocol STA (13:54)
[2021-06-06] MEDS: HYDROmorphone/NSS 100 MG/100 ML BAG IV SCH (14:42)
--- NOTE | 2021-06-06 17:41 | Hospitalist Progress Note ---
Date of Service June 06, 2021 delayed entry date of service 06/05/21 Assessment & Plan (1) Post-ERCP acute pancreatitis: (2) Elevated LFTs: (3) Abdominal pain: Plan: per Dr. Acevedo's notes with addendum: This is a 75-year-old female who has significant past medical history of COPD on 2 L of O2 intermittently at home, HLD, hyperparathyroidism, history of paroxysmal SVT, GERD, CKD stage III, neuropathy, chronic back pain, depression with anxiety, history of tobacco abuse who presents to ED secondary to abdominal pain status post ERCP. Post ERCP acute pancreatitis Elevated LFTs Abdominal pain ERCP 05/25 with several stents placed. She will need repeat ERCP in 2 months for stent removal 06/05 Lipase back to baseline off IV fluids due to volume overload (+) persistent leukocytosis ID consulted- likely from acute pancreatitis, ileus, etc; recommend to d/c Abx and monitor afebrile blood culture negative so far WBC 30k--> improved to 23k repeat CT chest and abd/pelvis: no focus of infection noted 2nd BC: negative so far CXR: mild infiltrates at the bases, atelectasis vs. possible bibasilar pneumonia Zosyn IV started Ileus -AXR 05/26 shows consiptation and ileus -abdominal u/s negative for ascites -continue aggressive bowel regimen -CT A/P without contrast ordered 05/28 06/05 - (+) BMs - advanced to clear liquid diet speech therapy consulted: clears, moderately thick liquids - discussed with GI- given PPN for nutritional support - diet advanced, tolerated well SRIDHAR on CKD stage 3, ATN, Anuric Volume Overload -Appreciate Nephrology input, likely ATN from pancreatitis -dialysis started 05/28- - Nephro on board patient received HD treatments 06/05 patient noted to be hypotensive while on HD patient expressed wishes to transition to comfort measures only discussed with family Palliative care consulted transitioned to comfort measures only Delirium, likely multifactorial Underlying Infection? Acute Renal Failure Psych Meds Tramadol Anesthesia -overnight 05/28 became agitated and confused - CT head: No acute intracranial hemorrhage, no evidence of acute territorial infarction or other acute intracranial disease process. 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 Continue PPI COPD No acute exacerbation Oxygen as needed to maintain O2 sat greater than 92% Continue Trelegy, as needed inhalers Hyperlipidemia hold statin due to LFT elevation Depression with anxiety on BuSpar- held, Valium, Cymbalta Patient's daughter Dominga : Admission and Anticipated Discharge Date Admission Date: May 24, 2021 Subjective ff up for acute pancreatitis, acute renal failure, etc seen while HD in progress patient alert, oriented, reporting some chest discomfort no other symptoms hypotensive, BP 70/40s discussed with HD RN, patient received Morphine IV earlier EKG performed no acute ischemia discussed with Dr. Lopez, Midodrine ordered HD then aborted due to "clotting" 1 L NSS bolus ordered patient repeatedly stating "i don't want any more procedures, I just want to be comfortable." had extensive discussion with patient regarding risks of discontinuing HD, including worsening of medical condition and patient verbalized understanding and agreement agreeable to discuss goals of care with her daughter first called daughter Dominga over the phone, explained patient's requests patient reevaluated after ~1 hour BP improved patient's daughter at bedside, had discussion regarding patient's condition and goals of care agreeable to have Palliative Care consultation discussed case with SIENNA Lloyd, patient and family decided to transition to comfort measures only Review of Systems Review of Systems: all noted and negative except for above Physical Exam Physical Exam: General- oriented x 3, not in distress, speaks in sentences with no effort or accessory muscle use Eyes- anicteric Neck- no JVD Lungs- very mild rales at the bases Heart- normal rate, regular rhythm; no murmurs Abdomen- normal bowel sounds, nondistended, soft, nontender Extremities- no pretibial edema, no calf tenderness Neuro- alert, oriented x 3; no gross focal neurologic deficits Skin- warm & dry
--- NOTE | 2021-06-06 18:19 | Hospitalist Progress Note ---
Date of Service June 06, 2021 Assessment & Plan (1) Post-ERCP acute pancreatitis: (2) Elevated LFTs: (3) Abdominal pain: Plan: 75-year-old female who has significant past medical history of COPD on 2 L of O2 intermittently at home, HLD, hyperparathyroidism, history of paroxysmal SVT, GERD, CKD stage III, neuropathy, chronic back pain, depression with anxiety, history of tobacco abuse who presented to ED secondary to abdominal pain status post ERCP. she was initially managed for the following: Post ERCP acute pancreatitis Elevated LFTs Abdominal pain Ileus SRIDHAR on CKD stage 3, ATN, Anuric Volume Overload Delirium, likely multifactorial Underlying Infection? Acute Renal Failure Psych Meds Tramadol Anesthesia New Onset A fib Patient converted to comfort measures only 06/05, since patient was complaining of frequent belly pain Not controlled with as needed Dilaudid, Dilaudid drip per protocol initiated. Patient's daughter Dominga : Admission and Anticipated Discharge Date Admission Date: May 24, 2021 Subjective Patient seen and examined at bedside for follow-up of post ERCP acute pancreatitis, ileus, abdominal pain and currently comfort measures status only. Patient was lying in bed, on room air, denies any discomfort or pain. Other ROS n/a due to cognition status. Physical Exam Physical Exam: GENERAL: Alert and oriented x0. NAD, on RA. HEENT: No pallor, no icterus. Pupils equal, round and reactive to light. Oral mucosa dry. NECK: No JVD, no neck masses. HEART: S1 and S2 heard. Regular rate and rhythm. No murmur, no gallop. RESPIRATORY SYSTEM: Normal AP diameter. No accessory muscle use. No wheezing, no crackles. ABDOMEN: Soft, bowel sounds present, nontender, no distention. CENTRAL NERVOUS SYSTEM: No facial droop. Speech is clear. Obeys simple commands. Moves extremities. EXTREMITIES: No edema, no erythema seen.
[2021-06-07] MEDS: LIDOCAINE 5% 1 PATCH TD SCH (11:00)
--- NOTE | 2021-06-07 16:54 | Hospitalist Progress Note ---
Date of Service June 07, 2021 Assessment & Plan (1) Post-ERCP acute pancreatitis: (2) Elevated LFTs: (3) Abdominal pain: Plan: 75-year-old female who has significant past medical history of COPD on 2 L of O2 intermittently at home, HLD, hyperparathyroidism, history of paroxysmal SVT, GERD, CKD stage III, neuropathy, chronic back pain, depression with anxiety, history of tobacco abuse who presented to ED secondary to abdominal pain status post ERCP. she was initially managed for the following: Post ERCP acute pancreatitis Elevated LFTs Abdominal pain Ileus SRIDHAR on CKD stage 3, ATN, Anuric Volume Overload Delirium, likely multifactorial Underlying Infection? Acute Renal Failure Psych Meds Tramadol Anesthesia New Onset A fib Patient converted to comfort measures only 06/05, since patient was complaining of frequent belly pain Not controlled with as needed Dilaudid, Dilaudid drip per protocol initiated 06/06. Patient's daughter Dominga : Admission and Anticipated Discharge Date Admission Date: May 24, 2021 Subjective Patient seen and examined at bedside for follow-up of post ERCP acute pancreatitis, ileus, abdominal pain and currently comfort measures status only. Patient was lying in bed, on room air, denies any discomfort or pain. Other ROS n/a due to cognition status. Physical Exam Physical Exam: GENERAL: Alert and oriented x0. NAD, on RA. HEENT: No pallor, no icterus. Pupils equal, round and reactive to light. Oral mucosa dry. NECK: No JVD, no neck masses. HEART: S1 and S2 heard. Regular rate and rhythm. No murmur, no gallop. RESPIRATORY SYSTEM: Normal AP diameter. No accessory muscle use. No wheezing, no crackles. ABDOMEN: Soft, bowel sounds present, nontender, no distention. CENTRAL NERVOUS SYSTEM: No facial droop. Speech is clear. Obeys simple commands. Moves extremities. EXTREMITIES: No edema, no erythema seen.
[2021-06-07] MEDS: LORazepam 2 MG/1 ML VIAL IV PRN (18:13)
[2021-06-08] MEDS: LIDOCAINE 5% 1 PATCH TD SCH (07:22)
--- NOTE | 2021-06-08 11:46 | Palliative Care Progress Note ---
Date of Service June 08, 2021 Assessment & Plan (1) Palliative care encounter: Plan: Patient remains on comfort measures only. She was receiving PRN Dilaudid; however, due to the increased frequency of use, a Dilaudid infusion was initiated. Patient was arousable during my encounter, she did open her eyes, but no meaningful interactions and she was unable to follow commands for me. Life expectancy remains a few days or so. Her daughter is planning to return to [place] on Friday. At this time, comfort measures orders placed and pain medication ordered. Hospitalist and rn field case manager made aware of the above. Palliative will follow. (2) Abdominal pain: Plan: abdominal distention present, likely related to pancreatitis. Patient has decided to forgo further treatment, including HD. Transition to [facility]. on Dilaudid infusion at 1mg/hour. (3) Acute kidney failure: Plan: Last checked creatinine 5.38. 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 Pt was lying in bed in no apparent distress. On Dilaudid infusion. See A/P for further details. Review of Systems Review of Systems: [place] System Assessment Scale: Pain: 1/3 Nausea: 0/3 Lack of Appetite: 1/3 SOB: 1/3 Palliative Performance Scale: 20% Physical Exam Constitutional: + acute distress, + frail appearing and cooperative ENMT: Mouth: + dry oral mucous membranes Respiratory: + uses accessory muscles Auscultation: + diminished lung sounds and + crackles Cardiovascular: Rate/Rhythm: regular rate and regular rhythm Heart Sounds: normal S1 and normal S2 Extremities: + pedal edema Gastrointestinal (Abdomen): Inspection/Auscultation: + abdomen distended and normal bowel sounds Skin: + dry skin and + pallor Psychiatric: Orientation: alert Insight: good insight Judgement: good judgement PG Care Time/CCT Total # of Minutes Spent Total Time Spent with Patient: Total time spent is greater than 50% in coordination of care (as documented) at patient's floor/unit and/or counseling patient: 35 minutes Coding Level of Care Code 73593 Subseq Hosp Care Lvl 3 Diagnoses Palliative care encounter Z51.5 Abdominal pain R10.9 Acute kidney failure N17.9 Time Spent (min) 35
--- NOTE | 2021-06-08 16:56 | Hospitalist Progress Note ---
Date of Service June 08, 2021 Assessment & Plan (1) Post-ERCP acute pancreatitis: (2) Elevated LFTs: (3) Abdominal pain: Plan: 75-year-old female who has significant past medical history of COPD on 2 L of O2 intermittently at home, HLD, hyperparathyroidism, history of paroxysmal SVT, GERD, CKD stage III, neuropathy, chronic back pain, depression with anxiety, history of tobacco abuse who presented to ED secondary to abdominal pain status post ERCP. she was initially managed for the following: Post ERCP acute pancreatitis Elevated LFTs Abdominal pain Ileus SRIDHAR on CKD stage 3, ATN, Anuric Volume Overload Delirium, likely multifactorial Underlying Infection? Acute Renal Failure Psych Meds Tramadol Anesthesia New Onset A fib Patient converted to comfort measures only 06/05, since patient was complaining of frequent belly pain Not controlled with as needed Dilaudid, Dilaudid drip per protocol initiated 06/06. Patient's daughter Dominga : Admission and Anticipated Discharge Date Admission Date: May 24, 2021 Subjective Patient seen and examined at bedside for follow-up of post ERCP acute pancreatitis, ileus, abdominal pain and currently comfort measures status only. Patient was lying in bed, on room air, denies any discomfort or pain. Other ROS n/a due to cognition status. Physical Exam Physical Exam: GENERAL: Alert and oriented x0. NAD, on RA. HEENT: No pallor, no icterus. Pupils equal, round and reactive to light. Oral mucosa dry. NECK: No JVD, no neck masses. HEART: S1 and S2 heard. Regular rate and rhythm. No murmur, no gallop. RESPIRATORY SYSTEM: Normal AP diameter. No accessory muscle use. No wheezing, no crackles. ABDOMEN: Soft, bowel sounds present, tender, no distention. CENTRAL NERVOUS SYSTEM: No facial droop. Speech is clear. Obeys simple commands. Moves extremities. EXTREMITIES: No edema, no erythema seen.
[2021-06-09] MEDS: LORazepam 2 MG/1 ML VIAL IV PRN (05:12)
[2021-06-09] MEDS: LIDOCAINE 5% 1 PATCH TD SCH (10:00)
--- NOTE | 2021-06-09 14:00 | Hospitalist Progress Note ---
Date of Service June 09, 2021 Assessment & Plan (1) Post-ERCP acute pancreatitis: (2) Elevated LFTs: (3) Abdominal pain: Plan: 75-year-old female who has significant past medical history of COPD on 2 L of O2 intermittently at home, HLD, hyperparathyroidism, history of paroxysmal SVT, GERD, CKD stage III, neuropathy, chronic back pain, depression with anxiety, history of tobacco abuse who presented to ED secondary to abdominal pain status post ERCP. she was initially managed for the following: Post ERCP acute pancreatitis Elevated LFTs Abdominal pain Ileus SRIDHAR on CKD stage 3, ATN, Anuric Volume Overload Delirium, likely multifactorial Underlying Infection? Acute Renal Failure Psych Meds Tramadol Anesthesia New Onset A fib Patient converted to comfort measures only 06/05, since patient was complaining of frequent belly pain Not controlled with as needed Dilaudid, Dilaudid drip per protocol initiated 06/06. Patient's daughter Dominga : Admission and Anticipated Discharge Date Admission Date: May 24, 2021 Subjective atient seen and examined at bedside for follow-up of post ERCP acute pancreatitis, ileus, abdominal pain and currently comfort measures status only. Patient was lying in bed, on room air, not opening eyes to name today. ROS n/a due to cognition status Physical Exam Physical Exam: GENERAL: drowsy and oriented x0. NAD, on RA. HEENT: No pallor, no icterus. Pupils equal, round and reactive to light. Oral mucosa dry. NECK: No JVD, no neck masses. HEART: S1 and S2 heard. Regular rate and rhythm. No murmur, no gallop. RESPIRATORY SYSTEM: Normal AP diameter. No accessory muscle use. No wheezing, no crackles. ABDOMEN: Soft, bowel sounds present, facial grimacing noted on deep palpation, no distention. CENTRAL NERVOUS SYSTEM: No facial droop. Speech is clear. Obeys simple commands. Moves extremities. EXTREMITIES: No edema, no erythema seen.
[2021-06-09] MEDS: HYDROmorphone/NSS 100 MG/100 ML BAG IV SCH (16:26)
--- NOTE | 2021-06-09 18:27 | Death Pronouncement Note ---
Date of Service June 09, 2021 Pronouncement Note Admission Date May 24, 2021 Date and Time of Date of : 06/09/21 Time of : 17:55 Preliminary Cause of (1) Acute kidney failure: Additional Comments: Cause of : SRIDHAR over CKD, complicated by her post ERCP acute pancreatitis Summary see discharge summary Additional Data Confirmation of : no pulse, no respirations, no heart sounds and pupils fixed and dilated Pronouncement Performed By: Attending Physician Family: contacted Attending physician: Arnold Quintero MD
--- NOTE | 2021-06-09 18:32 | Discharge Summary ---
Date of Service June 09, 2021 Admission HPI Per Admitting Provider This is a 75-year-old female who has significant past medical history of COPD on 2 L of O2 intermittently at home, HLD, hyperparathyroidism, history of paroxysmal SVT, GERD, CKD stage III, neuropathy, chronic back pain, depression with anxiety, history of tobacco abuse who presents to ED secondary to abdominal pain status post ERCP. Patient underwent ERCP today due to concern for sphincter of Oddi dysfunction/spasm by Dr. Matias. It was a difficult ERCP due to previous Billroth II anatomy/procedure. Failed biliary cannulation despite biliary precut sphincterotomy. It is recommended to schedule a repeat E [employer]PER to attempt EUS guided rendezvous biliary access. Postprocedure patient complained of abdominal pain and there was concern of post ERCP pancreatitis and therefore she was referred to ED. of significance patient did have a gastrectomy with gastrojejunostomy approximately 20 years ago secondary to history of peptic ulcer disease. She admits approximately for the past 4 months she has been experiencing epigastric abdominal pain that has been radiating to her back. The pain comes and goes and she cannot pinpoint anything that makes it better or worse. Overall feels her appetite is decreased but denies any significant weight gain or loss. She feels she is drinking liquids well. Deudrhsn-[id number] at bedside is also concerned as her symptoms of been ongoing for the past 4 months and is not convinced it is related to procedure. Patient denies recent fever, chills, sweats, lightheadedness, dizziness, chest pain, shortness breath at rest, dysuria, increased urgency or frequency with urination, melena or hematochezia. She tends to be more on the constipated side but her last bowel movement was 1 day ago. She does have chronic shortness of breath in setting of COPD and uses oxygen intermittently at home when she needs it. She also complains of a wet but nonproductive cough. She has been using her Trelegy daily and has not been needing her rescue or nebulizer treatments. In ED patient remained hemodynamically stable. Her lab work was significant for elevated lipase at 246, AST 291, ALT 161, alk phos 260, glucose 180 and creatinine at 1.23. Her CBC was generally unremarkable. CT a/p revealed Interval development of extensive stranding and fluid within the right upper quadrant, adjacent to the pancreatic head and within the operative bed status post distal gastrectomy with Billroth II. A few locules of possible extraluminal gas which raise the possibility of a contained perforation. Depending on the recent procedure, this trace extraluminal gas may not be unexpected. Acute pancreatitis is also within the differential and could be correlated with serum lipase level. Chest x-ray was without acute abnormality. ED provider contacted GI provider who performed procedure and recommended n.p.o., IV fluids and IV Zosyn. Also of note patient has been recently which has been contributing to increased depression with anxiety. Admission Exam Per Admitting Provider Constitutional: WD/WN, elderly, F, vitals as above, NAD, sitting up in bed, pleasant, conversing easily Head: Normocephalic, Atraumatic Eyes: PERRL, conjunctivae normal, anicteric sclerae ENMT: external ear and nose normal, oropharynx normal Neck: trachea midline, no thyromegaly normal visual inspection Respiratory: normal respiratory effort, lungs clear to auscultation with LLL crackles, no wheeze/rhonchi. Normal insp/exp effort, no accessory muscle use Cardiovascular: RRR, no murmur, no edema Vessels: no JVD or carotid bruit Chest: normal inspection of chest Abdomen: normal bowel sounds, soft, +pain in RUQ and epigastrum, no rebound/guarding, rigidity, Musculoskeletal: no cyanosis or clubbing, extremities motor strength 5/5 Skin: no rashes, warm and dry normal turgor Neurologic: PERRL, EOMI, accommodation nl, no face palsy, no dysarthria CN's II-XI intact bilaterally and moves all extremities Psychiatric: A+Ox3, flat affect Lymphatic: no cervical or axillary lymphadenopathy : deferred Principal Diagnosis SRIDHAR over CKD Post ERCP acute pancreatitis Discharge Exam unresponsive, pupils fixed and dilated no pupillary reflex no pulse, no respiratory no heart sounds Discharge Data Allergies Allergy/AdvReac Type Severity Reaction Status Date / Time codeine Allergy Mild Vomiting Verified 05/23/21 16:37 mirtazapine Allergy Unknown Unknown Verified 05/23/21 16:35 Consultations 05/23/21 17:41 ED Decision to Admit Stat 05/23/21 17:48 Consult Gastroenterology Routine 05/25/21 10:24 Consult Nephrology Routine 05/28/21 10:08 Consult Vascular Surgery Routine 05/28/21 23:45 Consult Cardiology Routine 05/29/21 14:39 Consult Neurology Routine 05/29/21 17:51 Consult Psychiatry Routine 05/30/21 08:46 Consult Infectious Diseases Routine 06/05/21 08:13 Consult Palliative Care Routine Procedures Performed Operation Date: 05/25/21 07:10 Actual Procedures p Endoscopic Retrograde Cholangiopancreatogram, - Andra Matias MD s Endoscopic Ultrasound - Andra Matias MD Operation Date: 05/28/21 12:15 Actual Procedures p Temporary Femoral Dialysis Catheter Insertion(Right) - Pietro Garvey MD Operation Date: 05/29/21 14:25 <No data on this case meets the specified criteria> Ordered Studies 05/23/21 16:01 CT abd pelvis wo con Stat 05/25/21 [place] ERCP biliary ductal Routine 05/25/21 10:23 US renal/blad retro comp Routine 05/25/21 13:55 US upper EUS PACS images Routine 05/26/21 11:37 US abdomen ltd ascites Urgent 05/28/21 10:49 CT abd pelvis wo con Routine 05/28/21 10:59 EV cvc insert non tunnel Routine 05/29/21 14:39 CT head/brain wo con Routine 05/30/21 US abdomen ltd ascites Routine 06/02/21 08:20 CT abd pelvis wo con Urgent CT chest diagnostic wo con Urgent Hospital Course (1) Acute kidney failure: 75-year-old female who has significant past medical history of COPD on 2 L of O2 intermittently at home, HLD, hyperparathyroidism, history of paroxysmal SVT, GERD, CKD stage III, neuropathy, chronic back pain, depression with anxiety, history of tobacco abuse who presented to ED secondary to abdominal pain status post ERCP. she was initially managed for the following: Post ERCP acute pancreatitis Elevated LFTs Abdominal pain Ileus SRIDHAR on CKD stage 3, ATN, Anuric Volume Overload Delirium, likely multifactorial Underlying Infection? Acute Renal Failure Psych Meds Tramadol Anesthesia New Onset A fib Patient transitioned to comfort care measures only 06/05, Patient passed 06/09/21 at 17:55 hours. The cause of being Acute kidney failure on Chronic kidney disease Stage III complicated by post ERCP acute pancreatitis. Patient's daughter Dominga : was called and notified of the incident. Total Time Total Time Spent Total Time Spent (In Minutes): 35 Discharge Plan Discharge Items Reason For Visit: POST ERCP PANCREATITIS Condition on Discharge: Fair Follow-up/Referrals: Sugar Malone MD [Primary Care Provider] - Medications and DC Order Prescriptions: No Action atorvastatin [Lipitor] 20 mg Tablet 10 mg PO QAM RF: 0 ipratropium-albuterol 0.5 mg-3 mg(2.5 mg base)/3 mL solution for nebulization 1 vial inhalation Q6H PRN (Reason: Wheezing) RF: 0 cyanocobalamin (vitamin B-12) [Vitamin B-12] 1,000 mcg Tablet 1,000 mcg PO QAM RF: 0 albuterol sulfate [Ventolin HFA] 90 mcg/actuation Hfa Aerosol Inhaler 1 puff INHALATION Q6H PRN (Reason: Shortness Of Breath) RF: 0 cholecalciferol (vitamin D3) [Vitamin D3] 1,000 unit Capsule 1,000 unit PO QAM RF: 0 ropinirole 1 mg tablet 1 mg PO HS RF: 0 sucralfate 1 gram tablet 1 g PO QID RF: 0 tramadol 50 mg tablet 50 mg PO TID PRN (Reason: Pain) RF: 0 buspirone 10 mg tablet 10 mg PO TID RF: 0 cetirizine [Allergy Relief (cetirizine)] 10 mg tablet 5 mg PO DAILY RF: 0 docusate sodium 100 mg Capsule 100 mg PO BID RF: 0 hydroxyzine HCl 25 mg tablet 25 mg PO QID PRN (Reason: Itching) RF: 0 oxybutynin chloride 10 mg tablet extended release 24hr 10 mg PO QAM RF: 0 ondansetron 4 mg tablet,disintegrating 4 mg PO UD PRN (Reason: Nausea) RF: 0 diphenhydramine HCl [Diphenhist] 25 mg capsule 25 mg PO QID PRN (Reason: Itching) RF: 0 diazepam [Valium] 2 mg tablet 2 mg PO QAM RF: 0 pantoprazole [Protonix] 40 mg tablet,delayed release (DR/EC) 40 mg PO DAILYBB RF: 0 duloxetine [Cymbalta] 60 mg capsule,delayed release(DR/EC) 60 mg PO QAM RF: 0 Trelegy Ellipta 100-62.5-25 mcg blister with device 1 inh INHALATION QAM RF: 0 Admission Data Admit Date/Time: 05/24/21 18:57 Attending Provider: Arnold Quintero Admit Provider: Yuan Acevedo Primary Care Provider: Sugar Malone Other Providers: Yuan Acevedo ; Andra Matias ; Pietro Garvey ; Boby Quinones ; Wai Pugh ; Jefferson Siegel ; Sixto Slaughter ; Adi Ann ; Andrea Shirley ; Aileen Fung ; Yessi Rivera ; Naye Maradiaga ; Chad Barker ; Yessi Morocho ; Almaz Jerez ; Maribell Ruiz ; Zunilda Grady ; [place] ; [place] ; Farshad Galdamez I. ; Duane Osuna II ; Leigha Mims ; Andrea Hoyos ; Kody Trammell ; Farzaneh Quinones
== END 2021-06-09 20:45 | disposition expired | DRG 393 ==
LOC: 3W 15:25 → ED 15:25 → 3W 20:52 → SUATTDRO 05-24 18:57 → 2S 05-26 13:14 → 3E 06-05 21:27